=== PATIENT | male | born 1950 | race Caucasian/White ===

== ENCOUNTER → 2017-02-14 | Outpatient (CLI) | payer OTHER ==
--- NOTE | 2017-02-15 14:03 | P.ARTDOP ---
Arterial Doppler LOWER EXTREMITY ARTERIAL DOPPLER: DATE OF SERVICE: 02/14/2017 Reason for study: Leg pain more left than right. Doppler waveforms: Multiphasic bilaterally throughout. Pulse volume recording: Normal configuration. Pressure gradients: None. Ankle-brachial indices: Greater than 1 bilaterally. Toe pressures: 99 on the right, 101 on the left Impression: Normal study.
== END | disposition home or self-care (01) ==
LOC: RADUSWWP 12:17
PROVIDERS: ATTEND Family Medicine
DX: I73.9 Peripheral vascular disease, unspecified (principal)
CPT/HCPCS: 93923

== ENCOUNTER 2017-03-07 07:36 | Day surgery (SDC) | payer OTHER ==
[2017-03-07] MEDS ORDERED: LACTATED RINGERS 1,000 ML IV ONE (07:58)
[2017-03-07 08:03] VITALS: RESP 16; TEMP 96.8
[2017-03-07 08:07] LABS: Glucose,Whole Blood 86 mg/dL (75-99)
[2017-03-07] MEDS ORDERED: MIDAZOLAM 2 MG/2 ML VIAL IVP ONE (08:12)
[2017-03-07] MEDS ORDERED: LIDOCAINE 1% INJ 10MG/ML (20 ML MDV) ONE (08:40)
[2017-03-07] MEDS ORDERED: PROPOFOL 10 MG/ML 20 ML VIAL IV ONE (08:40)
[2017-03-07] MEDS ORDERED: fentaNYL (PF) 50 MCG/ML 2 ML AMP ONE (08:40)
[2017-03-07 09:10] VITALS: PULSE 62
--- NOTE | 2017-03-07 09:18 | P.PCN ---
Date of Procedure: 03/07/17 Procedure(s) Performed: Procedure: Esophagogastroduodenoscopy and biopsy. Preoperative diagnosis: Chronic reflux and dysphagia. Postoperative diagnosis: 1. Small sliding hiatal hernia with no obvious esophagitis or complicated reflux disease. 2. Mild gastritis and duodenitis. 3. Multiple biopsies obtained from the duodenum, antrum and esophagus. Preparation and sedation were provided by anesthesia. Brief clinical history: The patient is a 66-year-old male who I have evaluated in the office in regards to chronic reflux symptoms and dysphagia. This evaluation is to assess for esophagitis, complicated reflux disease or other pathology Procedure: With the patient on his left lateral decubitus position and after informed consent and adequate sedation, I passed the Olympus-GIF 160 video upper endoscope through the cricopharyngeus down the esophagus. GE junction was around 42-43 cm from the incisors and there was a very small sliding hiatal hernia. The esophagus did not show any obvious erosions or ulcers. There were no strictures or Vanegas's esophagus. The endoscope was then passed into the stomach which was insufflated with air and inspected in detail including the retroflex view in the cardia. There was mottling and erythema and few erosions in the antrum but no large ulcers or bleeding. No pyloric channel obstruction or ulcers. Duodenal bulb post bulbar area and descending duodenum showed some erythema. I obtained biopsies from the duodenum, antrum and esophagus then the endoscope was withdrawn. The patient tolerated the procedure well. Plan: The patient was reassured. Will await biopsy results and make further plans based on his course and biopsy results. I will keep you updated on his progress.
[2017-03-07 09:27] VITALS: BP 121/79
== END 2017-03-07 09:40 | disposition home or self-care (01) ==
LOC: ORWHC2ENDO 07:36
DX: K29.50 Unspecified chronic gastritis without bleeding (principal); K21.0 Gastro-esophageal reflux disease with esophagitis; K44.9 Diaphragmatic hernia without obstruction or gangrene; K29.80 Duodenitis without bleeding; I25.10 Atherosclerotic heart disease of native coronary artery without angina pectoris; I10 Essential (primary) hypertension; J44.9 Chronic obstructive pulmonary disease, unspecified; Z87.891 Personal history of nicotine dependence; G47.33 Obstructive sleep apnea (adult) (pediatric); E11.40 Type 2 diabetes mellitus with diabetic neuropathy, unspecified; Z79.84 Long term (current) use of oral hypoglycemic drugs; Z79.82 Long term (current) use of aspirin; Z79.899 Other long term (current) drug therapy
CPT/HCPCS: 88305; 88342; 43239; J2250; J2001; J3010; J2704

== ENCOUNTER → 2017-10-26 | Outpatient (CLI) | payer OTHER ==
--- NOTE | 2017-10-26 15:23 | NM ---
EXAMINATION TYPE: NM DatScan Brain SPECT DATE OF EXAM: 10/26/2017 COMPARISON: MR brain 08/11/2016 HISTORY: Tremors, G 25.0 TECHNIQUE: 10 drops of Lugol's solution was administered 1 hour prior to injection as a thyroid bloc ania agent. After the administration of 4.46 mCi I-123 Ioflupane DaTscan. Images obtained 3 hours p ost injection. SPECT images of the brain were acquired with axial and coronal reconstructions. FINDINGS: Normal striatonigral uptake is identified. There is a symmetric appearance of radiopharmaceutical upt [place]. IMPRESSION: Normal Go scan.
== END ==
LOC: RADNMMAIN 09:39
PROVIDERS: ATTEND Psychiatry & Neurology Neurology
DX: G25.0 Essential tremor (principal)
CPT/HCPCS: 78607; A9584

== ENCOUNTER → 2017-11-02 | Outpatient (CLI) | payer OTHER ==
[2017-11-02 10:06] LABS: Blood Urea Nitrogen 28 mg/dL (9-20)
--- NOTE | 2017-11-02 12:26 | MR ---
EXAMINATION TYPE: MR cspine/lspine wo con DATE OF EXAM: 11/02/2017 COMPARISON: NONE HISTORY: 67-year-old male Headaches, Neck pain, stiffness, low back pain, tremors TECHNIQUE: Multiplanar, multisequence images of the cervical followed by the lumbar spine were obtain ed without IV contrast. FINDINGS: CERVICAL SPINE: The craniocervical junction abnormality, predental space widening, or prevertebral soft tissue swelli ng. Degenerative grade 1 retrolisthesis at C4-C5 and C5-C6. The intervertebral discs are degenerated, desiccated, and narrowed especially at C4-C7 levels with di sc osteophyte complexes. Additional ligamentum flavum thickening with facet and uncovertebral joint arthropathy. Mild heterogeneity of marrow signal without suspicious bone marrow replacement. Prominent motion artifacts are present limiting assessment for cord signal abnormality. At C2-C3, mild facet arthropathy without significant canal or foraminal stenosis. At C3-C4, there is disc osteophyte complex with uncovertebral joint and facet degenerative change. Ch anges result in mild neuroforaminal stenoses with mild to moderate spinal canal stenosis. There is ab utment and slight flattening of both the dorsal and ventral cord. At C4-C5, larger disc osteophyte complex with ligamentum flavum thickening and facet/uncovertebral fox int degenerative change. Changes result in moderate spinal canal stenosis with impression onto onto b oth the dorsal and ventral cord changes result in moderate to severe left greater than right neurofor aminal stenosis. At C5-C6, similar changes are present but with mild to moderate spinal canal stenosis. Abutment and f lattening of both the dorsal and ventral cord. There is severe right and moderate left neuroforaminal stenosis. At C6-C7, disc osteophyte complex with facet and uncovertebral joint arthropathy. Changes result in m oderate to severe right and moderate left neuroforaminal stenosis. There is mild narrowing of the spi nal canal with ventral abutment of the cervical cord from disc osteophyte complex. At C7-T1, facet arthropathy without significant canal or foraminal stenosis. No prevertebral or paravertebral soft tissue abnormality seen. LUMBAR SPINE: There is chronic vertebral compression deformity of L1 vertebral body with anterior wedging. There se ems to be some chronic interbody ankylosis anteriorly at T12-L1. Accentuated kyphosis this level. Remaining vertebral body heights are maintained. Some heterogeneity of marrow signal without suspicio us bone marrow replacement. Facet arthropathy mid to lower lumbar spine with grade 1 anterolisthesis at L5-S1. Variable mild disc desiccation throughout and bulging discs. Conus medullaris is normal. At T12-L1, minimal inferior neuroforaminal narrowing on the right. No spinal canal stenosis. At L1-L2, minimal bulging disc. No canal or foraminal stenosis. At L2-L3, no spinal canal or foraminal stenosis. At L3-L4, some prominent dorsal epidural fat and ligamentum flavum thickening. Mild attenuation of th e thecal sac without significant spinal canal stenosis. No significant neuroforaminal stenosis. At L4-L5, there is mild ligamentum flavum thickening, mild facet arthropathy, and mild bulging disc. Changes result in no significant spinal canal or neuroforaminal stenosis. At L5-S1, hypertrophic facet arthropathy with grade 1 anterolisthesis and minimal bulging disc. Barnett es result in moderate right and minimal left neuroforaminal narrowing. No spinal canal stenosis. Partially visualized cyst within the right kidney. There is also aneurysm of the upper abdominal aort a at 3.4 cm. Otherwise, no prevertebral or paravertebral soft tissue abnormality seen. COMBINED IMPRESSION: CERVICAL SPINE: 1. Moderate to advanced multilevel spondylotic change especially from C4 through C7 levels with grade 1 retrolistheses at C4-C5 and C5-C6. 2. Changes result in moderate spinal canal stenosis at C4-C5 with impression on both the dorsal and v entral cord. Mild to moderate spinal canal stenoses at both C3-C4 and C5-C6, mild at C6-C7. 3. Variable neuroforaminal stenoses as outlined above, moderate to severe left greater than right at C4-C5; severe right and moderate left at C5-C6; and moderate to severe right and moderate left at C6- C7. 4. Prominent motion artifacts limit assessment for any cord signal abnormality. Clinical correlation will be needed for any myelopathic symptoms. LUMBAR SPINE: 1. Mild multilevel degenerative disc disease. Hypertrophic facet arthropathy especially at L5-S1 resu lting in a grade 1 anterolisthesis. 2. At L5-S1, this results in moderate right and minimal left neuroforaminal narrowing. No spinal ada l stenosis. 3. Chronic vertebral compression deformity of L1. No significant retropulsion into the spinal canal t abbie there is accentuated upper lumbar kyphosis as a result. 4. No canal compromise. 5. Incidental: 3.4 cm aneurysm of the upper abdominal aorta.
--- NOTE | 2017-11-02 12:37 | MR ---
EXAMINATION TYPE: MR brain wo/w con DATE OF EXAM: 11/02/2017 COMPARISON: 08/11/2016 HISTORY: 67-year-old male Headaches, Tremors, history of pituitary surgery TECHNIQUE: Multiplanar, multisequence images of the brain and brainstem were acquired before and aft er administration of 10 mL IV Gadavist. Diffusion weighted imaging is performed. FINDINGS: No evidence for acute infarction, hemorrhage, mass, mass effect, midline shift, herniation, effacemen t of basal cisterns, or extra-axial fluid collection. There is mild generalized supratentorial volume loss. No hydrocephalus. Major intracranial flow voids are intact. There is mild fusiform dilatation at the basilar artery ter mination of 4.6 mm which is unchanged. T2/FLAIR weighted sequences show a couple stable tiny bright signal foci in the subcortical regions p robably minimal burden of chronic small vessel ischemic disease. Midline structures demonstrate normal morphology. The craniocervical junction is normal. Post contrast images demonstrate no evidence of pathologic enhancement. Dural venous sinuses are pat ent. Moderate mucosal thickening within the ethmoid air cells and partial opacification of the left mastoi d air cells. Moderate mucosal thickening right maxillary sinus. Globes are intact with prior cataract surgery. IMPRESSION: 1. Similar mild atrophy. No acute intracranial abnormality seen. The couple tiny subcortical bright w magali matter foci are unchanged and likely relate to minimal burden of chronic small vessel ischemic d isease. 2. 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 In retrospect , this is stable from 08/11/2016. 3. Moderate chronic paranasal sinus disease, worsened from prior exam. 4. Persistent trapped fluid in the left mastoid air cells. Correlate for any mastoid pain to exclude mastoiditis.
== END | disposition home or self-care (01) ==
LOC: RADMRIMAIN 09:16
PROVIDERS: ATTEND Psychiatry & Neurology Neurology
DX: M51.36 Other intervertebral disc degeneration, lumbar region (principal); M43.16 Spondylolisthesis, lumbar region; M46.97 Unspecified inflammatory spondylopathy, lumbosacral region; M99.73 Connective tissue and disc stenosis of intervertebral foramina of lumbar region; M47.812 Spondylosis without myelopathy or radiculopathy, cervical region; M43.12 Spondylolisthesis, cervical region; M48.02 Spinal stenosis, cervical region; M99.71 Connective tissue and disc stenosis of intervertebral foramina of cervical region; G31.9 Degenerative disease of nervous system, unspecified; R93.0 Abnormal findings on diagnostic imaging of skull and head, not elsewhere classified; G25.0 Essential tremor
CPT/HCPCS: 82565; 84520; 70553; 72141; 72148; 36415; A9581

== ENCOUNTER → 2017-11-23 | Outpatient (CLI) | payer OTHER | END | disposition home or self-care (01) | LOC: LABWHC1 11:46 | PROVIDERS: ATTEND Nurse Practitioner Acute Care | DX: R13.10 Dysphagia, unspecified (principal) | CPT/HCPCS: 36415; 83519; 86255 ==

== ENCOUNTER 2018-02-13 08:05 | Day surgery (SDC) | payer OTHER ==
[2018-02-09 16:29] VITALS: BMI 37.5
[~2018-02-13 08:05] MED LIST: LACTATED RINGERS 1,000 ML IV SCH; LIDOCAINE 1% 20 ML VIAL (10MG/ML) FOR IV START INTRADERMA PRN; MIDAZOLAM 2 MG/2 ML VIAL IV PRN
[2018-02-13 08:54] LABS: Glucose,Whole Blood 91 mg/dL (75-99)
[2018-02-13] MEDS ORDERED: PROPOFOL 10 MG/ML 20 ML VIAL IV ONE (09:37)
[2018-02-13 10:08] VITALS: RESP 16
[2018-02-13 10:24] VITALS: BP 103/62; PULSE 77
--- NOTE | 2018-02-13 10:57 | P.PCN ---
Date of Procedure: 02/13/18 Procedure(s) Performed: Procedure: Total colonoscopy. Preoperative diagnosis: Screening for neoplasia, patient has history of polyps. Postoperative diagnosis: Sigmoid diverticulosis with no evidence of acute diverticulitis, strictures, polyps or cancer. Preparation: HalfLytely prep. Sedation: Was provided by anesthesia. Brief clinical history: The patient is a 67-year-old male who is referred for this evaluation for screening for neoplasia because of history of polyps. The patient has no abdominal complaints, bleeding or anemia. Procedure: With the patient on his left lateral decubitus position and after informed consent and adequate sedation, the perianal area was inspected and it did not show any fissures or fistulas. There were no masses felt on digital rectal examination. The Olympus CFQ 160L colonoscope was then inserted in the rectum in the usual fashion and advanced to the cecum. Unfortunately, the preparation was less than ideal, and I spent significant amount of time lavaging the bowel wall. After concluding the cleansing, I believe we had a good look all the way to the cecum. The mucosa appeared healthy. Multiple diverticular orifices were seen scattered in the sigmoid, but I saw no evidence of acute diverticulitis or strictures. No polyps or tumors were seen. I retroflexed the endoscope in the rectum before the endoscope was withdrawn. The patient tolerated the procedure well. Plan: The patient was reassured. Discussed dietary measures. He will follow up with you as planned and I recommended repeat exam in 5 years.
== END 2018-02-13 10:53 | disposition home or self-care (01) ==
LOC: ORWHC2ENDO 08:05
DX: Z12.11 Encounter for screening for malignant neoplasm of colon (principal); K57.30 Diverticulosis of large intestine without perforation or abscess without bleeding; Z86.010 Personal history of colon polyps; K21.9 Gastro-esophageal reflux disease without esophagitis; I25.10 Atherosclerotic heart disease of native coronary artery without angina pectoris; I10 Essential (primary) hypertension; E11.9 Type 2 diabetes mellitus without complications; Z79.84 Long term (current) use of oral hypoglycemic drugs; J44.9 Chronic obstructive pulmonary disease, unspecified; Z99.81 Dependence on supplemental oxygen; E78.5 Hyperlipidemia, unspecified; M19.90 Unspecified osteoarthritis, unspecified site; G47.33 Obstructive sleep apnea (adult) (pediatric); Z86.711 Personal history of pulmonary embolism; E07.9 Disorder of thyroid, unspecified; Z79.890 Hormone replacement therapy; Z79.899 Other long term (current) drug therapy
CPT/HCPCS: J2704; G0105; 45378

== ENCOUNTER 2019-01-25 19:57 | Inpatient (IN) | payer OTHER, MEDICARE ==
[2019-01-25] MEDS ORDERED: methylPREDNISolone SOD SUCCI 125 MG/2 ML VIAL IV STA (20:16)
[2019-01-25] MEDS ORDERED: SODIUM CHLORIDE 0.9% 500 ML 500 ML IV STA (20:16)
[2019-01-25] MEDS ORDERED: IPRATROPIUM-ALBUTEROL 3 ML NEB INHALATION STA (20:17)
[2019-01-25] MEDS ORDERED: ALBUTEROL NEBULIZED 2.5 MG/3 ML INHALATION STA (20:17)
[2019-01-25 20:35] LABS: Basophils % (A) 0 %; Eosinophils # (A) 0.2 k/uL (0-0.7); Eosinophils % (A) 4 %; HCT 38.7 % (39.0-53.0); HGB 12.2 gm/dL (13.0-17.5); Lymphocytes # (A) 0.6 k/uL (1.0-4.8); Lymphocytes % (A) 12 %; MCH 29.7 pg (25.0-35.0); MCHC 31.5 g/dL (31.0-37.0); MCV 94.4 fL (80.0-100.0); Mean Platelet Volume 7.6; Monocytes # (A) 0.3 k/uL (0-1.0); Monocytes % (A) 6 %; Neutrophils % (A) 75 %; Platelet Count 138 k/uL (150-450); RDW 13.4 % (11.5-15.5); WBC 5.3 k/uL (3.8-10.6)
[2019-01-25 20:45] LABS: Albumin 3.9 g/dL (3.5-5.0); Calcium 10.2 mg/dL (8.4-10.2); Total Bilirubin 1.1 mg/dL (0.2-1.3)
[2019-01-25 20:46] LABS: Magnesium 1.6 mg/dL (1.6-2.3); Potassium 5.3 mmol/L (3.5-5.1)
--- NOTE | 2019-01-25 20:49 | ED ---
General Adult HPI - General Chief complaint: Fall Stated complaint: weakness/falls Time Seen by Provider: 01/25/19 19:59 Source: patient, EMS, RN notes reviewed, old records reviewed Mode of arrival: EMS Limitations: physical limitation - History of Present Illness Initial comments: 68-year-old male presents for evaluation of generalized weakness, increased falls. Patient has history of COPD, currently on 5 L home oxygen. He's had increased generalized weakness over the past several days. Patient denies increase in cough. Denies fever or chills. Denies chest pain. Denies abdominal pain. Denies any real specific pain complaint status post fall. Just states that his legs gave out secondary to increased weakness. Denies focal numbness or weakness. Denies vision changes. Denies headache. - Related Data Home Medications Medication Instructions Recorded Confirmed Alendronate Sodium [Fosamax] 70 mg PO MO 03/03/17 01/25/19 Aspirin 325 mg PO DAILY 03/03/17 01/25/19 Atorvastatin [Lipitor] 80 mg PO 03/03/17 01/25/19 Cholecalciferol [Vitamin D3] 2,000 unit PO 03/03/17 01/25/19 Gabapentin 900 mg PO TID 03/03/17 01/25/19 Levothyroxine Sodium [Synthroid] 100 mcg PO QAM 03/03/17 01/25/19 Lisinopril-Hctz 10-12.5 mg 1 tab PO QAM 03/03/17 01/25/19 [Zestoretic 10-12.5] Loratadine 10 mg PO DAILY 03/03/17 01/25/19 Metoprolol Tartrate 25 mg PO BID 03/03/17 01/25/19 Naproxen 500 mg PO BID 03/03/17 01/25/19 Pantoprazole [Protonix] 40 mg PO 03/03/17 01/25/19 glipiZIDE [Glucotrol] 2.5 mg PO 03/03/17 01/25/19 Calcium 500mg 2,000 mg PO DAILY 01/25/19 01/25/19 Sennosides-Docusate Sodium 2 tab PO BID 01/25/19 01/25/19 [Senokot-S] Tamsulosin [Flomax] 0.4 mg PO 01/25/19 01/25/19 Allergies Allergy/AdvReac Type Severity Reaction Status Date / Time No Known Allergies Allergy Verified 01/25/19 20:45 Review of Systems ROS Statement: Those systems with pertinent positive or pertinent negative responses have been documented in the HPI. ROS Other: All systems not noted in ROS Statement are negative. Past Medical History Past Medical History: Coronary Artery Disease (CAD), COPD, Diabetes Mellitus, Eye Disorder, GERD/Reflux, Hearing Disorder / Deafness, Hyperlipidemia, Hypertension, Osteoarthritis (OA), Pulmonary Embolus (PE), Sleep Apnea/CPAP/BIPAP Additional Past Medical History / Comment(s): O2 5L. PE IN 2007. CHRONIC BACK PAIN. DIABETIC NEUROPATHY IN FEET. GLAUCOMA. TREMORS. OSTEOPOROSIS. CPAP ORDERED BUT DOESN'T USE. HX POLYPS History of Any Multi-Drug Resistant Organisms: None Reported Past Surgical History: Appendectomy, Cholecystectomy, Hernia Repair, Orthopedic Surgery Additional Past Surgical History / Comment(s): BILATERAL KNEE REPLACEMENT, PLUS RIGHT KNEE DONE AGAIN; RIGHT ROTATOR CUFF. PITUITARY TUMOR REMOVED. BILATERAL CATARACTS. SINUS. GLAUCOMA SURGERY. EYE LID SURGERY. Additional Past Anesthesia/Blood Transfusion Reaction / Comment(s): QUESTIONABLE THAT VERSED MAY OVERLY SEDATE. Past Psychological History: No Psychological Hx Reported Smoking Status: Former smoker Past Alcohol Use History: None Reported Past Drug Use History: None Reported - Past Family History Mother Family Medical History: Cancer Additional Family Medical History / Comment(s): LUNG General Exam Limitations: physical limitation General appearance: alert, in no apparent distress Head exam: Present: atraumatic, normocephalic Eye exam: Present: normal appearance, PERRL ENT exam: Present: normal exam Neck exam: Present: normal inspection. Absent: tenderness, meningismus Respiratory exam: Present: decreased breath sounds, prolonged expiratory. Absent: respiratory distress Cardiovascular Exam: Present: regular rate, normal rhythm GI/Abdominal exam: Present: soft, distended. Absent: tenderness, guarding Extremities exam: Present: normal inspection, normal capillary refill, pedal edema. Absent: calf tenderness Neurological exam: Present: alert, oriented X3, CN II-XII intact. Absent: motor sensory deficit Psychiatric exam: Present: normal affect, normal mood Skin exam: Present: warm, dry, intact. Absent: cyanosis, diaphoretic Course Vital Signs 01/25/19 01/25/19 01/25/19 19:59 20:34 20:49 Temperature 97.7 F Pulse Rate 92 86 90 Respiratory 18 18 18 Rate Blood Pressure 134/96 O2 Sat by Pulse 82 L Oximetry EKG Findings - EKG Comments: EKG Findings:: EKG: Normal sinus rhythm, ventricular rate of 89, IL interval 190, QRS duration 92, QTC 428, no ST segment elevation Medical Decision Making - Medical Decision Making 68 -year-old male presenting for evaluation of generalized weakness, multiple falls, dyspnea. Patient is home oxygen dependent, currently on 5 L. He states his been using 6 L recently. Patient's given albuterol, Atrovent, steroids and IV fluids in the emergency department. Workup reveals a CBC unremarkable, CMP does show mild hyperkalemia 5.3, otherwise unremarkable. Urinalysis is pending. Chest x-ray negative for focal pneumonia. X-ray of the pelvis is obtained given the increased family history this is negative for fracture dislocation. Patient will be admitted for further evaluation treatment. Diagnosis: COPD exacerbation with hypoxia, generalized weakness, multiple falls. - Lab Data Result diagrams: 01/25/19 20:15 01/25/19 20:15 Lab Results 01/25/19 01/25/19 01/25/19 Range/Units 20:15 20:15 20:15 WBC 5.3 (3.8-10.6) k/uL RBC 4.10 L (4.30-5.90) m/uL Hgb 12.2 L (13.0-17.5) gm/dL Hct 38.7 L (39.0-53.0) % MCV 94.4 (80.0-100.0) fL MCH 29.7 (25.0-35.0) pg MCHC 31.5 (31.0-37.0) g/dL RDW 13.4 (11.5-15.5) % Plt Count 138 L (150-450) k/uL Neutrophils % 75 % Lymphocytes % 12 % Monocytes % 6 % Eosinophils % 4 % Basophils % 0 % Neutrophils # 4.0 (1.3-7.7) k/uL Lymphocytes # 0.6 L (1.0-4.8) k/uL Monocytes # 0.3 (0-1.0) k/uL Eosinophils # 0.2 (0-0.7) k/uL Basophils # 0.0 (0-0.2) k/uL Sodium 143 (137-145) mmol/L Potassium 5.3 H (3.5-5.1) mmol/L Chloride 99 (98-107) mmol/L Carbon Dioxide 40 H (22-30) mmol/L Anion Gap 4 mmol/L BUN 35 H (9-20) mg/dL Creatinine 1.00 (0.66-1.25) mg/dL Est GFR (CKD-EPI)AfAm 88 (>60 ml/min/1.73 sqM) Est GFR (CKD-EPI)NonAf 76 (>60 ml/min/1.73 sqM) Glucose 81 (74-99) mg/dL Calcium 10.2 (8.4-10.2) mg/dL Magnesium 1.6 (1.6-2.3) mg/dL Total Bilirubin 1.1 (0.2-1.3) mg/dL AST 34 (17-59) U/L ALT 23 (21-72) U/L Alkaline Phosphatase 66 (38-126) U/L Troponin I <0.012 (0.000-0.034) ng/mL Total Protein 7.0 (6.3-8.2) g/dL Albumin 3.9 (3.5-5.0) g/dL Disposition Clinical Impression: Fall, COPD exacerbation, Generalized weakness Disposition: ADMITTED IP TO THIS HOSP Condition: Stable Is patient prescribed a controlled substance at d/c from ED?: No Referrals: [facility],Clinic [Primary Care Provider] - 1-2 days Decision to Admit Reason: Admit from EC Decision Date: 01/25/19 Decision Time: 22:35
--- NOTE | 2019-01-25 21:13 | XR ---
EXAMINATION TYPE: XR pelvis AP view DATE OF EXAM: 01/25/2019 COMPARISON: NONE HISTORY: Weakness. Fall. TECHNIQUE: 2 views FINDINGS: Pelvic ring appears intact. Sacroiliac joints appear normal. Proximal femurs and hip joints are intact. Hip joint spaces are fairly normal. IMPRESSION: Negative pelvis exam. No fracture seen.
--- NOTE | 2019-01-25 21:14 | XR ---
EXAMINATION TYPE: XR chest 2V DATE OF EXAM: 01/25/2019 COMPARISON: NONE HISTORY: Short of breath TECHNIQUE: Frontal and lateral views of the chest are obtained. FINDINGS: There is coarsening of the lung markings. Heart is enlarged. There is no gross heart failu re. There is no pleural effusion. There are chest leads. Bony thorax appears intact. IMPRESSION: Cardiomegaly. Pulmonary fibrotic changes. No gross heart failure.
[2019-01-25] MEDS ORDERED: MORPHINE SULFATE 4 MG/ML SYRINGE IVP STA (21:48)
[2019-01-25] MEDS ORDERED: MAGNESIUM SULFATE-D5W PMX 1 GM in DEXTROSE/WATER 1 100ML.BAG IVPB ONE (22:30)
[2019-01-25] MEDS ORDERED: IPRATROPIUM-ALBUTEROL 3 ML NEB INHALATION PRN (22:31)
[2019-01-25] MEDS: SODIUM CHLORIDE 0.9% 1,000 ML IV SCH (22:43)
[2019-01-25 23:05] LABS: Appearance,Urine Clear (Clear); Bilirubin,Urine Negative (Negative); Blood,Urine Small (Negative); Color,Urine Yellow; Glucose,Urine (UA) Negative (Negative); Hyaline Casts,Urine 3 /lpf (0-2); Ketones,Urine Negative (Negative); Leukocyte Esterase,Urine Negative (Negative); Mucus,Urine Rare /hpf; Nitrite,Urine Negative (Negative); PH, Urine 5.5 (5.0-8.0); Protein,Urine Trace (Negative); RBC,Urine 31 /hpf (0-5); Specific Gravity,Urine 1.027 (1.001-1.035); Urobilinogen,Urine <2.0 mg/dL (<2.0); WBC,Urine 2 /hpf (0-5)
[2019-01-26 00:29] VITALS: BMI 38.9
[2019-01-26] MEDS: methylPREDNISolone SOD SUCCI 125 MG/2 ML VIAL IV SCH ×4 (00:40→17:19)
[2019-01-26 02:57] LABS: INR 0.9 (<1.2); Partial Thromboplastin Time 25.4 sec (22.0-30.0); Prothrombin Time 10.2 sec (9.0-12.0)
[2019-01-26] MEDS: traMADol 50 MG TAB PO PRN ×2 (06:03→15:24)
[2019-01-26 07:29] LABS: Glucose,Whole Blood 182 mg/dL (75-99)
[2019-01-26] MEDS: IPRATROPIUM-ALBUTEROL 3 ML NEB INHALATION SCH ×4 (07:44→19:59)
[2019-01-26] MEDS: AZITHROMYCIN 500 MG TAB PO SCH (09:26)
[2019-01-26 11:13] LABS: Glucose,Whole Blood 252 mg/dL (75-99)
[2019-01-26] MEDS ORDERED: ALPRAZolam 0.25 MG TAB PO PRN (11:22)
[2019-01-26] MEDS ORDERED: ACETAMINOPHEN TAB 500 MG TAB PO PRN (11:22)
[2019-01-26] MEDS ORDERED: HYDROcodone/APAP 5-325MG 1 EACH TAB PO PRN (11:22)
[2019-01-26] MEDS: CALCIUM CARBONATE 500 MG CHEWABLE PO SCH (13:17)
[2019-01-26] MEDS: LISINOPRIL-HCTZ 10-12.5 MG 1 EACH TAB PO SCH (13:18)
[2019-01-26] MEDS: METOPROLOL TARTRATE 25 MG TAB PO SCH ×2 (13:30→21:32)
[2019-01-26] MEDS: SODIUM CHLORIDE 0.9% 1,000 ML IV SCH (13:30)
--- NOTE | 2019-01-26 14:33 | CT ---
EXAMINATION TYPE: CT brain wo con DATE OF EXAM: 01/26/2019 HISTORY: weakness CT DLP: 1055 mGycm. Automated Exposure Control for Dose Reduction was Utilized. TECHNIQUE: CT scan of the head is performed without contrast. COMPARISON: MR brain 11/02/2017. FINDINGS: There is no acute intracranial hemorrhage or midline shift identified. There is diffuse v entricular and sulcal prominence consistent with diffuse age-related cerebral atrophy. There is low- attenuation in the periventricular white matter consistent with chronic small vessel ischemic change. The globes are intact and the visualized sinuses are clear. The basilar terminus is again promine nt and retrospectively unchanged. IMPRESSION: No acute intracranial hemorrhage or midline shift.
[2019-01-26 16:55] LABS: Glucose,Whole Blood 181 mg/dL (75-99)
--- NOTE | 2019-01-26 17:15 | HP ---
HISTORY AND PHYSICAL DATE OF SERVICE: 01/26/2019 CHIEF COMPLAINTS: Shortness of breath as well as fall and weakness. HISTORY OF PRESENT ILLNESS: This 68-year-old gentleman with a past medical history of multiple medical problems including history of CAD, COPD, diabetes type 2, GERD, hypertension, hyperlipidemia, DJD, history of pulmonary embolus, history of sleep apnea, history of chronic back pain being followed by Dr. Otto Lopez in the [facility] in the outpatient setting, was complaining of generalized weakness. Patient had multiple falls. Patient also had shortness of breath. The patient is currently on 5 L home oxygen. The patient was hypoxic. Patient came to [facility] and was admitted for further evaluation and treatment. CT scan did not show acute abnormality. The flu test was also negative. The patient was hypoxic at 82% on room air. The patient was admitted for further evaluation and treatment. There is no history of fever, rigors, no headache, loss of consciousness or seizures, chest pain, palpitations at this time. PAST MEDICAL HISTORY: History of CAD, COPD, diabetes mellitus type 2, GERD, hard of hearing, hypertension, hyperlipidemia, history of DJD, pulmonary embolism, sleep apnea. MEDICATIONS: Prior to admission include home medications: 1. Glucotrol 2.5 mg at bedtime. 2. Flomax 0.4 q.h.s. 3. Senokot-S 2 tablets p.o. b.i.d. 4. Protonix 40 mg q.h.s. 5. Naprosyn 500 mg p.o. b.i.d. 6. Metoprolol 25 mg p.o. b.i.d. 7. Loratadine 10 mg p.o. daily. 8. Zestoretic /12.5 mg q.a.m. 9. Synthroid 100 mcg p.o. q.a.m. 10.Gabapentin 100 mg p.o. t.i.d. 11.Vitamin D3 2000 q.h.s. 12.Calcium 2000 mg p.o. daily. 13.Lipitor 80 mg q.h.s. 14.Aspirin 320 mg p.o. daily. 15.Fosamax 70 mg p.o. Monday. ALLERGIES: None. FAMILY HISTORY: History of lung cancer in the family. SOCIAL HISTORY: Previous history of smoking. No history of current smoking. No alcohol intake. REVIEW OF SYSTEMS: ENT: Diminished hearing and vision. CARDIOVASCULAR: No angina or palpitations. RESPIRATORY: As mentioned earlier. GI no nausea or vomiting. no dysuria. CENTRAL NERVOUS SYSTEM: As mentioned earlier. ALLERGY/IMMUNOLOGY: No asthma or hayfever. MUSCULOSKELETAL: As mentioned earlier. HEMATOLOGY/ONCOLOGY: No history of anemia. ENDOCRINE: Hypothyroidism. CONSTITUTIONAL: As mentioned earlier. DERMATOLOGY: Negative. RHEUMATOLOGY: Negative. PSYCHIATRY: As mentioned earlier. PHYSICAL EXAMINATION: Alert and oriented x2. Pulse 99, blood pressure 130/89, respiratory rate 21, temperature 98 degrees, pulse ox 82 percent on room air and 6 L nasal cannula. HEENT: Conjunctivae normal. Oral mucosa moist. NECK is no jugular venous distention. No carotid bruit. No lymph node enlargement. CARDIOVASCULAR: S1, S2 muffled. RESPIRATIONS: Breath sounds diminished in the bases. A few scattered rhonchi and crackles. Expiratory wheezing also present. Breathing efforts are increased. ABDOMEN: Soft, nontender. No mass palpable. LEGS: No edema. No swelling. NERVOUS SYSTEM: Higher functions as mentioned earlier. Moves all 4 limbs. No focal motor or sensory deficits. Lymphatics: No lymph nodes palpable in the neck, axillae or groin. SKIN: No ulcer, rash or bleeding. JOINTS: No active deforming arthropathy. LAB STUDIES: WBC 5.1, hemoglobin 12.2, platelets 130, sodium 143, potassium 5.3, BUN is 35. UA noted, thirty-one RBCs. ASSESSMENT: 1. Chronic obstructive pulmonary disease acute exacerbation with acute purulent tracheobronchitis. 2. Generalized asthenia weakness with multiple falls with gait dysfunction. 3. Anemia, normocytic anemia of chronic disease. 4. Mild thrombocytopenia. 5. Mild hyperkalemia. 6. Hematuria, mild. 7. History of coronary artery disease. 8. History of chronic obstructive pulmonary disease. 9. Diabetes mellitus type 2. 10.Gastroesophageal reflux disease. 11.History of hard of hearing. 12.Hypertension. 13.Hyperlipidemia. 14.History of degenerative joint disease. 15.History of pulmonary embolism. 16.History of sleep apnea. 17.History of chronic hypoxic respiratory failure on oxygen 5 L. 18.History of glaucoma. 19.History of tremors. 20.History of degenerative joint disease. 21.Remote history of nicotine dependence. 22.Morbid obesity with BMI of 38.9. RECOMMENDATIONS AND DISCUSSION: This 68-year-old gentleman who presented with multiple complex medical issues, we will monitor the patient closely. Continue the current medications. We will optimize bronchodilator treatment, IV steroids. Otherwise empiric antibiotics. I would also recommend PT/OT evaluation. Also recommend pulmonary consultation with Dr. Biju Tidwell whom the patient knows. Otherwise we will follow the patient closely. Monitor blood sugars closely. Prognosis guarded because of multiple complex medical issues. Further recommendations to follow. A copy of this dictation being forwarded to Dr. Lopez, who is the primary physician. MMODL / IJN: [id number] /
[2019-01-26] MEDS: GABAPENTIN 300 MG CAP PO SCH ×2 (17:18→21:32)
[2019-01-26] MEDS: LEVOTHYROXINE 100 MCG TAB PO SCH (17:18)
[2019-01-26] MEDS: INSULIN ASPART (NovoLOG) 100 UNIT/ML VIAL SQ SCH ×2 (17:33→21:33)
[2019-01-26 19:50] LABS: Glucose,Whole Blood 167 mg/dL (75-99)
[2019-01-26] MEDS: SYMBICORT 160-4.5 MCG INHALER INHALATION SCH (19:59)
[2019-01-26] MEDS: CHOLECALCIFEROL 1,000 UNIT TAB PO SCH (21:32)
[2019-01-26] MEDS: SENNOSIDES-DOCUSATE SODIUM 1 EACH TAB PO SCH (21:32)
[2019-01-26] MEDS: NAPROXEN 250 MG TAB PO SCH (21:32)
[2019-01-26] MEDS: PANTOPRAZOLE 40 MG TABLET PO SCH (21:33)
[2019-01-26] MEDS: HEPARIN SODIUM,PORCINE 5,000 UNIT/ML 1 ML VIAL SQ SCH (21:33)
[2019-01-26] MEDS: ATORVASTATIN 80 MG TAB PO SCH (21:33)
[2019-01-26] MEDS: TAMSULOSIN 0.4 MG CAP.ER.24H PO SCH (21:33)
[2019-01-27] MEDS: SODIUM CHLORIDE 0.9% 1,000 ML IV SCH ×2 (00:34→15:22)
[2019-01-27] MEDS: methylPREDNISolone SOD SUCCI 125 MG/2 ML VIAL IV SCH ×3 (00:34→13:01)
[2019-01-27] MEDS: LEVOTHYROXINE 100 MCG TAB PO SCH (06:34)
[2019-01-27 07:00] LABS: Glucose,Whole Blood 129 mg/dL (75-99)
[2019-01-27] MEDS: IPRATROPIUM-ALBUTEROL 3 ML NEB INHALATION SCH ×4 (07:23→19:47)
[2019-01-27] MEDS: SYMBICORT 160-4.5 MCG INHALER INHALATION SCH ×2 (07:23→19:47)
[2019-01-27] MEDS: CALCIUM CARBONATE 500 MG CHEWABLE PO SCH (07:42)
[2019-01-27 07:45] LABS: Basophils % (A) 0 %; Eosinophils % (A) 0 %; HCT 35.8 % (39.0-53.0); HGB 11.2 gm/dL (13.0-17.5); Lymphocytes # (A) 0.5 k/uL (1.0-4.8); Lymphocytes % (A) 5 %; MCHC 31.3 g/dL (31.0-37.0); MCV 95.6 fL (80.0-100.0); Mean Platelet Volume 7.5; Monocytes # (A) 0.4 k/uL (0-1.0); Monocytes % (A) 5 %; Neutrophils # (A) 8.3 k/uL (1.3-7.7); Neutrophils % (A) 89 %; Platelet Count 161 k/uL (150-450); RBC 3.74 m/uL (4.30-5.90); RDW 13.7 % (11.5-15.5); WBC 9.3 k/uL (3.8-10.6)
[2019-01-27] MEDS: ASPIRIN 325 MG TAB PO SCH (07:52)
[2019-01-27] MEDS: AZITHROMYCIN 500 MG TAB PO SCH (07:53)
[2019-01-27] MEDS: HEPARIN SODIUM,PORCINE 5,000 UNIT/ML 1 ML VIAL SQ SCH ×2 (07:53→22:03)
[2019-01-27] MEDS: GABAPENTIN 300 MG CAP PO SCH ×3 (07:53→22:00)
[2019-01-27] MEDS: LISINOPRIL-HCTZ 10-12.5 MG 1 EACH TAB PO SCH (07:54)
[2019-01-27] MEDS: SENNOSIDES-DOCUSATE SODIUM 1 EACH TAB PO SCH ×2 (07:54→21:58)
[2019-01-27] MEDS: METOPROLOL TARTRATE 25 MG TAB PO SCH ×2 (07:54→21:58)
[2019-01-27] MEDS: LORATADINE 10 MG TAB PO SCH (07:54)
[2019-01-27] MEDS: NAPROXEN 250 MG TAB PO SCH ×2 (07:59→22:02)
[2019-01-27 08:07] LABS: Albumin 3.6 g/dL (3.5-5.0); Calcium 9.4 mg/dL (8.4-10.2); Potassium 5.2 mmol/L (3.5-5.1); Total Bilirubin 0.7 mg/dL (0.2-1.3); Total Protein 6.3 g/dL (6.3-8.2)
[2019-01-27] MEDS: INSULIN ASPART (NovoLOG) 100 UNIT/ML VIAL SQ SCH ×4 (08:08→22:04)
[2019-01-27 11:21] LABS: Glucose,Whole Blood 185 mg/dL (75-99)
[2019-01-27 14:58] LABS: ABG Base Excess 11.6 mmol/L; ABG HCO3 36 mmol/L (21-25); ABG Oxygen Saturation 98.1 % (94-97); ABG PCO2 59 mmHg (35-45); ABG PO2 107 mmHg (83-108); ABG TCO2 38 mmol/L (19-24)
[2019-01-27 17:14] LABS: Glucose,Whole Blood 160 mg/dL (75-99)
[2019-01-27 20:08] LABS: Glucose,Whole Blood 276 mg/dL (75-99)
[2019-01-27] MEDS ORDERED: methylPREDNISolone SOD SUCCI 40 MG/ML 1 ML VIAL IV SCH (21:00)
--- NOTE | 2019-01-27 21:01 | PN ---
PROGRESS NOTE DATE OF SERVICE: 01/27/2019 This 68-year-old gentleman who was admitted with COPD acute exacerbation as well as generalized asthenia is being closely monitored at this time. The patient also has history of gait dysfunction also. The CT scan of the brain was done which showed no acute abnormality. No chest pain. No palpitations. No fever. EXAM: Alert and oriented x2. Pulse 95, blood pressure 130/64, respirations 16, temperature 97.4, pulse ox 93% on 6 L. HEENT: Conjunctivae normal. NECK: No jugular venous distention. CARDIOVASCULAR: S1, S2 muffled. RESPIRATORY: Breath sounds diminished in the bases. Bilateral scattered rhonchi and crackles. Expiratory wheezing also present. Abdomen is soft, obese, nontender. Legs are no edema, no swelling. CENTRAL NERVOUS SYSTEM: No focal deficits. LAB STUDIES: WBC 11.1, hemoglobin 7.3, ABGs 7.4 and pCO2 is 59, PO2 is 107. ASSESSMENT: 1. Chronic obstructive pulmonary disease acute exacerbation with acute purulent tracheobronchitis with acute hypoxic hypercarbic respiratory failure. 2. Generalized asthenia weakness with multiple falls and gait dysfunction. 3. Anemia, normocytic anemia of chronic disease. 4. Mild thrombocytopenia. 5. Hyperkalemia. 6. Hematuria, mild. 7. History of coronary artery disease. 8. History of chronic obstructive pulmonary disease. 9. Diabetes type 2. 10.History of gastroesophageal reflux disease. 11.History of hard of hearing. 12.Hypertension. 13.Hyperlipidemia. 14.History of pulmonary embolism. 15.Sleep apnea. 16.History of chronic hypoxic respiratory failure on oxygen 5 L. 17.History of glaucoma. 18.History of tremors. 19.History of degenerative joint disease. 20.Remote history of nicotine dependence. 21.Morbid obesity with BMI of 38.9. RECOMMENDATIONS AND DISCUSSION: Recommend to continue current medications, management and symptomatic treatment. Otherwise, at this time, I recommend continue with bronchodilators. Continue with IV steroids. Otherwise, continue the bronchodilators. Continue with the empiric antibiotics. Closely follow with Pulmonary. PT/OT evaluation and we will also explore the possibility of ECF rehab also. Guarded prognosis. Further recommendations to follow. See orders for details. MMODL / IJN: [id number] /
[2019-01-27] MEDS: CHOLECALCIFEROL 1,000 UNIT TAB PO SCH (21:57)
[2019-01-27] MEDS: TAMSULOSIN 0.4 MG CAP.ER.24H PO SCH (21:58)
[2019-01-27] MEDS: PANTOPRAZOLE 40 MG TABLET PO SCH (21:58)
[2019-01-27] MEDS: ATORVASTATIN 80 MG TAB PO SCH (21:59)
[2019-01-27] MEDS: traMADol 50 MG TAB PO PRN (22:03)
[2019-01-28] MEDS: methylPREDNISolone SOD SUCCI 125 MG/2 ML VIAL IV SCH ×4 (00:06→18:16)
--- NOTE | 2019-01-28 00:07 | CONS ---
CONSULTATION Yomi Mccormick is a 68-year-old male who came to the ER as he had been sleeping a lot. He also was short of breath and was having some wheezing. He has a known history of obstructive sleep apnea on BiPAP, but is unable to tolerate this. He subsequently came into the ER and was admitted for further evaluation. PAST MEDICAL HISTORY: Positive for coronary artery disease, COPD, diabetes mellitus, gastroesophageal reflux disease, obstructive sleep apnea for which he is noncompliant with his BiPAP, history of cholecystectomy, hernia repair, bilateral knee replacement, right rotator cuff surgery, history of pituitary tumor with previous surgery. FAMILY HISTORY: Positive for lung cancer in his mother. SOCIAL HISTORY: The patient is a . He does smoke cigarettes. Does not drink alcohol excessively. MEDICATIONS: Prior to admission were Glipizide, Flomax, Senokot, Protonix, Naprosyn, metoprolol, loratadine, lisinopril with hydrochlorothiazide, Synthroid, gabapentin, vitamin D3, calcium, atorvastatin, aspirin, and alendronate. PHYSICAL EXAMINATION: He was lying in bed. He had a short thick neck. His respiratory rate is 16, pulse rate of 95, temperature 97.4, blood pressure 134/65, O2 saturation on 6 L by nasal cannula is 92%. HEENT reveals pupils are equal. There is redundant tissue in the posterior pharynx. Chest reveals decreased breath sounds, prolonged expiration and expiratory wheeze. Cardiovascular system is S1, S2. Abdomen is soft. There is trace pedal edema. LABS: Reveal a white count of 9.3, hemoglobin of 11.2 with no eosinophils, ABG showed a pH of 7.4, pCO2 of 59, PO2 of 107, bicarb of 36. Sodium 142, potassium 5.3, chloride 99, bicarb 38, BUN 50, creatinine 1.16. CT scan of the brain showed no acute changes. Chest x-ray showed cardiomegaly with some coarse lung markings. IMPRESSION: At this time: 1. Acute on chronic respiratory failure. 2. Obstructive sleep apnea that is untreated. 3. Chronic obstructive pulmonary disease with exacerbation. 4. Asthma with exacerbation. 5. Obesity. 6. Diabetes mellitus. At this point in time, would keep him on supplemental oxygen, but titrate it down to keep his sat in the lower 90s as he may start to retain CO2. Would keep him on IV steroids and bronchodilators, aerosolized steroids. Keep him on GI and DVT prophylaxis. Check a CT scan of the chest. Depending on how he does, we should make further changes to his care. OTONIEL / MEENAN: [id number] /
[2019-01-28] MEDS: SODIUM CHLORIDE 0.9% 1,000 ML IV SCH ×2 (02:57→18:17)
[2019-01-28] MEDS: LEVOTHYROXINE 100 MCG TAB PO SCH (05:45)
[2019-01-28 07:05] LABS: Glucose,Whole Blood 115 mg/dL (75-99)
[2019-01-28] MEDS: INSULIN ASPART (NovoLOG) 100 UNIT/ML VIAL SQ SCH ×4 (07:21→20:51)
[2019-01-28] MEDS ORDERED: NON-FORMULARY DRUG (Alendronate Sodium [Fosamax] 70 MG) PO SCH (09:00)
[2019-01-28] MEDS: SYMBICORT 160-4.5 MCG INHALER INHALATION SCH ×2 (09:07→19:32)
[2019-01-28] MEDS: GABAPENTIN 300 MG CAP PO SCH ×3 (09:08→22:09)
[2019-01-28] MEDS: AZITHROMYCIN 500 MG TAB PO SCH (09:08)
[2019-01-28] MEDS: CALCIUM CARBONATE 500 MG CHEWABLE PO SCH (09:08)
[2019-01-28] MEDS: IPRATROPIUM-ALBUTEROL 3 ML NEB INHALATION SCH ×4 (09:08→19:33)
[2019-01-28] MEDS: NAPROXEN 250 MG TAB PO SCH ×2 (09:09→20:52)
[2019-01-28] MEDS: LISINOPRIL-HCTZ 10-12.5 MG 1 EACH TAB PO SCH (09:09)
[2019-01-28] MEDS: SENNOSIDES-DOCUSATE SODIUM 1 EACH TAB PO SCH ×2 (09:09→20:53)
[2019-01-28] MEDS: METOPROLOL TARTRATE 25 MG TAB PO SCH ×2 (09:09→20:52)
[2019-01-28] MEDS: HEPARIN SODIUM,PORCINE 5,000 UNIT/ML 1 ML VIAL SQ SCH ×2 (09:10→20:51)
[2019-01-28] MEDS: ASPIRIN 325 MG TAB PO SCH (09:10)
[2019-01-28] MEDS: LORATADINE 10 MG TAB PO SCH (09:11)
--- NOTE | 2019-01-28 09:11 | CT ---
EXAMINATION TYPE: CT chest wo con DATE OF EXAM: 01/28/2019 COMPARISON: Chest x-ray from 2 days ago HISTORY: COPD with hypoxia, Oxygen dependent, generalized CT DLP: 735 mGycm. Automated Exposure Control for Dose Reduction was Utilized. TECHNIQUE: CT scan of the thorax is performed without IV contrast. FINDINGS: LUNGS: Peripheral reticulation and fibrosis is present bilaterally and diffusely involving upper and lower lungs. There is dependent atelectasis in both lungs, left greater than right noted. No suspicio us consolidation is present. There are additional scattered areas of linear scarring and/or atelectas is bilaterally. Masses are seen. No pleural effusion or pneumothorax is noted. MEDIASTINUM: Lack of IV contrast is noted to limit evaluation for mediastinal and especially hilar ad enopathy. There are no definitive greater than 1 cm thoracic lymph nodes. Prominent but subcentimeter noncalcified lymph nodes throughout the thorax are identified. There are calcified subcarinal lymph nodes axial image 32 noted. No significant pericardial effusion. There is cardiomegaly with moderate to severe on artery calcification which is noted marked underlying coronary artery disease. Enlarged pulmonary arteries are identified, CT findings consistent with underlying pulmonary artery hypertensi on. Mild calcified plaque of aorta is present. OTHER: Cholecystectomy clips are seen. IMPRESSION: Cardiomegaly and fairly moderate chronic parenchymal changes bilaterally. No suspicious a cute pulmonary process. Underlying pulmonary artery hypertension noted.
[2019-01-28 09:23] LABS: Basophils % (A) 0 %; Eosinophils # (A) 0.1 k/uL (0-0.7); Eosinophils % (A) 1 %; HCT 38.3 % (39.0-53.0); HGB 12.2 gm/dL (13.0-17.5); Lymphocytes # (A) 0.6 k/uL (1.0-4.8); Lymphocytes % (A) 6 %; MCH 30.5 pg (25.0-35.0); MCHC 31.9 g/dL (31.0-37.0); MCV 95.7 fL (80.0-100.0); Mean Platelet Volume 7.8; Monocytes # (A) 0.4 k/uL (0-1.0); Monocytes % (A) 4 %; Neutrophils # (A) 8.3 k/uL (1.3-7.7); Neutrophils % (A) 89 %; Platelet Count 168 k/uL (150-450); RDW 13.7 % (11.5-15.5); WBC 9.3 k/uL (3.8-10.6)
[2019-01-28 09:48] LABS: Anion Gap 7 mmol/L; Blood Urea Nitrogen 55 mg/dL (9-20); Calcium 9.2 mg/dL (8.4-10.2); Carbon Dioxide 35 mmol/L (22-30); Chloride 99 mmol/L (98-107); Glucose 131 mg/dL (74-99); Potassium 4.9 mmol/L (3.5-5.1); Sodium 141 mmol/L (137-145)
[2019-01-28 10:57] LABS: Glucose,Whole Blood 195 mg/dL (75-99)
--- NOTE | 2019-01-28 16:18 | PN ---
PROGRESS NOTE DATE OF SERVICE: 01/28/2019. The patient is a 68-year-old male who is seen sitting up in a chair, is awake and alert. He is hoping to go home today. However, patient is still requiring oxygen at 3.5 L and still on IV Solu-Medrol. Patient is afebrile and hemodynamically stable. PHYSICAL EXAM: VITAL SIGNS: Temperature 97.6, heart rate is 97, respiratory rate is 20, blood pressure is 129/70, O2 sats 92% on 3.5 L O2 via nasal cannula. HEENT. Head is normocephalic, atraumatic. Neck is supple. Trachea is midline. LUNGS: With decreased breath sounds to the bases with fair air entry to the upper lobes. Heart S1, S2 are heard. Irregular not tachycardic. ABDOMEN: Soft, obese. Bowel sounds are positive. Extremities with trace edema. NEUROLOGIC: Patient is awake and alert. LABS: White count 9.3, hemoglobin is 12.2, hematocrit 38.3, with 168,000 platelets. Sodium is 141, potassium is 4.9, chloride is 99, CO2 is 35, anion gap is 7, BUN is 55, creatinine 0.98, glucose is 131, calcium is 9.2. IMAGING: Chest CT shows cardiomegaly and fairly moderate chronic parenchymal changes bilaterally. No suspicious acute pulmonary process or underlying pulmonary artery hypertension noted. IMPRESSION: 1. Acute on chronic respiratory failure. 2. Obstructive sleep apnea that is untreated. 3. Chronic obstructive pulmonary disease with acute exacerbation. 4. Asthma with acute exacerbation. 5. Pulmonary hypertension per CT. 6. Diabetes mellitus. 7. Obesity. PLAN: Continue current medications which have been reviewed. Continue IV Solu-Medrol. GI and DVT prophylaxis. Continue supplemental oxygen to maintain sats in the lower 90s to prevent retention of CO2. Continue bronchodilators and aerosol steroids. Increase activity as tolerated and we will follow patient closely with you making further changes as necessary. I performed a History & Physical Examination of the patient and discussed their management with nurse practitioner. I reviewed the nurse practitioner's note and agree with the documented findings and plan of care. MMODL / IJN: [id number] /
[2019-01-28 17:24] LABS: Glucose,Whole Blood 138 mg/dL (75-99)
--- NOTE | 2019-01-28 20:48 | PN ---
PROGRESS NOTE DATE OF SERVICE: 01/28/2019 This 68-year-old gentleman who was admitted with COPD exacerbation also had acute purulent tracheobronchitis. The patient also had acute hypoxic hypercarbic respiratory failure. Pulmonary is following the patient closely. No chest pain. No palpitations. No fever. Chest CT scan has been reviewed. EXAM: Alert and oriented x3. Pulse is 88. Blood pressure is 129/70, respiration 20, temperature 97.6, pulse ox 92% on 3.5 L. HEENT is conjunctivae normal. NECK: No jugular venous distention. CARDIOVASCULAR: S1, S2 muffled. RESPIRATORY SYSTEM: Breath sounds diminished at the bases. A few scattered rhonchi and crackles. Abdomen is soft, obese, nontender. Legs are no edema, no swelling. CENTRAL NERVOUS SYSTEM: No focal deficits. LABS: WBC 9.2, hemoglobin 12.2. Glucose 138. ASSESSMENT: 1. Chronic obstructive pulmonary disease acute exacerbation with acute purulent tracheobronchitis with acute hypoxic hypercarbic respiratory failure. 2. Generalized asthma, weakness with multiple falls and gait dysfunction. 3. Anemia, normocytic anemia of chronic disease. 4. Mild thrombocytopenia. 5. Hyperkalemia. 6. Hematuria, mild. 7. History of coronary artery disease. 8. History of chronic obstructive pulmonary disease. 9. Diabetes type 2. 10.History of gastroesophageal reflux disease. 11.History of hard of hearing. 12.Hypertension. 13.Hyperlipidemia. 14.History of pulmonary embolus. 15.History of sleep apnea. 16.History of chronic hypoxic respiratory failure on home O2 5 L. 17.History of glaucoma. 18.History of tremors. 19.History of degenerative joint disease. 20.Remote history of nicotine dependence. 21.Morbid obesity BMI of 38.9. RECOMMENDATIONS AND DISCUSSION: Continue current medications, continue bronchodilators. Continue steroids. Continue the rest of medications. Closely follow with pulmonary. Guarded prognosis. Further recommendations to follow. CT scan reviewed. Further recommendations to follow. MMODL / IJN: [id number] /
[2019-01-28] MEDS: ATORVASTATIN 80 MG TAB PO SCH (20:51)
[2019-01-28] MEDS: PANTOPRAZOLE 40 MG TABLET PO SCH (20:52)
[2019-01-28] MEDS: TAMSULOSIN 0.4 MG CAP.ER.24H PO SCH (20:53)
[2019-01-28] MEDS: CHOLECALCIFEROL 1,000 UNIT TAB PO SCH (22:09)
[2019-01-28 23:10] LABS: Glucose,Whole Blood 275 mg/dL (75-99)
[2019-01-29] MEDS: methylPREDNISolone SOD SUCCI 125 MG/2 ML VIAL IV SCH ×3 (00:19→13:48)
[2019-01-29 05:01] VITALS: RESP 16
[2019-01-29] MEDS: LEVOTHYROXINE 100 MCG TAB PO SCH (06:03)
[2019-01-29 07:14] LABS: Glucose,Whole Blood 128 mg/dL (75-99)
[2019-01-29] MEDS: IPRATROPIUM-ALBUTEROL 3 ML NEB INHALATION SCH ×3 (07:36→15:22)
[2019-01-29] MEDS: SYMBICORT 160-4.5 MCG INHALER INHALATION SCH (07:36)
[2019-01-29 09:26] LABS: Basophils % (A) 0 %; Eosinophils % (A) 1 %; HCT 35.5 % (39.0-53.0); HGB 11.5 gm/dL (13.0-17.5); Lymphocytes # (A) 0.5 k/uL (1.0-4.8); Lymphocytes % (A) 9 %; MCH 30.4 pg (25.0-35.0); MCHC 32.4 g/dL (31.0-37.0); Mean Platelet Volume 8.4; Monocytes # (A) 0.2 k/uL (0-1.0); Monocytes % (A) 4 %; Neutrophils # (A) 5.5 k/uL (1.3-7.7); Neutrophils % (A) 87 %; Platelet Count 154 k/uL (150-450); RBC 3.78 m/uL (4.30-5.90); RDW 14.1 % (11.5-15.5); WBC 6.3 k/uL (3.8-10.6)
[2019-01-29] MEDS: INSULIN ASPART (NovoLOG) 100 UNIT/ML VIAL SQ SCH ×2 (09:34→13:49)
[2019-01-29 09:49] LABS: Calcium 8.8 mg/dL (8.4-10.2); Potassium 4.3 mmol/L (3.5-5.1)
[2019-01-29] MEDS: CALCIUM CARBONATE 500 MG CHEWABLE PO SCH (09:56)
[2019-01-29] MEDS: ASPIRIN 325 MG TAB PO SCH (09:57)
[2019-01-29] MEDS: SENNOSIDES-DOCUSATE SODIUM 1 EACH TAB PO SCH (09:57)
[2019-01-29] MEDS: GABAPENTIN 300 MG CAP PO SCH (09:57)
[2019-01-29] MEDS: traMADol 50 MG TAB PO PRN (09:58)
[2019-01-29] MEDS: METOPROLOL TARTRATE 25 MG TAB PO SCH (09:58)
[2019-01-29] MEDS: LORATADINE 10 MG TAB PO SCH (09:58)
[2019-01-29] MEDS: NAPROXEN 250 MG TAB PO SCH (09:59)
[2019-01-29] MEDS: LISINOPRIL-HCTZ 10-12.5 MG 1 EACH TAB PO SCH (09:59)
[2019-01-29] MEDS: AZITHROMYCIN 500 MG TAB PO SCH (10:00)
[2019-01-29] MEDS: HEPARIN SODIUM,PORCINE 5,000 UNIT/ML 1 ML VIAL SQ SCH (10:00)
[2019-01-29 11:11] LABS: Glucose,Whole Blood 201 mg/dL (75-99)
--- NOTE | 2019-01-29 12:22 | DS ---
DISCHARGE SUMMARY DATE OF SERVICE: 01/29/2019 FINAL DIAGNOSES: 1. Chronic obstructive pulmonary disease acute exacerbation with acute tracheobronchitis with acute hypoxic hypercarbic respiratory failure. 2. Generalized asthenia weakness and multiple falls and gait dysfunction. 3. Anemia, normocytic anemia of chronic disease. 4. Mild thrombocytopenia. 5. Hyperlipidemia. 6. Hematuria, mild. 7. History of coronary artery disease. 8. History of chronic obstructive pulmonary disease. 9. Diabetes mellitus type 2. 10.History of gastroesophageal reflux disease. 11.Hard of hearing. 12.Hypertension. 13.Hyperlipidemia. 14.History of pulmonary embolism, history of sleep apnea. 15.History of chronic hypoxic respiratory failure on home O2 at 5 L. 16.History of glaucoma. 17.History of tremors. 18.History of degenerative joint disease. 19.Remote history of nicotine dependence. 20.Morbid obesity, body mass index of 38.9. DISCHARGE DISPOSITION: The patient will be discharged in stable condition with guarded prognosis. HISTORY OF PRESENT ILLNESS: This is a 68-year-old gentleman with the past medical history of multiple medical problems, being followed by Edna Hopson in the was admitted with COPD acute exacerbation as well as acute purulent tracheobronchitis. Pulmonary, Dr. Biju Tidwell saw the patient. Patient was treated with steroids, bronchodilators, antibiotics. Patient improved significantly. A chest CT did not show any other acute abnormality. On exam, vitals are stable. CARDIOVASCULAR SYSTEM: S1, S2. RESPIRATORY: A few scattered rhonchi. ABDOMEN: Soft. NERVOUS SYSTEM: No focal deficits. Patient is also requesting a new CPAP, recommended outpatient sleep study with Dr. Biju Tidwell in the outpatient setting and continue to follow up. Discharge diet is cardiac diet. FOLLOWUP: Activity limited until followup. Follow up with the [facility] in 2-3 days. Follow up with Dr. Biju Tidwell as recommended. MEDICATIONS ARE: 1. Aspirin 325 mg daily. 2. Calcium 2000 mg p.o. daily. 3. Flomax 0.4 q.h.s. 4. Fosamax 70 mg p.o. q. Monday. 5. Gabapentin 900 mg p.o. t.i.d. 6. Glucotrol 2.5 mg q.h.s. 7. Lipitor 80 mg q.h.s. 8. Loratadine 10 mg p.o. daily. 9. Metoprolol 25 mg p.o. b.i.d. 10.Naprosyn 500 mg p.o. b.i.d. 11.Protonix 40 mg q.h.s. 12.Senokot-S two tabs p.o. b.i.d. 13.Synthroid 100 mcg p.o. q.a.m. 14.Vitamin D3 two thousand q.h.s. 15.Zestoretic 10/12.5 mg p.o. q.a.m. 16.Ceftin 500 mg p.o. b.i.d. for 3 days. 17.DuoNeb q.i.d. and p.r.n. 18.Prednisone that is 40 mg daily for 3 days, 30 for 3 days, 20 for 3 days, 10 for 3 days. 19.Symbicort 160/4.5 two puffs b.i.d. 20.Zithromax 500 mg p.o. b.i.d. for 5 days. Once again, the patient will be discharged in a stable condition with guarded prognosis. MMODL / IJN: [id number] / MTDD
[2019-01-29 12:35] VITALS: BP 138/73; TEMP 97.4
[2019-01-29 15:34] VITALS: PULSE 96
--- NOTE | 2019-01-29 16:10 | PN ---
PROGRESS NOTE DATE OF SERVICE: 01/29/2019 This patient has been hemodynamically stable. He is less short of breath. He has been tolerating BiPAP. On physical examination, his vitals are stable. He is afebrile. His chest reveals decreased breath sounds with prolonged exhalation. Cardiovascular system is in S1, S2. Abdomen is soft. There is no edema. Labs and medications were reviewed. IMPRESSION AT THIS TIME: 1. Obstructive sleep apnea with obesity hypoventilation syndrome. 2. Acute on chronic respiratory failure. 3. Asthma with acute exacerbation. 4. Pulmonary hypertension. 5. Diabetes mellitus. I agree with discharge planning with a prednisone taper and close outpatient followup. He may require repeat polysomnogram. We will follow him closely in the outpatient setting. FRANSISCOL / IJN: [id number] /
== END 2019-01-29 16:00 | disposition home or self-care (01) | DRG 190 ==
LOC: EC 19:57 → 3NMEDONC 22:31 → OBSVTOIN 01-26 09:37
PROVIDERS: ADMIT Hospitalist; ATTEND Hospitalist
PROC: 5A09457 Assistance with Respiratory Ventilation, 24-96 Consecutive Hours, Continuous Positive Airway Pressure (ICD-10-PCS; principal; 2019-01-27)
DX: J44.0 Chronic obstructive pulmonary disease with (acute) lower respiratory infection (principal); J96.21 Acute and chronic respiratory failure with hypoxia; J96.22 Acute and chronic respiratory failure with hypercapnia; E66.2 Morbid (severe) obesity with alveolar hypoventilation; J45.901 Unspecified asthma with (acute) exacerbation; I27.20 Pulmonary hypertension, unspecified; D69.6 Thrombocytopenia, unspecified; E11.40 Type 2 diabetes mellitus with diabetic neuropathy, unspecified; E87.5 Hyperkalemia; D63.8 Anemia in other chronic diseases classified elsewhere; R31.9 Hematuria, unspecified; J20.9 Acute bronchitis, unspecified; J44.1 Chronic obstructive pulmonary disease with (acute) exacerbation; I25.10 Atherosclerotic heart disease of native coronary artery without angina pectoris; I10 Essential (primary) hypertension; K21.9 Gastro-esophageal reflux disease without esophagitis; E78.5 Hyperlipidemia, unspecified; M19.90 Unspecified osteoarthritis, unspecified site; M81.0 Age-related osteoporosis without current pathological fracture; G89.29 Other chronic pain; M54.9 Dorsalgia, unspecified; R29.6 Repeated falls; H40.9 Unspecified glaucoma; H91.90 Unspecified hearing loss, unspecified ear; G47.33 Obstructive sleep apnea (adult) (pediatric); R26.9 Unspecified abnormalities of gait and mobility; R25.1 Tremor, unspecified; Z68.38 Body mass index [BMI] 38.0-38.9, adult; Z99.81 Dependence on supplemental oxygen; Z79.83 Long term (current) use of bisphosphonates; Z79.82 Long term (current) use of aspirin; Z79.890 Hormone replacement therapy; Z79.84 Long term (current) use of oral hypoglycemic drugs; Z79.1 Long term (current) use of non-steroidal anti-inflammatories (NSAID); Z79.899 Other long term (current) drug therapy; Z91.19 Patient's noncompliance with other medical treatment and regimen; Z86.711 Personal history of pulmonary embolism; Z99.89 Dependence on other enabling machines and devices; Z86.010 Personal history of colon polyps; Z90.49 Acquired absence of other specified parts of digestive tract; Z96.653 Presence of artificial knee joint, bilateral; Z87.891 Personal history of nicotine dependence; Z86.39 Personal history of other endocrine, nutritional and metabolic disease; Z98.42 Cataract extraction status, left eye; Z98.41 Cataract extraction status, right eye; Z80.1 Family history of malignant neoplasm of trachea, bronchus and lung
CPT/HCPCS: 36415; 36600; 70450; 71046; 71250; 72170; 80048; 80053; 81001; 82805; 83735; 84484; 85025; 85610; 85730; 87502; 93005; 94640; 94660; 94760; 96361; 96365; 96375; 99285

== ENCOUNTER → 2019-06-27 | Outpatient (CLI) | payer OTHER ==
--- NOTE | 2019-06-27 22:32 | CONS ---
CONSULTATION DATE OF SERVICE: 06/27/2019 This patient is a 69-year-old gentleman who has [facility] obstructive sleep apnea-hypopnea syndrome. The last time I saw this gentleman was in December of 2015. He has a history of obstructive sleep apnea since November of 2015. At that time sleep study showed severe obstructive sleep apnea-hypopnea syndrome with apnea-hypopnea index 55.4 and oxygen desaturation to extremely low level of 58.4%. The patient was started on treatment with CPAP and at that time he used the equipment well, but at present, for different reasons, including discomfort with the mask, the patient can not use CPAP equipment. His sleep schedule is from 3 or 4 a.m. until 9 or 10 a.m. The patient wakes up from sleep more than 2 times with nocturia. No TV in bedroom. He usually sleeps on his side or in the chair. He is using oxygen at 3 L/minute supplement 24 hours a day, including the nighttime. During the night he snores, has episodes of stopped breathing, wakes up with a dry mouth, heartburn, restless legs, sleeptalking. In the morning he wakes up tired, falling asleep during the day, has problems with concentration, irritability, sexual dysfunction. Vilas Sleepiness Scale is significantly increased at 15. PAST MEDICAL HISTORY: 1. COPD. 2. Diabetes mellitus. 3. Hyperlipidemia. 4. Hypertension. 5. Hypothyroidism. PAST SURGICAL HISTORY: 1. Surgery on pituitary gland. 2. Cataract surgery. 3. Surgery for closed-angle glaucoma. MEDICATIONS: 1. Aspirin. 2. Hydrochlorothiazide. 3. Lisinopril. 4. Levothyroxine. 5. Loratadine. 6. Metoprolol. 7. Docusate. 8. Naproxen. 9. Gabapentin. 10.Glipizide. 11.Pantoprazole. 12.Atorvastatin. 13.Tamsulosin. 14.Albuterol. SOCIAL HISTORY: History of smoking for about 40 years up to 3 packs a day; about 120 pack/years. Alcohol consumption none at the present time. Quit smoking 8 months ago. FAMILY HISTORY: Hypertension, heart problems, hyperlipidemia, arthritis, sleep apnea, cancer, diabetes, acid reflux, thyroid problems, restless legs. PHYSICAL EXAMINATION: GENERAL: A pleasant gentleman on oxygen supplement at 3 L/minute with a walker, without distress. VITAL SIGNS: BP 87/49, HR 84, RR 20, height 5 feet 6 inches, weight 273, body mass index 44.0, temperature 97.5, oxygen saturation at room air 82%. HEENT: PERRLA, EOMI. Evaluation of oropharynx showed tongue protrudes midline. Extremely low position of soft palate. Mallampati IV. NECK: Supple. No JVD. Thyroid is not palpable. Neck measures 20-1/2 inches in circumference. LUNGS: Clear to percussion and to auscultation. Good air exchange. No wheezing or rhonchi. HEART: S1, S2 regular. No murmurs, gallops or rubs. ABDOMEN: Obese. EXTREMITIES: One plus bilateral ankle edema. CONCESSION STAND ATTENDANT: Awake, alert, and oriented X3. Cranial nerves 2 to 7 intact. There is no fasciculation or atrophy. noted. No focal deficits observed. IMPRESSION: 1. Severe obstructive sleep apnea-hypopnea syndrome. The patient's weight has significantly increased since the last study by 26 pounds. He has difficulties using his CPAP equipment at present. 2. Extremely low position of soft palate, wide neck; obstructive sleep apnea-hypopnea syndrome. 3. Obesity with body mass index of 44. 4. Chronic obstructive pulmonary disease, on 24- hour oxygen supplement. 5. Hypertension. 6. Hyperlipidemia. 7. Diabetes mellitus. 8. Hypothyroidism. 9. Status post cataract surgery. 10.Status post surgery for glaucoma. 11.Status post eyelid surgery. PLAN: 1. Repeat CPAP, if necessary BiPAP titration for reevaluation of effective positive airway pressure treatment at the present time and to find a proper mask for the patient. 2. Losing weight. 3. Sleep hygiene with regular time in bed for 7-1/2 or 8 hours. 4. Precautions related to driving. No driving if feeling any sleepiness. 5. Losing weight. Thank you very much for allowing me to participate in the management of your patient. Sincerely, Matty Freeman MD, PhD, FAASM Diplomat of [employer] [employer] [facility] [place] MMODL / MEENAN: [id number] /
== END ==
LOC: SLEEP 13:59
PROVIDERS: ATTEND Internal Medicine
DX: G47.33 Obstructive sleep apnea (adult) (pediatric) (principal); E66.9 Obesity, unspecified; J44.9 Chronic obstructive pulmonary disease, unspecified; I10 Essential (primary) hypertension; E78.5 Hyperlipidemia, unspecified; E11.9 Type 2 diabetes mellitus without complications; E03.9 Hypothyroidism, unspecified; Z98.890 Other specified postprocedural states; Z99.89 Dependence on other enabling machines and devices; Z68.41 Body mass index [BMI] 40.0-44.9, adult; Z87.891 Personal history of nicotine dependence; Z79.899 Other long term (current) drug therapy; Z79.82 Long term (current) use of aspirin; Z79.84 Long term (current) use of oral hypoglycemic drugs
CPT/HCPCS: 99211

== ENCOUNTER 2019-12-27 13:17 | Emergency (ER) | payer OTHER ==
[2019-12-27 13:23] VITALS: PULSE 65; TEMP 97.3
[2019-12-27] MEDS ORDERED: ceFAZolin 1,000 MG VIAL (IM USE) IM STA (13:36)
[2019-12-27] MEDS ORDERED: DIPH,PERTUS(ACELL)TETVAC-LF 0.5 ML VIAL IM ONE (13:39)
--- NOTE | 2019-12-27 14:59 | ED ---
Lower Extremity Injury HPI - General Chief Complaint: Extremity Injury, Lower Stated Complaint: foot injury Source: patient Mode of arrival: ambulatory Limitations: no limitations - History of Present Illness Initial Comments: 69yo male presenting today for chief complaint of left foot pain and bruising he states he was sent from x-ray due to fracture findings. Patient states 2 days ago he tripped and fell he states that he has trouble walking at times secondary to his chronic back pain. He denies any new changes of the back pain denies any leg weakness loss of bowel bladder control or urinary retention. She denies any injury to the head neck or back. Denies LOC or syncope. Patient states that he tripped bending his foot beneath him. He denies any knee or ankle pain he states he only has pain in the foot and toes. Patient states her significant bruising. Patient made an appointment with his primary care provider were used and for outpatient x-rays imaging studies revealed multiple foot fractures and he was sent to the ER for further evaluation and treatment. Patient denies a numbness tingling loss of sensation coolness or pallor of the extremity. She also may know of laceration at the base of the left small digit toe. He states this occurred on Monday as well. Denies any surrounding redness fevers or redness of the foot. Remaining review of systems negative upon arrival patient appears well and has been ambulating on the foot. - Related Data Home Medications Medication Instructions Recorded Confirmed Alendronate Sodium [Fosamax] 70 mg PO MO 03/03/17 01/25/19 Aspirin 325 mg PO DAILY 03/03/17 01/25/19 Atorvastatin [Lipitor] 80 mg PO HS 03/03/17 01/25/19 Cholecalciferol [Vitamin D3 (25 2,000 unit PO HS 03/03/17 01/25/19 Mcg = 1000 Iu)] Gabapentin 900 mg PO TID 03/03/17 01/25/19 Levothyroxine Sodium [Synthroid] 100 mcg PO QAM 03/03/17 01/25/19 Lisinopril-Hctz 10-12.5 mg 1 tab PO QAM 03/03/17 01/25/19 [Zestoretic 10-12.5] Loratadine 10 mg PO DAILY 03/03/17 01/25/19 Metoprolol Tartrate 25 mg PO BID 03/03/17 01/25/19 Naproxen 500 mg PO BID 03/03/17 01/25/19 Pantoprazole [Protonix] 40 mg PO HS 03/03/17 01/25/19 glipiZIDE [Glucotrol] 2.5 mg PO HS 03/03/17 01/25/19 Calcium 500mg 2,000 mg PO DAILY 01/25/19 01/25/19 Sennosides-Docusate Sodium 2 tab PO BID 01/25/19 01/25/19 [Senokot-S] Tamsulosin [Flomax] 0.4 mg PO HS 01/25/19 01/25/19 Previous Rx's Medication Instructions Recorded Azithromycin [Zithromax] 500 mg PO DAILY #5 tab 01/29/19 Budesonide-Formot 160-4.5 Mcg 2 puff INHALATION RT-BID #1 puff 01/29/19 [Symbicort 160-4.5 Mcg Inhaler] Cefuroxime Axetil [Ceftin] 500 mg PO BID 3 Days #6 tab 01/29/19 Ipratropium-Albuterol Nebulize 3 ml INHALATION RT-QID ampul.neb 01/29/19 [Duoneb 0.5 mg-3 mg/3 ml Soln] predniSONE 10 mg PO DIRECTED #30 tab 01/29/19 Cefadroxil [Duricef] 500 mg PO Q12HR 7 Days #14 cap 12/27/19 HYDROcodone/APAP 5-325MG [Lagrange 1 tab PO Q6HR PRN 3 Days #12 tab 12/27/19 5-325] Allergies Allergy/AdvReac Type Severity Reaction Status Date / Time No Known Allergies Allergy Verified 12/27/19 13:23 Review of Systems ROS Statement: Those systems with pertinent positive or pertinent negative responses have been documented in the HPI. ROS Other: All systems not noted in ROS Statement are negative. Past Medical History Past Medical History: Coronary Artery Disease (CAD), COPD, Diabetes Mellitus, Eye Disorder, GERD/Reflux, Hearing Disorder / Deafness, Hyperlipidemia, Hypertension, Osteoarthritis (OA), Pulmonary Embolus (PE), Sleep Apnea/CPAP/BIPAP Additional Past Medical History / Comment(s): O2 5L. PE IN 2007. CHRONIC BACK PAIN. DIABETIC NEUROPATHY IN FEET. GLAUCOMA. TREMORS. OSTEOPOROSIS. CPAP O RDERED BUT DOESN'T USE. HX POLYPS History of Any Multi-Drug Resistant Organisms: None Reported Past Surgical History: Appendectomy, Cholecystectomy, Hernia Repair, Orthopedic Surgery Additional Past Surgical History / Comment(s): BILATERAL KNEE REPLACEMENT, PLUS RIGHT KNEE DONE AGAIN; RIGHT ROTATOR CUFF. PITUITARY TUMOR REMOVED. BILATERAL CATARACTS. SINUS. GLAUCOMA SURGERY. EYE LID SURGERY. Additional Past Anesthesia/Blood Transfusion Reaction / Comment(s): QUESTIONABLE THAT VERSED MAY OVERLY SEDATE. Past Psychological History: No Psychological Hx Reported Smoking Status: Former smoker Past Alcohol Use History: None Reported Past Drug Use History: None Reported - Past Family History Mother Family Medical History: Cancer Additional Family Medical History / Comment(s): LUNG General Exam - General Exam Comments Initial Comments: General: The patient is awake and alert, in no distress, and does not appear acutely ill. Eye: +3 mm pupils are equal, round and reactive to light, extra-ocular movements are intact. No nystagmus. There is normal conjunctiva bilaterally. No signs of icterus. Cardiovascular: There is a regular rate and rhythm. No murmur, rub or gallop is appreciated. Respiratory: Lungs are clear to auscultation, respirations are non-labored, breath sounds are equal. No wheezes, stridor, rales, or rhonchi. Musculoskeletal: Upon inspection of the feet bilaterally there is significant soft tissue swelling of the left foot as well as bruising both on the dorsal and plantar aspects. Patient has pain of the foot mostly of the forefoot. Patient is no pain over the lateral or medial malleolus he is no pain to the distal tibia or fibula. Normal ROM at the ankles bilaterally Strength 5/5 of the knees and ankles b/l. Sensation intact proximal and distal to injury site. DP pulses equal bilaterally 2+. There is a 1.5 similar laceration at the base of the left small digit there is no surrounding redness there's no exposure of tendon or bone. I does appear to be healing. No active bleeding. Compartments soft and compressible. Neurological: A&O x 3. CN II-XII intact grossly, There are no obvious motor or sensory deficits. Coordination appears grossly intact. Speech is normal. Skin: Skin is warm and dry and no rashes or lesions are noted. Psychiatric: Cooperative, appropriate mood & affect, normal judgment. Limitations: no limitations Course Vital Signs 12/27/19 12/27/19 13:20 15:58 Temperature 97.3 F L 97.3 F L Pulse Rate 65 65 Respiratory 22 20 Rate Blood Pressure 151/68 132/74 O2 Sat by Pulse 92 L 92 L Oximetry Medical Decision Making - Medical Decision Making 69-year-old male presenting for left foot pain after fall. Metatarsal bases 2 through 5 have fractures concerning for Lisfranc injury. This is demonstrated on CT with concern for Lisfranc fracture. Patient was evaluated by orthopedic PA Kelly Flores in the emergency department who reviewed the CT and plain films. She recommended a medical clinic device which was given to patient a paper prescription as described by Kelly Flores she also recommended antibiotic regimen as well as Hibiclens washing for the laceration. There does not appear to open fracture or signs of secondary infection at this time. Patient is to follow-up with on Monday, return parameters and importance of using boot and walker and not wegiht bearing on the left foot was discussed with patient, patient verablized understanding and was discharged appearing well. Case discussed with Dr. Lewis who is agreeable to care plan. Disposition Clinical Impression: Multiple closed fractures of metatarsal bone of right foot, Laceration of toe, Lisfranc's sprain Disposition: HOME SELF-CARE Condition: Good Instructions (If sedation given, give patient instructions): Foot Fracture in Adults (ED) Additional Instructions: Please use medication as discussed. Please use Hibiclens as discussed with Kelly Flores, as well as follow-up on Monday with Dr. Ricketts. We recommended to use a walker for ambulation and do not weight-bear on the left foot. Please wear the medical appointment to as prescribed, only removing to cleanse foot and evaluate laceration. Please follow-up with family doctor in the next 2 days. Please return to emergency room if the symptoms increase or worsen or for any other concerns. Prescriptions: Cefadroxil [Duricef] 500 mg PO Q12HR 7 Days #14 cap HYDROcodone/APAP 5-325MG [Lagrange 5-325] 1 tab PO Q6HR PRN 3 Days #12 tab PRN Reason: Pain Is patient prescribed a controlled substance at d/c from ED?: No Referrals: [facility] [Primary Care Provider] - 1-2 days Otto Peres DO [Doctor of Osteopathic Medicine] - 1-2 days Time of Disposition: 15:37
[2019-12-27] MEDS ORDERED: HYDROcodone/APAP 7.5-325MG 1 EACH TAB PO ONE (15:16)
--- NOTE | 2019-12-27 15:36 | CT ---
EXAMINATION TYPE: CT foot LT wo con DATE OF EXAM: 12/27/2019 COMPARISON: Radiograph 12/27/2019 HISTORY: 69-year-old male LEFT FOOT SWELLING AND BRUISING AFTER INJURY. Concern for Lisfranc injury TECHNIQUE: Contiguous axial scanning of the left foot without IV contrast. Coronal and sagittal recon structions performed. CT DLP: 187.3 mGycm Automated exposure control for dose reduction was used. FINDINGS: Marked generalized soft tissue swelling throughout. A 2 mm osseous fragments in the region of the anterior tibiofibular ligament. Some spurring from the inferior aspect of the anterior colliculus of the medial malleolus. Some synovial calcifications in the posterior subtalar joint. Fractures of the second through fifth metatarsal base. There is a horizontally oriented fracture along the inferior aspect of the second metatarsal base whi ch extends into the second TMT joint. Additional horizontal component to the fracture along the inferomedial aspect of the third metatarsal extends to the margin of the third TMT joint. Fracture lines extending across the intermetatarsal joints. Variable mild comminution is present thro ughout. No midfoot malalignment seen at this time. IMPRESSION: 1. MILDLY COMMINUTED, NONDISPLACED FRACTURES ACROSS THE SECOND THROUGH FIFTH METATARSAL BASES. THERE IS EXTENSION INTO THE INTERMETATARSAL JOINTS THROUGHOUT. 2. THE SECOND AND THIRD METATARSAL FRACTURES HAVE SOME EXTENSION INTO THE INFERIOR ASPECTS OF THE TMT JOINTS AND LIKELY INVOLVE SOME OF THE INSERTION POINTS FOR THE LISFRANC LIGAMENT COMPLEX. NO MIDFOOT MALALIGNMENT. 3. MARKED GENERALIZED SOFT TISSUE SWELLING. 4. 2 MM OSSIFIC FRAGMENT IN THE REGION OF THE ANTERIOR TIBIOFIBULAR LIGAMENT AT THE ANKLE. CORRELATE FOR ANY POINT TENDERNESS HERE TO EXCLUDE TINY AVULSION FRACTURE/HIGH ANKLE SPRAIN.
--- NOTE | 2019-12-27 15:47 | P.CNOR ---
History of Present Illness - [facility] Consult date: 12/27/19 Consult reason: fracture (Left foot) History of present illness: This is a 69-year-old male with history of diabetes with peripheral neuropathy. He reportedly had a fall 2 days ago and landed with his left foot behind him. He had pain and swelling to the foot but did not come in for evaluation until today. He is found to have multiple metatarsal fractures and we're consulted for orthopedic evaluation. Past Medical History Past Medical History: Coronary Artery Disease (CAD), COPD, Diabetes Mellitus, Eye Disorder, GERD/Reflux, Hearing Disorder / Deafness, Hyperlipidemia, Hypertension, Osteoarthritis (OA), Pulmonary Embolus (PE), Sleep Apnea/CPAP/BIPAP Additional Past Medical History / Comment(s): O2 5L. PE IN 2007. CHRONIC BACK PAIN. DIABETIC NEUROPATHY IN FEET. GLAUCOMA. TREMORS. OSTEOPOROSIS. CPAP ORDERED BUT DOESN'T USE. HX POLYPS History of Any Multi-Drug Resistant Organisms: None Reported Past Surgical History: Appendectomy, Cholecystectomy, Hernia Repair, Orthopedic Surgery Additional Past Surgical History / Comment(s): BILATERAL KNEE REPLACEMENT, PLUS RIGHT KNEE DONE AGAIN; RIGHT ROTATOR CUFF. PITUITARY TUMOR REMOVED. BILATERAL CATARACTS. SINUS. GLAUCOMA SURGERY. EYE LID SURGERY. Additional Past Anesthesia/Blood Transfusion Reaction / Comm: QUESTIONABLE THAT VERSED MAY OVERLY SEDATE. Past Psychological History: No Psychological Hx Reported Smoking Status: Former smoker Past Alcohol Use History: None Reported Past Drug Use History: None Reported - Past Family History Mother Family Medical History: Cancer Additional Family Medical History / Comment(s): LUNG Medications and Allergies Home Medications Medication Instructions Recorded Confirmed Type Alendronate Sodium [Fosamax] 70 mg PO MO 03/03/17 01/25/19 History Aspirin 325 mg PO DAILY 03/03/17 01/25/19 History Atorvastatin [Lipitor] 80 mg PO HS 03/03/17 01/25/19 History Cholecalciferol [Vitamin D3 (25 2,000 unit PO HS 03/03/17 01/25/19 History Mcg = 1000 Iu)] Gabapentin 900 mg PO TID 03/03/17 01/25/19 History Levothyroxine Sodium [Synthroid] 100 mcg PO QAM 03/03/17 01/25/19 History Lisinopril-Hctz 10-12.5 mg 1 tab PO QAM 03/03/17 01/25/19 History [Zestoretic 10-12.5] Loratadine 10 mg PO DAILY 03/03/17 01/25/19 History Metoprolol Tartrate 25 mg PO BID 03/03/17 01/25/19 History Naproxen 500 mg PO BID 03/03/17 01/25/19 History Pantoprazole [Protonix] 40 mg PO HS 03/03/17 01/25/19 History glipiZIDE [Glucotrol] 2.5 mg PO HS 03/03/17 01/25/19 History Calcium 500mg 2,000 mg PO DAILY 01/25/19 01/25/19 History Sennosides-Docusate Sodium 2 tab PO BID 01/25/19 01/25/19 History [Senokot-S] Tamsulosin [Flomax] 0.4 mg PO HS 01/25/19 01/25/19 History Azithromycin [Zithromax] 500 mg PO DAILY #5 tab 01/29/19 Rx Budesonide-Formot 160-4.5 Mcg 2 puff INHALATION RT-BID #1 puff 01/29/19 Rx [Symbicort 160-4.5 Mcg Inhaler] Cefuroxime Axetil [Ceftin] 500 mg PO BID 3 Days #6 tab 01/29/19 Rx Ipratropium-Albuterol Nebulize 3 ml INHALATION RT-QID ampul.neb 01/29/19 Rx [Duoneb 0.5 mg-3 mg/3 ml Soln] predniSONE 10 mg PO DIRECTED #30 tab 01/29/19 Rx Cefadroxil [Duricef] 500 mg PO Q12HR 7 Days #14 cap 12/27/19 Rx Allergies Allergy/AdvReac Type Severity Reaction Status Date / Time No Known Allergies Allergy Verified 12/27/19 13:23 Physical Examination This is a 69-year-old male in no acute distress. He is alert and oriented at this time. His is present at bedside. Exam of his left lower extremity reveals significant swelling and ecchymosis. There is a laceration to the plant ar crease of the little toe at the MTP joint. There is no active drainage. There is no sign of infection. The laceration extends from the lateral to medial aspect of the little toe. There is tenderness with palpation to the base of the second, third, fourth and fifth metatarsals. He has fairly good toe motion without difficulty. Pedal pulse is not palpable secondary to swelling. Capillary refill is less than 3 seconds to the great toe. Results X-rays of the left foot reveal nondisplaced fractures to the base of the second, third, fourth and fifth metatarsals. No other bony abnormalities noted. Assessment and Plan (1) Diabetes mellitus Current Visit: Yes Status: Acute Code(s): E11.9 - TYPE 2 DIABETES MELLITUS WITHOUT COMPLICATIONS SNOMED Code(s): 51463006 (2) Laceration of toe Current Visit: Yes Status: Acute Code(s): S91.119A - LACERATION W/O FB OF UNSP TOE W/O DAMAGE TO NAIL, INIT SNOMED Code(s): 581614097 (3) Multiple closed fractures of metatarsal bone of right foot Current Visit: Yes Status: Acute Code(s): S92.301A - FRACTURE OF UNSP METATARSAL BONE(S), RIGHT FOOT, INIT SNOMED Code(s): 964339547 Plan: The clinical and x-ray findings are discussed the patient. Computed tomography scan was also performed which shows no evidence of any other fractures or displaced tarsometatarsal joints. The patient is to go into an equalizer boot for mobilization. He is to soak the foot with an antiseptic mixed with warm water 3 times daily for the next 3 days. He may bear weight as tolerated in the boot with a walker. I recommend Duricef 500 mg twice a day 10 days. He is to follow-up with Dr. Otto Peres on Monday. He is to call sooner or come back to the ER if any sign of infection.
[2019-12-27 15:59] VITALS: BP 132/74; RESP 20
== END 2019-12-27 16:09 | disposition home or self-care (01) ==
LOC: EC 13:17
DX: S92.515B Nondisplaced fracture of proximal phalanx of left lesser toe(s), initial encounter for open fracture (principal); G89.29 Other chronic pain; M54.9 Dorsalgia, unspecified; I25.10 Atherosclerotic heart disease of native coronary artery without angina pectoris; J44.9 Chronic obstructive pulmonary disease, unspecified; E11.42 Type 2 diabetes mellitus with diabetic polyneuropathy; K21.9 Gastro-esophageal reflux disease without esophagitis; H91.90 Unspecified hearing loss, unspecified ear; E78.5 Hyperlipidemia, unspecified; I10 Essential (primary) hypertension; M19.90 Unspecified osteoarthritis, unspecified site; Z87.891 Personal history of nicotine dependence; Z79.1 Long term (current) use of non-steroidal anti-inflammatories (NSAID); Z79.82 Long term (current) use of aspirin; Z79.84 Long term (current) use of oral hypoglycemic drugs; Z79.890 Hormone replacement therapy; Z79.899 Other long term (current) drug therapy; Z96.653 Presence of artificial knee joint, bilateral; Z99.81 Dependence on supplemental oxygen; Z23 Encounter for immunization; W01.0XXA Fall on same level from slipping, tripping and stumbling without subsequent striking against object, initial encounter
CPT/HCPCS: 73700; 90715; 99284; 96372; 90471; J0690

== ENCOUNTER → 2019-12-27 | Outpatient (CLI) | payer OTHER ==
--- NOTE | 2019-12-27 12:55 | XR ---
EXAMINATION TYPE: XR foot complete LT DATE OF EXAM: 12/27/2019 COMPARISON: NONE HISTORY: 69 year-old male left foot pain, M79.672 TECHNIQUE: 3 views FINDINGS: Nondisplaced fractures involving the second through fifth metatarsal bases with varying, no to mild c omminution but no significant displacement. Midfoot alignment appears maintained at this time. Severe dorsal soft tissue swelling along the mid foot. Small plantar calcaneal spur. Mild degenerative urbina ge first MTP joint. Bipartite os peroneum. IMPRESSION: Nondisplaced fractures involving the second through fifth metatarsal bases with varying, no to mild comminution. No midfoot malalignment. Associated marked soft tissue swelling.
== END | disposition home or self-care (01) ==
LOC: RADXRMAIN 12:27
PROVIDERS: ATTEND Nurse Practitioner Acute Care
DX: S92.325A Nondisplaced fracture of second metatarsal bone, left foot, initial encounter for closed fracture (principal); S92.335A Nondisplaced fracture of third metatarsal bone, left foot, initial encounter for closed fracture; S92.345A Nondisplaced fracture of fourth metatarsal bone, left foot, initial encounter for closed fracture; S92.355A Nondisplaced fracture of fifth metatarsal bone, left foot, initial encounter for closed fracture

== ENCOUNTER 2020-02-19 13:48 | Inpatient (IN) | payer OTHER, MEDICARE ==
--- NOTE | 2020-02-19 14:54 | ED ---
Fall HPI - General Chief Complaint: Fall Stated Complaint: fall/head injury Source: patient Mode of arrival: EMS - History of Present Illness Initial Comments: 69-year-old male DM, HTN, CAD, sleep apnea, PE presenting today for chief complaint of fall with head injury. states the patient has frequent falls especially since his left foot injury at the end of November. She states that patient likely has confusion and no tremors and thus I didn't seek evaluation by neurology with no distinct nose is at this time. She states the patient intermittently has confusion forgetting the date or just seeming out of it. She states that this is not new but has been ongoing for the past week. She denies any history of fevers patient denies any new back pain. Denies any specific weakness states that he feels weak all over. Today he felt so weak that his legs gave out and that caused him to fall forward hitting the front of his head. Denies loss of consciousness. He does not use any anticoagulation therapy. Patient states he has shortness of breath at baseline that does seem slightly increased denies any increase he denies any chest pain. Patient upon arrival is AAOx2, he did not know the date. Patient was able to identify and was answering questions appropriately. - Related Data Home Medications Medication Instructions Recorded Confirmed Alendronate Sodium [Fosamax] 70 mg PO MO 03/03/17 02/19/20 Aspirin 325 mg PO DAILY 03/03/17 02/19/20 Atorvastatin [Lipitor] 80 mg PO HS 03/03/17 02/19/20 Gabapentin 900 mg PO TID 03/03/17 02/19/20 Levothyroxine Sodium [Synthroid] 100 mcg PO DAILY 03/03/17 02/19/20 Lisinopril-Hctz 10-12.5 mg 1 tab PO DAILY 03/03/17 02/19/20 [Zestoretic 10-12.5] Loratadine 10 mg PO DAILY 03/03/17 02/19/20 Metoprolol Tartrate 25 mg PO BID 03/03/17 02/19/20 Naproxen 500 mg PO BID 03/03/17 02/19/20 Pantoprazole [Protonix] 40 mg PO HS 03/03/17 02/19/20 Sennosides-Docusate Sodium 2 tab PO BID 01/25/19 02/19/20 [Senokot-S] Tamsulosin [Flomax] 0.4 mg PO HS 01/25/19 02/19/20 Albuterol Nebulized [Ventolin 2.5 mg INHALATION RT-BID 02/19/20 02/19/20 Nebulized] Artificial Tears-Hypromellose 1 drops BOTH EYES BID 02/19/20 02/19/20 [Artificial Tear Drops] Calcium Carbonate 1,000 mg PO BID 02/19/20 02/19/20 Cholecalciferol [Vitamin D3 (25 2,000 unit PO HS 02/19/20 02/19/20 Mcg = 1000 Iu)] Furosemide [Lasix] 20 mg PO DAILY 02/19/20 02/19/20 Hydrophilic Cream [Triad Cream] 1 applic TOPICAL BID 02/19/20 02/19/20 Potassium Chloride [Klor-Con 10] 10 meq PO DAILY 02/19/20 02/19/20 Psyllium Husk (with Sugar) 15 gm PO DAILY 02/19/20 02/19/20 [Metamucil Powder] Allergies Allergy/AdvReac Type Severity Reaction Status Date / Time metoclopramide AdvReac TREMORS Verified 02/19/20 16:28 Review of Systems ROS Statement: Those systems with pertinent positive or pertinent negative responses have been documented in the HPI. ROS Other: All systems not noted in ROS Statement are negative. Past Medical History Past Medical History: Coronary Artery Disease (CAD), COPD, Diabetes Mellitus, Eye Disorder, GERD/Reflux, Hearing Disorder / Deafness, Hyperlipidemia, Hypertension, Osteoarthritis (OA), Pulmonary Embolus (PE), Sleep Apnea/CPAP/BIPAP Additional Past Medical History / Comment(s): O2 5L. PE IN 2007. CHRONIC BACK PAIN. DIABETIC NEUROPATHY IN FEET. GLAUCOMA. TREMORS. OSTEOPOROSIS. CPAP O RDERED BUT DOESN'T USE. HX POLYPS History of Any Multi-Drug Resistant Organisms: None Reported Past Surgical History: Appendectomy, Cholecystectomy, Hernia Repair, Orthopedic Surgery Additional Past Surgical History / Comment(s): BILATERAL KNEE REPLACEMENT, PLUS RIGHT KNEE DONE AGAIN; RIGHT ROTATOR CUFF. PITUITARY TUMOR REMOVED. BILATERAL CATARACTS. SINUS. GLAUCOMA SURGERY. EYE LID SURGERY. Additional Past Anesthesia/Blood Transfusion Reaction / Comment(s): QUESTIONABLE THAT VERSED MAY OVERLY SEDATE. Past Psychological History: No Psychological Hx Reported Smoking Status: Former smoker Past Alcohol Use History: None Reported Past Drug Use History: None Reported - Past Family History Mother Family Medical History: Cancer Additional Family Medical History / Comment(s): LUNG General Exam - General Exam Comments Initial Comments: General: The patient is awake and alert, in no distress Eye: +3 mm pupils are equal, round and reactive to light, extra-ocular movements are intact. No nystagmus. There is normal conjunctiva bilaterally. No signs of icterus. Ears, nose, mouth and throat: There are moist mucous membranes and no oral lesions. Neck: The neck is supple, there is no tenderness or JVD. Cardiovascular: There is a regular rate and rhythm. No murmur, rub or gallop is appreciated. Respiratory: Respirations are non-labored, breath sounds are equal. Some rhonchi noted no stridor, rales. Gastrointestinal: Soft, non-distended, non-tender abdomen without masses or organomegaly noted. There is no rebound or guarding present. = Musculoskeletal: Normal ROM, no tenderness. Strength 5/5. Sensation intact. Radial pulses equal bilaterally 2+. Neurological: A&O x 2. CN II-XII intact, There are no obvious motor or sensory deficits. Coordination appears grossly intact. Speech is normal. Skin: Skin is warm and dry and no rashes or lesions are noted. No pitting edema. Psychiatric: Cooperative, appropriate mood & affect, normal judgment. Limitations: altered mental status Course Vital Signs 02/19/20 02/19/20 02/19/20 13:55 15:28 17:00 Temperature 98.5 F 98.0 F Pulse Rate 77 88 82 Respiratory 16 16 18 Rate Blood Pressure 106/91 129/69 130/74 O2 Sat by Pulse 97 93 L 95 Oximetry 02/19/20 19:40 Temperature 98.6 F Pulse Rate 73 Respiratory 20 Rate Blood Pressure 137/88 O2 Sat by Pulse 96 Oximetry Medical Decision Making - Medical Decision Making 69-year-old male presenting today for chief complaint of generalized weakness falls frequently. Head injury. CT brain C-spine revealed no acute process. Patient not complaining of neck pain. Patient is no other localizing focalized symptoms. Patient states he slightly short of breath this is her primary embolism VQ scan obtained to the patient's kidney function. Low probability. Patient found to have a critical calcium levels, patient does take calcium daily. Patient denies taking tums or other supplements, Denies known bone disea se or parathryoid disease. Patient placed on fluids, given bolus. CO2 elevated, appears compensated patient has known chronically elevated CO2 from COPD. Patient does not appears in acute respiratory distress. CXR no acute findings. He will be admitted to the floor for hypercalcemia there is MD elongation concerning for 1st degree heart block a suspected sequel of hypercalcemia. Pt on telemetry. - Lab Data Result diagrams: 02/19/20 14:53 02/19/20 14:53 Lab Results 02/19/20 02/19/20 02/19/20 Range/Units 14:53 14:53 14:53 WBC 5.7 (3.8-10.6) k/uL RBC 3.56 L (4.30-5.90) m/uL Hgb 11.1 L (13.0-17.5) gm/dL Hct 33.7 L (39.0-53.0) % MCV 94.8 (80.0-100.0) fL MCH 31.2 (25.0-35.0) pg MCHC 32.9 (31.0-37.0) g/dL RDW 13.0 (11.5-15.5) % Plt Count 136 L (150-450) k/uL Neutrophils % 67 % Lymphocytes % 17 % Monocytes % 8 % Eosinophils % 5 % Basophils % 1 % Neutrophils # 3.8 (1.3-7.7) k/uL Lymphocytes # 1.0 (1.0-4.8) k/uL Monocytes # 0.5 (0-1.0) k/uL Eosinophils # 0.3 (0-0.7) k/uL Basophils # 0.0 (0-0.2) k/uL PT 10.1 (9.0-12.0) sec INR 1.0 (<1.2) APTT 21.7 L (22.0-30.0) sec D-Dimer 1.66 H (<0.60) mg/L FEU Sample Site ABG pH (7.35-7.45) ABG pCO2 (35-45) mmHg ABG pO2 (83-108) mmHg ABG HCO3 (21-25) mmol/L ABG Total CO2 (19-24) mmol/L ABG O2 Saturation (94-97) % ABG Base Excess mmol/L Paulino Test FiO2 % Sodium 141 (137-145) mmol/L Potassium 5.0 (3.5-5.1) mmol/L Chloride 88 L (98-107) mmol/L Carbon Dioxide 50 H* (22-30) mmol/L Anion Gap 3 mmol/L BUN 52 H (9-20) mg/dL Creatinine 2.29 H (0.66-1.25) mg/dL Est GFR (CKD-EPI)AfAm 32 (>60 ml/min/1.73 sqM) Est GFR (CKD-EPI)NonAf 28 (>60 ml/min/1.73 sqM) Glucose 117 H (74-99) mg/dL POC Glucose (mg/dL) (75-99) mg/dL POC Glu Database Security Administrator ID Calcium 15.4 H* (8.4-10.2) mg/dL Phosphorus (2.5-4.5) mg/dL Total Bilirubin 0.7 (0.2-1.3) mg/dL AST 26 (17-59) U/L ALT 16 (4-49) U/L Alkaline Phosphatase 81 (38-126) U/L Troponin I (0.000-0.034) ng/mL NT-Pro-B Natriuret Pep pg/mL Total Protein 6.8 (6.3-8.2) g/dL Albumin 4.1 (3.5-5.0) g/dL Lipase (23-300) U/L Urine Color Urine Appearance (Clear) Urine pH (5.0-8.0) Ur Specific Chavies (1.001-1.035) Urine Protein (Negative) Urine Glucose (UA) (Negative) Urine Ketones (Negative) Urine Blood (Negative) Urine Nitrite (Negative) Urine Bilirubin (Negative) Urine Urobilinogen (<2.0) mg/dL Ur Leukocyte Esterase (Negative) Urine RBC (0-5) /hpf Urine WBC (0-5) /hpf Ur Squamous Epith Cells (0-4) /hpf Hyaline Casts (0-2) /lpf Urine Mucus (None) /hpf Urine Opiates Screen (NotDetected) Ur Oxycodone Screen (NotDetected) Urine Methadone Screen (NotDetected) Ur Propoxyphene Screen (NotDetected) Ur Barbiturates Screen (NotDetected) U Tricyclic Antidepress (NotDetected) Ur Phencyclidine Scrn (NotDetected) Ur Amphetamines Screen (NotDetected) U Methamphetamines Scrn (NotDetected) U Benzodiazepines Scrn (NotDetected) Urine Cocaine Screen (NotDetected) U Marijuana (THC) Screen (NotDetected) 02/19/20 02/19/20 02/19/20 Range/Units 14:53 14:53 14:57 WBC (3.8-10.6) k/uL RBC (4.30-5.90) m/uL Hgb (13.0-17.5) gm/dL Hct (39.0-53.0) % MCV (80.0-100.0) fL MCH (25.0-35.0) pg MCHC (31.0-37.0) g/dL RDW (11.5-15.5) % Plt Count (150-450) k/uL Neutrophils % % Lymphocytes % % Monocytes % % Eosinophils % % Basophils % % Neutrophils # (1.3-7.7) k/uL Lymphocytes # (1.0-4.8) k/uL Monocytes # (0-1.0) k/uL Eosinophils # (0-0.7) k/uL Basophils # (0-0.2) k/uL PT (9.0-12.0) sec INR (<1.2) APTT (22.0-30.0) sec D-Dimer (<0.60) mg/L FEU Sample Site ABG pH (7.35-7.45) ABG pCO2 (35-45) mmHg ABG pO2 (83-108) mmHg ABG HCO3 (21-25) mmol/L ABG Total CO2 (19-24) mmol/L ABG O2 Saturation (94-97) % ABG Base Excess mmol/L Paulino Test FiO2 % Sodium (137-145) mmol/L Potassium (3.5-5.1) mmol/L Chloride (98-107) mmol/L Carbon Dioxide (22-30) mmol/L Anion Gap mmol/L BUN (9-20) mg/dL Creatinine (0.66-1.25) mg/dL Est GFR (CKD-EPI)AfAm (>60 ml/min/1.73 sqM) Est GFR (CKD-EPI)NonAf (>60 ml/min/1.73 sqM) Glucose (74-99) mg/dL POC Glucose (mg/dL) 147 H (75-99) mg/dL POC Glu Database Security Administrator ID Alley Kim Calcium (8.4-10.2) mg/dL Phosphorus (2.5-4.5) mg/dL Total Bilirubin (0.2-1.3) mg/dL AST (17-59) U/L ALT (4-49) U/L Alkaline Phosphatase (38-126) U/L Troponin I <0.012 (0.000-0.034) ng/mL NT-Pro-B Natriuret Pep 174 pg/mL Total Protein (6.3-8.2) g/dL Albumin (3.5-5.0) g/dL Lipase (23-300) U/L Urine Color Urine Appearance (Clear) Urine pH (5.0-8.0) Ur Specific Chavies (1.001-1.035) Urine Protein (Negative) Urine Glucose (UA) (Negative) Urine Ketones (Negative) Urine Blood (Negative) Urine Nitrite (Negative) Urine Bilirubin (Negative) Urine Urobilinogen (<2.0) mg/dL Ur Leukocyte Esterase (Negative) Urine RBC (0-5) /hpf Urine WBC (0-5) /hpf Ur Squamous Epith Cells (0-4) /hpf Hyaline Casts (0-2) /lpf Urine Mucus (None) /hpf Urine Opiates Screen (NotDetected) Ur Oxycodone Screen (NotDetected) Urine Methadone Screen (NotDetected) Ur Propoxyphene Screen (NotDetected) Ur Barbiturates Screen (NotDetected) U Tricyclic Antidepress (NotDetected) Ur Phencyclidine Scrn (NotDetected) Ur Amphetamines Screen (NotDetected) U Methamphetamines Scrn (NotDetected) U Benzodiazepines Scrn (NotDetected) Urine Cocaine Screen (NotDetected) U Marijuana (THC) Screen (NotDetected) 02/19/20 02/19/20 02/19/20 Range/Units 15:00 15:20 17:35 WBC (3.8-10.6) k/uL RBC (4.30-5.90) m/uL Hgb (13.0-17.5) gm/dL Hct (39.0-53.0) % MCV (80.0-100.0) fL MCH (25.0-35.0) pg MCHC (31.0-37.0) g/dL RDW (11.5-15.5) % Plt Count (150-450) k/uL Neutrophils % % Lymphocytes % % Monocytes % % Eosinophils % % Basophils % % Neutrophils # (1.3-7.7) k/uL Lymphocytes # (1.0-4.8) k/uL Monocytes # (0-1.0) k/uL Eosinophils # (0-0.7) k/uL Basophils # (0-0.2) k/uL PT (9.0-12.0) sec INR (<1.2) APTT (22.0-30.0) sec D-Dimer (<0.60) mg/L FEU Sample Site Right Radial ABG pH 7.39 (7.35-7.45) ABG pCO2 80 H* (35-45) mmHg ABG pO2 89 (83-108) mmHg ABG HCO3 48 H* (21-25) mmol/L ABG Total CO2 51 H (19-24) mmol/L ABG O2 Saturation 96.6 (94-97) % ABG Base Excess 23.5 mmol/L Paulino Test Yes FiO2 32 % Sodium (137-145) mmol/L Potassium (3.5-5.1) mmol/L Chloride (98-107) mmol/L Carbon Dioxide (22-30) mmol/L Anion Gap mmol/L BUN (9-20) mg/dL Creatinine (0.66-1.25) mg/dL Est GFR (CKD-EPI)AfAm (>60 ml/min/1.73 sqM) Est GFR (CKD-EPI)NonAf (>60 ml/min/1.73 sqM) Glucose (74-99) mg/dL POC Glucose (mg/dL) (75-99) mg/dL POC Glu Database Security Administrator ID Calcium (8.4-10.2) mg/dL Phosphorus 4.0 (2.5-4.5) mg/dL Total Bilirubin (0.2-1.3) mg/dL AST (17-59) U/L ALT (4-49) U/L Alkaline Phosphatase (38-126) U/L Troponin I (0.000-0.034) ng/mL NT-Pro-B Natriuret Pep pg/mL Total Protein (6.3-8.2) g/dL Albumin (3.5-5.0) g/dL Lipase 209 (23-300) U/L Urine Color Light Yellow Urine Appearance Cloudy (Clear) Urine pH 7.0 (5.0-8.0) Ur Specific Chavies 1.011 (1.001-1.035) Urine Protein Negative (Negative) Urine Glucose (UA) Negative (Negative) Urine Ketones Negative (Negative) Urine Blood Trace H (Negative) Urine Nitrite Negative (Negative) Urine Bilirubin Negative (Negative) Urine Urobilinogen <2.0 (<2.0) mg/dL Ur Leukocyte Esterase Small H (Negative) Urine RBC 1 (0-5) /hpf Urine WBC 5 (0-5) /hpf Ur Squamous Epith Cells <1 (0-4) /hpf Hyaline Casts 1 (0-2) /lpf Urine Mucus Rare H (None) /hpf Urine Opiates Screen Not Detected (NotDetected) Ur Oxycodone Screen Not Detected (NotDetected) Urine Methadone Screen Not Detected (NotDetected) Ur Propoxyphene Screen Not Detected (NotDetected) Ur Barbiturates Screen Not Detected (NotDetected) U Tricyclic Antidepress Not Detected (NotDetected) Ur Phencyclidine Scrn Not Detected (NotDetected) Ur Amphetamines Screen Not Detected (NotDetected) U Methamphetamines Scrn Not Detected (NotDetected) U Benzodiazepines Scrn Not Detected (NotDetected) Urine Cocaine Screen Not Detected (NotDetected) U Marijuana (THC) Screen Not Detected (NotDetected) Disposition Clinical Impression: Hypercalcemia, Generalized weakness, Fall, TORI (acute kidney injury), History of COPD, Elevated CO2 level Disposition: ADMITTED IP TO THIS HOSP Condition: Serious Is patient prescribed a controlled substance at d/c from ED?: No Referrals: [facility],Clinic [Primary Care Provider] - 1-2 days Time of Disposition: 19:55 Decision to Admit Reason: Admit from EC Decision Date: 02/19/20 Decision Time: 19:55
--- NOTE | 2020-02-19 14:55 | CT ---
EXAMINATION TYPE: CT brain wo con DATE OF EXAM: 02/19/2020 HISTORY: Fall today with mental status changes CT DLP: 1159.4 mGycm. Automated Exposure Control for Dose Reduction was Utilized. TECHNIQUE: CT scan of the head is performed without contrast. COMPARISON: CT brain January 26, 2019. FINDINGS: There is no acute intracranial hemorrhage or midline shift identified. There is diffuse v entricular and sulcal prominence consistent with diffuse age-related cerebral atrophy. There is low- attenuation in the periventricular white matter consistent with chronic small vessel ischemic change. The globes are intact and the visualized sinuses are clear. The calvarium is intact. IMPRESSION: No acute intracranial hemorrhage or midline shift. There is mild to moderate diffuse ce rebral atrophy and mild chronic small vessel ischemic change redemonstrated. No significant change fr om prior CT.
[2020-02-19 14:58] LABS: Glucose,Whole Blood 147 mg/dL (75-99)
[2020-02-19 15:03] LABS: Basophils % (A) 1 %; Eosinophils # (A) 0.3 k/uL (0-0.7); Eosinophils % (A) 5 %; HCT 33.7 % (39.0-53.0); HGB 11.1 gm/dL (13.0-17.5); Lymphocytes % (A) 17 %; MCH 31.2 pg (25.0-35.0); MCHC 32.9 g/dL (31.0-37.0); MCV 94.8 fL (80.0-100.0); Mean Platelet Volume 8.8; Monocytes # (A) 0.5 k/uL (0-1.0); Monocytes % (A) 8 %; Neutrophils # (A) 3.8 k/uL (1.3-7.7); Neutrophils % (A) 67 %; Platelet Count 136 k/uL (150-450); RBC 3.56 m/uL (4.30-5.90); WBC 5.7 k/uL (3.8-10.6)
[2020-02-19 15:14] LABS: Appearance,Urine Cloudy (Clear); Bilirubin,Urine Negative (Negative); Blood,Urine Trace (Negative); Color,Urine Light Yellow; Glucose,Urine (UA) Negative (Negative); Hyaline Casts,Urine 1 /lpf (0-2); Ketones,Urine Negative (Negative); Leukocyte Esterase,Urine Small (Negative); Mucus,Urine Rare /hpf; Nitrite,Urine Negative (Negative); Protein,Urine Negative (Negative); RBC,Urine 1 /hpf (0-5); Specific Gravity,Urine 1.011 (1.001-1.035); Squamous Epithelial Cell,Urine <1 /hpf (0-4); Urobilinogen,Urine <2.0 mg/dL (<2.0); WBC,Urine 5 /hpf (0-5)
--- NOTE | 2020-02-19 15:15 | XR ---
EXAMINATION TYPE: XR chest 2V DATE OF EXAM: 02/19/2020 COMPARISON: Chest x-ray January 25, 2019. CT January 28, 2019. HISTORY: Altered mental status and weakness. TECHNIQUE: Frontal and lateral views of the chest are obtained. FINDINGS: There is chronic parenchymal changes without suspicious focal air space opacity, pleural effusion, or pneumothorax seen. The cardiac silhouette size remains enlarged. The osseous structures are intact. IMPRESSION: Chronic changes and cardiomegaly without acute pulmonary process.
[2020-02-19 15:16] LABS: Albumin 4.1 g/dL (3.5-5.0); Total Bilirubin 0.7 mg/dL (0.2-1.3); Total Protein 6.8 g/dL (6.3-8.2)
[2020-02-19 15:16] LABS: Amphetamine Screen,Urine Not Detected (NotDetected); Barbiturate Screen,Urine Not Detected (NotDetected); Benzodiazepines Screen,Urine Not Detected (NotDetected); Cocaine Screen,Urine Not Detected (NotDetected); Methadone Screen, Urine Not Detected (NotDetected); Opiate Screen,Urine Not Detected (NotDetected); Oxycodone Screen, Urine Not Detected (NotDetected); Phencyclidine Screen,Urine Not Detected (NotDetected); Tricyclic Antidepressant,Urine Not Detected (NotDetected); Urn Cannabinoid Scrn Not Detected (NotDetected)
[2020-02-19 15:25] LABS: Calcium 15.4 mg/dL (8.4-10.2)
[2020-02-19] MEDS ORDERED: SODIUM CHLORIDE 0.9% 500 ML 500 ML IV ONE (15:27)
[2020-02-19 15:28] LABS: Prothrombin Time 10.1 sec (9.0-12.0)
[2020-02-19 15:30] LABS: D-Dimer 1.66 mg/L FEU (<0.60); Partial Thromboplastin Time 21.7 sec (22.0-30.0)
[2020-02-19] MEDS: SODIUM CHLORIDE 0.9% 1,000 ML IV SCH (16:17)
[2020-02-19 17:41] LABS: ABG Base Excess 23.5 mmol/L; ABG Oxygen Saturation 96.6 % (94-97); ABG PH 7.39 (7.35-7.45); ABG PO2 89 mmHg (83-108); ABG TCO2 51 mmol/L (19-24); Allen Test Performed? Yes
[2020-02-19 17:48] LABS: ABG HCO3 48 mmol/L (21-25); ABG PCO2 80 mmHg (35-45)
--- NOTE | 2020-02-19 19:38 | NM ---
EXAMINATION TYPE: NM pul vent and perfuse DATE OF EXAM: 02/19/2020 COMPARISON: NONE HISTORY: Shortness of breath rule out pulmonary embolism TECHNIQUE: Utilizing inhalation of 39.3 mCi Tc 99m DTPA aerosol and intravenous injection of 5.4 mCi of Tc 99m MAA, ventilation and perfusion images are acquired post injection in multiple projections. FINDINGS: There is central accumulation of radiotracer on the ventilation portion of the study compatible with COPD. There is no evidence of mismatched defects. IMPRESSION: Low probability for pulmonary embolism.
[2020-02-19] MEDS ORDERED: NALOXONE 0.4 MG/ML 1 ML VIAL IV PRN (19:44)
[2020-02-19 20:05] LABS: Albumin 3.8 g/dL (3.5-5.0); Total Bilirubin 0.8 mg/dL (0.2-1.3); Total Protein 6.3 g/dL (6.3-8.2)
[2020-02-19 20:24] LABS: Calcium 14.6 mg/dL (8.4-10.2)
[2020-02-19] MEDS: HYDROPHILIC CREAM 180 GM TUBE TOPICAL SCH (21:47)
[2020-02-19 21:53] LABS: Glucose,Whole Blood 103 mg/dL (75-99)
[2020-02-19] MEDS: ALBUTEROL NEBULIZED 2.5 MG/3 ML INHALATION SCH (21:53)
[2020-02-19] MEDS: TAMSULOSIN 0.4 MG CAP.ER.24H PO SCH (22:27)
[2020-02-19] MEDS: ATORVASTATIN 80 MG TAB PO SCH (22:27)
[2020-02-19] MEDS: METOPROLOL TARTRATE 25 MG TAB PO SCH (22:27)
[2020-02-19] MEDS: PANTOPRAZOLE 40 MG TABLET PO SCH (22:27)
[2020-02-19] MEDS: GABAPENTIN 300 MG CAP PO SCH (22:27)
[2020-02-19] MEDS: ARTIFICIAL TEARS-HYPROMELLOSE DROPS 15 ML BTL BOTH EYES SCH (22:27)
[2020-02-20] MEDS: SODIUM CHLORIDE 0.9% 1,000 ML IV SCH ×4 (03:33→17:24)
[2020-02-20] MEDS: LEVOTHYROXINE 100 MCG TAB PO SCH (06:10)
[2020-02-20 06:43] LABS: Glucose,Whole Blood 90 mg/dL (75-99)
[2020-02-20] MEDS: ALBUTEROL NEBULIZED 2.5 MG/3 ML INHALATION SCH ×2 (08:03→20:24)
[2020-02-20] MEDS: ARTIFICIAL TEARS-HYPROMELLOSE DROPS 15 ML BTL BOTH EYES SCH ×2 (08:27→20:37)
[2020-02-20] MEDS: FUROSEMIDE 20 MG TAB PO SCH (08:27)
[2020-02-20] MEDS: LORATADINE 10 MG TAB PO SCH (08:27)
[2020-02-20] MEDS: ASPIRIN 325 MG TAB PO SCH (08:27)
[2020-02-20] MEDS: METOPROLOL TARTRATE 25 MG TAB PO SCH ×2 (08:27→20:32)
[2020-02-20] MEDS: GABAPENTIN 300 MG CAP PO SCH ×2 (08:27→17:19)
[2020-02-20] MEDS: HYDROPHILIC CREAM 180 GM TUBE TOPICAL SCH ×2 (08:27→20:36)
[2020-02-20] MEDS ORDERED: LISINOPRIL-HCTZ 10-12.5 MG 1 EACH TAB PO SCH (09:00)
[2020-02-20 10:23] LABS: Magnesium 1.6 mg/dL (1.6-2.3); Potassium 5.3 mmol/L (3.5-5.1)
--- NOTE | 2020-02-20 11:07 | P.HPIM ---
History of Present Illness This is a pleasant 69 years old male with past medical history of coronary artery disease, pituitary tumor status post resection, COPD, diabetes mellitus, GERD, hearing difficulty, hypertension, hyperlipidemia, osteoarthritis, sleep apnea noncompliant on CPAP/BiPAP, pulmonary embolism back pain, diabetic neuropathy, tremor. History of foot injury on 11/2019. Patient follows in the [facility]. Presents because of recurrent falls and mild intermittent confusion. Patient has been falling for about one week, patient states that he fell about 10 times without losing consciousness, eventually he came to the hospital because could not help him anymore. Patient denies pain anywhere, no headache, no chest pain, no abdominal pain, no leg pain and no back pain. He denies weakness in his legs. No numbness, no urine or bowel incontinence. Patient states that 4 months he has 1 bowel movement every 4 days. He states he has some shortness of breath but no coughing, no chest pain no fever, no nausea vomiting. He denies smoking, alcohol or illicit drugs. Vitas looks stable. Unremarkable except for mild anemia 11.1 and mild thrombocytopenia of 136K, elevated d-dimer at 1.6. Blood gas showing normal pH is 7.3 but elevated pCO2 at 80, pO2 is 89. BMP showing elevated creatinine of 2.2, with baseline 0.9-1.1. Elevated calcium of 14.6. Liver enzymes not elevated. Sugar controlled. Potassium 5.0, sodium 143, proBNP is 174, lipase 209. UA is a suspicious of infection. Urine drug screen is negative. Current of her is not detected EKG showing sinus rhythm with first-degree F applied after with no si gnificant ST-T changes and QTC 318. VQ scan is low probability for PE. Chest x-ray showing chronic changes with acute process. CT of the brain: No acute process by Radiologist On admission patient received 500 ms of normal saline and started on 200 mL per hour Patient was on calcium gluconate, vitamin D and alendronate. Also patient was on naproxen which was held Review of Systems CONSTITUTIONAL: No fever, no malaise, no fatigue. HEENT: No recent visual problems or hearing problems. Denied any sore throat. CARDIOVASCULAR: No orthopnea, PND, no palpitations, no syncope. PULMONARY: No shortness of breath, no cough, no hemoptysis. GASTROINTESTINAL: No diarrhea, no nausea, no vomiting, no abdominal pain. Normoactive bowel sounds. NEUROLOGICAL: No headaches, no weakness, no numbness. HEMATOLOGICAL: Denies any bleeding or petechiae. GENITOURINARY: Denies any burning micturition, frequency, or urgency. MUSCULOSKELETAL/RHEUMATOLOGICAL: Denies any joint pain, swelling, or any muscle pain. ENDOCRINE: Denies any polyuria or polydipsia. Past Medical History Past Medical History: Coronary Artery Disease (CAD), COPD, Diabetes Mellitus, Eye Disorder, GERD/Reflux, Hearing Disorder / Deafness, Hyperlipidemia, Hy pertension, Osteoarthritis (OA), Pulmonary Embolus (PE), Sleep Apnea/CPAP/BIPAP Additional Past Medical History / Comment(s): O2 5L. PE IN 2007. CHRONIC BACK PAIN. DIABETIC NEUROPATHY IN FEET. GLAUCOMA. TREMORS. OSTEOPOROSIS. CPAP ORDERED BUT DOESN'T USE. HX POLYPS History of Any Multi-Drug Resistant Organisms: None Reported Past Surgical History: Appendectomy, Cholecystectomy, Hernia Repair, Orthopedic Surgery Additional Past Surgical History / Comment(s): BILATERAL KNEE REPLACEMENT, PLUS RIGHT KNEE DONE AGAIN; RIGHT ROTATOR CUFF. PITUITARY TUMOR REMOVED. BILATERAL CATARACTS. SINUS. GLAUCOMA SURGERY. EYE LID SURGERY. Additional Past Anesthesia/Blood Transfusion Reaction / Comment(s): QUESTIONABLE THAT VERSED MAY OVERLY SEDATE. Past Psychological History: No Psychological Hx Reported Smoking Status: Former smoker Past Alcohol Use History: None Reported Additional Past Alcohol Use History / Comment(s): QUIT LATE 2015, SMOKED FOR 58 YRS. Past Drug Use History: None Reported - Past Family History Mother Family Medical History: Cancer Additional Family Medical History / Comment(s): LUNG Medications and Allergies Home Medications Medication Instructions Recorded Confirmed Type Alendronate Sodium [Fosamax] 70 mg PO MO 03/03/17 02/19/20 History Aspirin 325 mg PO DAILY 03/03/17 02/19/20 History Atorvastatin [Lipitor] 80 mg PO HS 03/03/17 02/19/20 History Gabapentin 900 mg PO TID 03/03/17 02/19/20 History Levothyroxine Sodium [Synthroid] 100 mcg PO DAILY 03/03/17 02/19/20 History Lisinopril-Hctz 10-12.5 mg 1 tab PO DAILY 03/03/17 02/19/20 History [Zestoretic 10-12.5] Loratadine 10 mg PO DAILY 03/03/17 02/19/20 History Metoprolol Tartrate 25 mg PO BID 03/03/17 02/19/20 History Naproxen 500 mg PO BID 03/03/17 02/19/20 History Pantoprazole [Protonix] 40 mg PO HS 03/03/17 02/19/20 History Sennosides-Docusate Sodium 2 tab PO BID 01/25/19 02/19/20 History [Senokot-S] Tamsulosin [Flomax] 0.4 mg PO HS 01/25/19 02/19/20 History Albuterol Nebulized [Ventolin 2.5 mg INHALATION RT-BID 02/19/20 02/19/20 History Nebulized] Artificial Tears-Hypromellose 1 drops BOTH EYES BID 02/19/20 02/19/20 History [Artificial Tear Drops] Calcium Carbonate 1,000 mg PO BID 02/19/20 02/19/20 History Cholecalciferol [Vitamin D3 (25 2,000 unit PO HS 02/19/20 02/19/20 History Mcg = 1000 Iu)] Furosemide [Lasix] 20 mg PO DAILY 02/19/20 02/19/20 History Hydrophilic Cream [Triad Cream] 1 applic TOPICAL BID 02/19/20 02/19/20 History Potassium Chloride [Klor-Con 10] 10 meq PO DAILY 02/19/20 02/19/20 History Psyllium Husk (with Sugar) 15 gm PO DAILY 02/19/20 02/19/20 History [Metamucil Powder] Allergies Allergy/AdvReac Type Severity Reaction Status Date / Time metoclopramide AdvReac TREMORS Verified 02/19/20 16:28 Physical Exam Vitals: Vital Signs Temp Pulse Pulse Resp BP BP Pulse Ox 02/20/20 08:15 70 02/20/20 08:06 70 02/20/20 03:24 97.9 F 70 20 118/60 92 L 02/19/20 22:45 91 20 129/72 90 L 02/19/20 21:30 97.8 F 83 20 130/71 93 L 02/19/20 20:59 98.4 F 79 18 130/77 98 02/19/20 20:30 82 19 98 02/19/20 19:40 98.6 F 73 20 137/88 96 02/19/20 17:00 98.0 F 82 18 130/74 95 02/19/20 15:28 88 16 129/69 93 L 02/19/20 13:55 98.5 F 77 16 106/91 97 Intake and Output 02/19/20 02/20/20 02/20/20 22:59 06:59 14:59 Output Total 450 Balance -450 Output: Urine 450 Other: Voiding Method Urinal # Voids 1 Weight 120.202 kg 123.5 kg GENERAL: The patient is alert and oriented x3, not in any acute distress. Well developed, well nourished. -HEENT: Pupils are round and equally reacting to light. EOMI. No scleral icterus. No conjunctival pallor. Normocephalic, atraumatic. No pharyngeal erythema. No thyromegaly. Multiple bruises on the right forehead CARDIOVASCULAR: S1 and S2 present. No murmurs, rubs, or gallops. PULMONARY: Chest is clear to auscultation, no wheezing or crackles. ABDOMEN: Soft, nontender, nondistended, normoactive bowel sounds. No palpable organomegaly. MUSCULOSKELETAL: No joint swelling or deformity. EXTREMITIES: No cyanosis, clubbing, or pedal edema. NEUROLOGICAL: Gross neurological examination did not reveal any focal deficits. No weakness with strength 5/5 and no numbness in extremities. SKIN: No rashes. No petechiae Results CBC & Chem 7: 02/19/20 14:53 02/20/20 09:25 Labs: Abnormal Lab Results - Last 24 Hours (Table) 02/19/20 02/19/20 02/19/20 Range/Units 14:53 14:53 14:53 RBC 3.56 L (4.30-5.90) m/uL Hgb 11.1 L (13.0-17.5) gm/dL Hct 33.7 L (39.0-53.0) % Plt Count 136 L (150-450) k/uL APTT 21.7 L (22.0-30.0) sec D-Dimer 1.66 H (<0.60) mg/L FEU ABG pCO2 (35-45) mmHg ABG HCO3 (21-25) mmol/L ABG Total CO2 (19-24) mmol/L Chloride 88 L (98-107) mmol/L Carbon Dioxide 50 H* (22-30) mmol/L BUN 52 H (9-20) mg/dL Creatinine 2.29 H (0.66-1.25) mg/dL Glucose 117 H (74-99) mg/dL POC Glucose (mg/dL) (75-99) mg/dL Calcium 15.4 H* (8.4-10.2) mg/dL Urine Blood (Negative) Ur Leukocyte Esterase (Negative) Urine Mucus (None) /hpf 02/19/20 02/19/20 02/19/20 Range/Units 14:57 15:00 17:35 RBC (4.30-5.90) m/uL Hgb (13.0-17.5) gm/dL Hct (39.0-53.0) % Plt Count (150-450) k/uL APTT (22.0-30.0) sec D-Dimer (<0.60) mg/L FEU ABG pCO2 80 H* (35-45) mmHg ABG HCO3 48 H* (21-25) mmol/L ABG Total CO2 51 H (19-24) mmol/L Chloride (98-107) mmol/L Carbon Dioxide (22-30) mmol/L BUN (9-20) mg/dL Creatinine (0.66-1.25) mg/dL Glucose (74-99) mg/dL POC Glucose (mg/dL) 147 H (75-99) mg/dL Calcium (8.4-10.2) mg/dL Urine Blood Trace H (Negative) Ur Leukocyte Esterase Small H (Negative) Urine Mucus Rare H (None) /hpf 02/19/20 02/19/20 Range/Units 19:40 21:51 RBC (4.30-5.90) m/uL Hgb (13.0-17.5) gm/dL Hct (39.0-53.0) % Plt Count (150-450) k/uL APTT (22.0-30.0) sec D-Dimer (<0.60) mg/L FEU ABG pCO2 (35-45) mmHg ABG HCO3 (21-25) mmol/L ABG Total CO2 (19-24) mmol/L Chloride 92 L (98-107) mmol/L Carbon Dioxide 45 H* (22-30) mmol/L BUN 51 H (9-20) mg/dL Creatinine 2.26 H (0.66-1.25) mg/dL Glucose (74-99) mg/dL POC Glucose (mg/dL) 103 H (75-99) mg/dL Calcium 14.6 H* (8.4-10.2) mg/dL Urine Blood (Negative) Ur Leukocyte Esterase (Negative) Urine Mucus (None) /hpf Thrombosis Risk Factor Assmnt - Choose All That Apply Any of the Below Risk Factors Present?: Yes Each Factor Represents 1 point: Abnormal pulmonary function (COPD), Obesity (BMI >25) Other Risk Factors: Yes Each Risk Factor Represents 2 Points: Age 61-74 years Each Risk Factor Represents 3 Points: History of DVT/PE Thrombosis Risk Factor Assessment Total Risk Factor Score: 7 Thrombosis Risk Factor Assessment Level: High Risk Assessment and Plan Assessment: -acute kidney injury -Severe hypercalcemia with lip of 14.1 on admission -Recurrent Fall -metabolic encephalopathy secondary to above -Elevated d-dimer with low probability of PE on V/Q scan -History of left foot injury on November of this year found to have multiple metatarsal fractures , X-rays of the left foot reveal nondisplaced fractures to the base of the second, third, fourth and fifth metatarsals. -COPDwith no exacerbation -Hypothyroidism -Hyperlipidemia -Hypertension -Diabetes mellitus -Diabetic neuropathy -sleep apnea noncompliant on CPAP/BiPAP -Osteoporosis -Obesity -History of pituitary tumor status post resection -Good -History of coronary artery disease -Hearing difficulty -Osteoarthritis -Chronic back pain Plan: This is a pleasant 69 years old male who presents with hypercalcemia, Acute kidney injury with recurrent falls. Continue with IV fluids. Check parathyroid hormone and vitamin D. Continue with alendronate, hold NSAIDs, hold vitamin D and calcium Labs and medication were reviewed.. Continue same treatment. Continue with symptomatic treatment. Resume home medication. Monitor lytes and vitals. DVT and GI prophylaxis. Further recommendations of the clinical course of the patient DVT prophylaxis: Subcutaneous heparin GI Prophylaxis: Pepcid PT/OT: Pending Prognosis is guarded
[2020-02-20 11:27] LABS: Glucose,Whole Blood 86 mg/dL (75-99)
[2020-02-20] MEDS: HEPARIN SODIUM,PORCINE 5,000 UNIT/ML 1 ML VIAL SQ SCH ×2 (13:06→20:32)
--- NOTE | 2020-02-20 16:00 | CONS ---
CONSULTATION REASON FOR CONSULT: Renal failure. HISTORY OF PRESENT ILLNESS: Patient is a 69-year-old male who was admitted to the hospital with complaints of weakness. He came in secondary to a fall and he has had multiple falls recently prior to admission. Patient denies any prior history of kidney diseases or history of hypercalcemia. He was found to have a serum calcium of 14.6 and yesterday it was 15.4. Patient is currently maintained on normal saline. He states he is feeling slightly better. Patient is maintained on calcium supplements at home. He is also on hydrochlorothiazide which will potentiate the hypercalcemia as well. Serum creatinine was 2.29 on admission, it is at 2.37 currently. Previous creatinine was 1.01 on 01/29/2019. Currently patient is voiding in a urinal. His blood pressure is not low. PAST MEDICAL HISTORY: Significant for coronary artery disease, COPD, type 2 diabetes, gastroesophageal reflux disease, osteoarthritis, hypertension, history of PE, obstructive sleep apnea, deafness, obesity, chronic back pain, glaucoma, osteoporosis, neuropathy. and history of a pituitary tumor which was removed. PAST SURGICAL HISTORY: Appendectomy, cholecystectomy, hernia repair, knee arthroplasties bilaterally, right rotator cuff surgery. SOCIAL HISTORY: Patient is a former smoker. No history of drug abuse or alcohol abuse. MEDICATIONS: At home included Fosamax, Lipitor, Neurontin, Synthroid, Zestoretic, metoprolol, Naprosyn, Protonix, Senokot, Flomax, Tums, vitamin D, Lasix, potassium. ALLERGIES: Include REGLAN, which causes tremors. PHYSICAL EXAMINATION: On examination, patient is comfortable, awake. He is not in any acute distress. Blood pressure was 128/66, heart rate 63 per minute, he is afebrile. Examination of the heart S1, S2. Examination of the lungs, bilateral breath sounds are heard. Decreased breath sounds at bases. Abdomen is soft. Morbidly obese. Examination of lower extremities shows chronic skin changes. 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 LABS: Show sodium 142, potassium 5.3, chloride 94, CO2 is 44, BUN 52, creatinine 2.37, calcium was 13.0, down from 15.4 on admission. UA shows trace blood, leukocyte esterase small. ASSESSMENT: 1. Acute kidney injury associated with hypercalcemia. Renal function is about the same for the last 3 days. Previous creatinine was 1.0 on 01/29/2019. UA is quite benign appearing. I will order an ultrasound of the kidneys. However, this may not be accurate given the body habitus. 2. Metabolic alkalosis associated with diuresis. Hold off on the Lasix for now and I will add a few doses of Diamox. 3. Hypercalcemia associated with calcium supplements and potentiated with use of thiazides as well, currently improving, maintained on normal saline. 4. Obesity. 5. Rule out chronic kidney disease. Previous creatinine 1.0. UA is quite benign. PLAN: Hold diuretics. Continue to hold off on calcium supplements. I will also hold off on the thiazide diuretics in the form of lisinopril hydrochlorothiazide. Check the PTH level and check vitamin D level as well as patient was maintained on supplementation. Switch Zestoretic to lisinopril and repeat labs in a.m. Thank you for this consultation. Will continue to follow the patient with you during his hospitalization. MMROMINA / MEENAN: [id number] /
[2020-02-20 16:24] LABS: Glucose,Whole Blood 130 mg/dL (75-99)
[2020-02-20] MEDS: PANTOPRAZOLE 40 MG TABLET PO SCH (20:32)
[2020-02-20] MEDS: TAMSULOSIN 0.4 MG CAP.ER.24H PO SCH (20:32)
[2020-02-20] MEDS: ATORVASTATIN 80 MG TAB PO SCH (20:32)
[2020-02-20 21:00] LABS: Glucose,Whole Blood 132 mg/dL (75-99)
[2020-02-21] MEDS: SODIUM CHLORIDE 0.9% 1,000 ML IV SCH ×5 (00:43→23:12)
[2020-02-21] MEDS: GABAPENTIN 300 MG CAP PO SCH ×4 (00:44→23:13)
[2020-02-21] MEDS: FAMOTIDINE 20 MG/2 ML VIAL IV SCH ×2 (00:44→09:48)
[2020-02-21] MEDS: LEVOTHYROXINE 100 MCG TAB PO SCH (05:44)
[2020-02-21 06:28] LABS: Glucose,Whole Blood 104 mg/dL (75-99)
[2020-02-21] MEDS: ALBUTEROL NEBULIZED 2.5 MG/3 ML INHALATION SCH ×2 (08:09→19:26)
[2020-02-21 08:56] LABS: HGB 10.3 gm/dL (13.0-17.5); Hypochromasia Slight; MCHC 31.1 g/dL (31.0-37.0); Mean Platelet Volume 8.5; Platelet Count 114 k/uL (150-450); RBC 3.31 m/uL (4.30-5.90); WBC 5.2 k/uL (3.8-10.6)
[2020-02-21 09:04] LABS: Calcium 11.7 mg/dL (8.4-10.2); Magnesium 1.4 mg/dL (1.6-2.3); Potassium 5.1 mmol/L (3.5-5.1)
[2020-02-21 09:12] LABS: MCV 99.8 fL (80.0-100.0)
[2020-02-21 09:29] LABS: Band Neutrophils % 2 %; Basophils # (M) 0.05 k/uL (0-0.2); Eosinophils # (M) 0.42 k/uL (0-0.7); Lymphocytes # (M) 0.47 k/uL (1.0-4.8); Monocytes # (M) 0.31 k/uL (0-1.0); Myelocytes # (M) 0.05 k/uL (0); Myelocytes % 1 %; Neutrophils % (M) 73 %; Nucleated Red Blood Cells 0 /100 WBC (0-0); Total Cells Counted 100
[2020-02-21 09:30] LABS: Poikilocytosis (M) Present
[2020-02-21] MEDS: FUROSEMIDE 20 MG TAB PO SCH (09:47)
[2020-02-21] MEDS: LISINOPRIL 5 MG TAB PO SCH (09:47)
[2020-02-21] MEDS: ASPIRIN 325 MG TAB PO SCH (09:47)
[2020-02-21] MEDS: LORATADINE 10 MG TAB PO SCH (09:47)
[2020-02-21] MEDS: ARTIFICIAL TEARS-HYPROMELLOSE DROPS 15 ML BTL BOTH EYES SCH ×2 (09:48→23:12)
[2020-02-21] MEDS: METOPROLOL TARTRATE 25 MG TAB PO SCH ×2 (09:48→23:13)
[2020-02-21] MEDS: HEPARIN SODIUM,PORCINE 5,000 UNIT/ML 1 ML VIAL SQ SCH ×2 (09:48→23:12)
[2020-02-21] MEDS: HYDROPHILIC CREAM 180 GM TUBE TOPICAL SCH ×2 (10:17→23:13)
[2020-02-21] MEDS ORDERED: Magnesium Replacement Protocol 1 EACH MISC MISCELLANE PRN (11:24)
--- NOTE | 2020-02-21 11:26 | P.PN ---
Subjective This is a pleasant 69 years old male with past medical history of coronary artery disease, pituitary tumor status post resection, COPD, diabetes mellitus, GERD, hearing difficulty, hypertension, hyperlipidemia, osteoarthritis, sleep apnea noncompliant on CPAP/BiPAP, pulmonary embolism back pain, diabetic neuropathy, tremor. History of foot injury on 11/2019. Patient follows in the [facility]. Presents because of recurrent falls and mild intermittent confusion. Patient has been falling for about one week, patient states that he fell about 10 times without losing consciousness, eventually he came to the hospital because could not help him anymore. Patient denies pain anywhere, no headache, no chest pain, no abdominal pain, no leg pain and no back pain. He denies weakness in his legs. No numbness, no urine or bowel incontinence. Patient states that 4 months he has 1 bowel movement every 4 days. He states he has some shortness of breath but no coughing, no chest pain no fever, no nausea vomiting. He denies smoking, alcohol or illicit drugs. Vitas looks stable. Unremarkable except for mild anemia 11.1 and mild throm bocytopenia of 136K, elevated d-dimer at 1.6. Blood gas showing normal pH is 7.3 but elevated pCO2 at 80, pO2 is 89. BMP showing elevated creatinine of 2.2, with baseline 0.9-1.1. Elevated calcium of 14.6. Liver enzymes not elevated. Sugar controlled. Potassium 5.0, sodium 143, proBNP is 174, lipase 209. UA is a suspicious of infection. Urine drug screen is negative. Current of her is not detected EKG showing sinus rhythm with first-degree F applied after with no significant ST-T changes and QTC 318. VQ scan is low probability for PE. Chest x-ray showing chronic changes with acute process. CT of the brain: No acute process by Radiologist On admission patient received 500 ms of normal saline and started on 200 mL per hour Patient was on calcium gluconate, vitamin D and alendronate. Also patient was on naproxen which was held 02/21/2020 Patient is awake and alert, he was sitting on the chair today. His weakness is looks better today. His confusion is improving. No chest pain or dyspnea. No change in urine or bowel habits. Except that he is voiding a lot because he is on IV fluids. Hemodynamically stable., Some is trending down to 11.7, creatinine stable at 2. 1, rest of labs are unremarkable. Low magnesium was replaced. IV fluids was lower to 70 mL per hour. Physical therapy recommended subacute rehab and social worker health services been consulted Review of systems: CONSTITUTIONAL: No fever, no malaise, no fatigue. HEENT: No recent visual problems or hearing problems. Denied any sore throat. CARDIOVASCULAR: No orthopnea, PND, no palpitations, no syncope. PULMONARY: No shortness of breath, no cough, no hemoptysis. GASTROINTESTINAL: No diarrhea, no nausea, no vomiting, no abdominal pain. Normoactive bowel sounds. NEUROLOGICAL: No headaches, no weakness, no numbness. HEMATOLOGICAL: Denies any bleeding or petechiae. GENITOURINARY: Denies any burning micturition, frequency, or urgency. MUSCULOSKELETAL/RHEUMATOLOGICAL: Denies any joint pain, swelling, or any muscle pain. ENDOCRINE: Denies any polyuria or polydipsia. Active Medications Generic Name Dose Route Start Last Admin Trade Name Freq PRN Reason Stop Dose Admin Albuterol Sulfate 2.5 mg 02/19/20 20:00 02/21/20 08:09 Ventolin Nebulized INHALATION 2.5 mg RT-BID ZITA Administration Artificial Tears 1 drops 02/19/20 21:00 02/21/20 09:48 Artificial Tear Drops BOTH EYES 1 drops BID ZITA Administration Aspirin 325 mg 02/20/20 09:00 02/21/20 09:47 Aspirin PO 325 mg DAILY ZITA Administration Atorvastatin Calcium 80 mg 02/19/20 21:00 02/20/20 20:32 Lipitor PO 80 mg HS ZITA Administration Gabapentin 900 mg 02/19/20 22:00 02/21/20 09:48 Neurontin PO 900 mg TID ZITA Administration Heparin Sodium (Porcine) 5,000 unit 02/20/20 09:30 02/21/20 09:48 Heparin SQ 5,000 unit Q12HR ZITA Administration Sodium Chloride 1,000 mls @ 70 mls/hr 02/19/20 15:30 02/21/20 10:15 Saline 0.9% IV 200 mls/hr .[id number] ZITA Administration Levothyroxine Sodium 100 mcg 02/20/20 06:30 02/21/20 05:44 Synthroid PO 100 mcg DAILY@0630 ZITA Administration Lisinopril 5 mg 02/21/20 09:00 02/21/20 09:47 Zestril PO 5 mg DAILY ZITA Administration Loratadine 10 mg 02/20/20 09:00 02/21/20 09:47 Claritin PO 10 mg DAILY ZITA Administration Metoprolol Tartrate 25 mg 02/19/20 21:00 02/21/20 09:48 Lopressor PO 25 mg BID ZITA Administration Multi-Ingred Cream/Lotion/Oil/Oint 1 applic 02/19/20 21:00 02/21/20 10:17 Triad Cream TOPICAL Not Given BID ZITA Naloxone HCl 0.2 mg 02/19/20 19:44 Narcan IV Q2M PRN Opioid Reversal Tamsulosin HCl 0.4 mg 02/19/20 21:00 02/20/20 20:32 Flomax PO 0.4 mg HS ZITA Administration Objective - Vital Signs Vital signs: Vital Signs Temp 97.9 F 02/21/20 08:00 Pulse 72 02/21/20 08:20 Resp 18 02/21/20 08:00 BP 114/69 02/21/20 08:00 Pulse Ox 91 L 02/21/20 08:00 Intake & Output 02/20/20 02/21/20 02/21/20 18:59 06:59 18:59 Intake Total 480 1130 200 Output Total 150 1000 600 Balance 330 130 -400 Weight 125 kg Intake: Intake, IV Titration 650 Amount Sodium Chloride 0.9% 1, 650 000 ml @ 200 mls/hr IV . Q5H ZITA Rx#:[id number] Oral 480 480 200 Output: Urine 150 1000 600 Other: Voiding Method Urinal # Voids 1 1 # Bowel Movements 1 - Exam GENERAL: The patient is alert and oriented x3, not in any acute distress. Well developed, well nourished. -HEENT: Pupils are round and equally reacting to light. EOMI. No scleral icterus. No conjunctival pallor. Normocephalic, atraumatic. No pharyngeal erythema. No thyromegaly. Multiple bruises on the right forehead CARDIOVASCULAR: S1 and S2 present. No murmurs, rubs, or gallops. PULMONARY: Chest is clear to auscultation, no wheezing or crackles. ABDOMEN: Soft, nontender, nondistended, normoactive bowel sounds. No palpable organomegaly. MUSCULOSKELETAL: No joint swelling or deformity. EXTREMITIES: No cyanosis, clubbing, or pedal edema. NEUROLOGICAL: Gross neurological examination did not reveal any focal deficits. No weakness with strength 5/5 and no numbness in extremities. SKIN: No rashes. No petechiae - Labs CBC & Chem 7: 02/21/20 08:37 02/21/20 08:37 Labs: Abnormal Lab Results - Last 24 Hours (Table) 02/20/20 02/20/20 02/20/20 Range/Units 09:48 16:23 20:59 RBC (4.30-5.90) m/uL Hgb (13.0-17.5) gm/dL Hct (39.0-53.0) % Plt Count (150-450) k/uL Lymphocytes # (Manual) (1.0-4.8) k/uL Myelocytes # (Manual) (0) k/uL Chloride (98-107) mmol/L Carbon Dioxide (22-30) mmol/L BUN (9-20) mg/dL Creatinine (0.66-1.25) mg/dL Glucose (74-99) mg/dL POC Glucose (mg/dL) 130 H 132 H (75-99) mg/dL Calcium (8.4-10.2) mg/dL Magnesium (1.6-2.3) mg/dL PTH Intact 6.1 L (14.0-72.0) pg/mL 02/21/20 02/21/20 02/21/20 Range/Units 06:26 08:37 08:37 RBC 3.31 L (4.30-5.90) m/uL Hgb 10.3 L (13.0-17.5) gm/dL Hct 33.0 L (39.0-53.0) % Plt Count 114 L (150-450) k/uL Lymphocytes # (Manual) 0.47 L (1.0-4.8) k/uL Myelocytes # (Manual) 0.05 H (0) k/uL Chloride 95 L (98-107) mmol/L Carbon Dioxide 38 H (22-30) mmol/L BUN 58 H (9-20) mg/dL Creatinine 2.15 H (0.66-1.25) mg/dL Glucose 158 H (74-99) mg/dL POC Glucose (mg/dL) 104 H (75-99) mg/dL Calcium 11.7 H (8.4-10.2) mg/dL Magnesium 1.4 L (1.6-2.3) mg/dL PTH Intact (14.0-72.0) pg/mL Assessment and Plan Assessment: -acute kidney injury -Severe hypercalcemia with lip of 14.1 on admission -Recurrent Fall -metabolic encephalopathy secondary to above -Elevated d-dimer with low probability of PE on V/Q scan -History of left foot injury on November of this year found to have multiple metatarsal fractures , X-rays of the left foot reveal nondisplaced fractures to the base of the second, third, fourth and fifth metatarsals. -COPDwith no exacerbation -Hypothyroidism -Hyperlipidemia -Hypertension -Diabetes mellitus -Diabetic neuropathy -sleep apnea noncompliant on CPAP/BiPAP -Osteoporosis -Obesity -History of pituitary tumor status post resection -Good -History of coronary artery disease -Hearing difficulty -Osteoarthritis -Chronic back pain Plan: This is a pleasant 69 years old male who presents with hypercalcemia, Acute kidney injury with recurrent falls. Continue with IV fluids. Check parathyroid hormone and vitamin D. Continue with alendronate, hold NSAIDs, hold vitamin D and calcium Labs and medication were reviewed.. Continue same treatment. Continue with symptomatic treatment. Resume home medication. Monitor lytes and vitals. DVT and GI prophylaxis. Further recommendations of the clinical course of the patient DVT prophylaxis: Subcutaneous heparin GI Prophylaxis: Pepcid PT/OT: Pending Prognosis is guarded
[2020-02-21 12:16] LABS: Glucose,Whole Blood 104 mg/dL (75-99)
--- NOTE | 2020-02-21 12:42 | PN ---
PROGRESS NOTE Patient is seen for followup for acute kidney injury. Patient's renal function is fairly stable with creatinine staying at 2.3 to 2.1 mg/dL. Previous creatinine was 1.01 prior to admission. He was admitted to the hospital with a history of fall and patient was found to have severe hypercalcemia. His serum calcium was 15.4 on initial admission, it is now down to 11.7. Patient was on calcium supplements. His PTH is appropriately low. He currently has good urine output. He has been voiding. We do not have an ultrasound of the kidneys on this admission. Therefore, we will proceed with renal imaging. Serum creatinine has not improved significantly since admission. Patient is maintained on IV fluids as well. PHYSICAL EXAMINATION: On examination today, blood pressure 114/69, heart rate 91 per minute, he is afebrile. Examination of the heart S1, S2. Examination of the lungs, bilateral breath sounds are heard. Abdomen is soft, nontender, obese. Examination of the lower extremities chronic skin changes, edema 1+ bilaterally, mainly chronic. LABS: Show sodium 141, potassium 5.1, chloride 95, CO2 is 38, BUN 58, creatinine 2.15, calcium 11.7, magnesium 1.4. Vitamin D is pending. ASSESSMENT: 1. Acute kidney injury associated with hypercalcemia. Serum creatinine has not decreased significantly. Currently patient is maintained on IV fluids. I will proceed with renal imaging since the creatinine is staying at above 2. UA is quite benign. Patient is currently not on any nephrotoxic medications. He is maintained on low-dose MAYA inhibitors, which we can continue for now. 2. Hypercalcemia associated with use of calcium supplements prior to admission with appropriately low PTH levels, currently improving. 3. Hypertension, the thiazide diuretics are on hold. Patient remains on Zestril. If his blood pressure remains on the lower side, I will hold off on the lisinopril, particularly if renal function does not improve. I will hold off on the Lasix as well for now. PLAN: Decrease IV fluids. Check ultrasound of the kidneys. May continue with MAYA inhibitors. Repeat labs in a.m. Patient is advised to avoid any calcium supplementation. MMODL / IJN: [id number] /
--- NOTE | 2020-02-21 14:35 | US ---
EXAMINATION TYPE: US kidneys/renal and bladder DATE OF EXAM: 02/21/2020 COMPARISON: NONE CLINICAL HISTORY: RF. EXAM MEASUREMENTS: Right Kidney: 11.2 x 5.0 x 5.0 cm Left Kidney: 13.8 x 5.5 x 5.6 cm Large body habitus, technically difficult, limited exam. Right Kidney: cysts noted, largest measuring 1.9 x 2.7 x 2.1cm Left Kidney: measures large Bladder: wnl There is no evidence for hydronephrosis at this point in time. No nephrolithiasis is seen. No solid masses are identified. The urinary bladder is anechoic. Bilateral ureteral jets are seen. IMPRESSION: Renal cystic change.
[2020-02-21 16:13] LABS: Hemoglobin A1C 6.4 % (4.0-6.0)
[2020-02-21 17:06] LABS: Glucose,Whole Blood 137 mg/dL (75-99)
[2020-02-21] MEDS ORDERED: HALOPERIDOL LACTATE 5 MG/ML 1 ML VIAL IM ONE (18:43)
[2020-02-21 22:37] LABS: Glucose,Whole Blood 127 mg/dL (75-99)
[2020-02-21] MEDS: QUEtiapine 25 MG TAB PO SCH (23:11)
[2020-02-21] MEDS: ATORVASTATIN 80 MG TAB PO SCH (23:12)
[2020-02-21] MEDS: TAMSULOSIN 0.4 MG CAP.ER.24H PO SCH (23:13)
[2020-02-22] MEDS: LEVOTHYROXINE 100 MCG TAB PO SCH (06:34)
[2020-02-22] MEDS: SODIUM CHLORIDE 0.9% 1,000 ML IV SCH ×2 (06:34→09:33)
[2020-02-22 06:48] LABS: Calcium 11.1 mg/dL (8.4-10.2); Magnesium 1.5 mg/dL (1.6-2.3); Potassium 4.2 mmol/L (3.5-5.1)
[2020-02-22] MEDS: ALBUTEROL NEBULIZED 2.5 MG/3 ML INHALATION SCH ×2 (08:31→19:33)
[2020-02-22] MEDS ORDERED: FAMOTIDINE 20 MG TAB PO SCH (09:00)
[2020-02-22] MEDS: HYDROPHILIC CREAM 180 GM TUBE TOPICAL SCH ×2 (09:33→20:48)
[2020-02-22] MEDS: HEPARIN SODIUM,PORCINE 5,000 UNIT/ML 1 ML VIAL SQ SCH ×2 (09:33→20:47)
[2020-02-22] MEDS: GABAPENTIN 300 MG CAP PO SCH ×3 (09:33→20:47)
[2020-02-22] MEDS: ARTIFICIAL TEARS-HYPROMELLOSE DROPS 15 ML BTL BOTH EYES SCH ×2 (09:33→20:48)
[2020-02-22] MEDS: METOPROLOL TARTRATE 25 MG TAB PO SCH ×2 (09:34→20:47)
[2020-02-22] MEDS: LISINOPRIL 5 MG TAB PO SCH (09:34)
[2020-02-22] MEDS: ASPIRIN 325 MG TAB PO SCH (09:34)
[2020-02-22] MEDS: LORATADINE 10 MG TAB PO SCH (09:34)
[2020-02-22 11:42] LABS: Glucose,Whole Blood 142 mg/dL (75-99)
[2020-02-22] MEDS: MAGNESIUM SULFATE-D5W PMX 1 GM in DEXTROSE/WATER 1 100ML.BAG IVPB SCH ×2 (12:07→13:58)
--- NOTE | 2020-02-22 12:54 | P.PN ---
Subjective This is a pleasant 69 years old male with past medical history of coronary artery disease, pituitary tumor status post resection, COPD, diabetes mellitus, GERD, hearing difficulty, hypertension, hyperlipidemia, osteoarthritis, sleep apnea noncompliant on CPAP/BiPAP, pulmonary embolism back pain, diabetic neuropathy, tremor. History of foot injury on 11/2019. Patient follows in the [facility]. Presents because of recurrent falls and mild intermittent confusion. Patient has been falling for about one week, patient states that he fell about 10 times without losing consciousness, eventually he came to the hospital because could not help him anymore. Patient denies pain anywhere, no headache, no chest pain, no abdominal pain, no leg pain and no back pain. He denies weakness in his legs. No numbness, no urine or bowel incontinence. Patient states that 4 months he has 1 bowel movement every 4 days. He states he has some shortness of breath but no coughing, no chest pain no fever, no nausea vomiting. He denies smoking, alcohol or illicit drugs. Vitas looks stable. Unremarkable except for mild anemia 11.1 and mild throm bocytopenia of 136K, elevated d-dimer at 1.6. Blood gas showing normal pH is 7.3 but elevated pCO2 at 80, pO2 is 89. BMP showing elevated creatinine of 2.2, with baseline 0.9-1.1. Elevated calcium of 14.6. Liver enzymes not elevated. Sugar controlled. Potassium 5.0, sodium 143, proBNP is 174, lipase 209. UA is a suspicious of infection. Urine drug screen is negative. Current of her is not detected EKG showing sinus rhythm with first-degree F applied after with no significant ST-T changes and QTC 318. VQ scan is low probability for PE. Chest x-ray showing chronic changes with acute process. CT of the brain: No acute process by Radiologist On admission patient received 500 ms of normal saline and started on 200 mL per hour Patient was on calcium gluconate, vitamin D and alendronate. Also patient was on naproxen which was held 02/21/2020 Patient is awake and alert, he was sitting on the chair today. His weakness is looks better today. His confusion is improving. No chest pain or dyspnea. No change in urine or bowel habits. Except that he is voiding a lot because he is on IV fluids. Hemodynamically stable., Some is trending down to 11.7, creatinine stable at 2. 1, rest of labs are unremarkable. Low magnesium was replaced. IV fluids was lower to 70 mL per hour. Physical therapy recommended subacute rehab and transition social worker been consulted 02/22/2020 Patient is awake and alert, is oriented to time place and person and why he is in the hospital, saying that is due to. However he could not elaborate more. Last night patient got more agitated, he was trying get out of bed, Haldol was provided for him and that heparin for a couple hours then he became combative trying to the nurse so Seroquel was started for him. This morning he has a sister at bedside however he is more calm. He was complaining of from some dyspnea although no much crepitation appreciated on exam however he has been Pretty happy test. So we will check chest x-ray and CT of the brain. The patient has checked in mental status: He is on heparin subcu and aspirin. Vitals are Stable and he is saturating 94% 2 L. calcium slightly, down from 11.7 TO 11.1 Creatinine is slightly improving to 1.96, magnesium 1.5 has been replaced, Sugar controlled Renal ultrasound showing large kidney cyst with no evidence of hydronephrosis and no kidney stones. Patient remains on normal sinus with milliliters per hour with holding vitamin D, calcium and hydrochlorothiazide Review of systems: CONSTITUTIONAL: No fever, no malaise, no fatigue. HEENT: No recent visual problems or hearing problems. Denied any sore throat. CARDIOVASCULAR: No orthopnea, PND, no palpitations, no syncope. PULMONARY: No shortness of breath, no cough, no hemoptysis. GASTROINTESTINAL: No diarrhea, no nausea, no vomiting, no abdominal pain. Normoactive bowel sounds. NEUROLOGICAL: No headaches, no weakness, no numbness. HEMATOLOGICAL: Denies any bleeding or petechiae. GENITOURINARY: Denies any burning micturition, frequency, or urgency. MUSCULOSKELETAL/RHEUMATOLOGICAL: Denies any joint pain, swelling, or any muscle pain. ENDOCRINE: Denies any polyuria or polydipsia. Active Medications Generic Name Dose Route Start Last Admin Trade Name Freq PRN Reason Stop Dose Admin Albuterol Sulfate 2.5 mg 02/19/20 20:00 02/22/20 08:31 Ventolin Nebulized INHALATION 2.5 mg RT-BID ZITA Administration Artificial Tears 1 drops 02/19/20 21:00 02/22/20 09:33 Artificial Tear Drops BOTH EYES 1 drops BID ZITA Administration Aspirin 325 mg 02/20/20 09:00 02/22/20 09:34 Aspirin PO 325 mg DAILY ZITA Administration Atorvastatin Calcium 80 mg 02/19/20 21:00 02/21/20 23:12 Lipitor PO Not Given HS ZITA Gabapentin 900 mg 02/19/20 22:00 02/22/20 09:33 Neurontin PO 900 mg TID ZITA Administration Heparin Sodium (Porcine) 5,000 unit 02/20/20 09:30 02/22/20 09:33 Heparin SQ 5,000 unit Q12HR ZITA Administration Sodium Chloride 1,000 mls @ 70 mls/hr 02/19/20 15:30 02/22/20 09:33 Saline 0.9% IV 70 mls/hr .[id number] ZITA Administration Magnesium Sulfate/Dextrose 1 100 mls @ 100 mls/hr 02/22/20 11:15 02/22/20 12:07 gm/ IV Solution IVPB 02/22/20 13:14 100 mls/hr Q1H ZITA Administration Levothyroxine Sodium 100 mcg 02/20/20 06:30 02/22/20 06:34 Synthroid PO Not Given DAILY@0630 ZITA Loratadine 10 mg 02/20/20 09:00 02/22/20 09:34 Claritin PO 10 mg DAILY ZITA Administration Metoprolol Tartrate 25 mg 02/19/20 21:00 02/22/20 09:34 Lopressor PO 25 mg BID ZITA Administration Miscellaneous Information 1 each 02/21/20 11:24 Magnesium Per Protocol MISCELLANE DAILY PRN Per Protocol Protocol Multi-Ingred Cream/Lotion/Oil/Oint 1 applic 02/19/20 21:00 02/22/20 09:33 Triad Cream TOPICAL 1 applic BID ZITA Administration Naloxone HCl 0.2 mg 02/19/20 19:44 Narcan IV Q2M PRN Opioid Reversal Quetiapine Fumarate 25 mg 02/21/20 23:15 02/21/20 23:11 Seroquel PO 25 mg HS ZITA Administration Tamsulosin HCl 0.4 mg 02/19/20 21:00 02/21/20 23:13 Flomax PO Not Given HS ZITA Objective - Vital Signs Vital signs: Vital Signs Temp 97.8 F 02/22/20 11:44 Pulse 62 02/22/20 11:44 Resp 18 02/22/20 11:44 BP 118/73 02/22/20 11:44 Pulse Ox 94 L 02/22/20 11:44 Intake & Output 02/21/20 02/22/20 02/22/20 18:59 06:59 18:59 Intake Total 380 240 Output Total 1150 1375 Balance -770 -1135 Weight 123 kg Intake: Oral 380 240 Output: Urine 875 1375 Post Void Residual 275 Other: Voiding Method Urinal # Voids 1 # Bowel Movements 1 - Exam -GENERAL: The patient is alert and oriented x3, somewhat confused not in any acute distress. Well developed, well nourished. -HEENT: Pupils are round and equally reacting to light. EOMI. No scleral icterus. No conjunctival pallor. Normocephalic, atraumatic. No pharyngeal erythema. No thyromegaly. Multiple bruises on the right forehead CARDIOVASCULAR: S1 and S2 present. No murmurs, rubs, or gallops. PULMONARY: Chest is clear to auscultation, no wheezing or crackles. ABDOMEN: Soft, nontender, nondistended, normoactive bowel sounds. No palpable organomegaly. MUSCULOSKELETAL: No joint swelling or deformity. EXTREMITIES: No cyanosis, clubbing, or pedal edema. NEUROLOGICAL: Gross neurological examination did not reveal any focal deficits. No weakness with strength 5/5 and no numbness in extremities. SKIN: No rashes. No petechiae - Labs CBC & Chem 7: 02/21/20 08:37 02/22/20 05:55 Labs: Abnormal Lab Results - Last 24 Hours (Table) 02/21/20 02/21/20 02/21/20 Range/Units 08:37 08:37 16:53 Carbon Dioxide (22-30) mmol/L BUN (9-20) mg/dL Creatinine (0.66-1.25) mg/dL POC Glucose (mg/dL) 137 H (75-99) mg/dL Hemoglobin A1c 6.4 H (4.0-6.0) % Calcium (8.4-10.2) mg/dL Magnesium (1.6-2.3) mg/dL Vitamin D 25-Hydroxy 29.9 L (30.0-100.0) ng/mL 02/21/20 02/22/20 02/22/20 Range/Units 22:33 05:55 11:40 Carbon Dioxide 38 H (22-30) mmol/L BUN 51 H (9-20) mg/dL Creatinine 1.96 H (0.66-1.25) mg/dL POC Glucose (mg/dL) 127 H 142 H (75-99) mg/dL Hemoglobin A1c (4.0-6.0) % Calcium 11.1 H (8.4-10.2) mg/dL Magnesium 1.5 L (1.6-2.3) mg/dL Vitamin D 25-Hydroxy (30.0-100.0) ng/mL Assessment and Plan Assessment: -acute kidney injury -Severe hypercalcemia with lip of 14.1 on admission, improving -Recurrent Fall -metabolic encephalopathy secondary to above -Elevated d-dimer with low probability of PE on V/Q scan -History of left foot injury on November of this year found to have multiple metatarsal fractures , X-rays of the left foot reveal nondisplaced fractures to the base of the second, third, fourth and fifth metatarsals. -COPDwith no exacerbation -Hypothyroidism -Hyperlipidemia -Hypertension -Diabetes mellitus -Diabetic neuropathy -sleep apnea noncompliant on CPAP/BiPAP -Osteoporosis -Obesity -History of pituitary tumor status post resection -Good -History of coronary artery disease -Hearing difficulty -Osteoarthritis -Chronic back pain Plan: This is a pleasant 69 years old male who presents with hypercalcemia, Acute kidney injury with recurrent falls. Continue with IV fluids. Check parathyroid hormone and vitamin D. Continue with alendronate, hold NSAIDs, hold vitamin D and calcium Labs and medication were reviewed.. Continue same treatment. Continue with symptomatic treatment. Resume home medication. Monitor lytes and vitals. DVT and GI prophylaxis. Further recommendations of the clinical course of the pat ient DVT prophylaxis: Subcutaneous heparin GI Prophylaxis: Pepcid PT/OT: Pending Prognosis is guarded
--- NOTE | 2020-02-22 13:10 | PN ---
PROGRESS NOTE Patient is seen for followup for acute kidney injury associated with hypercalcemia. The patient has been maintained on IV fluids. Renal function is somewhat improved. Creatinine down to 1.9. No evidence of obstructive uropathy on the ultrasound. UA is quite benign. The patient is not on any nephrotoxic medications. PHYSICAL EXAMINATION: On examination today, blood pressure is 127/73, heart rate 70 per minute, patient is afebrile. Examination of lower extremities shows chronic skin changes. Trace edema noted. ABDOMEN: Soft. Morbidly obese. DIE CAST ENGINEER exam shows patient is moving all 4 extremities. LAB: Show sodium 143, potassium 4.2, chloride 98, CO2 is 38, BUN 51, serum creatinine 1.93, calcium is 11.1, magnesium 1.5. ASSESSMENT: 1. Acute kidney injury secondary to hypercalcemia. Serum creatinine slightly lower today however not significantly improved since admission. UA is quite benign. There is no evidence of obstruction and patient is not on any nephrotoxic medications. He is maintained on 5 mg of lisinopril daily and since blood pressure remains low, I will hold off on the MAYA inhibitors. 2. Hypercalcemia, most likely associated with use of calcium supplements. The patient is also maintained on thiazide diuretics, which are now discontinued. The PTH is appropriately low. 3. Hypomagnesemia, status post replacement. PLAN: Continue IV fluids. KYA lisinopril. Repeat labs in a.m. MMVICKEYL / MEENAN: [id number] /
--- NOTE | 2020-02-22 13:47 | XR ---
EXAMINATION TYPE: XR chest 1V DATE OF EXAM: 02/22/2020 HISTORY: Possible Dyspnea while on IV fluids. REFERENCE: Previous study dated 02/19/2020. FINDINGS: The heart is enlarged. There are patchy infiltrates present bilaterally. These appear to wo rsened slightly. No definite pleural fluid is seen. IMPRESSION: 1. CARDIOMEGALY. 2. PATCHY, BILATERAL INFILTRATES.
--- NOTE | 2020-02-22 14:06 | CT ---
EXAMINATION TYPE: CT brain wo con DATE OF EXAM: 02/22/2020 COMPARISON: 02/19/2020 HISTORY: 69-year-old male Severe hypercalcemia, generalized weakness, fall TECHNIQUE: Examination was done in axial plane without intravenous contrast. Coronal and sagittal r econstructions performed. CT DLP: 1190.4 mGycm Automated exposure control for dose reduction was used. FINDINGS: There is no evidence of acute intracranial hemorrhage, acute ischemic changes, mass, mass-effect, or extra-axial fluid collection. There is no effacement of cerebral sulci or basal subarachnoid cister ns. There is no hydrocephalus. There is no midline shift. Fernandez-white matter distinction is preserv ed. Mild age-related supratentorial volume loss. Partially empty sella noted. Some developmental variatio n with intracranial fat in the region of the cavernous sinuses. Scattered mild mucosal thickening within the paranasal sinuses. Mastoid air cells well pneumatized. O rbits and globes appear intact. No calvarial fracture. IMPRESSION: Mild generalized atrophy. No acute intracranial abnormality seen.
[2020-02-22] MEDS: FUROSEMIDE 10 MG/ML 4 ML VIAL IV SCH ×2 (15:04→23:10)
[2020-02-22 16:40] LABS: Glucose,Whole Blood 134 mg/dL (75-99)
[2020-02-22] MEDS: TAMSULOSIN 0.4 MG CAP.ER.24H PO SCH (20:46)
[2020-02-22] MEDS: QUEtiapine 25 MG TAB PO SCH (20:46)
[2020-02-22] MEDS: ATORVASTATIN 80 MG TAB PO SCH (20:47)
[2020-02-22 21:12] LABS: Glucose,Whole Blood 183 mg/dL (75-99)
[2020-02-23] MEDS: LEVOTHYROXINE 100 MCG TAB PO SCH (06:32)
[2020-02-23 06:45] LABS: Glucose,Whole Blood 102 mg/dL (75-99)
--- NOTE | 2020-02-23 07:11 | XR ---
EXAMINATION TYPE: XR chest 1V DATE OF EXAM: 02/23/2020 HISTORY: f/u. REFERENCE: Previous study dated 02/22/2020. FINDINGS: The heart remains enlarged. There continue to be peripheral infiltrates bilaterally. There is blunting of the left CP angle and I could not exclude a small left effusion. IMPRESSION: NO SIGNIFICANT INTERVAL CHANGE IN THE APPEARANCE OF THE CHEST.
[2020-02-23 07:23] LABS: Calcium 10.3 mg/dL (8.4-10.2); Magnesium 2.1 mg/dL (1.6-2.3); Potassium 4.5 mmol/L (3.5-5.1)
[2020-02-23] MEDS: ALBUTEROL NEBULIZED 2.5 MG/3 ML INHALATION SCH ×2 (08:16→20:38)
[2020-02-23] MEDS: HEPARIN SODIUM,PORCINE 5,000 UNIT/ML 1 ML VIAL SQ SCH ×2 (09:20→20:23)
[2020-02-23] MEDS: FUROSEMIDE 10 MG/ML 4 ML VIAL IV SCH (09:20)
[2020-02-23] MEDS: ASPIRIN 325 MG TAB PO SCH (09:21)
[2020-02-23] MEDS: HYDROPHILIC CREAM 180 GM TUBE TOPICAL SCH ×2 (09:21→20:24)
[2020-02-23] MEDS: METOPROLOL TARTRATE 25 MG TAB PO SCH ×2 (09:21→20:23)
[2020-02-23] MEDS: ARTIFICIAL TEARS-HYPROMELLOSE DROPS 15 ML BTL BOTH EYES SCH ×2 (09:21→20:23)
[2020-02-23] MEDS: GABAPENTIN 300 MG CAP PO SCH ×3 (09:21→20:23)
[2020-02-23] MEDS: LORATADINE 10 MG TAB PO SCH (09:22)
[2020-02-23 11:44] LABS: Glucose,Whole Blood 135 mg/dL (75-99)
--- NOTE | 2020-02-23 12:10 | PN ---
PROGRESS NOTE Patient is seen for followup for acute kidney injury associated with hypercalcemia. The patient was maintained on IV fluids. However, he developed significant shortness of breath yesterday and was given a dose of IV Lasix. Fluids are now turned down. The patient's calcium has been improving. It is down to 10.3 today. Serum creatinine has stayed at about 2 mg/dL. Previous creatinine was 1.01 on 01/29/2019. There is no underlying obstructive uropathy noted on the ultrasound. The patient has had postvoid scans which at one time showed about 300 mL, but then after that patient has been diuresing well with the Lasix. PHYSICAL EXAMINATION: Today he is sitting up in bed. He is comfortable, not in any acute distress. This morning blood pressure was 135/65, heart rate 85 per minute, he is afebrile. Examination shows good air entry bilaterally. Examination of lower extremities shows no significant edema. Abdomen is obese. POLYMER SPECIALIST exam grossly intact. LAB: Show sodium 143, potassium 4.5, BUN 46, serum creatinine 2.87, calcium down to 10.3. ASSESSMENT: 1. Acute kidney injury associated with hypercalcemia on admission. However, serum creatinine has not improved further since admission. The patient was maintained on IV fluids which are now discontinued secondary to hypervolemia and congestive heart failure. There is no evidence of obstruction noted on the ultrasound and patient has not had significant urine retention as well. His UA has been quite benign with no evidence of proteinuria and there was trace blood noted. No nephrotoxic agents on board currently and blood pressure has not been low. The patient was on MAYA inhibitor which I discontinued yesterday. 2. Hypercalcemia with appropriately low PTH. Etiology is calcium supplements, which are now discontinued. 3. Morbid obesity. 4. Hypomagnesemia, status post replacement. 5. Hypervolemia, currently IV fluids are discontinued. The patient received low dose of IV Lasix yesterday. I will decrease the Lasix to once a day from q.12 hours. PLAN: Discontinue IV fluids. Decrease Lasix to 40 mg once a day. Repeat labs in a.m. The patient will need followup as outpatient. He could be discharged tomorrow if the renal function is not further worsened. He should remain off MAYA inhibitors for now. The patient is also advised to avoid use of calcium supplements, post discharge. MMODL / IJN: [id number] /
--- NOTE | 2020-02-23 12:11 | P.PN ---
Subjective This is a pleasant 69 years old male with past medical history of coronary artery disease, pituitary tumor status post resection, COPD, diabetes mellitus, GERD, hearing difficulty, hypertension, hyperlipidemia, osteoarthritis, sleep apnea noncompliant on CPAP/BiPAP, pulmonary embolism back pain, diabetic neuropathy, tremor. History of foot injury on 11/2019. Patient follows in the [facility]. Presents because of recurrent falls and mild intermittent confusion. Patient has been falling for about one week, patient states that he fell about 10 times without losing consciousness, eventually he came to the hospital because could not help him anymore. Patient denies pain anywhere, no headache, no chest pain, no abdominal pain, no leg pain and no back pain. He denies weakness in his legs. No numbness, no urine or bowel incontinence. Patient states that 4 months he has 1 bowel movement every 4 days. He states he has some shortness of breath but no coughing, no chest pain no fever, no nausea vomiting. He denies smoking, alcohol or illicit drugs. Vitas looks stable. Unremarkable except for mild anemia 11.1 and mild throm bocytopenia of 136K, elevated d-dimer at 1.6. Blood gas showing normal pH is 7.3 but elevated pCO2 at 80, pO2 is 89. BMP showing elevated creatinine of 2.2, with baseline 0.9-1.1. Elevated calcium of 14.6. Liver enzymes not elevated. Sugar controlled. Potassium 5.0, sodium 143, proBNP is 174, lipase 209. UA is a suspicious of infection. Urine drug screen is negative. Current of her is not detected EKG showing sinus rhythm with first-degree F applied after with no significant ST-T changes and QTC 318. VQ scan is low probability for PE. Chest x-ray showing chronic changes with acute process. CT of the brain: No acute process by Radiologist On admission patient received 500 ms of normal saline and started on 200 mL per hour Patient was on calcium gluconate, vitamin D and alendronate. Also patient was on naproxen which was held 02/21/2020 Patient is awake and alert, he was sitting on the chair today. His weakness is looks better today. His confusion is improving. No chest pain or dyspnea. No change in urine or bowel habits. Except that he is voiding a lot because he is on IV fluids. Hemodynamically stable., Some is trending down to 11.7, creatinine stable at 2. 1, rest of labs are unremarkable. Low magnesium was replaced. IV fluids was lower to 70 mL per hour. Physical therapy recommended subacute rehab and social media assistant been consulted 02/22/2020 Patient is awake and alert, is oriented to time place and person and why he is in the hospital, saying that is due to. However he could not elaborate more. Last night patient got more agitated, he was trying get out of bed, Haldol was provided for him and that heparin for a couple hours then he became combative trying to the nurse so Seroquel was started for him. This morning he has a sister at bedside however he is more calm. He was complaining of from some dyspnea although no much crepitation appreciated on exam however he has been Pretty happy test. So we will check chest x-ray and CT of the brain. The patient has checked in mental status: He is on heparin subcu and aspirin. Vitals are Stable and he is saturating 94% 2 L. calcium slightly, down from 11.7 TO 11.1 Creatinine is slightly improving to 1.96, magnesium 1.5 has been replaced, Sugar controlled Renal ultrasound showing large kidney cyst with no evidence of hydronephrosis and no kidney stones. Patient remains on normal sinus with milliliters per hour with holding vitamin D, calcium and hydrochlorothiazide 02/23/2020 Patient is more awake and comfortable today, he stopped into family through the phone. He denies specific complaint, he says that his generalized weakness is improving, his alert awake and oriented to time place and person as he knows in [facility] which is January 2020 and the name of the president. And he knows why the hospital. He is in no respiratory distress, and he saturating 96% on 3 L. 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 Calcium improvement to 10.3 today Patient will need repeat chest x-ray tomorrow Review of systems: CONSTITUTIONAL: No fever, no malaise, no fatigue. HEENT: No recent visual problems or hearing problems. Denied any sore throat. CARDIOVASCULAR: No orthopnea, PND, no palpitations, no syncope. PULMONARY: No shortness of breath, no cough, no hemoptysis. GASTROINTESTINAL: No diarrhea, no nausea, no vomiting, no abdominal pain. Normoactive bowel sounds. NEUROLOGICAL: No headaches, no weakness, no numbness. HEMATOLOGICAL: Denies any bleeding or petechiae. GENITOURINARY: Denies any burning micturition, frequency, or urgency. MUSCULOSKELETAL/RHEUMATOLOGICAL: Denies any joint pain, swelling, or any muscle pain. ENDOCRINE: Denies any polyuria or polydipsia. Objective - Vital Signs Vital signs: Vital Signs Temp 97.5 F L 02/23/20 11:11 Pulse 84 02/23/20 11:11 Resp 18 02/23/20 11:11 BP 138/65 02/23/20 11:11 Pulse Ox 96 02/23/20 11:11 Intake & Output 02/22/20 02/23/20 02/23/20 18:59 06:59 18:59 Intake Total 360 240 190 Output Total 1800 1800 400 Balance -1790 -0 -210 Weight 122 kg Intake: Intake, IV Titration 70 Amount Sodium Chloride 0.9% 1, 70 000 ml @ 70 mls/hr IV . [id number] [facility] Rx#:[id number] Oral 360 240 120 Output: Urine 1800 1800 400 Other: Voiding Method Urinal # Voids 2 # Bowel Movements 1 - Exam -GENERAL: The patient is alert and oriented x3, somewhat confused not in any acute distress. Well developed, well nourished. -HEENT: Pupils are round and equally reacting to light. EOMI. No scleral icterus. No conjunctival pallor. Normocephalic, atraumatic. No pharyngeal erythema. No thyromegaly. Multiple bruises on the right forehead CARDIOVASCULAR: S1 and S2 present. No murmurs, rubs, or gallops. PULMONARY: Chest is clear to auscultation, no wheezing or crackles. ABDOMEN: Soft, nontender, nondistended, normoactive bowel sounds. No palpable organomegaly. MUSCULOSKELETAL: No joint swelling or deformity. EXTREMITIES: No cyanosis, clubbing, or pedal edema. NEUROLOGICAL: Gross neurological examination did not reveal any focal deficits. No weakness with strength 5/5 and no numbness in extremities. SKIN: No rashes. No petechiae - Labs CBC & Chem 7: 02/21/20 08:37 02/23/20 06:20 Labs: Abnormal Lab Results - Last 24 Hours (Table) 02/22/20 02/22/20 02/23/20 Range/Units 16:39 21:08 06:20 Carbon Dioxide 40 H (22-30) mmol/L BUN 46 H (9-20) mg/dL Creatinine 2.87 H (0.66-1.25) mg/dL Glucose 100 H (74-99) mg/dL POC Glucose (mg/dL) 134 H 183 H (75-99) mg/dL Calcium 10.3 H (8.4-10.2) mg/dL 02/23/20 02/23/20 Range/Units 06:42 11:42 Carbon Dioxide (22-30) mmol/L BUN (9-20) mg/dL Creatinine (0.66-1.25) mg/dL Glucose (74-99) mg/dL POC Glucose (mg/dL) 102 H 135 H (75-99) mg/dL Calcium (8.4-10.2) mg/dL Assessment and Plan Assessment: -acute kidney injury -Severe hypercalcemia with lip of 14.1 on admission, improving -Recurrent Fall -metabolic encephalopathy secondary to above -Elevated d-dimer with low probability of PE on V/Q scan -History of left foot injury on November of this year found to have multiple metatarsal fractures , X-rays of the left foot reveal nondisplaced fractures to the base of the second, third, fourth and fifth metatarsals. -COPDwith no exacerbation -Hypothyroidism -Hyperlipidemia -Hypertension -Diabetes mellitus -Diabetic neuropathy -sleep apnea noncompliant on CPAP/BiPAP -Osteoporosis -Obesity -History of pituitary tumor status post resection -Good -History of coronary artery disease -Hearing difficulty -Osteoarthritis -Chronic back pain Plan: This is a pleasant 69 years old male who presents with hypercalcemia, Acute kidney injury with recurrent falls. Continue with IV fluids. Check parathyroid hormone and vitamin D. Continue with alendronate, hold NSAIDs, hold vitamin D and calcium Labs and medication were reviewed.. Continue same treatment. Continue with symptomatic treatment. Resume home medication. Monitor lytes and vitals. DVT and GI prophylaxis. Further recommendations of the clinical course of the patient DVT prophylaxis: Subcutaneous heparin GI Prophylaxis: Pepcid PT/OT: Pending Prognosis is guarded
[2020-02-23 16:55] LABS: Glucose,Whole Blood 107 mg/dL (75-99)
[2020-02-23] MEDS: QUEtiapine 25 MG TAB PO SCH (20:23)
[2020-02-23] MEDS: ATORVASTATIN 80 MG TAB PO SCH (20:23)
[2020-02-23] MEDS: TAMSULOSIN 0.4 MG CAP.ER.24H PO SCH (20:23)
[2020-02-23 20:36] LABS: Glucose,Whole Blood 123 mg/dL (75-99)
[2020-02-24] MEDS: LEVOTHYROXINE 100 MCG TAB PO SCH (05:52)
[2020-02-24 06:16] LABS: Glucose,Whole Blood 113 mg/dL (75-99)
[2020-02-24 06:42] LABS: Calcium 9.4 mg/dL (8.4-10.2); Potassium 4.3 mmol/L (3.5-5.1)
[2020-02-24] MEDS: ALBUTEROL NEBULIZED 2.5 MG/3 ML INHALATION SCH ×2 (06:57→19:43)
[2020-02-24] MEDS ORDERED: FUROSEMIDE 10 MG/ML 4 ML VIAL IV SCH (09:00)
[2020-02-24] MEDS: GABAPENTIN 300 MG CAP PO SCH ×3 (10:24→20:20)
[2020-02-24] MEDS: METOPROLOL TARTRATE 25 MG TAB PO SCH ×2 (10:24→20:19)
[2020-02-24] MEDS: HYDROPHILIC CREAM 180 GM TUBE TOPICAL SCH ×2 (10:25→20:20)
[2020-02-24] MEDS: HEPARIN SODIUM,PORCINE 5,000 UNIT/ML 1 ML VIAL SQ SCH ×2 (10:25→20:20)
[2020-02-24] MEDS: LORATADINE 10 MG TAB PO SCH (10:25)
[2020-02-24] MEDS: ASPIRIN 325 MG TAB PO SCH (10:25)
[2020-02-24] MEDS: ARTIFICIAL TEARS-HYPROMELLOSE DROPS 15 ML BTL BOTH EYES SCH ×2 (10:26→20:20)
--- NOTE | 2020-02-24 11:09 | P.PN ---
Subjective Patient is seen in follow-up for acute kidney injury. Renal function is improving. Calcium level is also normal. Currently sleeping. Nonoliguric. No vomiting or diarrhea. Vital signs are stable. General: The patient appeared well nourished and normally developed. HEENT: Head exam is unremarkable. Neck is without jugular venous distension. LUNGS: Lungs are clear to auscultation and percussion. Breath sounds decreased. HEART: Rate and Rhythm are regular. ABDOMEN: Nontender, nondistended. EXTREMITITES: Trace edema. Objective - Vital Signs Vital signs: Vital Signs Temp 98.0 F 02/24/20 04:00 Pulse 68 02/24/20 07:08 Resp 16 02/24/20 04:00 BP 101/55 02/24/20 04:00 Pulse Ox 95 02/24/20 06:57 Intake & Output 02/23/20 02/24/20 02/24/20 18:59 06:59 18:59 Intake Total 1030 100 Output Total 400 1070 Balance 630 -970 Weight 122 kg Intake: Intake, IV Titration 70 Amount Sodium Chloride 0.9% 1, 70 000 ml @ 70 mls/hr IV . [id number] [facility] Rx#:[id number] Oral 960 100 Output: Urine 400 1070 Other: Voiding Method Urinal # Voids 1 1 - Labs CBC & Chem 7: 02/21/20 08:37 02/24/20 05:49 Labs: Abnormal Lab Results - Last 24 Hours (Table) 02/23/20 02/23/20 02/23/20 Range/Units 11:42 16:53 20:35 Chloride (98-107) mmol/L Carbon Dioxide (22-30) mmol/L BUN (9-20) mg/dL Creatinine (0.66-1.25) mg/dL POC Glucose (mg/dL) 135 H 107 H 123 H (75-99) mg/dL 02/24/20 02/24/20 Range/Units 05:49 06:15 Chloride 95 L (98-107) mmol/L Carbon Dioxide 37 H (22-30) mmol/L BUN 56 H (9-20) mg/dL Creatinine 2.35 H (0.66-1.25) mg/dL POC Glucose (mg/dL) 113 H (75-99) mg/dL Assessment and Plan Plan: Assessment: 1. Acute kidney injury secondary to hypercalcemia-induced ATN. Renal function is better today. No proteinuria on UA. 2. Hypercalcemia with appropriately suppressed PTH. Etiologies calcium supplementation. Now normal. 3. Volume overload. 4. Hypomagnesemia status post replacement. Improved. Plan: I will change Lasix to 40 mg orally once daily. Avoid nephrotoxins. Repeat electrolytes in the morning.
[2020-02-24 11:51] LABS: Glucose,Whole Blood 195 mg/dL (75-99)
--- NOTE | 2020-02-24 12:18 | P.PN ---
Subjective 1-year-old male was admitted secondary to acute renal failure from hypercalcemia in hypercalcemia secondary to calcium supplementation. Patient's baseline creatinine is around the 1. Present creatinine is 2.35 which is mild improvement from 2.87. His calcium normalized and patient was switched to oral Lasix. Patient is not receiving any IV fluids at this time Constitutional: Denied any fatigue denied any fever. Cardio vascular: denied any chest pain, palpitations Gastrointestinal denied any nausea vomiting Pulmonary: Denied any shortness of breath cough Neurologic denied any new focal deficits All inpatient medications were reviewed and appropriate changes in these medications as dictated in the interval history and assessment and plan. Objective - Vital Signs Vital signs: Vital Signs Temp 98.3 F 02/24/20 08:00 Pulse 70 02/24/20 08:00 Resp 16 02/24/20 04:00 BP 109/51 02/24/20 08:00 Pulse Ox 95 02/24/20 08:00 Intake & Output 02/23/20 02/24/20 02/24/20 18:59 06:59 18:59 Intake Total 1030 100 120 Output Total 400 1070 500 Balance 630 -970 -380 Weight 122 kg Intake: Intake, IV Titration 70 Amount Sodium Chloride 0.9% 1, 70 000 ml @ 70 mls/hr IV . [id number] [facility] Rx#:[id number] Oral 960 100 120 Output: Urine 400 1070 500 Other: Voiding Method Urinal # Voids 1 1 0 - Exam PHYSICAL EXAMINATION: GENERAL: The patient is alert and oriented x3, not in any acute distress. Well developed, well nourished. HEENT: Pupils are round and equally reacting to light. EOMI. No scleral icterus. No conjunctival pallor. Normocephalic, atraumatic. No pharyngeal erythema. No thyromegaly. CARDIOVASCULAR: S1 and S2 present. No murmurs, rubs, or gallops. PULMONARY: Chest is clear to auscultation, no wheezing or crackles. ABDOMEN: Soft, nontender, nondistended, normoactive bowel sounds. No palpable organomegaly. MUSCULOSKELETAL: No joint swelling or deformity. EXTREMITIES: No cyanosis, clubbing, or pedal edema. NEUROLOGICAL: Gross neurological examination did not reveal any focal deficits. SKIN: No rashes. - Labs CBC & Chem 7: 02/21/20 08:37 02/24/20 05:49 Labs: Abnormal Lab Results - Last 24 Hours (Table) 02/23/20 02/23/20 02/24/20 Range/Units 16:53 20:35 05:49 Chloride 95 L (98-107) mmol/L Carbon Dioxide 37 H (22-30) mmol/L BUN 56 H (9-20) mg/dL Creatinine 2.35 H (0.66-1.25) mg/dL POC Glucose (mg/dL) 107 H 123 H (75-99) mg/dL 02/24/20 02/24/20 Range/Units 06:15 11:49 Chloride (98-107) mmol/L Carbon Dioxide (22-30) mmol/L BUN (9-20) mg/dL Creatinine (0.66-1.25) mg/dL POC Glucose (mg/dL) 113 H 195 H (75-99) mg/dL Assessment and Plan Plan: 1 acute kidney injury: Secondary to hypercalcemia naproxen these were discontinued. -Hypercalcemia secondary to calcium supplementation. 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 -Sleep apnea uses CPAP machine at home -Obesity -History of pituitary tumor status post resection -Coronary artery disease -Chronic low back pain plan is to continue with present medication monitor ki dney function possibly of discharge to subacute rehabilitation tomorrow if this can be function remains stable and gets better
[2020-02-24 16:49] LABS: Glucose,Whole Blood 117 mg/dL (75-99)
[2020-02-24] MEDS: ATORVASTATIN 80 MG TAB PO SCH (20:19)
[2020-02-24] MEDS: TAMSULOSIN 0.4 MG CAP.ER.24H PO SCH (20:19)
[2020-02-24] MEDS: QUEtiapine 25 MG TAB PO SCH (20:20)
[2020-02-24 20:33] LABS: Glucose,Whole Blood 155 mg/dL (75-99)
[2020-02-25] MEDS: LEVOTHYROXINE 100 MCG TAB PO SCH (06:04)
[2020-02-25 06:09] LABS: Calcium 9.7 mg/dL (8.4-10.2); Potassium 4.1 mmol/L (3.5-5.1)
[2020-02-25 06:24] LABS: Glucose,Whole Blood 136 mg/dL (75-99)
[2020-02-25] MEDS: ALBUTEROL NEBULIZED 2.5 MG/3 ML INHALATION SCH (07:06)
[2020-02-25] MEDS: METOPROLOL TARTRATE 25 MG TAB PO SCH (08:47)
[2020-02-25] MEDS: HEPARIN SODIUM,PORCINE 5,000 UNIT/ML 1 ML VIAL SQ SCH (08:47)
[2020-02-25] MEDS: ASPIRIN 325 MG TAB PO SCH (08:47)
[2020-02-25] MEDS: LORATADINE 10 MG TAB PO SCH (08:47)
[2020-02-25] MEDS: GABAPENTIN 300 MG CAP PO SCH ×2 (08:47→16:08)
[2020-02-25] MEDS: ARTIFICIAL TEARS-HYPROMELLOSE DROPS 15 ML BTL BOTH EYES SCH (08:48)
[2020-02-25] MEDS: HYDROPHILIC CREAM 180 GM TUBE TOPICAL SCH (08:48)
[2020-02-25 08:57] VITALS: RESP 18
[2020-02-25] MEDS ORDERED: FUROSEMIDE 40 MG TAB PO SCH (09:00)
--- NOTE | 2020-02-25 09:04 | P.PN ---
Subjective Patient is seen in follow-up for acute kidney injury. Renal function is improving. Calcium level is also normal. Hemodynamically stable. No chest pain or shortness of breath. Vital signs are stable. General: The patient appeared well nourished and normally developed. HEENT: Head exam is unremarkable. Neck is without jugular venous distension. LUNGS: Lungs are clear to auscultation and percussion. Breath sounds decreased. HEART: Rate and Rhythm are regular. ABDOMEN: Nontender, nondistended. EXTREMITITES: Trace edema. Objective - Vital Signs Vital signs: Vital Signs Temp 97.8 F 02/25/20 08:00 Pulse 95 02/25/20 08:00 Resp 18 02/25/20 08:00 BP 125/73 02/25/20 08:00 Pulse Ox 91 L 02/25/20 08:00 Intake & Output 02/24/20 02/25/20 02/25/20 18:59 06:59 18:59 Intake Total 300 160 120 Output Total 500 550 400 Balance -200 -390 -280 Weight 119 kg Intake: IV 10 Invasive Line 6 10 Oral 300 150 120 Output: Urine 500 550 400 Other: Voiding Method Urinal # Voids 1 1 - Labs CBC & Chem 7: 02/21/20 08:37 02/25/20 05:36 Labs: Abnormal Lab Results - Last 24 Hours (Table) 02/24/20 02/24/20 02/24/20 Range/Units 11:49 16:47 20:32 Chloride (98-107) mmol/L Carbon Dioxide (22-30) mmol/L BUN (9-20) mg/dL Creatinine (0.66-1.25) mg/dL Glucose (74-99) mg/dL POC Glucose (mg/dL) 195 H 117 H 155 H (75-99) mg/dL 02/25/20 02/25/20 Range/Units 05:36 06:22 Chloride 93 L (98-107) mmol/L Carbon Dioxide 41 H* (22-30) mmol/L BUN 56 H (9-20) mg/dL Creatinine 1.82 H (0.66-1.25) mg/dL Glucose 107 H (74-99) mg/dL POC Glucose (mg/dL) 136 H (75-99) mg/dL Assessment and Plan Plan: Assessment: 1. Acute kidney injury secondary to hypercalcemia-induced ATN. Renal function is better today. No proteinuria on UA. 2. Hypercalcemia with appropriately suppressed PTH. Etiology is calcium sup plementation. Now normal. 3. Volume overload. Better. 4. Hypomagnesemia status post replacement. Improved. 5. History of COPD. Plan: Maintain Lasix 40 mg orally once daily. Avoid nephrotoxins. Repeat electrolytes in the morning. Monitor bicarb. If rises further, I will check an ABG.
[2020-02-25 11:34] LABS: Glucose,Whole Blood 129 mg/dL (75-99)
[2020-02-25 12:06] VITALS: BP 118/78; PULSE 79; TEMP 98.6
--- NOTE | 2020-02-25 12:57 | P.DS ---
Providers Date of admission: 02/19/20 19:48 Expected date of discharge: 02/25/20 Attending physician: Maliha Waldrop Consults: 02/20/20 08:23 Consult Physician Urgent Consulting Provider: Desi Gerber Consult Reason/Comments: jose m, hypercalcemia Do you want consulting provider notified?: Yes Primary care physician: [facility] Course: Final diagnosis -acute kidney injury: Secondary to hypercalcemia -Hypercalcemia secondary to calcium supplementation. 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 -Sleep apnea uses CPAP machine at home -Obesity -History of pituitary tumor status post resection -Coronary artery disease -Chronic low back pain Discharge disposition Patient is being discharged in a stable condition with guarded prognosis to [facility]. Patient will need outpatient follow-up with nephrology. Total time taken is 35 minutes. History of present illness This is a 69-year-old male who was recently admitted with acute renal failure secondary to hypercalcemia which is most likely due to calcium supplementation and was being closely monitored. Calcium supplementation has been discontinued. Patient was evaluated by nephrology and will follow-up with them in the outpatient setting. Patient to continue with Lasix 40 mg every other day with a repeat basic metabolic panel on Monday. Currently no reports of chest pain, worsening shortness of breath, or palpitations. Patient is afebrile. No reports of nausea or vomiting and patient is tolerating diet. Currently patient's condition is stable and is able to transfer to [facility]. On exam vital signs are stable. Temp is 98.6 F, pulse is 79, respirations are 18, blood pressure is 118/78, oxygen saturation is 93 % on 2 L via nasal cannula. Cardio S1, S2 are present. Respiratory system shows diminished breath sounds at the bases with some scattered rhonchi noted. Abdomen is soft, obese, and nontender. Nervous system shows mild diffuse weakness. Please refer to medication reconciliation sheet for a list of medications. Patient Condition at Discharge: Stable Plan - Discharge Summary New Discharge Prescriptions: New Furosemide [Lasix] 40 mg PO DAILY tab QUEtiapine [SEROquel] 25 mg PO HS tab Continue Pantoprazole [Protonix] 40 mg PO HS Metoprolol Tartrate 25 mg PO BID Loratadine 10 mg PO DAILY Levothyroxine Sodium [Synthroid] 100 mcg PO DAILY Atorvastatin [Lipitor] 80 mg PO HS Aspirin 325 mg PO DAILY Alendronate Sodium [Fosamax] 70 mg PO MO Tamsulosin [Flomax] 0.4 mg PO HS Sennosides-Docusate Sodium [Senokot-S] 2 tab PO BID Psyllium Husk (with Sugar) [Metamucil Powder] 15 gm PO DAILY Hydrophilic Cream [Triad Cream] 1 applic TOPICAL BID Artificial Tears-Hypromellose [Artificial Tear Drops] 1 drops BOTH EYES BID Albuterol Nebulized [Ventolin Nebulized] 2.5 mg INHALATION RT-BID Cholecalciferol [Vitamin D3 (25 Mcg = 1000 Iu)] 2,000 unit PO HS Gabapentin 900 mg PO TID #12 tab Discontinued Naproxen 500 mg PO BID Lisinopril-Hctz 10-12.5 mg [Zestoretic 10-12.5] 1 tab PO DAILY Furosemide [Lasix] 20 mg PO DAILY Calcium Carbonate 1,000 mg PO BID Potassium Chloride [Klor-Con 10] 10 meq PO DAILY Discharge Medication List Alendronate Sodium [Fosamax] 70 mg PO MO 03/03/17 [History] Aspirin 325 mg PO DAILY 03/03/17 [History] Atorvastatin [Lipitor] 80 mg PO HS 03/03/17 [History] Levothyroxine Sodium [Synthroid] 100 mcg PO DAILY 03/03/17 [History] Loratadine 10 mg PO DAILY 03/03/17 [History] Metoprolol Tartrate 25 mg PO BID 03/03/17 [History] Pantoprazole [Protonix] 40 mg PO HS 03/03/17 [History] Sennosides-Docusate Sodium [Senokot-S] 2 tab PO BID 01/25/19 [History] Tamsulosin [Flomax] 0.4 mg PO HS 01/25/19 [History] Albuterol Nebulized [Ventolin Nebulized] 2.5 mg INHALATION RT-BID 02/19/20 [History] Artificial Tears-Hypromellose [Artificial Tear Drops] 1 drops BOTH EYES BID 02/19/20 [History] Cholecalciferol [Vitamin D3 (25 Mcg = 1000 Iu)] 2,000 unit PO HS 02/19/20 [History] Hydrophilic Cream [Triad Cream] 1 applic TOPICAL BID 02/19/20 [History] Psyllium Husk (with Sugar) [Metamucil Powder] 15 gm PO DAILY 02/19/20 [History] Furosemide [Lasix] 40 mg PO DAILY tab 02/25/20 [Rx] Gabapentin 900 mg PO TID #12 tab 02/25/20 [Rx] QUEtiapine [SEROquel] 25 mg PO HS tab 02/25/20 [Rx] Follow up Appointment(s)/Referral(s): Desi Gerber MD [STAFF PHYSICIAN] - 10 Days [facility],Clinic [Primary Care Provider] - 1-2 days Ambulatory/Diagnostic Orders: Basic Metabolic Panel [LAB.AMB] Time Frame: 3 Days, Location: None Selected Activity/Diet/Wound Care/Special Instructions: PH Medi Activity as tolerated Continue current diet Follow-up with nephrology in the outpatient setting Follow-up with primary care provider upon discharge Continue taking Lasix 40 mg every other day with repeat labs in 3 days to monitor creatinine Discharge Disposition: TRANSFER TO SNF/ECF
[2020-02-25 13:14] VITALS: BMI 42.3
[2020-02-25 16:43] LABS: Glucose,Whole Blood 130 mg/dL (75-99)
== END 2020-02-25 17:01 | DRG 682 ==
LOC: EC 13:48 → 3SCARD 19:48
PROVIDERS: ADMIT Hospitalist; ATTEND Hospitalist
DX: N17.0 Acute kidney failure with tubular necrosis (principal); G93.41 Metabolic encephalopathy; Z68.41 Body mass index [BMI] 40.0-44.9, adult; E87.3 Alkalosis; J96.12 Chronic respiratory failure with hypercapnia; N18.2 Chronic kidney disease, stage 2 (mild); M81.0 Age-related osteoporosis without current pathological fracture; J44.9 Chronic obstructive pulmonary disease, unspecified; D64.9 Anemia, unspecified; D69.6 Thrombocytopenia, unspecified; E03.9 Hypothyroidism, unspecified; E11.22 Type 2 diabetes mellitus with diabetic chronic kidney disease; E11.40 Type 2 diabetes mellitus with diabetic neuropathy, unspecified; E66.01 Morbid (severe) obesity due to excess calories; E78.5 Hyperlipidemia, unspecified; I12.9 Hypertensive chronic kidney disease with stage 1 through stage 4 chronic kidney disease, or unspecified chronic kidney disease; E83.42 Hypomagnesemia; E83.52 Hypercalcemia; G47.33 Obstructive sleep apnea (adult) (pediatric); Z99.89 Dependence on other enabling machines and devices; Z20.828 Contact with and (suspected) exposure to other viral communicable diseases; G89.29 Other chronic pain; M54.5 Low back pain; H91.90 Unspecified hearing loss, unspecified ear; I25.10 Atherosclerotic heart disease of native coronary artery without angina pectoris; M19.90 Unspecified osteoarthritis, unspecified site; N28.1 Cyst of kidney, acquired; R29.6 Repeated falls; S09.90XA Unspecified injury of head, initial encounter; W19.XXXA Unspecified fall, initial encounter; Z90.49 Acquired absence of other specified parts of digestive tract; K21.9 Gastro-esophageal reflux disease without esophagitis; Z87.891 Personal history of nicotine dependence; Z99.81 Dependence on supplemental oxygen; H40.9 Unspecified glaucoma; Z91.19 Patient's noncompliance with other medical treatment and regimen; Z79.82 Long term (current) use of aspirin; Z79.83 Long term (current) use of bisphosphonates; Z79.890 Hormone replacement therapy; Z79.899 Other long term (current) drug therapy; Z86.711 Personal history of pulmonary embolism; Z96.653 Presence of artificial knee joint, bilateral; Z98.42 Cataract extraction status, left eye; Z98.41 Cataract extraction status, right eye; Z88.8 Allergy status to other drugs, medicaments and biological substances
CPT/HCPCS: 36415; 36600; 70450; 71045; 71046; 76770; 78582; 80048; 80053; 80306; 81001; 82306; 82652; 82805; 83036; 83690; 83735; 83880; 83970; 84100; 84484; 85025; 85379; 85610; 85730; 87635; 93005; 94640; 94760; 96360; 99285

== ENCOUNTER 2020-04-16 16:38 | Inpatient (IN) | payer OTHER, MEDICARE ==
--- NOTE | 2020-04-16 17:19 | ED ---
Fall HPI - General Source: patient, EMS Mode of arrival: EMS <Boaz Todd - Last Filed: 04/16/20 21:39> <Barb Sheppard - Last Filed: 04/20/20 01:20> - General Chief Complaint: Fall Stated Complaint: Fall Time Seen by Provider: 04/16/20 16:41 - History of Present Illness Initial Comments: Patient is 69-year-old male with history of falls and essential tremors presenting to emergency Department with a chief complaint of fall. Patient states she fell multiple times today. States he uses a wheelchair to ambulate throughout the house, however his "body just gives out" whenever he attempted to ambulate out of the wheelchair. Patient states today a similar thing occurred when he fell and hit the frontal aspect of his head. Patient reports an abrasion on the head. He reports increased weakness during the last week. His states that she is unable to pick him up whenever he falls on the floor. They live alone in an apartment. Denies loss of consciousness. States he is not on blood thinners. Patient denies pain anywhere else. (Boaz Todd) - Related Data Home Medications Medication Instructions Recorded Confirmed Alendronate Sodium [Fosamax] 70 mg PO MO 03/03/17 04/16/20 Aspirin 325 mg PO DAILY 03/03/17 04/16/20 Atorvastatin [Lipitor] 80 mg PO HS 03/03/17 04/16/20 Levothyroxine Sodium [Synthroid] 100 mcg PO DAILY 03/03/17 04/16/20 Loratadine 10 mg PO DAILY 03/03/17 04/16/20 Metoprolol Tartrate 25 mg PO BID 03/03/17 04/16/20 Pantoprazole [Protonix] 40 mg PO HS 03/03/17 04/16/20 Sennosides-Docusate Sodium 2 tab PO BID 01/25/19 04/16/20 [Senokot-S] Tamsulosin [Flomax] 0.4 mg PO HS 01/25/19 04/16/20 Albuterol Nebulized [Ventolin 2.5 mg INHALATION RT-BID 02/19/20 04/16/20 Nebulized] Artificial Tears-Hypromellose 1 drops BOTH EYES BID 04/22/20 06/18/20 [Artificial Tear Drops] Cholecalciferol [Vitamin D3 (25 2,000 unit PO HS 02/19/20 04/16/20 Mcg = 1000 Iu)] Hydrophilic Cream [Triad Cream] 1 applic TOPICAL BID 02/19/20 04/16/20 Psyllium Husk (with Sugar) 15 gm PO DAILY 02/19/20 04/16/20 [Metamucil Powder] Furosemide [Lasix] 40 mg PO Q48H 04/16/20 04/16/20 Lisinopril-Hctz 10-12.5 mg 1 tab PO DAILY 04/17/20 04/17/20 [Zestoretic 10-12.5] Potassium Chloride 10 meq PO DAILY 04/17/20 04/17/20 Primidone [Mysoline] 50 mg PO BID 04/17/20 04/17/20 Previous Rx's Medication Instructions Recorded Gabapentin 900 mg PO TID #12 tab 02/25/20 QUEtiapine [SEROquel] 25 mg PO HS tab 02/25/20 Allergies Allergy/AdvReac Type Severity Reaction Status Date / Time metoclopramide AdvReac TREMORS Verified 04/16/20 22:36 Review of Systems ROS Other: All systems not noted in ROS Statement are negative. <Boaz Todd - Last Filed: 04/16/20 21:39> ROS Other: All systems not noted in ROS Statement are negative. <Barb Sheppard - Last Filed: 04/20/20 01:20> ROS Statement: Those systems with pertinent positive or pertinent negative responses have been documented in the HPI. Past Medical History Past Medical History: Coronary Artery Disease (CAD), COPD, Diabetes Mellitus, Eye Disorder, GERD/Reflux, Hearing Disorder / Deafness, Hyperlipidemia, Hypertension, Osteoarthritis (OA), Pulmonary Embolus (PE), Sleep Apnea/CPAP/BIPAP Additional Past Medical History / Comment(s): O2 5L. PE IN 2007. CHRONIC BACK PAIN. DIABETIC NEUROPATHY IN FEET. GLAUCOMA. TREMORS. OSTEOPOROSIS. CPAP ORDERED BUT DOESN'T USE. HX POLYPS History of Any Multi-Drug Resistant Organisms: None Reported Past Surgical History: Appendectomy, Cholecystectomy, Hernia Repair, Orthopedic Surgery Additional Past Surgical History / Comment(s): BILATERAL KNEE REPLACEMENT, PLUS RIGHT KNEE DONE AGAIN; RIGHT ROTATOR CUFF. PITUITARY TUMOR REMOVED. BILATERAL CATARACTS. SINUS. GLAUCOMA SURGERY. EYE LID SURGERY. Additional Past Anesthesia/Blood Transfusion Reaction / Comment(s): QUESTIONABLE THAT VERSED MAY OVERLY SEDATE. Past Psychological History: No Psychological Hx Reported Smoking Status: Former smoker Past Alcohol Use History: None Reported Past Drug Use History: None Reported - Past Family History Mother Family Medical History: Cancer Additional Family Medical History / Comment(s): LUNG <Boaz Todd - Last Filed: 04/16/20 21:39> General Exam Limitations: no limitations <Boaz Todd - Last Filed: 04/16/20 21:39> Course Vital Signs 04/16/20 04/16/20 16:41 22:28 Temperature 97.3 F L Pulse Rate 82 110 H Respiratory 18 18 Rate Blood Pressure 133/71 115/80 O2 Sat by Pulse 96 99 Oximetry Medical Decision Making - Lab Data Result diagrams: 04/16/20 19:20 04/16/20 19:20 <Boaz Todd - Last Filed: 04/16/20 21:39> - Lab Data Result diagrams: 04/19/20 07:23 04/19/20 07:23 <Barb Sheppard - Last Filed: 04/20/20 01:20> - Medical Decision Making Patient is 69-year-old male with history of essential tremor presenting to the emergency department with a chief complaint of a fall. On physical examination patient appears to have an abrasion in the right frontal region. CT of head and neck is unremarkable. Patient did complain of increased weakness over the past week. He is concerned because the cannot take patient came up off the floor when he falls. He is reporting that his body keeps giving out on him when he attempts yearly. CBC reveals mild anemia. CMP initially showed hype rkalemia which was hemolyzed. Repeat potassium level of 5.5. Patient started on calcium gluconate and Kayexalate. Patient was hard to obtain IV access and laboratory work which lead to delayed admission times. I spoke with ANALI Dsouza who will admit the patient for further medical management. Case discussed with Dr. Sheppard Admitting physician Dr Waldrop (Boaz Todd) I was available for consultation in the emergency department. The history and physical exam were done by the midlevel provider. I was consulted for this patients care. I reviewed the case with the midlevel provider and based on their presentation of the patient, I agree with the assessment, medical decision making and plan of care as documented. Chart was dictated using [employer] dictation software. Attempts were made to correct any dictation errors however some typographical errors may persist. Patient was seen during a national state of emergency due to the Covid-19 pandemic. (Barb Sheppard) - Lab Data Lab Results 04/16/20 04/16/20 04/16/20 Range/Units 18:20 19:20 19:20 WBC 3.3 L (3.8-10.6) k/uL RBC 3.55 L (4.30-5.90) m/uL Hgb 11.0 L (13.0-17.5) gm/dL Hct 34.5 L (39.0-53.0) % MCV 97.2 (80.0-100.0) fL MCH 30.9 (25.0-35.0) pg MCHC 31.8 (31.0-37.0) g/dL RDW 13.9 (11.5-15.5) % Plt Count 145 L (150-450) k/uL Neutrophils % 62 % Lymphocytes % 19 % Monocytes % 6 % Eosinophils % 9 % Basophils % 1 % Neutrophils # 2.0 (1.3-7.7) k/uL Lymphocytes # 0.6 L (1.0-4.8) k/uL Monocytes # 0.2 (0-1.0) k/uL Eosinophils # 0.3 (0-0.7) k/uL Basophils # 0.0 (0-0.2) k/uL Hypochromasia Moderate PT 9.4 (9.0-12.0) sec INR 0.9 (<1.2) APTT 24.9 (22.0-30.0) sec Sample Site ABG pH (7.35-7.45) ABG pCO2 (35-45) mmHg ABG pO2 (83-108) mmHg ABG HCO3 (21-25) mmol/L ABG Total CO2 (19-24) mmol/L ABG O2 Saturation (94-97) % ABG Base Excess mmol/L Paulino Test FiO2 % Sodium 140 (137-145) mmol/L Potassium 5.9 H (3.5-5.1) mmol/L Chloride 96 L (98-107) mmol/L Carbon Dioxide 40 H (22-30) mmol/L Anion Gap 4 mmol/L BUN 25 H (9-20) mg/dL Creatinine 1.08 (0.66-1.25) mg/dL Est GFR (CKD-EPI)AfAm 79 (>60 ml/min/1.73 sqM) Est GFR (CKD-EPI)NonAf 69 (>60 ml/min/1.73 sqM) Glucose 104 H (74-99) mg/dL POC Glucose (mg/dL) (75-99) mg/dL POC Glu Marine Resource Economist ID Estimated Ave Glu mg/dL Hemoglobin A1c (4.0-6.0) % Calcium 8.7 (8.4-10.2) mg/dL Total Bilirubin 0.7 (0.2-1.3) mg/dL AST 28 (17-59) U/L ALT 16 (4-49) U/L Alkaline Phosphatase 109 (38-126) U/L Ammonia (<30) umol/L Total Protein 6.9 (6.3-8.2) g/dL Albumin 3.8 (3.5-5.0) g/dL Vitamin B12 (200.0-944.0) pg/mL TSH (0.465-4.680) mIU/L Urine Color Urine Appearance (Clear) Urine pH (5.0-8.0) Ur Specific [place] (1.001-1.035) Urine Protein (Negative) Urine Glucose (UA) (Negative) Urine Ketones (Negative) Urine Blood (Negative) Urine Nitrite (Negative) Urine Bilirubin (Negative) Urine Urobilinogen (<2.0) mg/dL Ur Leukocyte Esterase (Negative) Urine RBC (0-5) /hpf Urine WBC (0-5) /hpf Ur Squamous Epith Cells (0-4) /hpf Salicylates mg/dL Urine Opiates Screen (NotDetected) Ur Oxycodone Screen (NotDetected) Urine Methadone Screen (NotDetected) Ur Propoxyphene Screen (NotDetected) Acetaminophen ug/mL Ur Barbiturates Screen (NotDetected) U Tricyclic Antidepress (NotDetected) Ur Phencyclidine Scrn (NotDetected) Ur Amphetamines Screen (NotDetected) U Methamphetamines Scrn (NotDetected) U Benzodiazepines Scrn (NotDetected) Urine Cocaine Screen (NotDetected) U Marijuana (THC) Screen (NotDetected) Coronavirus (PCR) (Not Detected) 04/16/20 04/16/20 04/17/20 Range/Units 19:20 22:25 01:51 WBC (3.8-10.6) k/uL RBC (4.30-5.90) m/uL Hgb (13.0-17.5) gm/dL Hct (39.0-53.0) % MCV (80.0-100.0) fL MCH (25.0-35.0) pg MCHC (31.0-37.0) g/dL RDW (11.5-15.5) % Plt Count (150-450) k/uL Neutrophils % % Lymphocytes % % Monocytes % % Eosinophils % % Basophils % % Neutrophils # (1.3-7.7) k/uL Lymphocytes # (1.0-4.8) k/uL Monocytes # (0-1.0) k/uL Eosinophils # (0-0.7) k/uL Basophils # (0-0.2) k/uL Hypochromasia PT (9.0-12.0) sec INR (<1.2) APTT (22.0-30.0) sec Sample Site ABG pH (7.35-7.45) ABG pCO2 (35-45) mmHg ABG pO2 (83-108) mmHg ABG HCO3 (21-25) mmol/L ABG Total CO2 (19-24) mmol/L ABG O2 Saturation (94-97) % ABG Base Excess mmol/L Paulino Test FiO2 % Sodium (137-145) mmol/L Potassium 5.5 H (3.5-5.1) mmol/L Chloride (98-107) mmol/L Carbon Dioxide (22-30) mmol/L Anion Gap mmol/L BUN (9-20) mg/dL Creatinine (0.66-1.25) mg/dL Est GFR (CKD-EPI)AfAm (>60 ml/min/1.73 sqM) Est GFR (CKD-EPI)NonAf (>60 ml/min/1.73 sqM) Glucose (74-99) mg/dL POC Glucose (mg/dL) 151 H (75-99) mg/dL POC Glu [employer] Resource Economist ID Jennifer Jasmine [address] Glu mg/dL Hemoglobin A1c (4.0-6.0) % Calcium (8.4-10.2) mg/dL Total Bilirubin (0.2-1.3) mg/dL AST (17-59) U/L ALT (4-49) U/L Alkaline Phosphatase (38-126) U/L Ammonia (<30) umol/L Total Protein (6.3-8.2) g/dL Albumin (3.5-5.0) g/dL Vitamin B12 (200.0-944.0) pg/mL TSH (0.465-4.680) mIU/L Urine Color Urine Appearance (Clear) Urine pH (5.0-8.0) Ur Specific [place] (1.001-1.035) Urine Protein (Negative) Urine Glucose (UA) (Negative) Urine Ketones (Negative) Urine Blood (Negative) Urine Nitrite (Negative) Urine Bilirubin (Negative) Urine Urobilinogen (<2.0) mg/dL Ur Leukocyte Esterase (Negative) Urine RBC (0-5) /hpf Urine WBC (0-5) /hpf Ur Squamous Epith Cells (0-4) /hpf Salicylates mg/dL Urine Opiates Screen (NotDetected) Ur Oxycodone Screen (NotDetected) Urine Methadone Screen (NotDetected) Ur Propoxyphene Screen (NotDetected) Acetaminophen ug/mL Ur Barbiturates Screen (NotDetected) U Tricyclic Antidepress (NotDetected) Ur Phencyclidine Scrn (NotDetected) Ur Amphetamines Screen (NotDetected) U Methamphetamines Scrn (NotDetected) U Benzodiazepines Scrn (NotDetected) Urine Cocaine Screen (NotDetected) U Marijuana (THC) Screen (NotDetected) Coronavirus (PCR) Not Detected (Not Detected) 04/17/20 04/17/20 04/17/20 Range/Units 07:00 09:01 09:01 WBC 3.1 L (3.8-10.6) k/uL RBC 3.09 L (4.30-5.90) m/uL Hgb 9.7 L (13.0-17.5) gm/dL Hct 30.0 L (39.0-53.0) % MCV 97.3 (80.0-100.0) fL MCH 31.4 (25.0-35.0) pg MCHC 32.3 (31.0-37.0) g/dL RDW 13.9 (11.5-15.5) % Plt Count 138 L (150-450) k/uL Neutrophils % 58 % Lymphocytes % 23 % Monocytes % 9 % Eosinophils % 8 % Basophils % 1 % Neutrophils # 1.8 (1.3-7.7) k/uL Lymphocytes # 0.7 L (1.0-4.8) k/uL Monocytes # 0.3 (0-1.0) k/uL Eosinophils # 0.2 (0-0.7) k/uL Basophils # 0.0 (0-0.2) k/uL Hypochromasia Moderate PT (9.0-12.0) sec INR (<1.2) APTT (22.0-30.0) sec Sample Site ABG pH (7.35-7.45) ABG pCO2 (35-45) mmHg ABG pO2 (83-108) mmHg ABG HCO3 (21-25) mmol/L ABG Total CO2 (19-24) mmol/L ABG O2 Saturation (94-97) % ABG Base Excess mmol/L Paulino Test FiO2 % Sodium 141 (137-145) mmol/L Potassium 5.0 (3.5-5.1) mmol/L Chloride 97 L (98-107) mmol/L Carbon Dioxide 41 H* (22-30) mmol/L Anion Gap 3 mmol/L BUN 25 H (9-20) mg/dL Creatinine 1.18 (0.66-1.25) mg/dL Est GFR (CKD-EPI)AfAm 71 (>60 ml/min/1.73 sqM) Est GFR (CKD-EPI)NonAf 62 (>60 ml/min/1.73 sqM) Glucose 112 H (74-99) mg/dL POC Glucose (mg/dL) 129 H (75-99) mg/dL POC Glu [employer] Economist ID Kaye Phoenix [address] Glu mg/dL Hemoglobin A1c (4.0-6.0) % Calcium 8.0 L (8.4-10.2) mg/dL Total Bilirubin (0.2-1.3) mg/dL AST (17-59) U/L ALT (4-49) U/L Alkaline Phosphatase (38-126) U/L Ammonia (<30) umol/L Total Protein (6.3-8.2) g/dL Albumin (3.5-5.0) g/dL Vitamin B12 308.0 (200.0-944.0) pg/mL TSH 1.120 (0.465-4.680) mIU/L Urine Color Urine Appearance (Clear) Urine pH (5.0-8.0) Ur Specific [place] (1.001-1.035) Urine Protein (Negative) Urine Glucose (UA) (Negative) Urine Ketones (Negative) Urine Blood (Negative) Urine Nitrite (Negative) Urine Bilirubin (Negative) Urine Urobilinogen (<2.0) mg/dL Ur Leukocyte Esterase (Negative) Urine RBC (0-5) /hpf Urine WBC (0-5) /hpf Ur Squamous Epith Cells (0-4) /hpf Salicylates <1.0 mg/dL Urine Opiates Screen (NotDetected) Ur Oxycodone Screen (NotDetected) Urine Methadone Screen (NotDetected) Ur Propoxyphene Screen (NotDetected) Acetaminophen <10.0 ug/mL Ur Barbiturates Screen (NotDetected) U Tricyclic Antidepress (NotDetected) Ur Phencyclidine Scrn (NotDetected) Ur Amphetamines Screen (NotDetected) U Methamphetamines Scrn (NotDetected) U Benzodiazepines Scrn (NotDetected) Urine Cocaine Screen (NotDetected) U Marijuana (THC) Screen (NotDetected) Coronavirus (PCR) (Not Detected) 04/17/20 04/17/20 04/17/20 Range/Units 09:01 09:56 09:56 WBC (3.8-10.6) k/uL RBC (4.30-5.90) m/uL Hgb (13.0-17.5) gm/dL Hct (39.0-53.0) % MCV (80.0-100.0) fL MCH (25.0-35.0) pg MCHC (31.0-37.0) g/dL RDW (11.5-15.5) % Plt Count (150-450) k/uL Neutrophils % % Lymphocytes % % Monocytes % % Eosinophils % % Basophils % % Neutrophils # (1.3-7.7) k/uL Lymphocytes # (1.0-4.8) k/uL Monocytes # (0-1.0) k/uL Eosinophils # (0-0.7) k/uL Basophils # (0-0.2) k/uL Hypochromasia PT (9.0-12.0) sec INR (<1.2) APTT (22.0-30.0) sec Sample Site ABG pH (7.35-7.45) ABG pCO2 (35-45) mmHg ABG pO2 (83-108) mmHg ABG HCO3 (21-25) mmol/L ABG Total CO2 (19-24) mmol/L ABG O2 Saturation (94-97) % ABG Base Excess mmol/L Paulino Test FiO2 % Sodium (137-145) mmol/L Potassium (3.5-5.1) mmol/L Chloride (98-107) mmol/L Carbon Dioxide (22-30) mmol/L Anion Gap mmol/L BUN (9-20) mg/dL Creatinine (0.66-1.25) mg/dL Est GFR (CKD-EPI)AfAm (>60 ml/min/1.73 sqM) Est GFR (CKD-EPI)NonAf (>60 ml/min/1.73 sqM) Glucose (74-99) mg/dL POC Glucose (mg/dL) 115 H 115 H (75-99) mg/dL POC Glu [employer] Economist Elle Nagel, Elle [address]imated [address] Glu mg/dL Hemoglobin A1c (4.0-6.0) % Calcium (8.4-10.2) mg/dL Total Bilirubin (0.2-1.3) mg/dL AST (17-59) U/L ALT (4-49) U/L Alkaline Phosphatase (38-126) U/L Ammonia 19 (<30) umol/L Total Protein (6.3-8.2) g/dL Albumin (3.5-5.0) g/dL Vitamin B12 (200.0-944.0) pg/mL TSH (0.465-4.680) mIU/L Urine Color Urine Appearance (Clear) Urine pH (5.0-8.0) Ur Specific [place] (1.001-1.035) Urine Protein (Negative) Urine Glucose (UA) (Negative) Urine Ketones (Negative) Urine Blood (Negative) Urine Nitrite (Negative) Urine Bilirubin (Negative) Urine Urobilinogen (<2.0) mg/dL Ur Leukocyte Esterase (Negative) Urine RBC (0-5) /hpf Urine WBC (0-5) /hpf Ur Squamous Epith Cells (0-4) /hpf Salicylates mg/dL Urine Opiates Screen (NotDetected) Ur Oxycodone Screen (NotDetected) Urine Methadone Screen (NotDetected) Ur Propoxyphene Screen (NotDetected) Acetaminophen ug/mL Ur Barbiturates Screen (NotDetected) U Tricyclic Antidepress (NotDetected) Ur Phencyclidine Scrn (NotDetected) Ur Amphetamines Screen (NotDetected) U Methamphetamines Scrn (NotDetected) U Benzodiazepines Scrn (NotDetected) Urine Cocaine Screen (NotDetected) U Marijuana (THC) Screen (NotDetected) Coronavirus (PCR) (Not Detected) 04/17/20 04/17/20 04/17/20 Range/Units 10:51 11:23 12:50 WBC (3.8-10.6) k/uL RBC (4.30-5.90) m/uL Hgb (13.0-17.5) gm/dL Hct (39.0-53.0) % MCV (80.0-100.0) fL MCH (25.0-35.0) pg MCHC (31.0-37.0) g/dL RDW (11.5-15.5) % Plt Count (150-450) k/uL Neutrophils % % Lymphocytes % % Monocytes % % Eosinophils % % Basophils % % Neutrophils # (1.3-7.7) k/uL Lymphocytes # (1.0-4.8) k/uL Monocytes # (0-1.0) k/uL Eosinophils # (0-0.7) k/uL Basophils # (0-0.2) k/uL Hypochromasia PT (9.0-12.0) sec INR (<1.2) APTT (22.0-30.0) sec Sample Site R rad ABG pH 7.35 (7.35-7.45) ABG pCO2 79 H* (35-45) mmHg ABG pO2 62 L (83-108) mmHg ABG HCO3 43 H* (21-25) mmol/L ABG Total CO2 46 H (19-24) mmol/L ABG O2 Saturation 91.0 L (94-97) % ABG Base Excess 17.7 mmol/L Paulino Test Yes FiO2 32 % Sodium (137-145) mmol/L Potassium (3.5-5.1) mmol/L Chloride (98-107) mmol/L Carbon Dioxide (22-30) mmol/L Anion Gap mmol/L BUN (9-20) mg/dL Creatinine (0.66-1.25) mg/dL Est GFR (CKD-EPI)AfAm (>60 ml/min/1.73 sqM) Est GFR (CKD-EPI)NonAf (>60 ml/min/1.73 sqM) Glucose (74-99) mg/dL POC Glucose (mg/dL) 154 H (75-99) mg/dL POC Glu [employer] Resource Economist ID Kaye Phoenix [address] Glu mg/dL Hemoglobin A1c (4.0-6.0) % Calcium (8.4-10.2) mg/dL Total Bilirubin (0.2-1.3) mg/dL AST (17-59) U/L ALT (4-49) U/L Alkaline Phosphatase (38-126) U/L Ammonia (<30) umol/L Total Protein (6.3-8.2) g/dL Albumin (3.5-5.0) g/dL Vitamin B12 (200.0-944.0) pg/mL TSH (0.465-4.680) mIU/L Urine Color Yellow Urine Appearance Turbid (Clear) Urine pH 7.5 (5.0-8.0) Ur Specific [place] 1.017 (1.001-1.035) Urine Protein 1+ H (Negative) Urine Glucose (UA) Negative (Negative) Urine Ketones Negative (Negative) Urine Blood Small H (Negative) Urine Nitrite Negative (Negative) Urine Bilirubin Negative (Negative) Urine Urobilinogen 2.0 (<2.0) mg/dL Ur Leukocyte Esterase Large H (Negative) Urine RBC 27 H (0-5) /hpf Urine WBC >182 H (0-5) /hpf Ur Squamous Epith Cells 2 (0-4) /hpf Salicylates mg/dL Urine Opiates Screen Detected H (NotDetected) Ur Oxycodone Screen Not Detected (NotDetected) Urine Methadone Screen Not Detected (NotDetected) Ur Propoxyphene Screen Not Detected (NotDetected) Acetaminophen ug/mL Ur Barbiturates Screen Detected H (NotDetected) U Tricyclic Antidepress Not Detected (NotDetected) Ur Phencyclidine Scrn Not Detected (NotDetected) Ur Amphetamines Screen Not Detected (NotDetected) U Methamphetamines Scrn Not Detected (NotDetected) U Benzodiazepines Scrn Not Detected (NotDetected) Urine Cocaine Screen Not Detected (NotDetected) U Marijuana (THC) Screen Not Detected (NotDetected) Coronavirus (PCR) (Not Detected) 04/17/20 04/17/20 04/17/20 Range/Units 17:17 20:04 21:37 WBC (3.8-10.6) k/uL RBC (4.30-5.90) m/uL Hgb (13.0-17.5) gm/dL Hct (39.0-53.0) % MCV (80.0-100.0) fL MCH (25.0-35.0) pg MCHC (31.0-37.0) g/dL RDW (11.5-15.5) % Plt Count (150-450) k/uL Neutrophils % % Lymphocytes % % Monocytes % % Eosinophils % % Basophils % % Neutrophils # (1.3-7.7) k/uL Lymphocytes # (1.0-4.8) k/uL Monocytes # (0-1.0) k/uL Eosinophils # (0-0.7) k/uL Basophils # (0-0.2) k/uL Hypochromasia PT (9.0-12.0) sec INR (<1.2) APTT (22.0-30.0) sec Sample Site ABG pH (7.35-7.45) ABG pCO2 (35-45) mmHg ABG pO2 (83-108) mmHg ABG HCO3 (21-25) mmol/L ABG Total CO2 (19-24) mmol/L ABG O2 Saturation (94-97) % ABG Base Excess mmol/L Paulino Test FiO2 % Sodium (137-145) mmol/L Potassium (3.5-5.1) mmol/L Chloride (98-107) mmol/L Carbon Dioxide (22-30) mmol/L Anion Gap mmol/L BUN (9-20) mg/dL Creatinine (0.66-1.25) mg/dL Est GFR (CKD-EPI)AfAm (>60 ml/min/1.73 sqM) Est GFR (CKD-EPI)NonAf (>60 ml/min/1.73 sqM) Glucose (74-99) mg/dL POC Glucose (mg/dL) 162 H 216 H 250 H (75-99) mg/dL POC Glu [employer] Economist ID Kaye Phoenix Brenda Babcock, Brenda [address]imated [address] Glu mg/dL Hemoglobin A1c (4.0-6.0) % Calcium (8.4-10.2) mg/dL Total Bilirubin (0.2-1.3) mg/dL AST (17-59) U/L ALT (4-49) U/L Alkaline Phosphatase (38-126) U/L Ammonia (<30) umol/L Total Protein (6.3-8.2) g/dL Albumin (3.5-5.0) g/dL Vitamin B12 (200.0-944.0) pg/mL TSH (0.465-4.680) mIU/L Urine Color Urine Appearance (Clear) Urine pH (5.0-8.0) Ur Specific [place] (1.001-1.035) Urine Protein (Negative) Urine Glucose (UA) (Negative) Urine Ketones (Negative) Urine Blood (Negative) Urine Nitrite (Negative) Urine Bilirubin (Negative) Urine Urobilinogen (<2.0) mg/dL Ur Leukocyte Esterase (Negative) Urine RBC (0-5) /hpf Urine WBC (0-5) /hpf Ur Squamous Epith Cells (0-4) /hpf Salicylates mg/dL Urine Opiates Screen (NotDetected) Ur Oxycodone Screen (NotDetected) Urine Methadone Screen (NotDetected) Ur Propoxyphene Screen (NotDetected) Acetaminophen ug/mL Ur Barbiturates Screen (NotDetected) U Tricyclic Antidepress (NotDetected) Ur Phencyclidine Scrn (NotDetected) Ur Amphetamines Screen (NotDetected) U Methamphetamines Scrn (NotDetected) U Benzodiazepines Scrn (NotDetected) Urine Cocaine Screen (NotDetected) U Marijuana (THC) Screen (NotDetected) Coronavirus (PCR) (Not Detected) 04/18/20 04/18/20 04/18/20 Range/Units 03:28 06:58 07:17 WBC (3.8-10.6) k/uL RBC (4.30-5.90) m/uL Hgb (13.0-17.5) gm/dL Hct (39.0-53.0) % MCV (80.0-100.0) fL MCH (25.0-35.0) pg MCHC (31.0-37.0) g/dL RDW (11.5-15.5) % Plt Count (150-450) k/uL Neutrophils % % Lymphocytes % % Monocytes % % Eosinophils % % Basophils % % Neutrophils # (1.3-7.7) k/uL Lymphocytes # (1.0-4.8) k/uL Monocytes # (0-1.0) k/uL Eosinophils # (0-0.7) k/uL Basophils # (0-0.2) k/uL Hypochromasia PT (9.0-12.0) sec INR (<1.2) APTT (22.0-30.0) sec Sample Site ABG pH (7.35-7.45) ABG pCO2 (35-45) mmHg ABG pO2 (83-108) mmHg ABG HCO3 (21-25) mmol/L ABG Total CO2 (19-24) mmol/L ABG O2 Saturation (94-97) % ABG Base Excess mmol/L Paulino Test FiO2 % Sodium (137-145) mmol/L Potassium (3.5-5.1) mmol/L Chloride (98-107) mmol/L Carbon Dioxide (22-30) mmol/L Anion Gap mmol/L BUN (9-20) mg/dL Creatinine (0.66-1.25) mg/dL Est GFR (CKD-EPI)AfAm (>60 ml/min/1.73 sqM) Est GFR (CKD-EPI)NonAf (>60 ml/min/1.73 sqM) Glucose (74-99) mg/dL POC Glucose (mg/dL) 209 H 231 H (75-99) mg/dL POC Glu [employer] Jennifer Neal [address] Glu mg/dL 166 Hemoglobin A1c 7.4 H (4.0-6.0) % Calcium (8.4-10.2) mg/dL Total Bilirubin (0.2-1.3) mg/dL AST (17-59) U/L ALT (4-49) U/L Alkaline Phosphatase (38-126) U/L Ammonia (<30) umol/L Total Protein (6.3-8.2) g/dL Albumin (3.5-5.0) g/dL Vitamin B12 (200.0-944.0) pg/mL TSH (0.465-4.680) mIU/L Urine Color Urine Appearance (Clear) Urine pH (5.0-8.0) Ur Specific [place] (1.001-1.035) Urine Protein (Negative) Urine Glucose (UA) (Negative) Urine Ketones (Negative) Urine Blood (Negative) Urine Nitrite (Negative) Urine Bilirubin (Negative) Urine Urobilinogen (<2.0) mg/dL Ur Leukocyte Esterase (Negative) Urine RBC (0-5) /hpf Urine WBC (0-5) /hpf Ur Squamous Epith Cells (0-4) /hpf Salicylates mg/dL Urine Opiates Screen (NotDetected) Ur Oxycodone Screen (NotDetected) Urine Methadone Screen (NotDetected) Ur Propoxyphene Screen (NotDetected) Acetaminophen ug/mL Ur Barbiturates Screen (NotDetected) U Tricyclic Antidepress (NotDetected) Ur Phencyclidine Scrn (NotDetected) Ur Amphetamines Screen (NotDetected) U Methamphetamines Scrn (NotDetected) U Benzodiazepines Scrn (NotDetected) Urine Cocaine Screen (NotDetected) U Marijuana (THC) Screen (NotDetected) Coronavirus (PCR) (Not Detected) 04/18/20 04/18/20 04/18/20 Range/Units 07:17 07:17 11:21 WBC 2.7 L (3.8-10.6) k/uL RBC 3.35 L (4.30-5.90) m/uL Hgb 10.4 L (13.0-17.5) gm/dL Hct 32.3 L (39.0-53.0) % MCV 96.5 (80.0-100.0) fL MCH 31.1 (25.0-35.0) pg MCHC 32.2 (31.0-37.0) g/dL RDW 13.5 (11.5-15.5) % Plt Count 149 L (150-450) k/uL Neutrophils % 85 % Lymphocytes % 11 % Monocytes % 3 % Eosinophils % 1 % Basophils % 0 % Neutrophils # 2.3 (1.3-7.7) k/uL Lymphocytes # 0.3 L (1.0-4.8) k/uL Monocytes # 0.1 (0-1.0) k/uL Eosinophils # 0.0 (0-0.7) k/uL Basophils # 0.0 (0-0.2) k/uL Hypochromasia Slight PT (9.0-12.0) sec INR (<1.2) APTT (22.0-30.0) sec Sample Site ABG pH (7.35-7.45) ABG pCO2 (35-45) mmHg ABG pO2 (83-108) mmHg ABG HCO3 (21-25) mmol/L ABG Total CO2 (19-24) mmol/L ABG O2 Saturation (94-97) % ABG Base Excess mmol/L Paulino Test FiO2 % Sodium 138 (137-145) mmol/L Potassium 5.6 H (3.5-5.1) mmol/L Chloride 98 (98-107) mmol/L Carbon Dioxide 36 H (22-30) mmol/L Anion Gap 4 mmol/L BUN 24 H (9-20) mg/dL Creatinine 0.95 (0.66-1.25) mg/dL Est GFR (CKD-EPI)AfAm >90 (>60 ml/min/1.73 sqM) Est GFR (CKD-EPI)NonAf 81 (>60 ml/min/1.73 sqM) Glucose 218 H (74-99) mg/dL POC Glucose (mg/dL) 323 H (75-99) mg/dL POC Glu [employer] ID [address] Glu mg/dL Hemoglobin A1c (4.0-6.0) % Calcium 8.7 (8.4-10.2) mg/dL Total Bilirubin (0.2-1.3) mg/dL AST (17-59) U/L ALT (4-49) U/L Alkaline Phosphatase (38-126) U/L Ammonia (<30) umol/L Total Protein (6.3-8.2) g/dL Albumin (3.5-5.0) g/dL Vitamin B12 (200.0-944.0) pg/mL TSH (0.465-4.680) mIU/L Urine Color Urine Appearance (Clear) Urine pH (5.0-8.0) Ur Specific [place] (1.001-1.035) Urine Protein (Negative) Urine Glucose (UA) (Negative) Urine Ketones (Negative) Urine Blood (Negative) Urine Nitrite (Negative) Urine Bilirubin (Negative) Urine Urobilinogen (<2.0) mg/dL Ur Leukocyte Esterase (Negative) Urine RBC (0-5) /hpf Urine WBC (0-5) /hpf Ur Squamous Epith Cells (0-4) /hpf Salicylates mg/dL Urine Opiates Screen (NotDetected) Ur Oxycodone Screen (NotDetected) Urine Methadone Screen (NotDetected) Ur Propoxyphene Screen (NotDetected) Acetaminophen ug/mL Ur Barbiturates Screen (NotDetected) U Tricyclic Antidepress (NotDetected) Ur Phencyclidine Scrn (NotDetected) Ur Amphetamines Screen (NotDetected) U Methamphetamines Scrn (NotDetected) U Benzodiazepines Scrn (NotDetected) Urine Cocaine Screen (NotDetected) U Marijuana (THC) Screen (NotDetected) Coronavirus (PCR) (Not Detected) - EKG Data EKG Comments: Sinus rhythm Q-wave and inverted T-wave in lead 3. Ventricular rate 74, LA 188, QRS 94, QTC 419. (Boaz Todd) Disposition Is patient prescribed a controlled substance at d/c from ED?: No Time of Disposition: 21:41 <Boaz Todd - Last Filed: 04/16/20 21:39> <Barb Sheppard - Last Filed: 04/20/20 01:20> Clinical Impression: Fall, Weakness Disposition: ADMITTED IP TO THIS HOSP Condition: Stable
--- NOTE | 2020-04-16 18:04 | CT ---
EXAMINATION TYPE: CT brain cspine wo con DATE OF EXAM: 04/16/2020 COMPARISON: CT brain 02/22/2020 HISTORY: Frequent falls. Headache. Neck pain CT DLP: 1485.2 mGycm Automated exposure control for dose reduction was used. There is some cerebral cortical atrophy. There is no mass effect nor midline shift. There is no sign of intracranial hemorrhage. The calvarium is intact. Skull base is intact. The temporal bones appear intact. Cervical vertebra show some straightening. There is moderate disc space narrowing from C4 to see C7 w ith spurring of the endplates. The posterior elements are intact. Facet joints are intact. There is n o evidence of a fracture. IMPRESSION: Cerebral atrophy. No acute intracranial abnormality. No change compared to old exam. Spondylotic changes in the lower cervical spine. No fracture.
[2020-04-16 18:51] LABS: Albumin 3.8 g/dL (3.5-5.0); Calcium 8.7 mg/dL (8.4-10.2); Potassium 5.9 mmol/L (3.5-5.1); Total Bilirubin 0.7 mg/dL (0.2-1.3); Total Protein 6.9 g/dL (6.3-8.2)
[2020-04-16 19:46] LABS: Basophils % (A) 1 %; Eosinophils # (A) 0.3 k/uL (0-0.7); Eosinophils % (A) 9 %; HCT 34.5 % (39.0-53.0); Hypochromasia Moderate; Lymphocytes # (A) 0.6 k/uL (1.0-4.8); Lymphocytes % (A) 19 %; MCH 30.9 pg (25.0-35.0); MCHC 31.8 g/dL (31.0-37.0); MCV 97.2 fL (80.0-100.0); Mean Platelet Volume 7.7; Monocytes # (A) 0.2 k/uL (0-1.0); Monocytes % (A) 6 %; Neutrophils % (A) 62 %; Platelet Count 145 k/uL (150-450); RBC 3.55 m/uL (4.30-5.90); RDW 13.9 % (11.5-15.5); WBC 3.3 k/uL (3.8-10.6)
[2020-04-16 19:54] LABS: INR 0.9 (<1.2); Partial Thromboplastin Time 24.9 sec (22.0-30.0); Prothrombin Time 9.4 sec (9.0-12.0)
[2020-04-16] MEDS ORDERED: SODIUM POLYSTYRENE SULFONATE 15 GM/60 ML BOTTLE PO STA (21:14)
[2020-04-16] MEDS ORDERED: CALCIUM GLUCONATE 1 GM in SODIUM CHLORIDE 0.9% 100 ML IVPB ONE (21:30)
[2020-04-16] MEDS ORDERED: ACETAMINOPHEN TAB 325 MG TAB PO PRN (21:42)
[2020-04-16] MEDS ORDERED: NALOXONE 0.4 MG/ML 1 ML VIAL IV PRN (21:42)
[2020-04-16] MEDS ORDERED: LORazepam 2 MG/ML INJ IV PRN (21:42)
[2020-04-16] MEDS ORDERED: oxyCODONE-APAP 5-325MG 1 EACH TAB PO PRN (21:42)
[2020-04-16] MEDS: SODIUM CHLORIDE 0.9% 1,000 ML IV SCH (22:18)
[2020-04-17 01:52] LABS: Glucose,Whole Blood 151 mg/dL (75-99)
[2020-04-17] MEDS: QUEtiapine 25 MG TAB PO SCH ×2 (01:56→20:46)
[2020-04-17] MEDS: GABAPENTIN 300 MG CAP PO SCH ×3 (01:57→17:50)
[2020-04-17] MEDS: ATORVASTATIN 80 MG TAB PO SCH ×2 (01:57→20:46)
[2020-04-17] MEDS: TAMSULOSIN 0.4 MG CAP.ER.24H PO SCH ×2 (01:57→20:46)
[2020-04-17] MEDS: HYDROcodone/APAP 5-325MG 1 EACH TAB PO PRN (01:58)
[2020-04-17] MEDS: CHOLECALCIFEROL 1,000 UNIT TAB PO SCH ×2 (02:01→20:46)
[2020-04-17] MEDS: PANTOPRAZOLE 40 MG TABLET PO SCH ×2 (02:02→20:46)
[2020-04-17] MEDS: LEVOTHYROXINE 100 MCG TAB PO SCH (05:47)
[2020-04-17 07:04] LABS: Glucose,Whole Blood 129 mg/dL (75-99)
[2020-04-17] MEDS: ALBUTEROL NEBULIZED 2.5 MG/3 ML INHALATION SCH ×2 (08:10→08:11)
--- NOTE | 2020-04-17 09:00 | P.HPIM ---
History of Present Illness This is a pleasant 69 years old male with past medical history of coronary artery disease, COPD, hypertension, hyperlipidemia, diabetes mellitus, osteoarthritis, sleep apnea on CPAP/BiPAP, COPD, GERD, hearing difficulty and deafness, pulmonary embolism not on anticoagulation, hypothyroidism, chronic back pain, diabetic neuropathy, tremor, osteoporosis. Patient could not provide information I came this morning to see the patient was lying in bed, looks open-ended, does not respond to verbal or tactile stimuli's. Response to pain with opening eyes for a few seconds. Patient was causing no limb with adrenaline. Does not fol low commands he was breathing quietly. No asymmetry is noted in his body and no tenderness on palpation. As per emergency room physician notes, patient presents in because of tremor and multiple falls. At baseline he uses a wheelchair to ambulate. He reported falling on his frontal aspect of his head, he stated that "his body just gives". There is abrasion on the forehead. There was report of increased weakness over the last week. As per emergency room note patient denies loss of consciousness and he was not on blood thinner and he denied chest pain As per staff he was been started recently on primidone for his tremor Hemoglobin 11.0. Platelets 145. Vitas looks stable and patient is afebrile. Labs reviewed showing WBC is low at 3.3K, INR 0.9. Elevated potassium 5.5 creatinine normal at 1.0, liver enzymes and bilirubin not elevated, sugar control 104-151 CT of the head: No acute process, CT of the cervical spine showed spondylitic changes with no fracture, EKG showing normal sinus rhythm at [address]-T changes except for mild T-wave inversion in lead III, QTC is 419 In the emergency room her symptoms calcium gluconate, and Kayexalate 30 g, started on normal saline at 75 mL/h Review of Systems Patient could not provide information Past Medical History Past Medical History: Coronary Artery Disease (CAD), COPD, Diabetes Mellitus, Eye Disorder, GERD/Reflux, Hearing Disorder / Deafness, Hyperlipidemia, Hypertension, Osteoarthritis (OA), Pulmonary Embolus (PE), Sleep Apnea/CPAP/BIPAP, Thyroid Disorder Additional Past Medical History / Comment(s): O2 5L. PE IN 2007. CHRONIC BACK PAIN. DIABETIC NEUROPATHY IN FEET. GLAUCOMA. TREMORS. OSTEOPOROSIS. CPAP ORD ERED BUT DOESN'T USE. HX POLYPS History of Any Multi-Drug Resistant Organisms: None Reported Past Surgical History: Appendectomy, Cholecystectomy, Hernia Repair, Orthopedic Surgery Additional Past Surgical History / Comment(s): BILATERAL KNEE REPLACEMENT, PLUS RIGHT KNEE DONE AGAIN; RIGHT ROTATOR CUFF. PITUITARY TUMOR REMOVED. BILATERAL CATARACTS. SINUS. GLAUCOMA SURGERY. EYE LID SURGERY. Additional Past Anesthesia/Blood Transfusion Reaction / Comment(s): QUESTIONABLE THAT VERSED MAY OVERLY SEDATE. Past Psychological History: No Psychological Hx Reported Smoking Status: Former smoker Past Alcohol Use History: None Reported Additional Past Alcohol Use History / Comment(s): QUIT LATE 2015, SMOKED FOR 58 YRS. Past Drug Use History: None Reported - Past Family History Mother Family Medical History: Cancer Additional Family Medical History / Comment(s): LUNG Medications and Allergies Home Medications Medication Instructions Recorded Confirmed Type Alendronate Sodium [Fosamax] 70 mg PO MO 03/03/17 04/16/20 History Aspirin 325 mg PO DAILY 03/03/17 04/16/20 History Atorvastatin [Lipitor] 80 mg PO HS 03/03/17 04/16/20 History Levothyroxine Sodium [Synthroid] 100 mcg PO DAILY 03/03/17 04/16/20 History Loratadine 10 mg PO DAILY 03/03/17 04/16/20 History Metoprolol Tartrate 25 mg PO BID 03/03/17 04/16/20 History Pantoprazole [Protonix] 40 mg PO HS 03/03/17 04/16/20 History Sennosides-Docusate Sodium 2 tab PO BID 01/25/19 04/16/20 History [Senokot-S] Tamsulosin [Flomax] 0.4 mg PO HS 01/25/19 04/16/20 History Albuterol Nebulized [Ventolin 2.5 mg INHALATION RT-BID 02/19/20 04/16/20 History Nebulized] Artificial Tears-Hypromellose 1 drops BOTH EYES BID 02/19/20 04/16/20 History [Artificial Tear Drops] Cholecalciferol [Vitamin D3 (25 2,000 unit PO HS 02/19/20 04/16/20 History Mcg = 1000 Iu)] Hydrophilic Cream [Triad Cream] 1 applic TOPICAL BID 02/19/20 04/16/20 History Psyllium Husk (with Sugar) 15 gm PO DAILY 02/19/20 04/16/20 History [Metamucil Powder] Gabapentin 900 mg PO TID #12 tab 02/25/20 04/16/20 Rx QUEtiapine [SEROquel] 25 mg PO HS tab 02/25/20 04/16/20 Rx Furosemide [Lasix] 40 mg PO Q48H 04/16/20 04/16/20 History Primidone [Mysoline] 50 mg PO BID 04/17/20 04/17/20 History Allergies Allergy/AdvReac Type Severity Reaction Status Date / Time metoclopramide AdvReac TREMORS Verified 04/16/20 22:36 Physical Exam Vitals: Vital Signs Temp Pulse Pulse Resp BP BP Pulse Ox 04/17/20 05:00 99.3 F 88 16 97/61 96 04/17/20 00:10 105 H 18 97 04/16/20 23:14 98.3 F 121 H 24 142/87 97 04/16/20 23:10 18 04/16/20 22:28 110 H 18 115/80 99 04/16/20 16:41 97.3 F L 82 18 133/71 96 Intake and Output 04/16/20 04/17/20 04/17/20 22:59 06:59 14:59 Intake Total 600 Balance 600 Intake: Intake, IV Titration 600 Amount Sodium Chloride 0.9% 1, 600 000 ml @ 75 mls/hr IV . [id number] [facility] Rx#:[id number] Other: Voiding Method Bedside Commode Urinal # Bowel Movements 1 Weight 122.47 kg 122.47 kg -GENERAL: The patient is obtunded and does not follow cannot. Obese HEENT: Pupils are round and equally reacting to light. EOMI. No scleral icterus. No conjunctival pallor. Normocephalic, atraumatic. No pharyngeal erythema. No thyromegaly. CARDIOVASCULAR: S1 and S2 present. No murmurs, rubs, or gallops. PULMONARY: Chest is clear to auscultation, no wheezing or crackles. ABDOMEN: Soft, nontender, nondistended, normoactive bowel sounds. No palpable organomegaly. MUSCULOSKELETAL: No joint swelling or deformity. EXTREMITIES: No cyanosis, clubbing, or pedal edema. -NEUROLOGICAL: Patient is obtunded. and hence Neurologic exam is limited. Pupils are equal and reactive to light. No asymmetry. Meningeal signs are ab sent with no neck stiffness SKIN: No rashes. No petechiae Results CBC & Chem 7: 04/16/20 19:20 04/16/20 19:20 Labs: Abnormal Lab Results - Last 24 Hours (Table) 04/16/20 04/16/20 04/16/20 Range/Units 18:20 19:20 19:20 WBC 3.3 L (3.8-10.6) k/uL RBC 3.55 L (4.30-5.90) m/uL Hgb 11.0 L (13.0-17.5) gm/dL Hct 34.5 L (39.0-53.0) % Plt Count 145 L (150-450) k/uL Lymphocytes # 0.6 L (1.0-4.8) k/uL Potassium 5.9 H 5.5 H (3.5-5.1) mmol/L Chloride 96 L (98-107) mmol/L Carbon Dioxide 40 H (22-30) mmol/L BUN 25 H (9-20) mg/dL Glucose 104 H (74-99) mg/dL POC Glucose (mg/dL) (75-99) mg/dL 04/17/20 04/17/20 Range/Units 01:51 07:00 WBC (3.8-10.6) k/uL RBC (4.30-5.90) m/uL Hgb (13.0-17.5) gm/dL Hct (39.0-53.0) % Plt Count (150-450) k/uL Lymphocytes # (1.0-4.8) k/uL Potassium (3.5-5.1) mmol/L Chloride (98-107) mmol/L Carbon Dioxide (22-30) mmol/L BUN (9-20) mg/dL Glucose (74-99) mg/dL POC Glucose (mg/dL) 151 H 129 H (75-99) mg/dL Thrombosis Risk Factor Assmnt - Choose All That Apply Any of the Below Risk Factors Present?: Yes Each Factor Represents 1 point: Abnormal pulmonary function (COPD), Obesity (BMI >25) Other Risk Factors: Yes Each Risk Factor Represents 2 Points: Age 61-74 years Other congenital or acquired thrombophilia - If yes, enter type in comment: No Thrombosis Risk Factor Assessment Total Risk Factor Score: 4 Thrombosis Risk Factor Assessment Level: Moderate Risk Assessment and Plan Assessment: Altered mental status Multiple falls included on the forehead Diabetes mellitus Hypertension, currently her blood pressure on the low side and Hyperlipidemia Tremor COPD, on chronic home oxygen for chronic respiratory failure History of coronary artery disease Primary osteoarthritis Sleep apnea supposed to be on CPAP/BiPAP COPD, not in acute exacerbation GERD Hearing difficulty and deafness Pulmonary embolism not on anticoagulation Hypothyroidism Chronic back pain The peptic neuropathy Tremor Osteoporosis Plan: This is a pleasant 69 years old male who presents because of fall and hyperkalemia. Also patient with AMS. We'll call neurology consult. We'll repeat CT of the head. Continue with the neuro check Order a urinalysis and urine drug screen. Also will check ammonia, TSH and B12 and ABG. Also will check salicylates and acetaminophen level. Monitor potassium level and give more therapy as needed. Check urinalysis. Check orthostatic vitals and continue with gentle hydration Labs and medication were reviewed.. Continue same treatment. Continue with symptomatic treatment. Resume home medication. Monitor lytes and vitals. DVT and GI prophylaxis. Further recommendations of the clinical course of the patient DVT prophylaxis: Subcutaneous heparin GI Prophylaxis: Pepcid PT/OT: Pending Prognosis is guarded
[2020-04-17] MEDS: INSULIN ASPART (NovoLOG) 100 UNIT/ML VIAL SQ SCH ×4 (09:10→20:45)
[2020-04-17 09:45] LABS: Acetaminophen <10.0 ug/mL; African American GFR (CKD) 71 (>60 ml/min/1.73 sqM); Blood Urea Nitrogen 25 mg/dL (9-20); Chloride 97 mmol/L (98-107); Glucose 112 mg/dL (74-99); Non-African American GFR(CKD) 62 (>60 ml/min/1.73 sqM); Salicylate <1.0 mg/dL; Sodium 141 mmol/L (137-145)
[2020-04-17 09:51] LABS: Anion Gap 3 mmol/L
[2020-04-17 09:53] LABS: Basophils % (A) 1 %; Eosinophils # (A) 0.2 k/uL (0-0.7); Eosinophils % (A) 8 %; HGB 9.7 gm/dL (13.0-17.5); Hypochromasia Moderate; Lymphocytes # (A) 0.7 k/uL (1.0-4.8); Lymphocytes % (A) 23 %; MCH 31.4 pg (25.0-35.0); MCHC 32.3 g/dL (31.0-37.0); MCV 97.3 fL (80.0-100.0); Mean Platelet Volume 8.9; Monocytes # (A) 0.3 k/uL (0-1.0); Monocytes % (A) 9 %; Neutrophils # (A) 1.8 k/uL (1.3-7.7); Neutrophils % (A) 58 %; Platelet Count 138 k/uL (150-450); RBC 3.09 m/uL (4.30-5.90); RDW 13.9 % (11.5-15.5); WBC 3.1 k/uL (3.8-10.6)
--- NOTE | 2020-04-17 09:53 | CT ---
EXAMINATION TYPE: CT brain wo con DATE OF EXAM: 04/17/2020 COMPARISON: 04/16/2020 HISTORY: Patient poor historian. CT DLP: [address] of the brain was performed. The ventricles, basal cisterns and sulci overlying the cerebral convexities demonstrate mild enlargem ent. There is no evidence for intracranial hemorrhage or sulcal effacement. There is decreased attenuation about the periventricular white matter and deep white matter of both c erebral hemispheres, compatible with chronic small vessel ischemia. Differential diagnosis does inclu de demyelination. No mass effects are seen.No midline shift. Osseous calvarium is intact. If symptoms persist consider MRI. IMPRESSION: 1. Age related atrophic and chronic small vessel ischemic change without acute intracranial process s een at this time.
[2020-04-17 10:07] LABS: Glucose,Whole Blood 115 mg/dL (75-99)
[2020-04-17 10:13] LABS: Glucose,Whole Blood 115 mg/dL (75-99)
[2020-04-17 10:14] LABS: Carbon Dioxide 41 mmol/L (22-30)
[2020-04-17 10:56] LABS: ABG Base Excess 17.7 mmol/L; ABG PH 7.35 (7.35-7.45); ABG PO2 62 mmHg (83-108); ABG TCO2 46 mmol/L (19-24); Allen Test Performed? Yes
[2020-04-17 11:07] LABS: ABG HCO3 43 mmol/L (21-25); ABG PCO2 79 mmHg (35-45)
[2020-04-17 11:29] LABS: Glucose,Whole Blood 154 mg/dL (75-99)
[2020-04-17] MEDS: ASPIRIN 325 MG TAB PO SCH (12:24)
[2020-04-17] MEDS: LORATADINE 10 MG TAB PO SCH (12:24)
[2020-04-17] MEDS: FAMOTIDINE 20 MG/2 ML VIAL IV SCH ×2 (12:24→20:46)
[2020-04-17] MEDS: METOPROLOL TARTRATE 25 MG TAB PO SCH ×2 (12:24→20:46)
[2020-04-17] MEDS: HEPARIN SODIUM,PORCINE 5,000 UNIT/ML 1 ML VIAL SQ SCH ×2 (12:25→20:46)
[2020-04-17] MEDS: SENNOSIDES-DOCUSATE SODIUM 1 EACH TAB PO SCH ×2 (12:25→20:46)
[2020-04-17] MEDS ORDERED: IPRATROPIUM-ALBUTEROL 3 ML NEB INHALATION PRN (12:47)
--- NOTE | 2020-04-17 12:58 | P.CNPUL ---
History of Present Illness Consult date: 04/17/20 Requesting physician: Maliha Waldrop Reason for consult: dyspnea Chief complaint: Weakness and falls History of present illness: This is a very pleasant 69-year-old gentleman who follows with Edna Hopson at the [facility] for her his primary care needs. He has a history of hypertension, hyperlipidemia, diabetes mellitus, osteoarthritis, coronary artery disease, GERD, hearing disorder, pulmonary embolism, hypothyroidism, diabetic neuropathy. He also has a history of obesity, obstructive sleep apnea intolerant to CPAP, chronic obstructive pulmonary disease maintained on Ventolin, 60 years of greater than 1 pack per day up to 4 packs per day smoking history, quit 2 years ago. He has been having frequent falls and previous left foot fracture. He does have tremors. He presented to the emergency room yesterday again with following multiple times throughout the day. States his body just gives out. He was attempting to ambulating out of the wheelchair when he had fallen and the frontal aspect of his head. There is an abrasion on the head. Computed tomography scan of the brain revealed age-related atrophic and chronic small vessel changes without acute intracranial process. This morning's labs revealed a CO2 of 41. He was drowsy and difficult to arouse this morning. Arterial blood gases were ordered and his PaO2 was 62, pCO2 79 and a pH of 7.35 and 32% FiO2. The patient has been noncompliant with CPAP at home because he states he cannot tolerate the mask. His AHI is 55 with oxygen saturation desaturations to 58% during the sleep study. His settings are 15-18 cm of water with 3 L of oxygen titrated in. He is seen today in consultation on the regular medical floor. He is currently awake alert oriented 3. No worsening shortness of breath, cough or congestion. No fever, chills or night sweats. White count 3.1. Hemoglobin 9.7. Sodium 141. Potassium 5.0. Creatinine 1.18. Review of Systems REVIEW OF SYSTEMS: CONSTITUTIONAL: Generalized weakness and falls Denies any recent significant weight loss or weight gain. EYES: Denies change in vision. EARS, NOSE, MOUTH, THROAT: Denies headaches, denies sore throat. CARDIOVASCULAR: Denies chest pain, palpitations or syncopal episodes. RESPIRATORY: Denies shortness of breath, cough, congestion or hemoptysis. GASTROINTESTINAL: Denies change in appetite, denies abdominal pain GENITOURINARY: Denies hematuria, denies infections. MUSKULOSKELETAL: Lower extremity weakness with falls Denies pain, denies swelling. INTEGUMENTARY: Denies rash, denies eczema. NEUROLOGICAL: Denies recent memory loss, no recent seizure activity. PSYCHIATRIC: Denies anxiety, denies depression. HEMATOLOGIC/LYMPHATIC: Denies anemia, denies enlarged lymph nodes. Past Medical History Past Medical History: Coronary Artery Disease (CAD), COPD, Diabetes Mellitus, Eye Disorder, GERD/Reflux, Hearing Disorder / Deafness, Hyperlipidemia, Hypertension, Osteoarthritis (OA), Pulmonary Embolus (PE), Sleep Apnea/CPAP/BIPAP, Thyroid Disorder Additional Past Medical History / Comment(s): O2 5L. PE IN 2007. CHRONIC BACK PAIN. DIABETIC NEUROPATHY IN FEET. GLAUCOMA. TREMORS. OSTEOPOROSIS. CPAP ORDERED BUT DOESN'T USE. HX POLYPS History of Any Multi-Drug Resistant Organisms: None Reported Past Surgical History: Appendectomy, Cholecystectomy, Hernia Repair, Orthopedic Surgery Additional Past Surgical History / Comment(s): BILATERAL KNEE REPLACEMENT, PLUS RIGHT KNEE DONE AGAIN; RIGHT ROTATOR CUFF. PITUITARY TUMOR REMOVED. BILATERAL CATARACTS. SINUS. GLAUCOMA SURGERY. EYE LID SURGERY. Additional Past Anesthesia/Blood Transfusion Reaction / Comment(s): QUESTIONABLE THAT VERSED MAY OVERLY SEDATE. Past Psychological History: No Psychological Hx Reported Smoking Status: Former smoker Past Alcohol Use History: None Reported Additional Past Alcohol Use History / Comment(s): QUIT LATE 2015, SMOKED FOR 58 YRS. Past Drug Use History: None Reported - Past Family History Mother Family Medical History: Cancer Additional Family Medical History / Comment(s): LUNG Medications and Allergies Home Medications Medication Instructions Recorded Confirmed Type Alendronate Sodium [Fosamax] 70 mg PO MO 03/03/17 04/16/20 History Aspirin 325 mg PO DAILY 03/03/17 04/16/20 History Atorvastatin [Lipitor] 80 mg PO HS 03/03/17 04/16/20 History Levothyroxine Sodium [Synthroid] 100 mcg PO DAILY 03/03/17 04/16/20 History Loratadine 10 mg PO DAILY 03/03/17 04/16/20 History Metoprolol Tartrate 25 mg PO BID 03/03/17 04/16/20 History Pantoprazole [Protonix] 40 mg PO HS 03/03/17 04/16/20 History Sennosides-Docusate Sodium 2 tab PO BID 01/25/19 04/16/20 History [Senokot-S] Tamsulosin [Flomax] 0.4 mg PO HS 01/25/19 04/16/20 History Albuterol Nebulized [Ventolin 2.5 mg INHALATION RT-BID 02/19/20 04/16/20 History Nebulized] Artificial Tears-Hypromellose 1 drops BOTH EYES BID 02/19/20 04/16/20 History [Artificial Tear Drops] Cholecalciferol [Vitamin D3 (25 2,000 unit PO HS 02/19/20 04/16/20 History Mcg = 1000 Iu)] Hydrophilic Cream [Triad Cream] 1 applic TOPICAL BID 02/19/20 04/16/20 History Psyllium Husk (with Sugar) 15 gm PO DAILY 02/19/20 04/16/20 History [Metamucil Powder] Gabapentin 900 mg PO TID #12 tab 02/25/20 04/16/20 Rx QUEtiapine [SEROquel] 25 mg PO HS tab 02/25/20 04/16/20 Rx Furosemide [Lasix] 40 mg PO Q48H 04/16/20 04/16/20 History Primidone [Mysoline] 50 mg PO BID 04/17/20 04/17/20 History Allergies Allergy/AdvReac Type Severity Reaction Status Date / Time metoclopramide AdvReac TREMORS Verified 04/16/20 22:36 Physical Exam Vitals: Vital Signs Temp Pulse Pulse Resp BP BP Pulse Ox 04/17/20 11:19 98.1 F 90 16 114/70 93 L 04/17/20 09:59 82 113/72 97 04/17/20 05:00 99.3 F 88 16 97/61 96 04/17/20 00:10 105 H 18 97 04/16/20 23:14 98.3 F 121 H 24 142/87 97 04/16/20 23:10 18 04/16/20 22:28 110 H 18 115/80 99 04/16/20 16:41 97.3 F L 82 18 133/71 96 Intake and Output 04/16/20 04/17/20 04/17/20 22:59 06:59 14:59 Intake Total 600 Output Total 360 Balance 600 -360 Intake: Intake, IV Titration 600 Amount Sodium Chloride 0.9% 1, 600 000 ml @ 75 mls/hr IV . [id number] [facility] Rx#:[id number] Output: Urine 300 Post Void Residual 60 Other: Voiding Method Bedside Commode Urinal # Voids 1 # Bowel Movements 1 Weight 122.47 kg 122.47 kg GENERAL EXAM: Alert, active, pleasant 69-year-old gentleman, on 2 L nasal cannula, comfortable in no apparent distress. HEAD: Abrasion over the right forehead. Normocephalic. EYES: Normal reaction of pupils, equal size. NOSE: Clear with pink turbinates. THROAT: Crowding the posterior pharynx. No erythema or exudates. NECK: Short. No masses, no JVD. CHEST: No chest wall deformity. LUNGS: Equal air entry with few scattered rhonchi. Diminished. CVS: S1 and S2 normal with no audible murmur, regular rhythm. ABDOMEN: No hepatosplenomegaly, normal bowel sounds, no guarding or rigidity. SPINE: No scoliosis or deformity SKIN: No rashes CENTRAL NERVOUS SYSTEM: No focal deficits, tone is normal in all 4 extremities. EXTREMITIES: There is 1+ peripheral edema. No clubbing, no cyanosis. Peripheral pulses are intact. Results - Laboratory Findings CBC and BMP: 04/17/20 09:01 04/17/20 09:01 ABG ABG pH 7.35 (7.35-7.45) 04/17/20 10:51 ABG pCO2 79 mmHg (35-45) H* 04/17/20 10:51 ABG pO2 62 mmHg (83-108) L 04/17/20 10:51 ABG O2 Saturation 91.0 % (94-97) L 04/17/20 10:51 PT/INR, D-dimer PT 9.4 sec (9.0-12.0) 04/16/20 19:20 INR 0.9 (<1.2) 04/16/20 19:20 Abnormal lab findings: Abnormal Labs 04/16/20 04/16/20 04/16/20 18:20 19:20 19:20 WBC 3.3 L RBC 3.55 L Hgb 11.0 L Hct 34.5 L Plt Count 145 L Lymphocytes # 0.6 L ABG pCO2 ABG pO2 ABG HCO3 ABG Total CO2 ABG O2 Saturation Potassium 5.9 H 5.5 H Chloride 96 L Carbon Dioxide 40 H BUN 25 H Glucose 104 H POC Glucose (mg/dL) Calcium 04/17/20 04/17/20 04/17/20 01:51 07:00 09:01 WBC 3.1 L RBC 3.09 L Hgb 9.7 L Hct 30.0 L Plt Count 138 L Lymphocytes # 0.7 L ABG pCO2 ABG pO2 ABG HCO3 ABG Total CO2 ABG O2 Saturation Potassium Chloride Carbon Dioxide BUN Glucose POC Glucose (mg/dL) 151 H 129 H Calcium 04/17/20 04/17/20 04/17/20 09:01 09:56 09:56 WBC RBC Hgb Hct Plt Count Lymphocytes # ABG pCO2 ABG pO2 ABG HCO3 ABG Total CO2 ABG O2 Saturation Potassium Chloride 97 L Carbon Dioxide 41 H* BUN 25 H Glucose 112 H POC Glucose (mg/dL) 115 H 115 H Calcium 8.0 L 04/17/20 04/17/20 10:51 11:23 WBC RBC Hgb Hct Plt Count Lymphocytes # ABG pCO2 79 H* ABG pO2 62 L ABG HCO3 43 H* ABG Total CO2 46 H ABG O2 Saturation 91.0 L Potassium Chloride Carbon Dioxide BUN Glucose POC Glucose (mg/dL) 154 H Calcium Assessment and Plan Assessment: 1 Acute on chronic hypoxic/hypercapnic respiratory failure secondary to chronic obstructive pulmonary disease, obesity/hypoventilation syndrome, obstructive sleep apnea intolerant to CPAP, chronic tobacco dependence of 60 years 2 Chronic obstructive pulmonary disease 3 Chronic hypoxemic respiratory failure secondary to above 4 Chronic hypercapnic respiratory failure 5 Obstructive sleep apnea with an AHI of 55, has CPAP at home with settings of 15-18 cm of water with oxygen hypertension, noncompliant 6 Altered mental status secondary to hypercapnia 7 Frequent falls with recent left foot fracture 8 Diabetes mellitus 9 Diabetic neuropathy 10 Essential tremors 11 Hypertension 12 Hyperlipidemia 13 GERD 14 Osteoarthritis Plan: The patient was seen and evaluated by Dr. Alamo Hypercapnic respiratory failure Utilize BiPAP at night if needed 12/ with 40% FiO2 Avoid narcotics, anti-anxiolytics Titrate down the FiO2 as tolerated Abdomen inhalations, Symbicort, steroids Follow-up in our office for further evaluation regarding suspected COPD and hypercapnic respiratory failure We'll continue to follow I, the cosigning physician, performed a history & physical examination of the patient. Lungs sounds with few scattered rhonchi. Maintaining good O2 saturations in the 90s on 3L min per nsal canula. I discussed the assessment and plan of care with my nurse practitioner, Marycruz Mccormick. I attest to the above consultation as dictated by her.
[2020-04-17 13:25] LABS: Appearance,Urine Turbid (Clear); Bilirubin,Urine Negative (Negative); Blood,Urine Small (Negative); Color,Urine Yellow; Glucose,Urine (UA) Negative (Negative); Ketones,Urine Negative (Negative); Leukocyte Esterase,Urine Large (Negative); Nitrite,Urine Negative (Negative); PH, Urine 7.5 (5.0-8.0); Protein,Urine 1+ (Negative); RBC,Urine 27 /hpf (0-5); Specific Gravity,Urine 1.017 (1.001-1.035); Squamous Epithelial Cell,Urine 2 /hpf (0-4); WBC,Urine >182 /hpf (0-5)
[2020-04-17 13:50] LABS: Amphetamine Screen,Urine Not Detected (NotDetected); Barbiturate Screen,Urine Detected (NotDetected); Benzodiazepines Screen,Urine Not Detected (NotDetected); Cocaine Screen,Urine Not Detected (NotDetected); Methadone Screen, Urine Not Detected (NotDetected); Opiate Screen,Urine Detected (NotDetected); Oxycodone Screen, Urine Not Detected (NotDetected); Phencyclidine Screen,Urine Not Detected (NotDetected); Tricyclic Antidepressant,Urine Not Detected (NotDetected); Urn Cannabinoid Scrn Not Detected (NotDetected)
[2020-04-17] MEDS: PRIMIDONE 50 MG TAB PO SCH ×2 (14:10→20:46)
[2020-04-17] MEDS: SODIUM CHLORIDE 0.9% 1,000 ML IV SCH ×2 (14:56→23:22)
[2020-04-17] MEDS: IPRATROPIUM-ALBUTEROL 3 ML NEB INHALATION SCH ×2 (15:47→20:16)
--- NOTE | 2020-04-17 16:31 | P.CNNES ---
History of Present Illness Consult date: 04/17/20 Requesting physician: Jamal E Donn Reason for Consult: Altered mental status History of Present Illness: Patient is a 69-year-old male, who arrived to the ER yesterday at 4:38 PM for evaluation of fall. Patient states he had fell multiple times on the day of admission. Patient's was also present, who also mentions that patient has been falling frequently for the past 1 year. His legs and whole body gives out and he falls. It has happened numerous times in the last year. Denies any numbness or tingling of the arms or legs. Patient does have a cane and a walker, but for the last 3-4 months he has been using wheelchair, since he broke his head of metatarsal bones on the left. Patient uses a wheelchair to ambulate throughout the house however his body just gives out whenever he attempts to ambulate out of the wheelchair. Complains of increased weakness during the last week. Patient's had mentioned that she is unable to pick him up whenever he falls on the floor. They live by themselves in the apartment. No report of loss of consciousness. Patient's vital signs on arrival was blood pressure 133/71, pulse rate 82 and depression and 7.3. Patient denies any focal symptoms. Computed tomography scan of head showed cerebral atrophy. No acute intracranial abnormality. CT of the cervical spine showed Spondylotic changes in the lower cervical spine. No evidence of fracture. Moderate disc space narrowing from C4 to C7 with sparing of the endplates. Posterior elements are intact. EKG shows normal sinus rhythm. Blood test shows decreased ABC 3.3 hemoglobin 11.0, platelets 145. PT/PTT normal. Sodium 140, potassium 5.9, BUN 25, creatinine 1.08. Liver panel normal. On review of records, patient had an MRI of lumbar spine on 11/02/2017, which revealed mild multilevel degenerative disc disease. Hypertrophic facet arthropathy, especially at L5-S1 resulting in a grade 1 anterolisthesis. No spinal stenosis. Chronic vertebral compression deformity of L1. No significant retropulsion into the spinal canal, though there is accentuated upper lumbar kyphosis as a result. Incidental 3.4 cm aneurysm of the upper abdominal aorta. MRI of the cervical spine from 11/02/2017 showed moderate to advanced multilevel spondylotic changes especially from C4 through C7 levels with grade 1 retrolisthesis at C4 5 and C5 6. Changes resulting in moderate spinal canal stenosis at C4 5 with impression on both the dorsal and ventral cord. [id number] spinal canal stenosis at both C3 4 and C5 6, mild at C6 7. Prominent motion artifact limit assessment for any cord signal abnormality. Clinical correlation will be needed for any myelopathic symptoms. Patient had a normal EDDY Scan on 10/26/2017. Patient follows up with Dr. Tapia, and is being considered for placement of spinal cord simulator, for his chronic neck and back pain. Patient denies any numbness or tingling of the extremities or any focal weakness. Patient has history of diabetes since 1999. Denies any alcohol use. He started smoking at age 9-10. His 20s he went up to 1 pack per day. Gradually build up to 3 packs per day when he quit 2 years ago. Obtained outside MRI of the brain with and without contrast on 12/27/2019, which revealed mild to moderate generalized cerebral atrophy with minimal chronic small vessel ischemic change. MRI of lumbar spine without contrast on 12/27/2019 showed it was compression type fracture L1 level with stable alignment. No significant spinal canal stenosis. MRI of cervical spine without contrast on 12/27/2019 showed multilevel degenerative changes with a C3 4 through C6 7 levels. No significant change or progression when compared to MRI from 11/02/2017. MRA of carotids with and without contrast on 01/08/2020 showed no significant stenosis in the common or ICA. Vertebral arteries are patent. Review of Systems Please refer to HPI. All other review of systems unremarkable. Patient does have some shortness of breath, cough. He has COPD. Denies abdominal pain nausea vomiting diarrhea. Past Medical History Past Medical History: Coronary Artery Disease (CAD), COPD, Diabetes Mellitus, Eye Disorder, GERD/Reflux, Hearing Disorder / Deafness, Hyperlipidemia, Hypertension, Osteoarthritis (OA), Pulmonary Embolus (PE), Sleep Apnea/CPAP/BIPAP, Thyroid Disorder Additional Past Medical History / Comment(s): O2 5L. PE IN 2007. CHRONIC BACK PAIN. DIABETIC NEUROPATHY IN FEET. GLAUCOMA. TREMORS. OSTEOPOROSIS. CPAP ORDERED BUT DOESN'T USE. HX POLYPS History of Any Multi-Drug Resistant Organisms: None Reported Past Surgical History: Appendectomy, Cholecystectomy, Hernia Repair, Orthopedic Surgery Additional Past Surgical History / Comment(s): BILATERAL KNEE REPLACEMENT, PLUS RIGHT KNEE DONE AGAIN; RIGHT ROTATOR CUFF. PITUITARY TUMOR REMOVED. BILATERAL CATARACTS. SINUS. GLAUCOMA SURGERY. EYE LID SURGERY. Additional Past Anesthesia/Blood Transfusion Reaction / Comment(s): QUESTIONABLE THAT VERSED MAY OVERLY SEDATE. Past Psychological History: No Psychological Hx Reported Smoking Status: Former smoker Past Alcohol Use History: None Reported Additional Past Alcohol Use History / Comment(s): QUIT LATE 2015, SMOKED FOR 58 YRS. Past Drug Use History: None Reported - Past Family History Mother Family Medical History: Cancer Additional Family Medical History / Comment(s): LUNG Medications and Allergies Home Medications Medication Instructions Recorded Confirmed Type Alendronate Sodium [Fosamax] 70 mg PO MO 03/03/17 04/16/20 History Aspirin 325 mg PO DAILY 03/03/17 04/16/20 History Atorvastatin [Lipitor] 80 mg PO HS 03/03/17 04/16/20 History Levothyroxine Sodium [Synthroid] 100 mcg PO DAILY 03/03/17 04/16/20 History Loratadine 10 mg PO DAILY 03/03/17 04/16/20 History Metoprolol Tartrate 25 mg PO BID 03/03/17 04/16/20 History Pantoprazole [Protonix] 40 mg PO HS 03/03/17 04/16/20 History Sennosides-Docusate Sodium 2 tab PO BID 01/25/19 04/16/20 History [Senokot-S] Tamsulosin [Flomax] 0.4 mg PO HS 01/25/19 04/16/20 History Albuterol Nebulized [Ventolin 2.5 mg INHALATION RT-BID 02/19/20 04/16/20 History Nebulized] Artificial Tears-Hypromellose 1 drops BOTH EYES BID 02/19/20 04/16/20 History [Artificial Tear Drops] Cholecalciferol [Vitamin D3 (25 2,000 unit PO HS 02/19/20 04/16/20 History Mcg = 1000 Iu)] Hydrophilic Cream [Triad Cream] 1 applic TOPICAL BID 02/19/20 04/16/20 History Psyllium Husk (with Sugar) 15 gm PO DAILY 02/19/20 04/16/20 History [Metamucil Powder] Gabapentin 900 mg PO TID #12 tab 02/25/20 04/16/20 Rx QUEtiapine [SEROquel] 25 mg PO HS tab 02/25/20 04/16/20 Rx Furosemide [Lasix] 40 mg PO Q48H 04/16/20 04/16/20 History Lisinopril-Hctz 10-12.5 mg 1 tab PO DAILY 04/17/20 04/17/20 History [Zestoretic 10-12.5] Potassium Chloride 10 meq PO DAILY 04/17/20 04/17/20 History Primidone [Mysoline] 50 mg PO BID 04/17/20 04/17/20 History Allergies Allergy/AdvReac Type Severity Reaction Status Date / Time metoclopramide AdvReac TREMORS Verified 04/16/20 22:36 Physical Examination - Vital Signs Vital Signs: Vital Signs Temp Pulse Pulse Resp BP BP Pulse Ox 04/17/20 05:00 99.3 F 88 16 97/61 96 04/17/20 00:10 105 H 18 97 04/16/20 23:14 98.3 F 121 H 24 142/87 97 04/16/20 23:10 18 04/16/20 22:28 110 H 18 115/80 99 04/16/20 16:41 97.3 F L 82 18 133/71 96 Intake and Output 04/16/20 04/17/20 04/17/20 22:59 06:59 14:59 Intake Total 600 Balance 600 Intake: Intake, IV Titration 600 Amount Sodium Chloride 0.9% 1, 600 000 ml @ 75 mls/hr IV . [id number] [facility] Rx#:[id number] Other: Voiding Method Bedside Commode Urinal # Bowel Movements 1 Weight 122.47 kg 122.47 kg On examination patient is an elderly male, moderately obese, in no obvious distress, although does appears mildly short of breath. He is using oxygen. Patient's speech and language functions are normal. Attention and concentration fund of knowledge is adequate. On cranial nerve examination pupils are round and reacting to light, visual fisher are full on confrontation. Extraocular muscles are intact with no nystagmus. Face is symmetric, tongue protrudes the midline. Palatal elevation sensation normal. Hearing and shoulder shrug normal. On muscle strength testing the strength appears normal in the arms and legs distally and proximally except right deltoid which is weak about 4+ probably related to arthritis. Reflexes are 1+ at the biceps, 0 at brachioradialis. Absent at bilateral knees and ankles and plantars are downgo ing bilaterally. Sensory touch is equal. No ataxia for [id number] testing. Patient has prominent myoclonic jerks of outstretched hands as well as of his legs. Tone and bulk of muscles normal. No obvious bruit, S1 and S2 audible. Abdomen soft nontender. Chest is clear. Results - Laboratory Findings CBC and BMP: 04/17/20 09:01 04/17/20 09:01 Abnormal Lab Findings: Abnormal Labs 04/16/20 04/16/20 04/16/20 18:20 19:20 19:20 WBC 3.3 L RBC 3.55 L Hgb 11.0 L Hct 34.5 L Plt Count 145 L Lymphocytes # 0.6 L Potassium 5.9 H 5.5 H Chloride 96 L Carbon Dioxide 40 H BUN 25 H Glucose 104 H POC Glucose (mg/dL) 04/17/20 04/17/20 01:51 07:00 WBC RBC Hgb Hct Plt Count Lymphocytes # Potassium Chloride Carbon Dioxide BUN Glucose POC Glucose (mg/dL) 151 H 129 H Assessment and Plan Assessment: * 69-year-old male admitted for frequent falls. Patient states that while walking or standing, patient's leg suddenly gives out and he falls. At present patient has very prominent myoclonic jerks of his upper and lower extremities, which is probably the cause of his frequent falls. Patient's muscle strength is completely normal in the arms and legs. Patient probably gets myoclonic jerk and he falls. * Myoclonic jerks, likely related to worsening COPD, hypoxemia, hypercapnia, anemia. Gabapentin may be aggravating the symptoms. * Chronic neck and back pain. Patient does have some degree of spinal stenosis of the cervical spine noted with previous MRI of the cervical spine from 2018, however there is no clinical evidence of myelopathy. * Diabetes * COPD with acute on chronic hypoxic/hypercapnic respiratory failure * Obesity Plan: * Patient has been seen by lace winder, as his ABG showed significant hyp ercapnia and hypoxemia. Optimal treatment of his pulmonary condition/anemia will help with myoclonic jerks. * Reduce gabapentin from 900 mg 3 times a day to 400 mg 3 times a day. * Avoid opiates, which can make myoclonic jerks worse also. * Agree with checking B12, A1c and TSH. Results are pending. * Please call Dr. Haynes over the weekend if you have any other neurological concerns.
[2020-04-17 17:18] LABS: Glucose,Whole Blood 162 mg/dL (75-99)
[2020-04-17] MEDS: methylPREDNISolone SOD SUCCI 40 MG/ML 1 ML VIAL IV SCH ×2 (17:45→23:21)
[2020-04-17 20:06] LABS: Glucose,Whole Blood 216 mg/dL (75-99)
[2020-04-17] MEDS: SYMBICORT 160-4.5 MCG INHALER INHALATION SCH (20:16)
[2020-04-17 21:39] LABS: Glucose,Whole Blood 250 mg/dL (75-99)
[2020-04-18 03:29] LABS: Glucose,Whole Blood 209 mg/dL (75-99)
[2020-04-18] MEDS: LEVOTHYROXINE 100 MCG TAB PO SCH (05:11)
[2020-04-18 06:59] LABS: Glucose,Whole Blood 231 mg/dL (75-99)
[2020-04-18 07:44] LABS: Basophils % (A) 0 %; Eosinophils % (A) 1 %; HCT 32.3 % (39.0-53.0); HGB 10.4 gm/dL (13.0-17.5); Hypochromasia Slight; Lymphocytes # (A) 0.3 k/uL (1.0-4.8); Lymphocytes % (A) 11 %; MCH 31.1 pg (25.0-35.0); MCHC 32.2 g/dL (31.0-37.0); MCV 96.5 fL (80.0-100.0); Mean Platelet Volume 8.4; Monocytes # (A) 0.1 k/uL (0-1.0); Monocytes % (A) 3 %; Neutrophils # (A) 2.3 k/uL (1.3-7.7); Neutrophils % (A) 85 %; Platelet Count 149 k/uL (150-450); RBC 3.35 m/uL (4.30-5.90); RDW 13.5 % (11.5-15.5); WBC 2.7 k/uL (3.8-10.6)
[2020-04-18 08:01] LABS: African American GFR (CKD) >90 (>60 ml/min/1.73 sqM); Anion Gap 4 mmol/L; Blood Urea Nitrogen 24 mg/dL (9-20); Calcium 8.7 mg/dL (8.4-10.2); Carbon Dioxide 36 mmol/L (22-30); Chloride 98 mmol/L (98-107); Glucose 218 mg/dL (74-99); Non-African American GFR(CKD) 81 (>60 ml/min/1.73 sqM); Potassium 5.6 mmol/L (3.5-5.1); Sodium 138 mmol/L (137-145)
[2020-04-18] MEDS: IPRATROPIUM-ALBUTEROL 3 ML NEB INHALATION SCH ×4 (08:18→19:48)
[2020-04-18] MEDS: SYMBICORT 160-4.5 MCG INHALER INHALATION SCH ×2 (08:18→19:49)
[2020-04-18] MEDS: METOPROLOL TARTRATE 25 MG TAB PO SCH ×2 (08:38→21:23)
[2020-04-18] MEDS: LORATADINE 10 MG TAB PO SCH (08:38)
[2020-04-18] MEDS: GABAPENTIN 400 MG CAP PO SCH ×3 (08:38→21:24)
[2020-04-18] MEDS: ASPIRIN 325 MG TAB PO SCH (08:38)
[2020-04-18] MEDS: PRIMIDONE 50 MG TAB PO SCH ×2 (08:38→21:23)
[2020-04-18] MEDS: INSULIN ASPART (NovoLOG) 100 UNIT/ML VIAL SQ SCH ×4 (08:38→21:24)
[2020-04-18] MEDS: methylPREDNISolone SOD SUCCI 40 MG/ML 1 ML VIAL IV SCH ×2 (08:39→21:24)
[2020-04-18] MEDS: SENNOSIDES-DOCUSATE SODIUM 1 EACH TAB PO SCH ×2 (08:39→21:24)
[2020-04-18] MEDS: FAMOTIDINE 20 MG/2 ML VIAL IV SCH ×2 (08:39→21:24)
[2020-04-18] MEDS: HEPARIN SODIUM,PORCINE 5,000 UNIT/ML 1 ML VIAL SQ SCH ×2 (08:39→21:24)
[2020-04-18] MEDS: HYDROcodone/APAP 5-325MG 1 EACH TAB PO PRN (09:58)
[2020-04-18 11:22] LABS: Glucose,Whole Blood 323 mg/dL (75-99)
[2020-04-18 11:39] LABS: Hemoglobin A1C 7.4 % (4.0-6.0)
--- NOTE | 2020-04-18 12:58 | PN ---
PROGRESS NOTE PULMONARY/CRITICAL CARE PROGRESS NOTE: DATE OF SERVICE: 04/18/2020 Very pleasant 69-year-old gentleman that we saw yesterday in consultation. He had acute on chronic hypoxemic and hypercapnic respiratory failure, which was multifactorial, in part related to underlying chronic obstructive pulmonary disease exacerbation, obesity/hypoventilation syndrome or Pickwickian syndrome, as well as obstructive sleep apnea syndrome. The patient's COPD is secondary to chronic tobacco dependence for more than 60 years and at some point throughout the years up to 4 packs a day. The patient also has a history of frequent falls with left foot fracture, diabetes, diabetic neuropathy, essential tremors, hypertension, hyperlipidemia, GERD, and osteoarthritis. Currently doing much better. Feeling much better. He was placed on appropriate medications. We also said that he could utilize BiPAP at 12 and 5 and 40%. He states his breathing is much improved. We added short and long-acting bronchodilators as well as inhaled corticosteroids and short-acting muscarinic antagonist. PHYSICAL EXAMINATION: VITAL SIGNS: Current vital signs are stable and include temperature 98, heart rate 74, respiratory rate 20, blood pressure 152/71, mean 98, 3L saturation 95%. Appears in no acute distress. HEENT: Examination is grossly unremarkable. Nasal O2 noted. NECK: Supple. Full range of motion. No adenopathy. Neck veins are flat. CARDIOVASCULAR: Examination reveals regular rhythm and rate. LUNGS: Reveal some mild expiratory rhonchi. No wheezes. Slight prolongation on forced maneuver. Breath sounds are improved. They are equal bilaterally but diminished throughout. ABDOMEN: Obese. Bowel sounds are heard. EXTREMITIES are intact. Minimal edema. SKIN: Without rash. There is no cyanosis or clubbing. NEUROLOGIC: Examination is nonfocal. LABS: Reviewed. White count 2.7, hemoglobin 10.4, hematocrit 32.3, platelet count 149,000. Sodium 138, potassium 5.6, chloride 98, CO2 36, anion gap is 4. BUN and creatinine were 24 and 0.95. Microbiology is pending or negative. No recent x-rays to report. A brain CT was done. It showed age-related atrophic and chronic small-vessel ischemia without an acute intracranial process. Medications were adjusted yesterday. ASSESSMENT: 1. Acute on chronic hypoxemic and hypercapnic respiratory failure secondary to chronic obstructive pulmonary disease, obesity/hypoventilation syndrome (Pickwickian syndrome), obstructive sleep apnea, intolerant of CPAP. 2. Chronic obstructive pulmonary disease secondary to chronic tobacco dependence. 3. Chronic hypoxemic respiratory failure. 4. Chronic hypercapnic respiratory failure. 5. Sleep apnea with an apnea-hypopnea index of 55. 6. Mental status changes secondary to hypercapnic respiratory failure. 7. Frequent falls with recent left foot fracture. 8. Diabetes mellitus with diabetic neuropathy. 9. Essential tremors. 10.Benign essential hypertension. 11.Hyperlipidemia. 12.Gastroesophageal reflux disease. 13.Osteoarthritis. PLAN: Overall, the patient seems to be doing well. He seems better. His blood sugars have gone high on the Solu-Medrol. We dropped the dose down. He is utilizing BiPAP at nighttime at 12/5 and 40%. We mentioned to avoid narcotics and anxiolytics or any sedative. Additional recommendations and suggestions are forthcoming. The patient will follow up in the office post discharge. MMVICKEYL / SANDRA: [id number] /
[2020-04-18] MEDS ORDERED: SODIUM POLYSTYRENE SULFONATE 15 GM/60 ML BOTTLE PO STA (13:35)
[2020-04-18] MEDS: SODIUM CHLORIDE 0.9% 1,000 ML IV SCH (14:03)
[2020-04-18] MEDS: FUROSEMIDE 40 MG TAB PO SCH (14:08)
[2020-04-18 17:15] LABS: Glucose,Whole Blood 295 mg/dL (75-99)
[2020-04-18 20:03] LABS: Glucose,Whole Blood 284 mg/dL (75-99)
[2020-04-18] MEDS: PANTOPRAZOLE 40 MG TABLET PO SCH (21:23)
[2020-04-18] MEDS: CHOLECALCIFEROL 1,000 UNIT TAB PO SCH (21:23)
[2020-04-18] MEDS: ATORVASTATIN 80 MG TAB PO SCH (21:23)
[2020-04-18] MEDS: QUEtiapine 25 MG TAB PO SCH (21:24)
[2020-04-18] MEDS: TAMSULOSIN 0.4 MG CAP.ER.24H PO SCH (21:31)
--- NOTE | 2020-04-18 22:22 | PN ---
PROGRESS NOTE DATE OF SERVICE: 04/18/2020 HISTORY OF PRESENT ILLNESS: This 69-year-old gentleman with a past history of multiple complex medical problems, admitted with change in mental status and multiple falls. The patient hit the forehead this time with significant injury. A CT scan of the brain was done yesterday which showed age-related change and chronic small ischemic changes. The patient is also seen by pulmonology and recommended to continue the current medication for COPD. Patient also has significant obesity. The patient had diffuse tremors and previously was tentatively diagnosed to be Parkinson's. Patient also had a jerking movements, which is upsetting his balance. The patient had a remote history of significant alcohol abuse as well. PAST MEDICAL HISTORY: Reviewed. REVIEW OF SYSTEMS: Cardiovascular: No angina. Respirations as mentioned earlier. GI: As mentioned earlier. : No dysuria. NERVOUS SYSTEM: As mentioned earlier. Musculoskeletal: As mentioned earlier. CURRENT MEDICATIONS: Reviewed and include: 1. Tylenol p.r.n. 2. [place] 5 mg q.4 p.r.n. 3. DuoNeb q.i.d. and p.r.n. 4. Aspirin 320 mg. 5. Lipitor 80 mg. 6. Symbicort 160/4.5 two puffs b.i.d. 7. Rocephin 1 g. 8. Pepcid. 9. Lasix. 10.Neurontin. 11.NovoLog. 12.Synthroid. 13.Claritin. 14.Ativan. 15.Solu-Medrol 40 IV b.i.d. 16.Narcan. 17.Percocet. 18.Protonix. 19.Mysoline. 20.Seroquel. 21.Senokot-S. 22.Flomax. 23.Doses and route reviewed. PHYSICAL EXAM: Patient is alert oriented x3. Pulse is 123, irregular. Blood pressure 124/69, respiration 20, temperature 98.2, pulse ox 94% on 3 L. HEENT: Conjunctivae normal. Oral mucosa moist. NECK: Obese. CARDIOVASCULAR system: S1, S2 muffled. No S3, no S4. RESPIRATORY: Breath sounds diminished in the bases. A few scattered rhonchi and crackles. ABDOMEN: Soft, obese, nontender. LEGS: No edema. No swelling. NERVOUS SYSTEM: Diffusely weak and diffuse tremors also present. No tone increases noted. LABS: WBC 2.2, hemoglobin 10.4, platelets 149. Sodium 130, potassium 5.6 and glucose elevated. ASSESSMENT: 1. Change in mental status, multifactorial, acute metabolic encephalopathy. 2. Falls because of diffuse tremors and myoclonic jerks. Rule out seizure disorder. 3. Rule out Parkinson's. 4. Diabetes mellitus type 2. 5. Multiple falls. 6. Hypertension. 7. Hyperlipidemia. 8. Chronic obstructive pulmonary disease, acute on chronic exacerbation. 9. Chronic hypoxic respiratory failure on home O2. 10.History of coronary artery disease. 11.History of degenerative joint disease. 12.History of sleep apnea. 13.Gastroesophageal reflux disease. 14.Hearing difficulties. 15.History of pulmonary embolism, not on anticoagulation. 16.History of hypothyroidism. 17.Chronic back pain, degenerative joint disease. 18.History of peripheral neuropathy. 19.History of osteoporosis. 20.Obesity with body mass index of 43.6. 21.Hyperkalemia, mild. 22.Diabetes mellitus type 2, uncontrolled with hyperglycemia. 23.Mild pancytopenia with neutropenia, leukopenia, thrombocytopenia, undetermined etiology. 24.History of significant EtOH. 25.FULL CODE. RECOMMENDATIONS AND DISCUSSION: This 69-year-old gentleman who presented with multiple complex medical issues, we will monitor the patient closely, continue the current medications, management and symptomatic treatment. Otherwise Neurontin levels has been reduced by Neurology. We will check the Neurontin levels. Continue the steroids. We will continue to monitor. Neurology evaluation. PT/OT evaluation. Recommend possible ECF rehab and discussed with the family. The home medications are adjusted. We will hold the potassium and lisinopril at this time. We will initiate the Lasix. Guarded prognosis because of the multiple complex medical issues. Further recommendations to follow. Will check a CBC and BMP also. MMODL / IJN: [id number] / MTDElsa
[2020-04-19] MEDS: LEVOTHYROXINE 100 MCG TAB PO SCH (05:41)
[2020-04-19 07:08] LABS: Glucose,Whole Blood 222 mg/dL (75-99)
[2020-04-19] MEDS: IPRATROPIUM-ALBUTEROL 3 ML NEB INHALATION SCH ×4 (07:40→20:27)
[2020-04-19] MEDS: SYMBICORT 160-4.5 MCG INHALER INHALATION SCH ×2 (07:41→20:27)
[2020-04-19 07:52] LABS: Basophils % (A) 0 %; Eosinophils % (A) 0 %; HCT 31.3 % (39.0-53.0); HGB 9.8 gm/dL (13.0-17.5); Hypochromasia Slight; Lymphocytes # (A) 0.4 k/uL (1.0-4.8); Lymphocytes % (A) 6 %; MCH 30.1 pg (25.0-35.0); MCHC 31.3 g/dL (31.0-37.0); MCV 96.1 fL (80.0-100.0); Mean Platelet Volume 8.2; Monocytes # (A) 0.3 k/uL (0-1.0); Monocytes % (A) 5 %; Neutrophils # (A) 5.5 k/uL (1.3-7.7); Neutrophils % (A) 88 %; Platelet Count 180 k/uL (150-450); RBC 3.26 m/uL (4.30-5.90); WBC 6.3 k/uL (3.8-10.6)
[2020-04-19 08:11] LABS: Calcium 8.6 mg/dL (8.4-10.2); Potassium 5.9 mmol/L (3.5-5.1)
[2020-04-19] MEDS: methylPREDNISolone SOD SUCCI 40 MG/ML 1 ML VIAL IV SCH ×2 (08:29→20:56)
[2020-04-19] MEDS: GABAPENTIN 400 MG CAP PO SCH ×3 (08:29→21:00)
[2020-04-19] MEDS: METOPROLOL TARTRATE 25 MG TAB PO SCH ×2 (08:29→20:56)
[2020-04-19] MEDS: SENNOSIDES-DOCUSATE SODIUM 1 EACH TAB PO SCH ×2 (08:29→20:57)
[2020-04-19] MEDS: HEPARIN SODIUM,PORCINE 5,000 UNIT/ML 1 ML VIAL SQ SCH ×2 (08:30→20:56)
[2020-04-19] MEDS: FAMOTIDINE 20 MG/2 ML VIAL IV SCH ×2 (08:30→20:56)
[2020-04-19] MEDS: LORATADINE 10 MG TAB PO SCH (08:30)
[2020-04-19] MEDS: ASPIRIN 325 MG TAB PO SCH (08:30)
[2020-04-19] MEDS: INSULIN ASPART (NovoLOG) 100 UNIT/ML VIAL SQ SCH ×4 (08:30→20:56)
[2020-04-19] MEDS: PSYLLIUM HUSK 100% 6 GM PACKET PO SCH (08:31)
[2020-04-19] MEDS: HYDROPHILIC CREAM 180 GM TUBE TOPICAL SCH ×2 (08:38→20:59)
[2020-04-19] MEDS: PRIMIDONE 50 MG TAB PO SCH ×2 (08:38→21:09)
[2020-04-19] MEDS: HYDROcodone/APAP 5-325MG 1 EACH TAB PO PRN ×3 (08:38→21:50)
[2020-04-19 11:54] LABS: Glucose,Whole Blood 277 mg/dL (75-99)
[2020-04-19] MEDS: ARTIFICIAL TEARS-HYPROMELLOSE DROPS 15 ML BTL BOTH EYES SCH ×2 (13:46→21:00)
--- NOTE | 2020-04-19 14:56 | P.PN ---
Subjective Progress Note Date: 04/19/20 Principal diagnosis: Weakness and falls This is a very pleasant 69-year-old gentleman who follows with Edna Hopson at the [facility] for her his primary care needs. He has a history of hypertension, hyperlipidemia, diabetes mellitus, osteoarthritis, coronary artery disease, GERD, hearing disorder, pulmonary embolism, hypothyroidism, diabetic neuropathy. He also has a history of obesity, obstructive sleep apnea intolerant to CPAP, chronic obstructive pulmonary disease maintained on Ventolin, 60 years of greater than 1 pack per day up to 4 packs per day smoking history, quit 2 years ago. He has been having frequent falls and previous left foot fracture. He does have tremors. He presented to the emergency room yesterday again with following multiple times throughout the day. States his body just gives out. He was attempting to ambulating out of the wheelchair when he had fallen and the frontal aspect of his head. There is an abrasion on the head. Computed tomography scan of the brain revealed age-related atrophic and chronic small vessel changes without acute intracranial process. This morning's labs revealed a CO2 of 41. He was drowsy and difficult to arouse this morning. Arterial blood gases were ordered and his PaO2 was 62, pCO2 79 and a pH of 7.35 and 32% FiO2. The patient has been noncompliant with CPAP at home because he states he cannot tolerate the mask. His AHI is 55 with oxygen saturation desaturations to 58% during the sleep study. His settings are 15-18 cm of water with 3 L of oxygen titrated in. He is seen today in consultation on the regular medical floor. He is currently awake alert oriented 3. No worsening shortness of breath, cough or congestion. No fever, chills or night sweats. White count 3.1. Hemoglobin 9.7. Sodium 141. Potassium 5.0. Creatinine 1.18. Patient seen today 04/19/2020 in follow-up on the regular medical floor. He is currently resting in bed. Awake and alert in no acute distress. He did have some episodes of tremors and shaking earlier this morning. Neurology was seeing the patient via virtual visit. Presently he is not having any tremor activity. He is maintaining O2 saturations in the mid 90s on 3 L. He's been afebrile. Urine culture positive for gram-negative bacilli. White count 6.3. Hemoglobin 9.8. Sodium 140. Potassium 5.9. Bicarb 40. Creatinine 1.18. He remains on Symbicort, DuoNeb's, IV Solu-Medrol. Antibiotics in the form of ceftriaxone. Objective - Vital Signs Vital signs: Vital Signs Temp 97.9 F 04/19/20 11:53 Pulse 105 H 04/19/20 11:53 Resp 21 04/19/20 11:53 BP 135/73 04/19/20 11:53 Pulse Ox 95 04/19/20 11:53 Intake & Output 04/18/20 04/19/20 04/19/20 18:59 06:59 18:59 Intake Total 600 Output Total 500 Balance 600 -500 Intake: Intake, IV Titration 600 Amount Sodium Chloride 0.9% 1, 600 000 ml @ 75 mls/hr IV . [id number] [facility] Rx#:[id number] Output: Urine 500 Other: Voiding Method Urinal Urinal Urinal # Voids 1 - Exam GENERAL EXAM: Alert, active, pleasant 69-year-old gentleman, on 2 L nasal cannula, comfortable in no apparent distress. HEAD: Abrasion over the right forehead. Normocephalic. EYES: Normal reaction of pupils, equal size. NOSE: Clear with pink turbinates. THROAT: Crowding the posterior pharynx. No erythema or exudates. NECK: Short. No masses, no JVD. CHEST: No chest wall deformity. LUNGS: Equal air entry with few scattered rhonchi. Diminished. CVS: S1 and S2 normal with no audible murmur, regular rhythm. ABDOMEN: No hepatosplenomegaly, normal bowel sounds, no guarding or rigidity. SPINE: No scoliosis or deformity SKIN: No rashes CENTRAL NERVOUS SYSTEM: No focal deficits, tone is normal in all 4 extremities. EXTREMITIES: There is 1+ peripheral edema. No clubbing, no cyanosis. Peripheral pulses are intact. - Labs CBC & Chem 7: 04/19/20 07:23 04/19/20 07:23 Labs: Abnormal Lab Results - Last 24 Hours (Table) 04/18/20 04/18/20 04/19/20 Range/Units 17:14 20:01 07:06 RBC (4.30-5.90) m/uL Hgb (13.0-17.5) gm/dL Hct (39.0-53.0) % Lymphocytes # (1.0-4.8) k/uL Potassium (3.5-5.1) mmol/L Chloride (98-107) mmol/L Carbon Dioxide (22-30) mmol/L BUN (9-20) mg/dL Glucose (74-99) mg/dL POC Glucose (mg/dL) 295 H 284 H 222 H (75-99) mg/dL 04/19/20 04/19/20 04/19/20 Range/Units 07:23 07:23 11:52 RBC 3.26 L (4.30-5.90) m/uL Hgb 9.8 L (13.0-17.5) gm/dL Hct 31.3 L (39.0-53.0) % Lymphocytes # 0.4 L (1.0-4.8) k/uL Potassium 5.9 H (3.5-5.1) mmol/L Chloride 96 L (98-107) mmol/L Carbon Dioxide 40 H (22-30) mmol/L BUN 35 H (9-20) mg/dL Glucose 194 H (74-99) mg/dL POC Glucose (mg/dL) 277 H (75-99) mg/dL Microbiology - Last 24 Hours (Table) 04/17/20 12:50 Urine Culture - Preliminary Urine,Voided Gram Neg Bacilli Assessment and Plan Assessment: 1 Acute on chronic hypoxic/hypercapnic respiratory failure secondary to chronic obstructive pulmonary disease, obesity/hypoventilation syndrome, obstructive sleep apnea intolerant to CPAP, chronic tobacco dependence of 60 years 2 Chronic obstructive pulmonary disease 3 Chronic hypoxemic respiratory failure secondary to above 4 Chronic hypercapnic respiratory failure 5 Obstructive sleep apnea with an AHI of 55, has CPAP at home with settings of 15-18 cm of water with oxygen hypertension, noncompliant 6 Altered mental status secondary to hypercapnia 7 Frequent falls with recent left foot fracture 8 Diabetes mellitus 9 Diabetic neuropathy 10 Essential tremors 11 Hypertension 12 Hyperlipidemia 13 GERD 14 Osteoarthritis 15 G negative bacilli urinary tract infection Plan: The patient was seen and evaluated by Dr. Alamo Improved from the pulmonary standpoint Abnormal tremors being evaluated by neurology Continue current treatment plan We'll continue to follow I, the cosigning physician, performed a history & physical examination of the patient. Lungs sounds with few scattered rhonchi. Maintaining good O2 saturations in the 90s on 3L min per nsal canula. I discussed the assessment and plan of care with my nurse practitioner, Marycruz Mccormick. I attest to the above consultation as dictated by her.
--- NOTE | 2020-04-19 15:26 | P.PN ---
Subjective Progress Note Date: 04/19/20 I was asked by the nurse to see the patient today because of an episode of generalized myoclonus. The patient reports shaking movements of both of his arms and legs. Apparently this shaking lasted for about 5 minutes. He was reportedly awake and able to respond to questions during this episode. The patient says that he has been having daily episodes of myoclonus, for the past 2 years. He initially was diagnosed with Parkinson's disease and was started on the medication. This was not beneficial. He was subsequently diagnosed with essential tremor and was started on primidone. He does follow [facility] a neurologist as an outpatient. The patient was seen in neurologic consultation by Dr. Lo, on Friday, April 17, 2020, for frequent falls. The patient reports that when he is walking he suddenly loses all strength in his legs, they give out and he falls to the ground. Objective - Vital Signs Vital signs: Vital Signs Temp 97.9 F 04/19/20 11:53 Pulse 105 H 04/19/20 11:53 Resp 21 04/19/20 11:53 BP 135/73 04/19/20 11:53 Pulse Ox 95 04/19/20 11:53 Intake & Output 04/18/20 04/19/20 04/19/20 18:59 06:59 18:59 Intake Total 600 50 Output Total 500 Balance 600 -500 50 Intake: Intake, IV Titration 600 50 Amount Sodium Chloride 0.9% 1, 600 000 ml @ 75 mls/hr IV . [id number] [facility] Rx#:[id number] cefTRIAXone 1 gm In 50 Sodium Chloride 0.9% 50 ml @ 100 mls/hr IVPB Q24HR [facility] Rx#:[id number] Output: Urine 500 Other: Voiding Method Urinal Urinal Urinal # Voids 1 3 - Exam Gen.: The patient is seated in the bed. He is in no acute distress. He is obese. HEENT: The patient has a laceration on his right forehead. Head is normocephalic. Fundus not visualized. There is no scleral icterus. Mucous membranes are moist. Extremities: There is bilateral 1+ pitting edema of the lower extremities. Neurological examination Mental status: The patient is awake, alert and oriented 3. His speech is clear. Cranial nerves: Pupils are equal, round and reactive to light. Visual fisher are full to confrontation. Extraocular movements are intact. There is no nystagmus. Facial sensation is intact. There is no facial asymmetry. Hearing is grossly intact. Uvula and palate are midline. Shoulder shrug is symmetric. Tongue protrudes midline. There is no tremor of the tongue Coordination: There is a tremor of the bilateral upper extremities noted with arms extended. The tremor remains when the patient is performing finger to nose testing. There is no dysmetria. There is no tremor of the lower extremities when they're raised off the bed on outstretched. The patient is able to accurately perform right sided heel to bang testing. He has mild difficulty performing left-sided [id number]-[id number] testing because of pain and previous injury to the left leg. There is no asterixis. - Labs CBC & Chem 7: 04/19/20 07:23 04/19/20 07:23 Labs: Abnormal Lab Results - Last 24 Hours (Table) 04/18/20 04/18/20 04/19/20 Range/Units 17:14 20:01 07:06 RBC (4.30-5.90) m/uL Hgb (13.0-17.5) gm/dL Hct (39.0-53.0) % Lymphocytes # (1.0-4.8) k/uL Potassium (3.5-5.1) mmol/L Chloride (98-107) mmol/L Carbon Dioxide (22-30) mmol/L BUN (9-20) mg/dL Glucose (74-99) mg/dL POC Glucose (mg/dL) 295 H 284 H 222 H (75-99) mg/dL 04/19/20 04/19/20 04/19/20 Range/Units 07:23 07:23 11:52 RBC 3.26 L (4.30-5.90) m/uL Hgb 9.8 L (13.0-17.5) gm/dL Hct 31.3 L (39.0-53.0) % Lymphocytes # 0.4 L (1.0-4.8) k/uL Potassium 5.9 H (3.5-5.1) mmol/L Chloride 96 L (98-107) mmol/L Carbon Dioxide 40 H (22-30) mmol/L BUN 35 H (9-20) mg/dL Glucose 194 H (74-99) mg/dL POC Glucose (mg/dL) 277 H (75-99) mg/dL Microbiology - Last 24 Hours (Table) 04/17/20 12:50 Urine Culture - Preliminary Urine,Voided Gram Neg Bacilli Assessment and Plan Assessment: 1. Myoclonus-likely multifactorial including: Hypercapnia, hypoxia and diabetes mellitus 2. Essential tremor Plan: 1. Myoclonus is most effectively treated when the underlying condition is treated 2. Klonopin or levetiracetam may be beneficial in treating myoclonus Time with Patient: Less than 30 (spent 25 minutes with patient via teleneurology)
[2020-04-19] MEDS ORDERED: SODIUM POLYSTYRENE SULFONATE 15 GM/60 ML BOTTLE PO STA (15:47)
[2020-04-19 16:58] LABS: Glucose,Whole Blood 407 mg/dL (75-99)
[2020-04-19 17:46] LABS: Glucose,Whole Blood 384 mg/dL (75-99)
[2020-04-19 19:12] LABS: Glucose,Whole Blood 378 mg/dL (75-99)
[2020-04-19 20:05] LABS: Glucose,Whole Blood 357 mg/dL (75-99)
[2020-04-19] MEDS: ATORVASTATIN 80 MG TAB PO SCH (20:56)
[2020-04-19] MEDS: TAMSULOSIN 0.4 MG CAP.ER.24H PO SCH (20:56)
[2020-04-19] MEDS: PANTOPRAZOLE 40 MG TABLET PO SCH (20:57)
[2020-04-19] MEDS: QUEtiapine 25 MG TAB PO SCH (20:57)
[2020-04-19] MEDS: CHOLECALCIFEROL 1,000 UNIT TAB PO SCH (20:57)
--- NOTE | 2020-04-20 02:03 | PN ---
PROGRESS NOTE DATE OF SERVICE: 04/19/2020 This 69-year-old gentleman admitted with multiple medical problems had significant tremors and as well as gait dysfunction. Patient also had some COPD exacerbation with IV steroids. Blood sugar is elevated and has been more than 400. No chest pain. No palpitations. No fever. Potassium is also elevated. PAST MEDICAL HISTORY: Reviewed. REVIEW OF SYSTEMS: CARDIOVASCULAR SYSTEM: No angina or palpitations. RESPIRATORY SYSTEM: As mentioned earlier. GI: No nausea, vomiting. : No dysuria. NERVOUS SYSTEM: As mentioned earlier. CURRENT MEDICATIONS: Current medications are reviewed and include: 1. Tylenol p.r.n. 2. [place] 5 mg q.4 p.r.n. 3. DuoNeb q.i.d. and p.r.n. 4. Artificial tears. 5. Aspirin. 6. Lipitor. 7. Symbicort. 8. Rocephin 1 gram daily. 9. Pepcid. 10.Lasix. 11.Neurontin 400 mg p.o. t.i.d. 12.Glucotrol. 13.Heparin. 14.Synthroid. 15.Claritin. 16.Ativan. 17.Solu-Medrol 40 IV b.i.d. 18.Narcan. 19.Percocet. 20.Protonix. 21.Mysoline. 22.Metamucil. 23.Seroquel. 24.Senokot. 25.Flomax. PHYSICAL EXAMINATION: Patient is alert and oriented x3. Pulse is 105, blood pressure 135/73, respiration 21, temperature 97.9, pulse ox 95% on 3 L. HEENT: Conjunctivae normal. NECK: No jugular venous distention. CARDIOVASCULAR: S1, S2 muffled. RESPIRATORY: Breath sounds diminished at the bases. A few scattered rhonchi and crackles. ABDOMEN: Soft. LEGS: No edema. NERVOUS SYSTEM: Diffusely weak and tremors and coarse tremors present. Myoclonic jerks also present. LABS: WBC 6.3, hemoglobin 9.8, sodium 140, potassium 5.9. ASSESSMENT: 1. Change in mental status, multifactorial, acute metabolic encephalopathy. 2. Falls because of diffuse tremors, possibly myoclonic jerks, rule out seizure disorder. 3. Rule out Parkinson's. 4. Diabetes mellitus type 2 uncontrolled with hyperglycemia. 5. Hyperkalemia. 6. Multiple falls. 7. Hypertension. 8. Hyperlipidemia. 9. Chronic obstructive pulmonary disease acute exacerbation. 10.Chronic hypoxic respiratory failure on home O2. 11.History of coronary artery disease. 12.History of degenerative joint disease. 13.History of sleep apnea. 14.History of gastroesophageal reflux disease. 15.Hearing difficulty. 16.History of pulmonary embolism, not on anticoagulation. 17.History of hypothyroidism. 18.History of chronic low back pain and degenerative joint disease. 19.History of peripheral neuropathy. 20.History of osteoporosis. 21.Obesity with body mass index of 43.6. 22.Diabetes mellitus type 2, uncontrolled with hyperglycemia. 23.Mild pancytopenia with neutropenia, leukopenia, thrombocytopenia, undetermined etiology. 24.History of significant EtOH. 25.FULL CODE. RECOMMENDATIONS AND DISCUSSION: Continue current medications, continue with monitoring and symptomatic treatment. Otherwise at this time Kayexalate, repeat potassium. Otherwise, monitor blood sugars closely. Increase dose of insulin 20 units for the high dose and I would also recommend to reduce the dose of Solu-Medrol. Closely follow with Pulmonary. Resume the rest of the medications. Neurology consultation. Guarded prognosis because of multiple complex medical issues. Further recommendations to follow. MMODL / IJN: [id number] /
[2020-04-20 04:59] LABS: Glucose,Whole Blood 215 mg/dL (75-99)
[2020-04-20] MEDS: LEVOTHYROXINE 100 MCG TAB PO SCH (05:43)
[2020-04-20 06:12] LABS: Basophils % (A) 0 %; Eosinophils % (A) 0 %; HCT 31.8 % (39.0-53.0); HGB 10.2 gm/dL (13.0-17.5); Hypochromasia Slight; Lymphocytes # (A) 0.5 k/uL (1.0-4.8); Lymphocytes % (A) 7 %; MCV 96.8 fL (80.0-100.0); Mean Platelet Volume 8.1; Monocytes # (A) 0.3 k/uL (0-1.0); Monocytes % (A) 5 %; Neutrophils # (A) 5.6 k/uL (1.3-7.7); Neutrophils % (A) 87 %; Platelet Count 201 k/uL (150-450); RBC 3.29 m/uL (4.30-5.90); RDW 13.9 % (11.5-15.5); WBC 6.4 k/uL (3.8-10.6)
[2020-04-20 06:27] LABS: Calcium 8.3 mg/dL (8.4-10.2); Potassium 5.2 mmol/L (3.5-5.1)
[2020-04-20 07:03] LABS: Glucose,Whole Blood 228 mg/dL (75-99)
[2020-04-20] MEDS: SYMBICORT 160-4.5 MCG INHALER INHALATION SCH ×2 (07:34→20:23)
[2020-04-20] MEDS: IPRATROPIUM-ALBUTEROL 3 ML NEB INHALATION SCH ×4 (07:34→20:23)
[2020-04-20] MEDS: INSULIN ASPART (NovoLOG) 100 UNIT/ML VIAL SQ SCH ×4 (07:45→23:09)
[2020-04-20] MEDS: ARTIFICIAL TEARS-HYPROMELLOSE DROPS 15 ML BTL BOTH EYES SCH ×2 (07:47→23:09)
[2020-04-20] MEDS: ASPIRIN 325 MG TAB PO SCH (07:48)
[2020-04-20] MEDS: SENNOSIDES-DOCUSATE SODIUM 1 EACH TAB PO SCH ×2 (07:49→23:05)
[2020-04-20] MEDS: FAMOTIDINE 20 MG/2 ML VIAL IV SCH ×2 (07:50→23:08)
[2020-04-20] MEDS: HEPARIN SODIUM,PORCINE 5,000 UNIT/ML 1 ML VIAL SQ SCH ×2 (07:50→23:08)
[2020-04-20] MEDS: GABAPENTIN 400 MG CAP PO SCH ×3 (07:50→23:05)
[2020-04-20] MEDS: LORATADINE 10 MG TAB PO SCH (07:51)
[2020-04-20] MEDS: methylPREDNISolone SOD SUCCI 40 MG/ML 1 ML VIAL IV SCH (07:51)
[2020-04-20] MEDS: HYDROPHILIC CREAM 180 GM TUBE TOPICAL SCH ×2 (07:51→23:09)
[2020-04-20] MEDS: PSYLLIUM HUSK 100% 6 GM PACKET PO SCH (08:11)
[2020-04-20] MEDS: PRIMIDONE 50 MG TAB PO SCH ×2 (08:12→23:12)
[2020-04-20] MEDS: METOPROLOL TARTRATE 25 MG TAB PO SCH ×2 (08:15→23:06)
[2020-04-20 11:29] LABS: Glucose,Whole Blood 248 mg/dL (75-99)
[2020-04-20] MEDS: FUROSEMIDE 40 MG TAB PO SCH (13:08)
--- NOTE | 2020-04-20 13:45 | P.PN ---
Subjective Progress Note Date: 04/20/20 Principal diagnosis: Weakness of falls This is a very pleasant 69-year-old gentleman who follows with Edna Hopson at the [facility] for her his primary care needs. He has a history of hypertension, hyperlipidemia, diabetes mellitus, osteoarthritis, coronary artery disease, GERD, hearing disorder, pulmonary embolism, hypothyroidism, diabetic neuropathy. He also has a history of obesity, obstructive sleep apnea intolerant to CPAP, chronic obstructive pulmonary disease maintained on Ventolin, 60 years of greater than 1 pack per day up to 4 packs per day smoking history, quit 2 years ago. He has been having frequent falls and previous left foot fracture. He does have tremors. He presented to the emergency room yesterday again with following multiple times throughout the day. States his body just gives out. He was attempting to ambulating out of the wheelchair when he had fallen and the frontal aspect of his head. There is an abrasion on the head. Computed tomography scan of the brain revealed age-related atrophic and chronic small vessel changes without acute intracranial process. This morning's labs revealed a CO2 of 41. He was drowsy and difficult to arouse this morning. Arterial blood gases were ordered and his PaO2 was 62, pCO2 79 and a pH of 7.35 and 32% FiO2. The patient has been noncompliant with CPAP at home because he states he cannot tolerate the mask. His AHI is 55 with oxygen saturation desaturations to 58% during the sleep study. His settings are 15-18 cm of water with 3 L of oxygen titrated in. He is seen today in consultation on the regular medical floor. He is currently awake alert oriented 3. No worsening shortness of breath, cough or congestion. No fever, chills or night sweats. White count 3.1. Hemoglobin 9.7. Sodium 141. Potassium 5.0. Creatinine 1.18. Patient seen today 04/19/2020 in follow-up on the regular medical floor. He is currently resting in bed. Awake and alert in no acute distress. He did have some episodes of tremors and shaking earlier this morning. Neurology was seeing the patient via virtual visit. Presently he is not having any tremor activity. He is maintaining O2 saturations in the mid 90s on 3 L. He's been afebrile. Urine culture positive for gram-negative bacilli. White count 6.3. Hemoglobin 9.8. Sodium 140. Potassium 5.9. Bicarb 40. Creatinine 1.18. He remains on Symbicort, DuoNeb's, IV Solu-Medrol. Antibiotics in the form of ceftriaxone. On 04/20/2020 patient seen in follow-up on the general medical floor. he is awake and alert, in no acute distress, he is currently on 3 L of oxygen with a pulse ox of 99%, afebrile, hemodynamically patient is stable, breathing seems comfortable, no specific complaints, no fever or chills. He is working with physical therapy. Patient remains on breathing treatments, Symbicort, every other day dose of oral Lasix, Rocephin for Proteus mirabilis urinary tract infection, and IV steroids. No acute issues overnight. Today's labs have been reviewed, showing normal white count at 6.4, hemoglobin of 10.4. Sodium is 139, potassium is 5.2, chloride is 94, CO2 is 41, B1 is 39 creatinine is 1.18. Objective - Vital Signs Vital signs: Vital Signs Temp 98.3 F 04/20/20 05:00 Pulse 72 04/20/20 11:23 Resp 18 04/20/20 05:00 BP 147/72 04/20/20 05:00 Pulse Ox 99 04/20/20 05:00 Intake & Output 04/19/20 04/20/20 04/20/20 18:59 06:59 18:59 Intake Total 50 725 Balance 50 725 Intake: Intake, IV Titration 50 Amount cefTRIAXone 1 gm In 50 Sodium Chloride 0.9% 50 ml @ 100 mls/hr IVPB Q24HR [facility] Rx#:[id number] Oral 725 Other: Voiding Method Urinal # Voids 3 2 - Exam GENERAL EXAM: Alert, very pleasant, 69-year-old white male, currently on 3 L of oxygen with a pulse ox of 99% comfortable in no apparent distress. HEAD: Normocephalic/atraumatic. EYES: Normal reaction of pupils, equal size. Conjunctiva pink, sclera white. NOSE: Clear with pink turbinates. THROAT: No erythema or exudates. NECK: No masses, no JVD, no thyroid enlargement, no adenopathy. CHEST: No chest wall deformity. Symmetrical expansion. LUNGS: Equal air entry with no crackles, wheeze, rhonchi or dullness. CVS: Regular rate and rhythm, normal S1 and S2, no gallops, no murmurs, no rubs ABDOMEN: Soft, nontender. No hepatosplenomegaly, normal bowel sounds, no guarding or rigidity. EXTREMITIES: No clubbing, 1+ lower extremity edema, no cyanosis, 2+ pulses and upper and lower extremities. MUSCULOSKELETAL: Muscle strength and tone normal. SPINE: No scoliosis or deformity SKIN: No rashes CENTRAL NERVOUS SYSTEM: Alert and oriented -3. No focal deficits, tone is normal in all 4 extremities. PSYCHIATRIC: Alert and oriented -3. Appropriate affect. Intact judgment and insight. - Labs CBC & Chem 7: 04/20/20 05:31 04/20/20 05:31 Labs: Abnormal Lab Results - Last 24 Hours (Table) 04/19/20 04/19/20 04/19/20 Range/Units 16:57 17:43 19:09 RBC (4.30-5.90) m/uL Hgb (13.0-17.5) gm/dL Hct (39.0-53.0) % Lymphocytes # (1.0-4.8) k/uL Potassium (3.5-5.1) mmol/L Chloride (98-107) mmol/L Carbon Dioxide (22-30) mmol/L BUN (9-20) mg/dL Glucose (74-99) mg/dL POC Glucose (mg/dL) 407 H 384 H 378 H (75-99) mg/dL Calcium (8.4-10.2) mg/dL 04/19/20 04/20/20 04/20/20 Range/Units 19:59 04:57 05:31 RBC 3.29 L (4.30-5.90) m/uL Hgb 10.2 L (13.0-17.5) gm/dL Hct 31.8 L (39.0-53.0) % Lymphocytes # 0.5 L (1.0-4.8) k/uL Potassium (3.5-5.1) mmol/L Chloride (98-107) mmol/L Carbon Dioxide (22-30) mmol/L BUN (9-20) mg/dL Glucose (74-99) mg/dL POC Glucose (mg/dL) 357 H 215 H (75-99) mg/dL Calcium (8.4-10.2) mg/dL 04/20/20 04/20/20 04/20/20 Range/Units 05:31 07:01 11:28 RBC (4.30-5.90) m/uL Hgb (13.0-17.5) gm/dL Hct (39.0-53.0) % Lymphocytes # (1.0-4.8) k/uL Potassium 5.2 H (3.5-5.1) mmol/L Chloride 94 L (98-107) mmol/L Carbon Dioxide 41 H* (22-30) mmol/L BUN 39 H (9-20) mg/dL Glucose 200 H (74-99) mg/dL POC Glucose (mg/dL) 228 H 248 H (75-99) mg/dL Calcium 8.3 L (8.4-10.2) mg/dL Microbiology - Last 24 Hours (Table) 04/17/20 12:50 Urine Culture - Final Urine,Voided Proteus mirabilis Assessment and Plan Plan: Assessment: 1 Acute on chronic hypoxic/hypercapnic respiratory failure secondary to chronic obstructive pulmonary disease, obesity/hypoventilation syndrome, obstructive sleep apnea intolerant to CPAP, chronic tobacco dependence of 60 years, improved 2 Chronic obstructive pulmonary disease 3 Chronic hypoxemic respiratory failure secondary to above 4 Chronic hypercapnic respiratory failure 5 Obstructive sleep apnea with an AHI of 55, has CPAP at home with settings of 15-18 cm of water with oxygen hypertension, noncompliant 6 Altered mental status secondary to hypercapnia 7 Frequent falls with recent left foot fracture 8 Diabetes mellitus 9 Diabetic neuropathy 10 Essential tremors 11 Hypertension 12 Hyperlipidemia 13 GERD 14 Osteoarthritis 15 G negative bacilli urinary tract infection, final culture revealed Proteus mirabilis Plan: Pt to improve from pulmonary perspective, awake and alert, no altered mentation, wean FiO2, increase activity as tolerated, continue current dose of IV steroids, breathing treatments, and current antibiotics for acute urinary tract infection related to Proteus mirabilis. No acute events overnight, no fever or chills, anticipate probable discharge home tomorrow. Will need outpatient follow-up with Dr. Alamo in the office in one to 2 weeks. I performed a history & physical examination of the patient and discussed their management with my nurse practitioner, Kimi Morgan. I reviewed the nurse practitioner's note and agree with the documented findings and plan of care. Lung sounds are positive for a few scattered rhonchi. The findings and the impression was discussed with the patient. I attest to the documentation by the nurse practitioner. Time with Patient: Less than 30
[2020-04-20 17:14] LABS: Glucose,Whole Blood 325 mg/dL (75-99)
[2020-04-20] MEDS: predniSONE 20 MG TAB PO SCH (18:19)
[2020-04-20] MEDS: levETIRAcetam 500 MG TAB PO SCH (18:19)
--- NOTE | 2020-04-20 19:43 | PN ---
PROGRESS NOTE DATE OF SERVICE: 04/20/2020 This 69-year-old gentleman who was admitted with abnormal movements as well as weakness is being closely monitored. The patient has possible myoclonic tremors and Klonopin or Keppra has been recommended by Neurology as beneficial in treating myoclonus. The patient is being closely monitored. PHYSICAL EXAMINATION: Patient is alert and oriented x3. Pulse 79, blood pressure 135/69, respiration 18, temperature 98.3, pulse ox 94% on 3 L. HEENT: Conjunctivae normal. NECK: No jugular venous distention. CARDIOVASCULAR SYSTEM: S1, S2 muffled. RESPIRATORY SYSTEM: Breath sounds diminished at the bases. A few scattered rhonchi. No crackles. ABDOMEN: Soft, obese, non-tender. LEGS: No edema. No swelling. NERVOUS SYSTEM: Diffusely weak. Tremors. LABS: Hemoglobin 10.2. Sodium 139, potassium 5.2. CO2 is 41. ASSESSMENT: 1. Change in mental status, multifactorial, acute metabolic encephalopathy. 2. Falls because of diffuse tremors, possibly myoclonic jerks. Rule out seizure disorder. 3. Rule out Parkinson's. 4. Diabetes mellitus, type 2, uncontrolled with hyperglycemia. 5. Hyperkalemia. 6. Multiple falls. 7. Hypertension. 8. Hyperlipidemia. 9. Chronic obstructive pulmonary disease, acute exacerbation. 10.Chronic hypoxic respiratory failure, on home oxygen. 11.History of coronary artery disease. 12.History of degenerative joint disease. 13.History of sleep apnea, CPAP. 14.History of gastroesophageal reflux disease. 15.Hearing difficulties. 16.History of pulmonary embolism, not on anticoagulation. 17.History of hypothyroidism. 18.Chronic low back pain and degenerative joint disease. 19.History of peripheral neuropathy. 20.History of osteoporosis. 21.Obesity with body mass index of 43.6. 22.Mild pancytopenia with neutropenia, leukopenia, thrombocytopenia; undetermined etiology. 23.History of significant ETOH. 24.FULL CODE. RECOMMENDATIONS AND DISCUSSION: I recommend to continue current medications, continue with the monitoring, symptomatic treatment. Otherwise at this time I would monitor the blood sugars closely. Tonia per Neurology. Continue the tapering dose of steroids. We will continue to monitor. Guarded prognosis. Further recommendations to follow. Will initiate prednisone today. MMODL / IJN: [id number] /
[2020-04-20 20:43] LABS: Glucose,Whole Blood 280 mg/dL (75-99)
[2020-04-20 21:24] VITALS: RESP 20
[2020-04-20] MEDS: CHOLECALCIFEROL 1,000 UNIT TAB PO SCH (23:06)
[2020-04-20] MEDS: TAMSULOSIN 0.4 MG CAP.ER.24H PO SCH (23:06)
[2020-04-20] MEDS: PANTOPRAZOLE 40 MG TABLET PO SCH (23:06)
[2020-04-20] MEDS: QUEtiapine 25 MG TAB PO SCH (23:06)
[2020-04-20] MEDS: HYDROcodone/APAP 5-325MG 1 EACH TAB PO PRN (23:07)
[2020-04-20] MEDS: ATORVASTATIN 80 MG TAB PO SCH (23:08)
[2020-04-21 06:09] VITALS: BP 118/64; TEMP 98
[2020-04-21] MEDS: LEVOTHYROXINE 100 MCG TAB PO SCH (06:28)
[2020-04-21 07:17] LABS: Glucose,Whole Blood 235 mg/dL (75-99)
[2020-04-21] MEDS: SYMBICORT 160-4.5 MCG INHALER INHALATION SCH (07:39)
[2020-04-21] MEDS: IPRATROPIUM-ALBUTEROL 3 ML NEB INHALATION SCH ×2 (07:39→11:23)
[2020-04-21 08:45] LABS: Calcium 8.2 mg/dL (8.4-10.2); Potassium 4.6 mmol/L (3.5-5.1)
[2020-04-21 08:52] LABS: Basophils % (A) 0 %; Eosinophils % (A) 1 %; HGB 10.2 gm/dL (13.0-17.5); Lymphocytes # (A) 0.5 k/uL (1.0-4.8); Lymphocytes % (A) 10 %; MCH 31.2 pg (25.0-35.0); MCV 94.4 fL (80.0-100.0); Mean Platelet Volume 8.7; Monocytes # (A) 0.4 k/uL (0-1.0); Monocytes % (A) 7 %; Neutrophils # (A) 4.2 k/uL (1.3-7.7); Neutrophils % (A) 81 %; Platelet Count 191 k/uL (150-450); RBC 3.29 m/uL (4.30-5.90); RDW 13.9 % (11.5-15.5); WBC 5.2 k/uL (3.8-10.6)
[2020-04-21] MEDS: INSULIN ASPART (NovoLOG) 100 UNIT/ML VIAL SQ SCH ×2 (08:54→13:03)
[2020-04-21] MEDS: PRIMIDONE 50 MG TAB PO SCH (08:55)
[2020-04-21] MEDS: levETIRAcetam 500 MG TAB PO SCH (08:55)
[2020-04-21] MEDS: GABAPENTIN 400 MG CAP PO SCH (08:55)
[2020-04-21] MEDS: PSYLLIUM HUSK 100% 6 GM PACKET PO SCH (08:56)
[2020-04-21] MEDS: METOPROLOL TARTRATE 25 MG TAB PO SCH (08:57)
[2020-04-21] MEDS: LORATADINE 10 MG TAB PO SCH (08:57)
[2020-04-21] MEDS: ASPIRIN 325 MG TAB PO SCH (08:57)
[2020-04-21] MEDS: predniSONE 20 MG TAB PO SCH (08:57)
[2020-04-21] MEDS: SENNOSIDES-DOCUSATE SODIUM 1 EACH TAB PO SCH (08:57)
[2020-04-21] MEDS: HEPARIN SODIUM,PORCINE 5,000 UNIT/ML 1 ML VIAL SQ SCH (08:59)
[2020-04-21] MEDS: HYDROPHILIC CREAM 180 GM TUBE TOPICAL SCH (08:59)
[2020-04-21] MEDS: ARTIFICIAL TEARS-HYPROMELLOSE DROPS 15 ML BTL BOTH EYES SCH (09:00)
[2020-04-21] MEDS: FAMOTIDINE 20 MG/2 ML VIAL IV SCH (10:48)
--- NOTE | 2020-04-21 11:16 | P.PN ---
Subjective Progress Note Date: 04/21/20 Principal diagnosis: Weakness of falls This is a very pleasant 69-year-old gentleman who follows with Edna Hopson at the [facility] for her his primary care needs. He has a history of hypertension, hyperlipidemia, diabetes mellitus, osteoarthritis, coronary artery disease, GERD, hearing disorder, pulmonary embolism, hypothyroidism, diabetic neuropathy. He also has a history of obesity, obstructive sleep apnea intolerant to CPAP, chronic obstructive pulmonary disease maintained on Ventolin, 60 years of greater than 1 pack per day up to 4 packs per day smoking history, quit 2 years ago. He has been having frequent falls and previous left foot fracture. He does have tremors. He presented to the emergency room yesterday again with following multiple times throughout the day. States his body just gives out. He was attempting to ambulating out of the wheelchair when he had fallen and the frontal aspect of his head. There is an abrasion on the head. Computed tomography scan of the brain revealed age-related atrophic and chronic small vessel changes without acute intracranial process. This morning's labs revealed a CO2 of 41. He was drowsy and difficult to arouse this morning. Arterial blood gases were ordered and his PaO2 was 62, pCO2 79 and a pH of 7.35 and 32% FiO2. The patient has been noncompliant with CPAP at home because he states he cannot tolerate the mask. His AHI is 55 with oxygen saturation desaturations to 58% during the sleep study. His settings are 15-18 cm of water with 3 L of oxygen titrated in. He is seen today in consultation on the regular medical floor. He is currently awake alert oriented 3. No worsening shortness of breath, cough or congestion. No fever, chills or night sweats. White count 3.1. Hemoglobin 9.7. Sodium 141. Potassium 5.0. Creatinine 1.18. Patient seen today 04/19/2020 in follow-up on the regular medical floor. He is currently resting in bed. Awake and alert in no acute distress. He did have some episodes of tremors and shaking earlier this morning. Neurology was seeing the patient via virtual visit. Presently he is not having any tremor activity. He is maintaining O2 saturations in the mid 90s on 3 L. He's been afebrile. Urine culture positive for gram-negative bacilli. White count 6.3. Hemoglobin 9.8. Sodium 140. Potassium 5.9. Bicarb 40. Creatinine 1.18. He remains on Symbicort, DuoNeb's, IV Solu-Medrol. Antibiotics in the form of ceftriaxone. On 04/20/2020 patient seen in follow-up on the general medical floor. he is awake and alert, in no acute distress, he is currently on 3 L of oxygen with a pulse ox of 99%, afebrile, hemodynamically patient is stable, breathing seems comfortable, no specific complaints, no fever or chills. He is working with physical therapy. Patient remains on breathing treatments, Symbicort, every other day dose of oral Lasix, Rocephin for Proteus mirabilis urinary tract infection, and IV steroids. No acute issues overnight. Today's labs have been reviewed, showing normal white count at 6.4, hemoglobin of 10.4. Sodium is 139, potassium is 5.2, chloride is 94, CO2 is 41, B1 is 39 creatinine is 1.18. On 04/21/2020 patient seen in follow-up on general medical floor, he is calm and comfortable, he is on 3 L of oxygen, and he regularly wears 2 L of oxygen at home [id number]. Lung sounds are clear, no rhonchi no wheezes, breathing is improving, he remains on antibiotics for urinary tract infection, with urine cultures positive for Proteus mirabilis. His had no fever or chills, he has had no acute complaints, has his CPAP home from unit, he has been complaining that he has not been able to wear it because he starts having chest discomfort and she takes the mask off. Upon checking his machine it is an older CPAP unit, with the high-pressure system and the pressure of 18 cm of water, patient has a significant leak most of the time and he has not been able to wear it very much. Looks like last time he had a sleep study was in [address] Michelle, and patient will need repeat sleep study and possibly a new CPAP unit. The was no acute events overnight and patient may likely be considered for discharge home today. Objective - Vital Signs Vital signs: Vital Signs Temp 98.0 F 04/21/20 05:00 Pulse 64 04/21/20 07:51 Resp 20 04/21/20 05:00 BP 118/64 04/21/20 05:00 Pulse Ox 90 L 04/21/20 05:00 Intake & Output 04/20/20 04/21/20 04/21/20 18:59 06:59 18:59 Intake Total 650 Balance 650 Intake: Oral 650 Other: Voiding Method Bedside Commode Urinal Urinal # Voids 5 1 # Bowel Movements 2 - Exam GENERAL EXAM: Alert, very pleasant, 69-year-old white male, currently on 3 L of oxygen with a pulse ox of 95% comfortable in no apparent distress. HEAD: Normocephalic/atraumatic. EYES: Normal reaction of pupils, equal size. Conjunctiva pink, sclera white. NOSE: Clear with pink turbinates. THROAT: No erythema or exudates. NECK: No masses, no JVD, no thyroid enlargement, no adenopathy. CHEST: No chest wall deformity. Symmetrical expansion. LUNGS: Equal air entry with no crackles, wheeze, rhonchi or dullness. CVS: Regular rate and rhythm, normal S1 and S2, no gallops, no murmurs, no rubs ABDOMEN: Soft, nontender. No hepatosplenomegaly, normal bowel sounds, no guarding or rigidity. EXTREMITIES: No clubbing, 1+ lower extremity edema, no cyanosis, 2+ pulses and upper and lower extremities. MUSCULOSKELETAL: Muscle strength and tone normal. SPINE: No scoliosis or deformity SKIN: No rashes CENTRAL NERVOUS SYSTEM: Alert and oriented -3. No focal deficits, tone is normal in all 4 extremities. PSYCHIATRIC: Alert and oriented -3. Appropriate affect. Intact judgment and insight. - Labs CBC & Chem 7: 04/21/20 07:47 04/21/20 07:47 Labs: Abnormal Lab Results - Last 24 Hours (Table) 04/20/20 04/20/20 04/20/20 Range/Units 11:28 17:12 20:37 RBC (4.30-5.90) m/uL Hgb (13.0-17.5) gm/dL Hct (39.0-53.0) % Lymphocytes # (1.0-4.8) k/uL Sodium (137-145) mmol/L Chloride (98-107) mmol/L Carbon Dioxide (22-30) mmol/L BUN (9-20) mg/dL Glucose (74-99) mg/dL POC Glucose (mg/dL) 248 H 325 H 280 H (75-99) mg/dL Calcium (8.4-10.2) mg/dL 04/21/20 04/21/20 04/21/20 Range/Units 07:14 07:47 07:47 RBC 3.29 L (4.30-5.90) m/uL Hgb 10.2 L (13.0-17.5) gm/dL Hct 31.0 L (39.0-53.0) % Lymphocytes # 0.5 L (1.0-4.8) k/uL Sodium 136 L (137-145) mmol/L Chloride 94 L (98-107) mmol/L Carbon Dioxide 37 H (22-30) mmol/L BUN 40 H (9-20) mg/dL Glucose 217 H (74-99) mg/dL POC Glucose (mg/dL) 235 H (75-99) mg/dL Calcium 8.2 L (8.4-10.2) mg/dL Assessment and Plan Plan: Assessment: 1 Acute on chronic hypoxic/hypercapnic respiratory failure secondary to chronic obstructive pulmonary disease, obesity/hypoventilation syndrome, obstructive sleep apnea intolerant to CPAP, chronic tobacco dependence of 60 years, improved 2 Chronic obstructive pulmonary disease 3 Chronic hypoxemic respiratory failure secondary to above 4 Chronic hypercapnic respiratory failure 5 Obstructive sleep apnea with an AHI of 55, has CPAP at home with settings of 15-18 cm of water with oxygen hypertension, noncompliant 6 Altered mental status secondary to hypercapnia 7 Frequent falls with recent left foot fracture 8 Diabetes mellitus 9 Diabetic neuropathy 10 Essential tremors 11 Hypertension 12 Hyperlipidemia 13 GERD 14 Osteoarthritis 15 G negative bacilli urinary tract infection, final culture revealed Proteus mirabilis Plan: Patient has remained stable from pulmonary perspective, no worsening dyspnea, he is on his home O2 at 3 L and actually he normally wears, we checked his CPAP machine, etc. older unit with high pressure setting of 18 cm of water, with a significant leak. Patient has not been able to wear it, he will need outpatient sleep study and may need a new unit. Follow-up with Dr. Baca in the office. I performed a history & physical examination of the patient and discussed their management with my nurse practitioner, Kimi Morgan. I reviewed the nurse practitioner's note and agree with the documented findings and plan of care. Lung sounds are positive for a few scattered rhonchi. The findings and the impression was discussed with the patient. I attest to the documentation by the nurse practitioner. Time with Patient: Less than 30
[2020-04-21 11:28] VITALS: PULSE 60
[2020-04-21 11:44] LABS: Glucose,Whole Blood 264 mg/dL (75-99)
--- NOTE | 2020-04-22 09:47 | P.DS ---
Providers Date of admission: 04/18/20 15:30 Expected date of discharge: 04/21/20 Attending physician: Maliha Waldrop Consults: 04/17/20 08:57 Consult Physician Urgent Consulting Provider: Mckenzie Lo Consult Reason/Comments: Altered mental status Do you want consulting provider notified?: Yes 04/17/20 11:11 Consult Physician Routine Consulting Provider: Ramon Alamo Consult Reason/Comments: COPD Do you want consulting provider notified?: Yes Primary care physician: [facility] Hospital Course: Final diagnosis Change in mental status, multifactorial, acute metabolic encephalopathy Falls because of diffuse tremors, possibly myoclonic jerks. Rule out seizure disorder Rule out Parkinson's Diabetes mellitus type 2, uncontrolled hyperglycemia hyperkalemia Multiple falls hypertension Hyperlipidemia Chronic obstructive pulmonary disease, acute exacerbation Chronic hypoxic respiratory failure, on home oxygen History of coronary artery disease History of DJD History of sleep apnea, CPAP Hearing difficulties History of pulmonary embolism, not currently on any anticoagulation History of hypothyroidism chronic low back pain History of peripheral neuropathy History of osteoporosis Obesity with a body mass index of 43.6 Mild pancytopenia with neutropenia, leukopenia, thrombocytopenia, undetermined etiology History of significant EtOH Full code Discharge disposition Patient is being discharged in a stable condition with guarded prognosis to home. Patient will follow-up with [facility] in the outpatient setting on discharge. Patient also instructed to follow-up with Dr. Baca in the outpatient setting for continued studies. Patient will continue on a short course of oral antibiotics in the form of Ceftin 500 mg twice daily for the next 5 days and then may discontinue. Total time taken is greater than 35 minutes. History of present illness This is a 69-year-old male who was recently admitted with abnormal movements as well as weakness and was being closely monitored. Patient appeared to be having possible myoclonic tremors and was evaluated by neurology recommending Tonia along with Sarah. Patient was provided prescriptions for this and will follow-up with neurology in the outpatient setting once discussing with primary care provider. Patient was seen and evaluated by physical therapy due to gait dysfunction and fatigue although does not want to go to an [facility] for rehab at this time. Family is also refusing and would like him to come home upon discharge. Patient will continue short course of oral antibiotics in the form of Ceftin 100 mg twice daily for the next 5 days his urine cultures finalized showing Proteus mirabilis. Case management and social work following for discharge planning needs. Currently no reports of chest pain, worsening shortness of breath, or palpitations. Patient is afebrile. No reports of nausea or vomiting and patient is tolerating diet. Patient will be discharged to home today. On exam vital signs are stable. Temp is 98.0F, pulse is 58, respirations are 20, blood pressure is 118/64, oxygen saturation is 95% on 3 L via nasal cannula. Cardio S1, S2 are muffled. Respiratory system shows diminished breath sounds at the bases with some scattered rhonchi noted. Abdomen is soft and nontender. Nervous system shows no focal deficits. Please refer to medication reconciliation sheet for a list of medications. Patient Condition at Discharge: Stable Plan - Discharge Summary Discharge Rx Participant: No New Discharge Prescriptions: New Cefuroxime Axetil [Ceftin] 500 mg PO BID 5 Days #10 tab Ipratropium-Albuterol Nebulize [Duoneb 0.5 mg-3 mg/3 ml Soln] 3 ml INHALATION RT-QID 30 Days #120 ml Ipratropium-Albuterol Nebulize [Duoneb 0.5 mg-3 mg/3 ml Soln] 3 ml INHALATION RT-QID PRN ml PRN Reason: Shortness Of Breath Or Wheezing glipiZIDE [Glucotrol] 2.5 mg PO AC-SUPPER 30 Days #30 tab levETIRAcetam [Keppra] 500 mg PO Q12H 30 Days #60 tab Gabapentin [Neurontin] 400 mg PO TID #12 cap predniSONE 10 mg PO DIRECTED #30 tab Budesonide-Formot 160-4.5 Mcg [Symbicort 160-4.5 Mcg Inhaler] 2 puff INHALATION RT-BID 30 Days #1 puff Acetaminophen Tab [Tylenol] 650 mg PO Q6HR PRN tab PRN Reason: Mild Pain Or Fever > 100.5 Folic Acid 1 mg PO DAILY #30 tablet clonazePAM [KlonoPIN] 0.5 mg PO BID PRN #10 tab PRN Reason: Anxiety Multivitamins, Thera [Multivitamin] 1 tab PO DAILY #30 tablet Thiamine [Vitamin B-1] 100 mg PO DAILY #30 tablet Continue Pantoprazole [Protonix] 40 mg PO HS Metoprolol Tartrate 25 mg PO BID Loratadine 10 mg PO DAILY Levothyroxine Sodium [Synthroid] 100 mcg PO DAILY Atorvastatin [Lipitor] 80 mg PO HS Aspirin 325 mg PO DAILY Alendronate Sodium [Fosamax] 70 mg PO MO Tamsulosin [Flomax] 0.4 mg PO HS Sennosides-Docusate Sodium [Senokot-S] 2 tab PO BID Psyllium Husk (with Sugar) [Metamucil Powder] 15 gm PO DAILY Hydrophilic Cream [Triad Cream] 1 applic TOPICAL BID Artificial Tears-Hypromellose [Artificial Tear Drops] 1 drops BOTH EYES BID Albuterol Nebulized [Ventolin Nebulized] 2.5 mg INHALATION RT-BID Cholecalciferol [Vitamin D3 (25 Mcg = 1000 Iu)] 2,000 unit PO HS QUEtiapine [SEROquel] 25 mg PO HS tab Furosemide [Lasix] 40 mg PO Q48H Primidone [Mysoline] 50 mg PO BID Potassium Chloride 10 meq PO DAILY Discontinued Gabapentin 900 mg PO TID #12 tab Lisinopril-Hctz 10-12.5 mg [Zestoretic 10-12.5] 1 tab PO DAILY Discharge Medication List Alendronate Sodium [Fosamax] 70 mg PO MO 03/03/17 [History] Aspirin 325 mg PO DAILY 03/03/17 [History] Atorvastatin [Lipitor] 80 mg PO HS 03/03/17 [History] Levothyroxine Sodium [Synthroid] 100 mcg PO DAILY 03/03/17 [History] Loratadine 10 mg PO DAILY 03/03/17 [History] Metoprolol Tartrate 25 mg PO BID 03/03/17 [History] Pantoprazole [Protonix] 40 mg PO HS 03/03/17 [History] Sennosides-Docusate Sodium [Senokot-S] 2 tab PO BID 01/25/19 [History] Tamsulosin [Flomax] 0.4 mg PO HS 01/25/19 [History] Albuterol Nebulized [Ventolin Nebulized] 2.5 mg INHALATION RT-BID 02/19/20 [History] Artificial Tears-Hypromellose [Artificial Tear Drops] 1 drops BOTH EYES BID 02/19/20 [History] Cholecalciferol [Vitamin D3 (25 Mcg = 1000 Iu)] 2,000 unit PO HS 02/19/20 [History] Hydrophilic Cream [Triad Cream] 1 applic TOPICAL BID 02/19/20 [History] Psyllium Husk (with Sugar) [Metamucil Powder] 15 gm PO DAILY 02/19/20 [History] QUEtiapine [SEROquel] 25 mg PO HS tab 02/25/20 [Rx] Furosemide [Lasix] 40 mg PO Q48H 04/16/20 [History] Potassium Chloride 10 meq PO DAILY 04/17/20 [History] Primidone [Mysoline] 50 mg PO BID 04/17/20 [History] Acetaminophen Tab [Tylenol] 650 mg PO Q6HR PRN tab 04/21/20 [Rx] Budesonide-Formot 160-4.5 Mcg [Symbicort 160-4.5 Mcg Inhaler] 2 puff INHALATION RT-BID 30 Days #1 puff 04/21/20 [Rx] Cefuroxime Axetil [Ceftin] 500 mg PO BID 5 Days #10 tab 04/21/20 [Rx] Folic Acid 1 mg PO DAILY #30 tablet 04/21/20 [Rx] Gabapentin [Neurontin] 400 mg PO TID #12 cap 04/21/20 [Rx] Ipratropium-Albuterol Nebulize [Duoneb 0.5 mg-3 mg/3 ml Soln] 3 ml INHALATION RT-QID 30 Days #120 ml 04/21/20 [Rx] Ipratropium-Albuterol Nebulize [Duoneb 0.5 mg-3 mg/3 ml Soln] 3 ml INHALATION RT-QID PRN ml 04/21/20 [Rx] Multivitamins, Thera [Multivitamin] 1 tab PO DAILY #30 tablet 04/21/20 [Rx] Thiamine [Vitamin B-1] 100 mg PO DAILY #30 tablet 04/21/20 [Rx] clonazePAM [KlonoPIN] 0.5 mg PO BID PRN #10 tab 04/21/20 [Rx] glipiZIDE [Glucotrol] 2.5 mg PO AC-SUPPER 30 Days #30 tab 04/21/20 [Rx] levETIRAcetam [Keppra] 500 mg PO Q12H 30 Days #60 tab 04/21/20 [Rx] predniSONE 10 mg PO DIRECTED #30 tab 04/21/20 [Rx] Follow up Appointment(s)/Referral(s): Hillary Baca MD [STAFF PHYSICIAN] - 05/06/20 3:45 pm () [facility],Clinic [Primary Care Provider] - 04/23/20 3:00 pm (please call office to set up virtual appt.) Patient Instructions/Handouts: Cefuroxime (By mouth), Clonazepam (By mouth), Glipizide (By mouth), Prednisone (By mouth), Thiamine (By mouth), Folic Acid (By mouth), Multivitamins, Adult Formula (By mouth), Gabapentin (By mouth), Ipratropium/Albuterol (By breathing), Levetiracetam (By mouth), Budesonide/Formoterol (By breathing), Fall Prevention (ED), Tremors (DC), Type 2 Diabetes Management for Adults (DC) Activity/Diet/Wound Care/Special Instructions: Prescriptions were called in to the [address] [place] [address] home care -[phone] Activity Limited until follow-up Continue current heart healthy diabetic diet Continue monitoring blood sugars before meals at bedtime and keep a diary for primary care follow-up Follow-up with primary care provider upon discharge Continue with antibiotics until finished Continue with home care Discharge Disposition: HOME WITH HOME HEALTH SERVICES
== END 2020-04-21 14:30 | disposition home health service (06) | DRG 190 ==
LOC: EC 16:38 → 5NMEDONC 21:42 → OBSVTOIN 04-18 15:30
PROVIDERS: ADMIT Hospitalist; ATTEND Hospitalist
DX: J44.1 Chronic obstructive pulmonary disease with (acute) exacerbation (principal); J96.21 Acute and chronic respiratory failure with hypoxia; J96.22 Acute and chronic respiratory failure with hypercapnia; G93.41 Metabolic encephalopathy; E66.2 Morbid (severe) obesity with alveolar hypoventilation; Z68.41 Body mass index [BMI] 40.0-44.9, adult; D61.818 Other pancytopenia; N39.0 Urinary tract infection, site not specified; Z11.59 Encounter for screening for other viral diseases; G25.3 Myoclonus; Z99.81 Dependence on supplemental oxygen; G20 Parkinson's disease; E11.42 Type 2 diabetes mellitus with diabetic polyneuropathy; G31.9 Degenerative disease of nervous system, unspecified; E11.65 Type 2 diabetes mellitus with hyperglycemia; G40.909 Epilepsy, unspecified, not intractable, without status epilepticus; K21.9 Gastro-esophageal reflux disease without esophagitis; I25.10 Atherosclerotic heart disease of native coronary artery without angina pectoris; I10 Essential (primary) hypertension; H91.90 Unspecified hearing loss, unspecified ear; E78.5 Hyperlipidemia, unspecified; G89.29 Other chronic pain; H40.9 Unspecified glaucoma; M81.0 Age-related osteoporosis without current pathological fracture; E87.5 Hyperkalemia; E03.9 Hypothyroidism, unspecified; S00.81XA Abrasion of other part of head, initial encounter; M19.91 Primary osteoarthritis, unspecified site; R29.6 Repeated falls; G25.0 Essential tremor; M51.36 Other intervertebral disc degeneration, lumbar region; M40.205 Unspecified kyphosis, thoracolumbar region; M43.16 Spondylolisthesis, lumbar region; M48.02 Spinal stenosis, cervical region; S92.902D Unspecified fracture of left foot, subsequent encounter for fracture with routine healing; F10.11 Alcohol abuse, in remission; B96.4 Proteus (mirabilis) (morganii) as the cause of diseases classified elsewhere; W05.0XXA Fall from non-moving wheelchair, initial encounter; Z79.83 Long term (current) use of bisphosphonates; Z79.82 Long term (current) use of aspirin; Z79.899 Other long term (current) drug therapy; Z79.890 Hormone replacement therapy; Z86.711 Personal history of pulmonary embolism; Z90.49 Acquired absence of other specified parts of digestive tract; Z96.653 Presence of artificial knee joint, bilateral; Z98.890 Other specified postprocedural states; Z98.42 Cataract extraction status, left eye; Z98.41 Cataract extraction status, right eye; Z87.891 Personal history of nicotine dependence; Z91.19 Patient's noncompliance with other medical treatment and regimen; Z87.311 Personal history of (healed) other pathological fracture; Z91.81 History of falling; Z88.8 Allergy status to other drugs, medicaments and biological substances; Z80.1 Family history of malignant neoplasm of trachea, bronchus and lung
CPT/HCPCS: 36415; 36600; 70450; 72125; 80048; 80053; 80171; 80306; 80329; 81001; 82140; 82607; 82805; 83036; 83520; 84132; 84443; 85025; 85610; 85730; 87077; 87086; 87186; 93005; 94640; 96365; 99285

== ENCOUNTER 2020-05-04 13:59 | Emergency (ER) | payer OTHER, MEDICARE ==
[2020-05-04 14:06] VITALS: BP 132/92
--- NOTE | 2020-05-04 15:03 | ED ---
General Adult HPI - General Chief complaint: Shortness of Breath Stated complaint: Fast Heart Beat Time Seen by Provider: 05/04/20 14:22 Source: patient Mode of arrival: ambulatory Limitations: no limitations - History of Present Illness Initial comments: 69-year-old male with a past medical history CAD, COPD on home oxygen 2 L, diabetes mellitus presents to the emergency room for a chief complaint of hot and cold flashes. Patient states he has had hot and cold flashes for the past 2 nights. [facility] that [facility]. Patient went to urgent care today and the physician there was concerned that his heart rate was high. Nursing notes that the patient is short of breath however patient is adamantly denying this stating he always wears oxygen at home given and this stage COPD.He denies any increased shortness of breath. Denies any chest pain. Does admit to some epigastric discomfort last night that resolved. He has not noticed any fevers or chills. Patient states he feels well and is not sure why he is here but that the urgent care doctor wanted him to come. Patient has no other complaints at this time including shortness of breath, chest pain, vomiting, headache, or visual changes. - Related Data Home Medications Medication Instructions Recorded Confirmed Alendronate Sodium [Fosamax] 70 mg PO MO 03/03/17 04/16/20 Aspirin 325 mg PO DAILY 03/03/17 04/16/20 Atorvastatin [Lipitor] 80 mg PO HS 03/03/17 04/16/20 Levothyroxine Sodium [Synthroid] 100 mcg PO DAILY 03/03/17 04/16/20 Loratadine 10 mg PO DAILY 03/03/17 04/16/20 Metoprolol Tartrate 25 mg PO BID 03/03/17 04/16/20 Pantoprazole [Protonix] 40 mg PO HS 03/03/17 04/16/20 Sennosides-Docusate Sodium 2 tab PO BID 01/25/19 04/16/20 [Senokot-S] Tamsulosin [Flomax] 0.4 mg PO HS 01/25/19 04/16/20 Albuterol Nebulized [Ventolin 2.5 mg INHALATION RT-BID 02/19/20 04/16/20 Nebulized] Artificial Tears-Hypromellose 1 drops BOTH EYES BID 02/19/20 04/16/20 [Artificial Tear Drops] Cholecalciferol [Vitamin D3 (25 2,000 unit PO HS 02/19/20 04/16/20 Mcg = 1000 Iu)] Hydrophilic Cream [Triad Cream] 1 applic TOPICAL BID 02/19/20 04/16/20 Psyllium Husk (with Sugar) 15 gm PO DAILY 02/19/20 04/16/20 [Metamucil Powder] Furosemide [Lasix] 40 mg PO Q48H 04/16/20 04/16/20 Potassium Chloride 10 meq PO DAILY 04/17/20 04/17/20 Primidone [Mysoline] 50 mg PO BID 04/17/20 04/17/20 Previous Rx's Medication Instructions Recorded QUEtiapine [SEROquel] 25 mg PO HS tab 02/25/20 Acetaminophen Tab [Tylenol] 650 mg PO Q6HR PRN tab 04/21/20 Budesonide-Formot 160-4.5 Mcg 2 puff INHALATION RT-BID 30 Days 04/21/20 [Symbicort 160-4.5 Mcg Inhaler] #1 puff Cefuroxime Axetil [Ceftin] 500 mg PO BID 5 Days #10 tab 04/21/20 Folic Acid 1 mg PO DAILY #30 tablet 04/21/20 Gabapentin [Neurontin] 400 mg PO TID #12 cap 04/21/20 Ipratropium-Albuterol Nebulize 3 ml INHALATION RT-QID 30 Days 04/21/20 [Duoneb 0.5 mg-3 mg/3 ml Soln] #120 ml Ipratropium-Albuterol Nebulize 3 ml INHALATION RT-QID PRN ml 04/21/20 [Duoneb 0.5 mg-3 mg/3 ml Soln] Multivitamins, Thera [Multivitamin] 1 tab PO DAILY #30 tablet 04/21/20 Thiamine [Vitamin B-1] 100 mg PO DAILY #30 tablet 04/21/20 clonazePAM [KlonoPIN] 0.5 mg PO BID PRN #10 tab 04/21/20 glipiZIDE [Glucotrol] 2.5 mg PO AC-SUPPER 30 Days #30 tab 04/21/20 levETIRAcetam [Keppra] 500 mg PO Q12H 30 Days #60 tab 04/21/20 predniSONE 10 mg PO DIRECTED #30 tab 04/21/20 Allergies Allergy/AdvReac Type Severity Reaction Status Date / Time metoclopramide AdvReac TREMORS Verified 05/04/20 14:02 Review of Systems ROS Statement: Those systems with pertinent positive or pertinent negative responses have been documented in the HPI. ROS Other: All systems not noted in ROS Statement are negative. Past Medical History Past Medical History: Coronary Artery Disease (CAD), COPD, Diabetes Mellitus, Eye Disorder, GERD/Reflux, Hearing Disorder / Deafness, Hyperlipidemia, Hypertension, Osteoarthritis (OA), Pulmonary Embolus (PE), Sleep Apnea/ CPAP/BIPAP, Thyroid Disorder Additional Past Medical History / Comment(s): O2 5L. PE IN 2007. CHRONIC BACK PAIN. DIABETIC NEUROPATHY IN FEET. GLAUCOMA. TREMORS. OSTEOPOROSIS. CPAP ORDERED BUT DOESN'T USE. HX POLYPS History of Any Multi-Drug Resistant Organisms: None Reported Past Surgical History: Appendectomy, Cholecystectomy, Hernia Repair, Orthopedic Surgery Additional Past Surgical History / Comment(s): BILATERAL KNEE REPLACEMENT, PLUS RIGHT KNEE DONE AGAIN; RIGHT ROTATOR CUFF. PITUITARY TUMOR REMOVED. BILATERAL CATARACTS. SINUS. GLAUCOMA SURGERY. EYE LID SURGERY. Additional Past Anesthesia/Blood Transfusion Reaction / Comment(s): QUESTIONABLE THAT VERSED MAY OVERLY SEDATE. Past Psychological History: No Psychological Hx Reported Smoking Status: Former smoker Past Alcohol Use History: None Reported Past Drug Use History: None Reported - Past Family History Mother Family Medical History: Cancer Additional Family Medical History / Comment(s): LUNG General Exam Limitations: no limitations General appearance: alert, in no apparent distress Head exam: Present: atraumatic, normocephalic, normal inspection Eye exam: Present: normal appearance, PERRL, EOMI. Absent: scleral icterus, conjunctival injection, periorbital swelling ENT exam: Present: normal exam, mucous membranes moist Neck exam: Present: normal inspection, full ROM. Absent: tenderness, meningismus, lymphadenopathy Respiratory exam: Present: normal lung sounds bilaterally. Absent: respiratory distress, wheezes, rales, rhonchi, stridor Cardiovascular Exam: Present: regular rate, normal rhythm, normal heart sounds. Absent: systolic murmur, diastolic murmur, rubs, gallop, clicks GI/Abdominal exam: Present: soft, normal bowel sounds. Absent: distended, tenderness (No tenderness of the abdomen), guarding, rebound, rigid Neurological exam: Present: alert Course Vital Signs 05/04/20 05/04/20 05/04/20 14:02 14:24 14:25 Temperature 98.0 F Pulse Rate 117 H Pulse Rate [ 107 H Virology Teacher ] Respiratory 16 16 Rate Blood Pressure 132/92 O2 Sat by Pulse 92 L Oximetry 05/04/20 15:29 Temperature Pulse Rate 103 H Pulse Rate [ Virology Teacher ] Respiratory Rate Blood Pressure O2 Sat by Pulse 96 Oximetry EKG Findings - EKG Comments: EKG Findings:: Sinus tachycardia, ventricular rate 103, MD interval 190, QTc 448 Medical Decision Making - Medical Decision Making Patient initially tachycardic however this did improve throughout his stay down to 90. Patient is 96-97% on 3 L which he wears at home for COPD. Physical exam is unremarkable. Minimal epigastric tenderness. CBC unremarkable. CMP unremarkable. Chest x-ray showed a cardiomegaly with chronic interstitial lung disease. X-ray KUB showed possible free air and radiology recommended CT. CT abdomen and pelvis showed diverticular changes and prostate calcification. No acute changes. Patient reevaluated and requesting discharge. He is well- appearing. I did discuss that if he develops any shortness of breath or chest pain to return to the emergency room. Otherwise he will follow-up with primary care. He does report that he was having some nausea and a few days ago had an episode of diarrhea, may have had a GI illness that he is recovering from. However he reports he is drinking plenty of water per day and will continue to do so. - Lab Data Result diagrams: 05/04/20 15:28 05/04/20 15:28 Lab Results 05/04/20 05/04/20 05/04/20 Range/Units 15:28 15:28 15:28 WBC 6.0 (3.8-10.6) k/uL RBC 3.97 L (4.30-5.90) m/uL Hgb 12.5 L (13.0-17.5) gm/dL Hct 37.6 L (39.0-53.0) % MCV 94.8 (80.0-100.0) fL MCH 31.5 (25.0-35.0) pg MCHC 33.2 (31.0-37.0) g/dL RDW 14.7 (11.5-15.5) % Plt Count 149 L (150-450) k/uL Neutrophils % 79 % Lymphocytes % 9 % Monocytes % 8 % Eosinophils % 2 % Basophils % 1 % Neutrophils # 4.8 (1.3-7.7) k/uL Lymphocytes # 0.5 L (1.0-4.8) k/uL Monocytes # 0.5 (0-1.0) k/uL Eosinophils # 0.1 (0-0.7) k/uL Basophils # 0.0 (0-0.2) k/uL PT (9.0-12.0) sec INR (<1.2) APTT (22.0-30.0) sec Sodium 138 (137-145) mmol/L Potassium 4.3 (3.5-5.1) mmol/L Chloride 100 (98-107) mmol/L Carbon Dioxide 30 (22-30) mmol/L Anion Gap 8 mmol/L BUN 18 (9-20) mg/dL Creatinine 1.06 (0.66-1.25) mg/dL Est GFR (CKD-EPI)AfAm 82 (>60 ml/min/1.73 sqM) Est GFR (CKD-EPI)NonAf 71 (>60 ml/min/1.73 sqM) Glucose 127 H (74-99) mg/dL Calcium 9.7 (8.4-10.2) mg/dL Total Bilirubin 0.9 (0.2-1.3) mg/dL AST 36 (17-59) U/L ALT 25 (4-49) U/L Alkaline Phosphatase 76 (38-126) U/L Troponin I <0.012 (0.000-0.034) ng/mL NT-Pro-B Natriuret Pep pg/mL Total Protein 6.6 (6.3-8.2) g/dL Albumin 4.2 (3.5-5.0) g/dL Amylase 95 (30-110) U/L Lipase 211 (23-300) U/L 05/04/20 05/04/20 Range/Units 15:28 15:28 WBC (3.8-10.6) k/uL RBC (4.30-5.90) m/uL Hgb (13.0-17.5) gm/dL Hct (39.0-53.0) % MCV (80.0-100.0) fL MCH (25.0-35.0) pg MCHC (31.0-37.0) g/dL RDW (11.5-15.5) % Plt Count (150-450) k/uL Neutrophils % % Lymphocytes % % Monocytes % % Eosinophils % % Basophils % % Neutrophils # (1.3-7.7) k/uL Lymphocytes # (1.0-4.8) k/uL Monocytes # (0-1.0) k/uL Eosinophils # (0-0.7) k/uL Basophils # (0-0.2) k/uL PT 10.1 (9.0-12.0) sec INR 1.0 (<1.2) APTT 22.9 (22.0-30.0) sec Sodium (137-145) mmol/L Potassium (3.5-5.1) mmol/L Chloride (98-107) mmol/L Carbon Dioxide (22-30) mmol/L Anion Gap mmol/L BUN (9-20) mg/dL Creatinine (0.66-1.25) mg/dL Est GFR (CKD-EPI)AfAm (>60 ml/min/1.73 sqM) Est GFR (CKD-EPI)NonAf (>60 ml/min/1.73 sqM) Glucose (74-99) mg/dL Calcium (8.4-10.2) mg/dL Total Bilirubin (0.2-1.3) mg/dL AST (17-59) U/L ALT (4-49) U/L Alkaline Phosphatase (38-126) U/L Troponin I (0.000-0.034) ng/mL NT-Pro-B Natriuret Pep 133 pg/mL Total Protein (6.3-8.2) g/dL Albumin (3.5-5.0) g/dL Amylase (30-110) U/L Lipase (23-300) U/L Disposition Clinical Impression: Nausea, Abdominal pain Disposition: HOME SELF-CARE Condition: Good Instructions (If sedation given, give patient instructions): Abdominal Pain (ED) Additional Instructions: Please follow up with primary care in 1-2 days. Return to the emergency room for any worsening symptoms. Is patient prescribed a controlled substance at d/c from ED?: No Referrals: [facility],Clinic [Primary Care Provider] - 1-2 days
--- NOTE | 2020-05-04 15:42 | XR ---
EXAMINATION TYPE: XR chest 2V DATE OF EXAM: 05/04/2020 COMPARISON: 02/23/2020 TECHNIQUE: PA and lateral views submitted. HISTORY: Pain FINDINGS: Heart is enlarged. Coarsened interstitium with no pleural effusion or pneumothorax. Biapical pleural thickening. Arthropathy of the shoulders. Degenerative change of the spine. Suggestion of compression deformity with previous vertebroplasty thoracolumbar junction. IMPRESSION: 1. Cardiomegaly correlate for chronic interstitial lung disease or interstitial pneumonitis.
--- NOTE | 2020-05-04 15:45 | XR ---
EXAMINATION TYPE: XR KUB DATE OF EXAM: 05/04/2020 COMPARISON: NONE HISTORY: Pain TECHNIQUE: One view abdominal series FINDINGS: The osseous structures are intact. The bowel gas pattern is nonspecific. Lung bases are clear. Surg ical clips in the gallbladder fossa. Bowel gas pattern nonspecific. Arthropathy of the shoulders. Com pression deformity with previous vertebroplasty. There is deformity of the left side lower rib cage c ompatible with remote trauma. Lucency along the right hemidiaphragm noted. IMPRESSION: 1. Nonspecific abdomen. Lucency along the right hemidiaphragm may be related to the lung. Recommend CT of the abdomen to exclude a small amount of free air. Report called to ER clinician.
[2020-05-04 15:46] LABS: Partial Thromboplastin Time 22.9 sec (22.0-30.0); Prothrombin Time 10.1 sec (9.0-12.0)
[2020-05-04 15:47] LABS: Albumin 4.2 g/dL (3.5-5.0); Calcium 9.7 mg/dL (8.4-10.2); Potassium 4.3 mmol/L (3.5-5.1); Total Bilirubin 0.9 mg/dL (0.2-1.3); Total Protein 6.6 g/dL (6.3-8.2)
[2020-05-04 15:57] LABS: Basophils % (A) 1 %; Eosinophils # (A) 0.1 k/uL (0-0.7); Eosinophils % (A) 2 %; HCT 37.6 % (39.0-53.0); HGB 12.5 gm/dL (13.0-17.5); Lymphocytes # (A) 0.5 k/uL (1.0-4.8); Lymphocytes % (A) 9 %; MCH 31.5 pg (25.0-35.0); MCHC 33.2 g/dL (31.0-37.0); MCV 94.8 fL (80.0-100.0); Mean Platelet Volume 8.3; Monocytes # (A) 0.5 k/uL (0-1.0); Monocytes % (A) 8 %; Neutrophils # (A) 4.8 k/uL (1.3-7.7); Neutrophils % (A) 79 %; Platelet Count 149 k/uL (150-450); RBC 3.97 m/uL (4.30-5.90); RDW 14.7 % (11.5-15.5)
--- NOTE | 2020-05-04 16:23 | CT ---
EXAMINATION TYPE: CT abdomen pelvis w con DATE OF EXAM: 05/04/2020 COMPARISON: None HISTORY: upper abdominal pain and nausea CT DLP: 2170 mGycm Automated exposure control for dose reduction was used. TECHNIQUE: Helical acquisition of images from the lung bases through the pelvis have been completed. CONTRAST: Performed without Oral Contrast and with IV Contrast, patient injected with 100 mL of Isovue 300. FINDINGS: Coronary calcifications are present. LUNG BASES: There are interstitial changes present at the lung bases, no pleural or pericardial effus ion. AORTA: Atheromatous changes are appreciated. LIVER/GB: Patient is post cholecystectomy. No evident liver mass. PANCREAS: No significant abnormality is seen. SPLEEN: Splenule is present towards the splenic hilum. ADRENALS: No significant abnormality is seen. KIDNEYS: Cortical cyst is associated with the posterior margin of the right kidney at the midpole lauren suring approximately 3.2 cm, there is no nephrolithiasis or hydronephrosis bilaterally. REPRODUCTIVE ORGANS: There are prostate calcifications present. BOWEL: Duodenal diverticulum at the head of the pancreas level is noted. Diverticular changes associ ated with the sigmoid colon. Colonic wall thickening at this level may be due to muscular hypertrophy , lack of distention. Difficult to exclude a mucosal lesion. No evident appendicitis. FREE AIR: No Free Air visible. ASCITES: None visible. PELVIC ADENOPATHY: None visualized. RETROPERITONEAL ADENOPATHY: No Retroperitoneal Adenopathy visible. URINARY BLADDER: No significant abnormality is seen. OSSEOUS STRUCTURES: There are facet arthropathy changes, degenerative disc changes visualized lumbar spine. At L1 there is vertebroplasty change, compression fracture is present with loss of height. IMPRESSION: INTERSTITIAL LUNG DISEASE. POSTOP CHANGES. DIVERTICULOSIS AND FINDINGS IN THE COLON DESCRIBED. PRO STATE CALCIFICATION. POSTPROCEDURAL CHANGES FOR L1 COMPRESSION FRACTURE. SMALL DUODENAL DIVERTICULUM. CORONARY ARTERY DISEASE.
[2020-05-04 16:53] VITALS: PULSE 93; RESP 18; TEMP 98.1
== END 2020-05-04 17:00 | disposition home or self-care (01) ==
LOC: EC 13:59
DX: R10.13 Epigastric pain (principal); R11.0 Nausea; I25.10 Atherosclerotic heart disease of native coronary artery without angina pectoris; J44.9 Chronic obstructive pulmonary disease, unspecified; K21.9 Gastro-esophageal reflux disease without esophagitis; I11.9 Hypertensive heart disease without heart failure; E78.5 Hyperlipidemia, unspecified; M19.90 Unspecified osteoarthritis, unspecified site; E07.9 Disorder of thyroid, unspecified; G47.30 Sleep apnea, unspecified; E11.42 Type 2 diabetes mellitus with diabetic polyneuropathy; Z79.82 Long term (current) use of aspirin; Z79.51 Long term (current) use of inhaled steroids; Z79.890 Hormone replacement therapy; Z79.899 Other long term (current) drug therapy; Z99.89 Dependence on other enabling machines and devices; Z86.711 Personal history of pulmonary embolism; Z96.653 Presence of artificial knee joint, bilateral; Z88.8 Allergy status to other drugs, medicaments and biological substances; Z87.891 Personal history of nicotine dependence
CPT/HCPCS: 99285; 36415; 93005; 83880; 80053; 82150; 83690; 84484; 85025; 85610; 85730; 71046; 74018; 74177; Q9967

== ENCOUNTER 2020-05-06 10:17 | Emergency (ER) | payer OTHER, MEDICARE ==
[2020-05-06 14:39] LABS: Albumin 4.4 g/dL (3.5-5.0); Calcium 9.5 mg/dL (8.4-10.2); Magnesium 1.8 mg/dL (1.6-2.3); Total Bilirubin 1.2 mg/dL (0.2-1.3)
[2020-05-06 14:40] LABS: Appearance,Urine Cloudy (Clear); Bacteria,Urine Rare /hpf; Bilirubin,Urine Negative (Negative); Blood,Urine Negative (Negative); Color,Urine Yellow; Glucose,Urine (UA) Negative (Negative); Hyaline Casts,Urine 4 /lpf (0-2); Ketones,Urine 1+ (Negative); Leukocyte Esterase,Urine Large (Negative); Mucus,Urine Many /hpf; Nitrite,Urine Negative (Negative); PH, Urine 5.5 (5.0-8.0); Potassium 4.6 mmol/L (3.5-5.1); Protein,Urine 1+ (Negative); RBC,Urine 7 /hpf (0-5); Specific Gravity,Urine 1.025 (1.001-1.035); Squamous Epithelial Cell,Urine 1 /hpf (0-4); WBC,Urine 108 /hpf (0-5)
[2020-05-06 14:44] LABS: Basophils # (A) 0.1 k/uL (0-0.2); Basophils % (A) 1 %; Eosinophils # (A) 0.2 k/uL (0-0.7); Eosinophils % (A) 3 %; HCT 38.4 % (39.0-53.0); HGB 12.4 gm/dL (13.0-17.5); Lymphocytes # (A) 0.8 k/uL (1.0-4.8); Lymphocytes % (A) 13 %; MCH 30.8 pg (25.0-35.0); MCHC 32.4 g/dL (31.0-37.0); Mean Platelet Volume 8.8; Monocytes # (A) 0.5 k/uL (0-1.0); Monocytes % (A) 8 %; Neutrophils # (A) 4.1 k/uL (1.3-7.7); Neutrophils % (A) 72 %; Platelet Count 149 k/uL (150-450); RBC 4.05 m/uL (4.30-5.90); RDW 14.5 % (11.5-15.5); WBC 5.8 k/uL (3.8-10.6)
== END 2020-05-06 14:30 ==
LOC: EC 10:17
DX: N39.0 Urinary tract infection, site not specified (principal); R11.0 Nausea; R68.83 Chills (without fever); Z90.49 Acquired absence of other specified parts of digestive tract; Z96.653 Presence of artificial knee joint, bilateral
CPT/HCPCS: 36415; 80053; 81001; 83690; 83735; 85025; 87086; 96374; 99284

== ENCOUNTER → 2021-02-19 | Outpatient (CLI) | payer OTHER ==
--- NOTE | 2021-02-19 21:14 | MR ---
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 FINDINGS: There is motion on the exam. Diffusion weighted images demonstrate no evidence of a recent infarct or other diffusion abnormality. There is no extra-axial fluid collection or significant inte rval change in white matter signal abnormality. The ventricular system and cisternal spaces are norm al in size and appearance. The brain volume is age appropriate. Midline structures demonstrate normal morphology, stable appearance of the pituitary, there is a part ially empty sella. The craniocervical junction appears within normal limits. Post contrast images d emonstrate no abnormal enhancement. The dural venous sinuses appear patent. The visualized sinuses ar e showing mucoperiosteal thickening in the ethmoid air cells and maxillary sinuses, and the globes ar e intact. Some inflammatory change present in the mastoid air cells on the left as on prior IMPRESSION: Stable exam. Partially empty sella. No evident pituitary mass. There is age-related atrop hy.
== END | disposition home or self-care (01) ==
LOC: RADMRIMAIN 18:23
PROVIDERS: ATTEND Physician Assistant Medical
DX: D35.2 Benign neoplasm of pituitary gland (principal)
CPT/HCPCS: 70553; A9585

== ENCOUNTER 2021-08-30 10:14 | Emergency (ER) | payer MEDICARE, OTHER ==
--- NOTE | 2021-08-30 12:14 | XR ---
EXAMINATION TYPE: XR knee 4V RT DATE OF EXAM: 08/30/2021 COMPARISON: NONE HISTORY: Pain TECHNIQUE: Four views are submitted. FINDINGS: Surgical changes are seen involving the knee. There is soft tissue metallic density likely related to surgery and chronic foreign body. Remote fracture of the proximal tibia with callus formation. Diffu se osteopenia. No definite acute fracture. Vascular calcifications are noted. IMPRESSION: 1. Postoperative remote traumatic changes with no definite acute fracture. Suspect chronic foreign crystal dy within the anterior subcutaneous tissues.
--- NOTE | 2021-08-30 12:15 | XR ---
EXAMINATION TYPE: XR shoulder complete LT DATE OF EXAM: 08/30/2021 COMPARISON: NONE HISTORY: Pain TECHNIQUE: Three views are submitted. FINDINGS: The osseous structures are intact. There is no acute fracture or dislocation. Arthropathy of the AC joint. Diffuse osteopenia. IMPRESSION: 1. AC joint arthropathy
--- NOTE | 2021-08-30 12:27 | ED ---
Fall HPI - General Chief Complaint: Fall Stated Complaint: fall, groin & shoulder pain Time Seen by Provider: 08/30/21 10:55 Source: patient, RN notes reviewed Mode of arrival: wheelchair Limitations: no limitations - History of Present Illness Initial Comments: Patient is a 71-year-old male presenting to emergency Department with complaints of right knee and left shoulder pain after he fell about one week ago. Patient states he was getting out of his vehicle, went to step up on a small hill and tripped and fell forward. He states he landed mostly on his knees as well as his left shoulder. He states over the past week she continued to have some pain of his right knee and his left shoulder wanted to be evaluated. He is also complaining of some left groin discomfort. He does admit to bilateral knee replacements, no surgery on the hips. Denies hitting his head, no loss of consciousness. Denies any chest pain or shortness of breath, no abdominal pain or nausea or vomiting. He has no further complaints at this time. - Related Data Home Medications Medication Instructions Recorded Confirmed Alendronate Sodium [Fosamax] 70 mg PO MO 03/03/17 04/16/20 Aspirin 325 mg PO DAILY 03/03/17 04/16/20 Atorvastatin [Lipitor] 80 mg PO HS 03/03/17 04/16/20 Levothyroxine Sodium [Synthroid] 100 mcg PO DAILY 03/03/17 04/16/20 Loratadine 10 mg PO DAILY 03/03/17 04/16/20 Metoprolol Tartrate 25 mg PO BID 03/03/17 04/16/20 Pantoprazole [Protonix] 40 mg PO HS 03/03/17 04/16/20 Sennosides-Docusate Sodium 2 tab PO BID 01/25/19 04/16/20 [Senokot-S] Tamsulosin [Flomax] 0.4 mg PO HS 01/25/19 04/16/20 Albuterol Nebulized [Ventolin 2.5 mg INHALATION RT-BID 02/19/20 04/16/20 Nebulized] Artificial Tears-Hypromellose 1 drops BOTH EYES BID 02/19/20 04/16/20 [Artificial Tear Drops] Cholecalciferol [Vitamin D3 (25 2,000 unit PO HS 02/19/20 04/16/20 Mcg = 1000 Iu)] Hydrophilic Cream [Triad Cream] 1 applic TOPICAL BID 02/19/20 04/16/20 Psyllium Husk (with Sugar) 15 gm PO DAILY 02/19/20 04/16/20 [Metamucil Powder] Furosemide [Lasix] 40 mg PO Q48H 04/16/20 04/16/20 Potassium Chloride [Potassium 10 meq PO DAILY 04/17/20 04/17/20 Chloride ER] Primidone [Mysoline] 50 mg PO BID 04/17/20 04/17/20 Previous Rx's Medication Instructions Recorded QUEtiapine [SEROquel] 25 mg PO HS tab 02/25/20 Acetaminophen Tab [Tylenol] 650 mg PO Q6HR PRN tab 04/21/20 Budesonide-Formot 160-4.5 Mcg 2 puff INHALATION RT-BID 30 Days 04/21/20 [Symbicort 160-4.5 Mcg Inhaler] #1 puff Cefuroxime Axetil [Ceftin] 500 mg PO BID 5 Days #10 tab 04/21/20 Folic Acid 1 mg PO DAILY #30 tablet 04/21/20 Gabapentin [Neurontin] 400 mg PO TID #12 cap 04/21/20 Ipratropium-Albuterol Nebulize 3 ml INHALATION RT-QID 30 Days 04/21/20 [Duoneb 0.5 mg-3 mg/3 ml Soln] #120 ml Ipratropium-Albuterol Nebulize 3 ml INHALATION RT-QID PRN ml 04/21/20 [Duoneb 0.5 mg-3 mg/3 ml Soln] Multivitamins, Thera [Multivitamin] 1 tab PO DAILY #30 tablet 04/21/20 Thiamine [Vitamin B-1] 100 mg PO DAILY #30 tablet 04/21/20 clonazePAM [KlonoPIN] 0.5 mg PO BID PRN #10 tab 04/21/20 glipiZIDE [Glucotrol] 2.5 mg PO AC-SUPPER 30 Days #30 tab 04/21/20 levETIRAcetam [Keppra] 500 mg PO Q12H 30 Days #60 tab 04/21/20 predniSONE 10 mg PO DIRECTED #30 tab 04/21/20 Allergies Allergy/AdvReac Type Severity Reaction Status Date / Time metoclopramide AdvReac TREMORS Verified 08/30/21 10:50 Review of Systems ROS Statement: Those systems with pertinent positive or pertinent negative responses have been documented in the HPI. ROS Other: All systems not noted in ROS Statement are negative. Past Medical History Past Medical History: Coronary Artery Disease (CAD), COPD, Diabetes Mellitus, Eye Disorder, GERD/Reflux, Hearing Disorder / Deafness, Hyperlipidemia, Hypertension, Osteoarthritis (OA), Pulmonary Embolus (PE), Sleep Apnea/CPAP/BIPAP, Thyroid Disorder Additional Past Medical History / Comment(s): O2 3L. PE IN 2007. CHRONIC BACK PAIN. DIABETIC NEUROPATHY IN FEET. GLAUCOMA. TREMORS. OSTEOPOROSIS. CPAP ORDERED BUT DOESN'T USE. HX POLYPS History of Any Multi-Drug Resistant Organisms: None Reported Past Surgical History: Appendectomy, Cholecystectomy, Hernia Repair, Orthopedic Surgery Additional Past Surgical History / Comment(s): BILATERAL KNEE REPLACEMENT, PLUS RIGHT KNEE DONE AGAIN; RIGHT ROTATOR CUFF. PITUITARY TUMOR REMOVED. BILATERAL CATARACTS. SINUS. GLAUCOMA SURGERY. EYE LID SURGERY. Additional Past Anesthesia/Blood Transfusion Reaction / Comment(s): QUESTIONABLE THAT VERSED MAY OVERLY SEDATE. Past Psychological History: No Psychological Hx Reported Smoking Status: Former smoker Past Alcohol Use History: None Reported Past Drug Use History: None Reported - Past Family History Mother Family Medical History: Cancer Additional Family Medical History / Comment(s): LUNG General Exam - General Exam Comments Initial Comments: GENERAL: Patient is well-developed and well-nourished. Patient is nontoxic and in no acute distress. HEAD: Atraumatic, normocephalic. EYES: Pupils equal round and reactive to light, extraocular movements intact, sclera anicteric, conjunctiva are normal. Eyelids were unremarkable. ENT: Moist mucous membranes. NECK: Normal range of motion, supple without lymphadenopathy or JVD. LUNGS: Unlabored respirations. Breath sounds clear to auscultation bilaterally and equal. No wheezes rales or rhonchi. HEART: Regular rate and rhythm without murmurs, rubs or gallops. ABDOMEN: Soft, nontender, normoactive bowel sounds. No guarding, no rebound. No masses appreciated. MUSCULOSKELETAL: Patient has some mild pain to palpation of the anterior right knee, he does have a small amount of effusion present, he has decreased range of motion of the left shoulder secondary to anterior pain. He is neurovascular intact to all 4 extremities. No clubbing or cyanosis. NEUROLOGICAL: Patient is alert and oriented x 3. Normal speech, normal gait. PSYCH: Normal mood, normal affect. SKIN: Warm, Dry, normal turgor, no rashes or lesions noted. Limitations: physical limitation Course Vital Signs 08/30/21 10:48 Temperature 98.2 F Pulse Rate 78 Respiratory 20 Rate Blood Pressure 110/73 O2 Sat by Pulse 93 L Oximetry Medical Decision Making - Medical Decision Making Patient is a 71-year-old male here after he fell about one week ago, he is complaining of right knee and left shoulder pain. Did not hit his head. Mild effusion present on the right knee. X-rays reveal postoperative changes without definite acute fracture. There is a fracture of the proximal fibula with callus formation. X-rays of the left shoulder reveal no acute fracture dislocation. Discussed these findings with the patient. He most likely has a left groin strain. We discussed treatment of that. He is stable for discharge and in agreement this plan of care. He can follow-up with his primary care as needed. Disposition Clinical Impression: Strain of left groin, Fall, Contusion of right knee, Left shoulder pain Disposition: HOME SELF-CARE Condition: Stable Instructions (If sedation given, give patient instructions): Groin Strain (ED) Additional Instructions: Please return to the Emergency Department if symptoms worsen or any other concerns. Recommend Tylenol or ibuprofen for any discomfort, heat to the area. Avoid lifting heavy objects or loss of steroids. Follow-up with your primary care if symptoms persist. Is patient prescribed a controlled substance at d/c from ED?: No Referrals: [facility],Clinic [Primary Care Provider] - 1-2 days Time of Disposition: 12:27
[2021-08-30 12:41] VITALS: BP 109/72; PULSE 79; RESP 18; TEMP 97.7
== END 2021-08-30 12:40 | disposition home or self-care (01) ==
LOC: EC 10:14
DX: S76.811A Strain of other specified muscles, fascia and tendons at thigh level, right thigh, initial encounter (principal); S80.01XA Contusion of right knee, initial encounter; E07.9 Disorder of thyroid, unspecified; M25.512 Pain in left shoulder; M19.90 Unspecified osteoarthritis, unspecified site; J44.9 Chronic obstructive pulmonary disease, unspecified; E11.9 Type 2 diabetes mellitus without complications; I10 Essential (primary) hypertension; H91.90 Unspecified hearing loss, unspecified ear; Z87.891 Personal history of nicotine dependence; Z88.8 Allergy status to other drugs, medicaments and biological substances; Z79.82 Long term (current) use of aspirin; Z79.890 Hormone replacement therapy; Z86.711 Personal history of pulmonary embolism; W01.0XXA Fall on same level from slipping, tripping and stumbling without subsequent striking against object, initial encounter; Y92.828 Other wilderness area as the place of occurrence of the external cause; Z79.899 Other long term (current) drug therapy
CPT/HCPCS: 99283

== ENCOUNTER → 2021-09-01 | Outpatient (CLI) | payer OTHER ==
--- NOTE | 2021-09-01 14:02 | US ---
EXAMINATION TYPE: US carotid duplex BILAT DATE OF EXAM: 09/01/2021 COMPARISON: NONE CLINICAL HISTORY: 71-year-old male R42 Dizziness. HTN, DM TECHNIQUE: Carotid duplex ultrasound examination. Indirect Doppler criteria was utilized. FINDINGS: EXAM MEASUREMENTS: RIGHT: Peak Systolic Velocity (PSV) cm/sec ----- Right CCA: 51.2 ----- Right ICA: 64.8 ----- Right ECA: 59.7 ICA/CCA ratio: 1.27 RIGHT: End Diastole cm/sec ----- Right CCA: 12.2 ----- Right ICA: 21.6 ----- Right ECA: 8.93 LEFT: Peak Systolic Velocity (PSV) cm/sec ----- Left CCA: 61.1 ----- Left ICA: 83.1 ----- Left ECA: 109 ICA/CCA ratio: 1.36 LEFT: End Diastole cm/sec ----- Left CCA: 15.0 ----- Left ICA: 17.2 ----- Left ECA: 18.4 VERTEBRALS (direction of flow): Right Vertebral: Antegrade Left Vertebral: Antegrade Rhythm: Normal Account Adjuster notes: Limited exam due to patient body habitus. IMPRESSION: Technically difficult exam due to patient body habitus. No hemodynamically significant internal carot id artery stenosis on either side. Criteria for Assigning % of Stenosis / Diameter reduction (Estimation based on the indirect measurements of the internal carotid artery velocities (ICA PSV). 1. Normal (no stenosis)=ICA PSV < 125 cm/s: ratio < 2.0: ICA EDV<40 cm/s. 2. Less than 50% stenosis=ICA PSV < 125 cm/s: ratio < 2.0: ICA EDV<40 cm/s. 3. 50 to 69% stenosis=ICA PSV of 125 to 230 cm/s: ration 2.0 ? 4.0: ICA EDV 40-100 cm/s. 4. Greater than 70% stenosis to near occlusion= ICA PSV > 230 cm/s: ratio > 4.0: ICA EDV > 100 cm/s. 5. Near occlusion= ICA PSV velocities may be low or undetectable: variable ratio and ICA EDV. 6. Total occlusion=unable to detect flow.
== END | disposition home or self-care (01) ==
LOC: RADUSWWP 10:45
DX: R42 Dizziness and giddiness (principal)
CPT/HCPCS: 93880

== ENCOUNTER 2021-09-12 08:19 | Inpatient (IN) | payer OTHER, MEDICARE ==
[2021-09-12] MEDS ORDERED: IPRATROPIUM-ALBUTEROL 3 ML NEB INHALATION STA (08:31)
--- NOTE | 2021-09-12 08:36 | ED ---
Altered Mental Status HPI - General Chief Complaint: Altered Mental Status Stated Complaint: Weakness Time Seen by Provider: 09/12/21 08:20 Source: patient, family, EMS, RN notes reviewed, old records reviewed Mode of arrival: EMS Limitations: altered mental status - History of Present Illness Initial Comments: This is a 71-year-old male with a history of COPD diabetes heart disease with early short of breath over last 2-3 days has had increasing episodes of shortness of breath with episodes of confusion. No reports of fevers chills sweats he has had a cough no phlegm production unknown if he's had COVID-19. No chest pain reported limited information from medics. Modifying factors at this time MD Complaint: altered mental status, decreased responsiveness, other - Related Data Home Medications Medication Instructions Recorded Confirmed Alendronate Sodium [Fosamax] 70 mg PO MO 03/03/17 09/12/21 Aspirin 325 mg PO DAILY 03/03/17 09/12/21 Atorvastatin [Lipitor] 80 mg PO HS 03/03/17 09/12/21 Levothyroxine Sodium [Synthroid] 100 mcg PO DAILY 03/03/17 09/12/21 Loratadine 10 mg PO DAILY 03/03/17 09/12/21 Metoprolol Tartrate 25 mg PO BID 03/03/17 09/12/21 Pantoprazole [Protonix] 40 mg PO HS 03/03/17 09/12/21 Tamsulosin [Flomax] 0.4 mg PO HS 01/25/19 09/12/21 Artificial Tears-Hypromellose 1 drops BOTH EYES BID 02/19/20 09/12/21 [Artificial Tear Drops] Cholecalciferol [Vitamin D3 (25 50 mcg PO HS 02/19/20 09/12/21 Mcg = 1000 Iu)] Furosemide [Lasix] 20 mg PO DAILY 04/16/20 09/12/21 Potassium Chloride [Potassium 10 meq PO Q48H 04/17/20 09/12/21 Chloride ER] Primidone [Mysoline] 50 mg PO BID 04/17/20 09/12/21 Diclofenac Sodium Gel [Voltaren 1 applic TOPICAL DAILY PRN 09/12/21 09/12/21 Gel] Nitroglycerin Sl Tabs [Nitrostat] 0.4 mg SUBLINGUAL Q5M PRN 09/12/21 09/12/21 glipiZIDE [Glucotrol] 2.5 mg PO AC-SUPPER 09/12/21 09/12/21 levETIRAcetam [Keppra] 500 mg PO BID 09/12/21 09/12/21 Previous Rx's Medication Instructions Recorded Folic Acid 1 mg PO DAILY #30 tablet 04/21/20 Gabapentin [Neurontin] 400 mg PO TID #12 cap 04/21/20 Ipratropium-Albuterol Nebulize 3 ml INHALATION RT-QID PRN ml 04/21/20 [Duoneb 0.5 mg-3 mg/3 ml Soln] Multivitamins, Thera [Multivitamin] 1 tab PO DAILY #30 tablet 04/21/20 Thiamine [Vitamin B-1] 100 mg PO DAILY #30 tablet 04/21/20 Allergies Allergy/AdvReac Type Severity Reaction Status Date / Time metoclopramide AdvReac TREMORS Verified 09/12/21 08:31 Review of Systems ROS Statement: Those systems with pertinent positive or pertinent negative responses have been documented in the HPI. ROS Other: All systems not noted in ROS Statement are negative. Past Medical History Past Medical History: Coronary Artery Disease (CAD), COPD, Diabetes Mellitus, Eye Disorder, GERD/Reflux, Hearing Disorder / Deafness, Hyperlipidemia, Hypertension, Osteoarthritis (OA), Pulmonary Embolus (PE), Sleep Apnea/CPAP/BIPAP, Thyroid Disorder Additional Past Medical History / Comment(s): O2 3L. PE IN 2007. CHRONIC BACK PAIN. DIABETIC NEUROPATHY IN FEET. GLAUCOMA. TREMORS. OSTEOPOROSIS. CPAP OR DERED BUT DOESN'T USE. HX POLYPS History of Any Multi-Drug Resistant Organisms: None Reported Past Surgical History: Appendectomy, Cholecystectomy, Hernia Repair, Orthopedic Surgery Additional Past Surgical History / Comment(s): BILATERAL KNEE REPLACEMENT, PLUS RIGHT KNEE DONE AGAIN; RIGHT ROTATOR CUFF. PITUITARY TUMOR REMOVED. BILATERAL CATARACTS. SINUS. GLAUCOMA SURGERY. EYE LID SURGERY. Additional Past Anesthesia/Blood Transfusion Reaction / Comment(s): QUESTIONABLE THAT VERSED MAY OVERLY SEDATE. Past Psychological History: No Psychological Hx Reported Smoking Status: Former smoker Past Alcohol Use History: None Reported Past Drug Use History: None Reported - Past Family History Mother Family Medical History: Cancer Additional Family Medical History / Comment(s): LUNG General Exam - General Exam Comments Initial Comments: This is a well-developed well-nourished awake alert oriented times female Limitations: physical limitation General appearance: alert, lethargic ENT exam: Present: mucous membranes dry Respiratory exam: Present: decreased breath sounds Cardiovascular Exam: Present: normal rhythm, tachycardia Course Vital Signs 09/12/21 09/12/21 09/12/21 08:25 08:30 09:59 Temperature 100.2 F H Pulse Rate 116 H 116 H Respiratory 20 19 Rate Blood Pressure 132/78 O2 Sat by Pulse 92 L Oximetry 09/12/21 09/12/21 10:10 11:06 Temperature Pulse Rate 120 H 113 H Respiratory 19 Rate Blood Pressure 106/76 O2 Sat by Pulse 92 L Oximetry - Reevaluation(s) Reevaluation #1: 09/12/21 12:19 Patient appears be unchanged no new complaints at this time Medical Decision Making - Medical Decision Making Reevaluation patient finds he is awake and alert family members presently did have a long discussion regarding the findings patient will be admitted for inpatient evaluation treatment of pneumonia COPD exacerbation he does have evidence of dehydration lactic acid likely secondary of this. Hypomagnesemia. The case is discussed with Dr. Jovel. - Lab Data Result diagrams: 09/12/21 08:41 09/12/21 08:41 Lab Results 09/12/21 09/12/21 09/12/21 Range/Units 08:41 08:41 08:41 WBC 11.6 H (3.8-10.6) k/uL RBC 4.22 L (4.30-5.90) m/uL Hgb 12.9 L (13.0-17.5) gm/dL Hct 39.4 (39.0-53.0) % MCV 93.5 (80.0-100.0) fL MCH 30.6 (25.0-35.0) pg MCHC 32.7 (31.0-37.0) g/dL RDW 14.1 (11.5-15.5) % Plt Count 150 (150-450) k/uL MPV 7.9 Neutrophils % 86 % Lymphocytes % 6 % Monocytes % 6 % Eosinophils % 1 % Basophils % 0 % Neutrophils # 10.0 H (1.3-7.7) k/uL Lymphocytes # 0.7 L (1.0-4.8) k/uL Monocytes # 0.7 (0-1.0) k/uL Eosinophils # 0.1 (0-0.7) k/uL Basophils # 0.0 (0-0.2) k/uL PT 10.9 (9.0-12.0) sec INR 1.0 (<1.2) APTT 25.2 (22.0-30.0) sec D-Dimer 1.32 H (<0.60) mg/L FEU Sodium 141 (137-145) mmol/L Potassium 4.1 (3.5-5.1) mmol/L Chloride 97 L (98-107) mmol/L Carbon Dioxide 35 H (22-30) mmol/L Anion Gap 9 mmol/L BUN 18 (9-20) mg/dL Creatinine 1.01 (0.66-1.25) mg/dL Est GFR (CKD-EPI)AfAm 85 (>60 ml/min/1.73 sqM) Est GFR (CKD-EPI)NonAf 74 (>60 ml/min/1.73 sqM) Glucose 184 H (74-99) mg/dL Lactic Ac Sepsis Rflx Plasma Lactic Acid Ronn (0.7-2.0) mmol/L Calcium 9.2 (8.4-10.2) mg/dL Magnesium 1.4 L (1.6-2.3) mg/dL Total Bilirubin 1.5 H (0.2-1.3) mg/dL AST 27 (17-59) U/L ALT 18 (4-49) U/L Alkaline Phosphatase 106 (38-126) U/L Troponin I (0.000-0.034) ng/mL NT-Pro-B Natriuret Pep pg/mL Total Protein 6.7 (6.3-8.2) g/dL Albumin 3.8 (3.5-5.0) g/dL Coronavirus (PCR) (Not Detectd) 09/12/21 09/12/21 09/12/21 Range/Units 08:41 08:41 08:41 WBC (3.8-10.6) k/uL RBC (4.30-5.90) m/uL Hgb (13.0-17.5) gm/dL Hct (39.0-53.0) % MCV (80.0-100.0) fL MCH (25.0-35.0) pg MCHC (31.0-37.0) g/dL RDW (11.5-15.5) % Plt Count (150-450) k/uL MPV Neutrophils % % Lymphocytes % % Monocytes % % Eosinophils % % Basophils % % Neutrophils # (1.3-7.7) k/uL Lymphocytes # (1.0-4.8) k/uL Monocytes # (0-1.0) k/uL Eosinophils # (0-0.7) k/uL Basophils # (0-0.2) k/uL PT (9.0-12.0) sec INR (<1.2) APTT (22.0-30.0) sec D-Dimer (<0.60) mg/L FEU Sodium (137-145) mmol/L Potassium (3.5-5.1) mmol/L Chloride (98-107) mmol/L Carbon Dioxide (22-30) mmol/L Anion Gap mmol/L BUN (9-20) mg/dL Creatinine (0.66-1.25) mg/dL Est GFR (CKD-EPI)AfAm (>60 ml/min/1.73 sqM) Est GFR (CKD-EPI)NonAf (>60 ml/min/1.73 sqM) Glucose (74-99) mg/dL Lactic Ac Sepsis Rflx Plasma Lactic Acid Ronn 2.7 H* (0.7-2.0) mmol/L Calcium (8.4-10.2) mg/dL Magnesium (1.6-2.3) mg/dL Total Bilirubin (0.2-1.3) mg/dL AST (17-59) U/L ALT (4-49) U/L Alkaline Phosphatase (38-126) U/L Troponin I 0.018 (0.000-0.034) ng/mL NT-Pro-B Natriuret Pep 673 pg/mL Total Protein (6.3-8.2) g/dL Albumin (3.5-5.0) g/dL Coronavirus (PCR) (Not Detectd) 09/12/21 09/12/21 Range/Units 08:41 09:10 WBC (3.8-10.6) k/uL RBC (4.30-5.90) m/uL Hgb (13.0-17.5) gm/dL Hct (39.0-53.0) % MCV (80.0-100.0) fL MCH (25.0-35.0) pg MCHC (31.0-37.0) g/dL RDW (11.5-15.5) % Plt Count (150-450) k/uL MPV Neutrophils % % Lymphocytes % % Monocytes % % Eosinophils % % Basophils % % Neutrophils # (1.3-7.7) k/uL Lymphocytes # (1.0-4.8) k/uL Monocytes # (0-1.0) k/uL Eosinophils # (0-0.7) k/uL Basophils # (0-0.2) k/uL PT (9.0-12.0) sec INR (<1.2) APTT (22.0-30.0) sec D-Dimer (<0.60) mg/L FEU Sodium (137-145) mmol/L Potassium (3.5-5.1) mmol/L Chloride (98-107) mmol/L Carbon Dioxide (22-30) mmol/L Anion Gap mmol/L BUN (9-20) mg/dL Creatinine (0.66-1.25) mg/dL Est GFR (CKD-EPI)AfAm (>60 ml/min/1.73 sqM) Est GFR (CKD-EPI)NonAf (>60 ml/min/1.73 sqM) Glucose (74-99) mg/dL Lactic Ac Sepsis Rflx Y Plasma Lactic Acid Ronn (0.7-2.0) mmol/L Calcium (8.4-10.2) mg/dL Magnesium (1.6-2.3) mg/dL Total Bilirubin (0.2-1.3) mg/dL AST (17-59) U/L ALT (4-49) U/L Alkaline Phosphatase (38-126) U/L Troponin I (0.000-0.034) ng/mL NT-Pro-B Natriuret Pep pg/mL Total Protein (6.3-8.2) g/dL Albumin (3.5-5.0) g/dL Coronavirus (PCR) Not Detected (Not Detectd) - EKG Data -: EKG Interpreted by Ks EKG shows normal: sinus rhythm EKG Comments: Sinus tachycardia with PACs rate 120 KS interval 186 QRS 96 QT since QTC 320/452 - Radiology Data Radiology results: report reviewed (Imaging reviewed evidence of left lower lobe infiltrate. ET no PE), image reviewed Critical Care Time Critical Care Time: Yes Total Critical Care Time: 39 Critical Care Time: Critical care time included initial presentation with history physical labs x- rays discussed with paramedics upon arrival multiple reevaluation patient responsive therapy review of old charting available discussed with the family regarding findings discussed with the admitting physician admission orders and documentation of the above. Disposition Clinical Impression: COPD with exacerbation, Pneumonia, Febrile illness, acute, Dehydration, Hypomagnesemia syndrome, Lactic acidosis Disposition: ADMITTED IP TO THIS HOSP Condition: Fair Referrals: [facility],Clinic [Primary Care Provider] - 1-2 days
[2021-09-12 08:56] LABS: Basophils % (A) 0 %; Eosinophils # (A) 0.1 k/uL (0-0.7); Eosinophils % (A) 1 %; HCT 39.4 % (39.0-53.0); HGB 12.9 gm/dL (13.0-17.5); Lymphocytes # (A) 0.7 k/uL (1.0-4.8); Lymphocytes % (A) 6 %; MCH 30.6 pg (25.0-35.0); MCHC 32.7 g/dL (31.0-37.0); MCV 93.5 fL (80.0-100.0); Mean Platelet Volume 7.9; Monocytes # (A) 0.7 k/uL (0-1.0); Monocytes % (A) 6 %; Neutrophils % (A) 86 %; Platelet Count 150 k/uL (150-450); RBC 4.22 m/uL (4.30-5.90); RDW 14.1 % (11.5-15.5); WBC 11.6 k/uL (3.8-10.6)
[2021-09-12 09:03] LABS: Albumin 3.8 g/dL (3.5-5.0); Calcium 9.2 mg/dL (8.4-10.2); Magnesium 1.4 mg/dL (1.6-2.3); Potassium 4.1 mmol/L (3.5-5.1); Total Bilirubin 1.5 mg/dL (0.2-1.3); Total Protein 6.7 g/dL (6.3-8.2)
[2021-09-12 09:13] LABS: Partial Thromboplastin Time 25.2 sec (22.0-30.0); Prothrombin Time 10.9 sec (9.0-12.0)
--- NOTE | 2021-09-12 09:27 | XR ---
EXAMINATION TYPE: XR chest 2V DATE OF EXAM: 09/12/2021 COMPARISON: 05/04/2020 INDICATION: Occulting breathing TECHNIQUE: Frontal and lateral views of the chest are obtained. FINDINGS: The heart size is enlarged. The pulmonary vasculature is normal. Left lower lobe infiltrate is present. Some mild increased lung markings are at the right lung base. Findings are nonspecific. Correlate for pneumonia and atypical pneumonia. Pulmonary edema is consider ed less likely but within the differential. IMPRESSION: 1. Left lower lobe infiltrate with mild scattered infiltrate in the right lung. Correlate for pneumon ia and atypical pneumonia. Follow-up is recommended.
[2021-09-12] MEDS ORDERED: SODIUM CHLORIDE 0.9% 1,000 ML IV STA ×3 (09:48→12:27)
--- NOTE | 2021-09-12 10:29 | CT ---
CT CHEST FOR PULMONARY EMBOLISM. EXAMINATION TYPE: CT angio chest DATE OF EXAM: 09/12/2021 INDICATION: Elevated d-dimer, PE suspected CT DLP: 734.7 mGycm, Automated exposure control for dose reduction was used. CONTRAST: Patient injected with 100 mL of Isovue 370. COMPARISON: 01/28/2019 TECHNIQUE: CT of the chest is performed on a spiral scan at 2 mm thick sections. Study is performed with intravenous contrast timed for evaluation for pulmonary embolism. This will limit additional po rtions of the evaluation. 3-D MIP images reconstructed by the technologist are reviewed on the compu ter in the coronal and sagittal planes. FINDINGS: No persistent filling defects are evident to suggest an acute pulmonary embolism. No mediastinal or hilar adenopathy enlarged by CT criteria is evident. The ascending aorta diameter at the level of the main pulmonary artery is 3.7 cm. The main pulmonary artery diameter at the bifur cation is 4.2 cm. Correlate for pulmonary hypertension. There is a consolidation within the posterior left lung base. Mild diffuse increased lung markings ar e present which are nonspecific. Pulmonary edema could be considered. This is less typical for atypic al pneumonia. Clinical consideration recommended. Limited CT section through the upper abdomen are unremarkable. IMPRESSIONS: 1. No acute pulmonary embolism. 2. Clinical consideration for pulmonary hypertension is recommended. 3. Mild pulmonary edema may be present. Atypical pneumonia is considered less likely but is within th e differential. 4. Focal posterior left lung peripheral consolidation, correlate for pneumonia. Follow-up to clearing is recommended.
[2021-09-12] MEDS ORDERED: PNEUMONIA PROTOCOL UTILIZED 1 EACH MISC PO PRN (12:27)
[2021-09-12] MEDS ORDERED: AZITHROMYCIN 500 MG in SODIUM CHLORIDE 0.9% 250 ML IVPB STA (12:27)
[2021-09-12] MEDS ORDERED: IPRATROPIUM-ALBUTEROL 3 ML NEB INHALATION PRN (12:27)
[2021-09-12] MEDS ORDERED: NITROGLYCERIN SL TABS 0.4 MG TAB SUBLINGUAL PRN (12:29)
[2021-09-12] MEDS: MAGNESIUM SULFATE-D5W PMX 1 GM in DEXTROSE/WATER 1 100ML.BAG IVPB SCH ×2 (13:15→14:20)
[2021-09-12] MEDS ORDERED: ACETAMINOPHEN TAB 325 MG TAB PO PRN (15:54)
[2021-09-12] MEDS: GABAPENTIN 400 MG CAP PO SCH ×2 (16:11→21:49)
[2021-09-12 17:23] LABS: Glucose,Whole Blood 166 mg/dL (75-99)
[2021-09-12 20:39] LABS: Glucose,Whole Blood 133 mg/dL (75-99)
[2021-09-12] MEDS: CHOLECALCIFEROL 25 MCG (1000 IU) TABLET PO SCH (21:49)
[2021-09-12] MEDS: INSULIN ASPART (NovoLOG) 100 UNIT/ML VIAL SQ SCH (21:49)
[2021-09-12] MEDS: TAMSULOSIN 0.4 MG CAP.ER.24H PO SCH (21:49)
[2021-09-12] MEDS: PANTOPRAZOLE 40 MG TABLET PO SCH (21:49)
[2021-09-12] MEDS: METOPROLOL TARTRATE 25 MG TAB PO SCH (21:49)
[2021-09-12] MEDS: ATORVASTATIN 80 MG TAB PO SCH (21:49)
[2021-09-12] MEDS: levETIRAcetam 500 MG TAB PO SCH (21:49)
[2021-09-12] MEDS: PRIMIDONE 50 MG TAB PO SCH (21:50)
[2021-09-12] MEDS: ARTIFICIAL TEARS-HYPROMELLOSE DROPS 15 ML BTL BOTH EYES SCH (21:50)
--- NOTE | 2021-09-12 23:40 | P.HPIM ---
History of Present Illness H&P Date: 09/12/21 Chief Complaint: Shortness of breath Patient is a 71-year-old male with a known history of COPD on oxygen at 3 L via nasal cannula. Hearing disorder/deafness, coronary artery disease, hypertension, hyperlipidemia, diabetes type 2, history of PE, obstructive sleep apnea, hypothyroidism and obesity and previous history of smoking was brought to the hospital due to complaints of shortness of breath worsening for the past 2 to 3 days. Patient is also having episodes of confusion. Does not have any cough or sputum production. No complaints of chest pain. Patient was brought to the hospital by his who was able to provide history. Patient is taking care of by his at home. He has been lethargic last few days. On admission patient was febrile and tachycardic and pulse ox 92% on 5 L oxygen via nasal cannula. Blood pressure is 132/78 Laboratory showed WBC 11.6 hemoglobin 12.9 and platelets 150 lymphocytes 0.32 Sodium 141 potassium 4.1 chloride 97 bicarb is 35 BUN 18 and creatinine 1.01 and blood sugar at 184 lactic acid 2.7 magnesium 1.4 bilirubin level is 1.5 liver enzymes are not elevated. Troponin 0 0.018 and proBNP 673. COVID-19 PCR not detected. Chest x-ray showed left lower lobe infiltrate with mild scattered infiltrate in the right lung. Correlate for pneumonia and atypical pneumonia. CT angiography chest showed no acute PE. Clinical consideration for pulmonary hypertension is recommended. Mild pulmonary edema may be present. Atypical pneumonia is considered less likely but is within the differential. Focal posterior left lung peripheral consolidation correlate for pneumonia. Follow-up to clearing is recommended. Review of Systems Complete review of systems could not be obtained from the patient. Past Medical History Past Medical History: Coronary Artery Disease (CAD), COPD, Diabetes Mellitus, Eye Disorder, GERD/Reflux, Hearing Disorder / Deafness, Hyperlipidemia, Hypertension, Osteoarthritis (OA), Pulmonary Embolus (PE), Sleep Apnea/CPAP/BIPAP, Thyroid Disorder Additional Past Medical History / Comment(s): O2 3L. PE IN 2007. CHRONIC BACK PAIN. DIABETIC NEUROPATHY IN FEET. GLAUCOMA. TREMORS. OSTEOPOROSIS. bipap ORDERED BUT DOESN'T USE. HX POLYPS History of Any Multi-Drug Resistant Organisms: None Reported Past Surgical History: Appendectomy, Cholecystectomy, Hernia Repair, Orthopedic Surgery Additional Past Surgical History / Comment(s): BILATERAL KNEE REPLACEMENT, PLUS RIGHT KNEE DONE AGAIN; RIGHT ROTATOR CUFF. PITUITARY TUMOR REMOVED. BILATERAL CATARACTS. SINUS surgery. GLAUCOMA SURGERY. EYE LID SURGERY. Additional Past Anesthesia/Blood Transfusion Reaction / Comment(s): QUESTIONABLE THAT VERSED MAY OVERLY SEDATE. Past Psychological History: No Psychological Hx Reported Smoking Status: Former smoker Past Alcohol Use History: None Reported Additional Past Alcohol Use History / Comment(s): QUIT LATE 2015, SMOKED FOR 58 YRS. Past Drug Use History: None Reported - Past Family History Mother Family Medical History: Cancer Additional Family Medical History / Comment(s): LUNG Medications and Allergies Home Medications Medication Instructions Recorded Confirmed Type Alendronate Sodium [Fosamax] 70 mg PO MO 03/03/17 09/12/21 History Aspirin 325 mg PO DAILY 03/03/17 09/12/21 History Atorvastatin [Lipitor] 80 mg PO HS 03/03/17 09/12/21 History Levothyroxine Sodium [Synthroid] 100 mcg PO DAILY 03/03/17 09/12/21 History Loratadine 10 mg PO DAILY 03/03/17 09/12/21 History Metoprolol Tartrate 25 mg PO BID 03/03/17 09/12/21 History Pantoprazole [Protonix] 40 mg PO HS 03/03/17 09/12/21 History Tamsulosin [Flomax] 0.4 mg PO HS 01/25/19 09/12/21 History Artificial Tears-Hypromellose 1 drops BOTH EYES BID 02/19/20 09/12/21 History [Artificial Tear Drops] Cholecalciferol [Vitamin D3 (25 50 mcg PO HS 02/19/20 09/12/21 History Mcg = 1000 Iu)] Furosemide [Lasix] 20 mg PO DAILY 04/16/20 09/12/21 History Potassium Chloride [Potassium 10 meq PO Q48H 04/17/20 09/12/21 History Chloride ER] Primidone [Mysoline] 50 mg PO BID 04/17/20 09/12/21 History Folic Acid 1 mg PO DAILY #30 tablet 04/21/20 09/12/21 Rx Gabapentin [Neurontin] 400 mg PO TID #12 cap 04/21/20 09/12/21 Rx Ipratropium-Albuterol Nebulize 3 ml INHALATION RT-QID PRN ml 04/21/20 09/12/21 Rx [Duoneb 0.5 mg-3 mg/3 ml Soln] Multivitamins, Thera [Multivitamin] 1 tab PO DAILY #30 tablet 04/21/20 09/12/21 Rx Thiamine [Vitamin B-1] 100 mg PO DAILY #30 tablet 04/21/20 09/12/21 Rx Diclofenac Sodium Gel [Voltaren 1 applic TOPICAL DAILY PRN 09/12/21 09/12/21 History Gel] Nitroglycerin Sl Tabs [Nitrostat] 0.4 mg SUBLINGUAL Q5M PRN 09/12/21 09/12/21 History glipiZIDE [Glucotrol] 2.5 mg PO AC-SUPPER 09/12/21 09/12/21 History levETIRAcetam [Keppra] 500 mg PO BID 09/12/21 09/12/21 History Allergies Allergy/AdvReac Type Severity Reaction Status Date / Time metoclopramide AdvReac TREMORS Verified 09/12/21 08:31 Physical Exam Vitals: Vital Signs Temp Pulse Pulse Resp BP BP Pulse Ox 09/12/21 19:08 97.8 F 90 14 132/62 94 L 09/12/21 16:10 91 L 09/12/21 16:09 102.7 F H 114 H 24 143/73 87 L 09/12/21 14:45 98.3 F 103 H 22 144/89 93 L 09/12/21 11:06 113 H 19 106/76 92 L 09/12/21 10:10 120 H 09/12/21 09:59 116 H 09/12/21 08:30 19 09/12/21 08:25 100.2 F H 116 H 20 132/78 92 L Intake and Output 09/12/21 09/12/21 09/12/21 06:59 14:59 22:59 Other: Weight 122.47 kg 122.47 kg PHYSICAL EXAMINATION: Patient is lying in the bed . Awake and alert but lethargic and less responsive... HEENT: Normocephalic. Neck is supple. Pupils reactive. Nostrils clear. Oral cavity is moist. Neck reveals no JVD, carotid bruits, or thyromegaly. CHEST EXAMINATION: Trachea is central. Symmetrical expansion. Bilateral diffuse rhonchi and wheezing. Nonlabored breathing... CARDIAC: Normal S1, S2 with no gallops. No murmurs ABDOMEN: Soft. Bowel sounds normal. No organomegaly. No abdominal bruits. Extremities: reveal no edema. No clubbing or cyanosis Neurologically patient is lethargic and less responsive. No gross focal neurologic deficit. Skin: No rash or skin lesions. Psychiatric: Cooperative. Could not be assessed completely Musculoskeletal: No joint swelling or deformity. Normal range of motion. Results CBC & Chem 7: 09/12/21 08:41 09/12/21 08:41 Labs: Abnormal Lab Results - Last 24 Hours (Table) 09/12/21 09/12/21 09/12/21 Range/Units 08:41 08:41 08:41 WBC 11.6 H (3.8-10.6) k/uL RBC 4.22 L (4.30-5.90) m/uL Hgb 12.9 L (13.0-17.5) gm/dL Neutrophils # 10.0 H (1.3-7.7) k/uL Lymphocytes # 0.7 L (1.0-4.8) k/uL D-Dimer 1.32 H (<0.60) mg/L FEU Chloride 97 L (98-107) mmol/L Carbon Dioxide 35 H (22-30) mmol/L Glucose 184 H (74-99) mg/dL POC Glucose (mg/dL) (75-99) mg/dL Plasma Lactic Acid Ronn (0.7-2.0) mmol/L Magnesium 1.4 L (1.6-2.3) mg/dL Total Bilirubin 1.5 H (0.2-1.3) mg/dL 09/12/21 09/12/21 09/12/21 Range/Units 08:41 17:21 20:37 WBC (3.8-10.6) k/uL RBC (4.30-5.90) m/uL Hgb (13.0-17.5) gm/dL Neutrophils # (1.3-7.7) k/uL Lymphocytes # (1.0-4.8) k/uL D-Dimer (<0.60) mg/L FEU Chloride (98-107) mmol/L Carbon Dioxide (22-30) mmol/L Glucose (74-99) mg/dL POC Glucose (mg/dL) 166 H 133 H (75-99) mg/dL Plasma Lactic Acid Ronn 2.7 H* (0.7-2.0) mmol/L Magnesium (1.6-2.3) mg/dL Total Bilirubin (0.2-1.3) mg/dL Thrombosis Risk Factor Assmnt - DVT/VTE Prophylaxis DVT/VTE Prophylaxis: Pharmacologic Prophylaxis ordered - Choose All That Apply Any of the Below Risk Factors Present?: Yes Each Factor Represents 1 point: Abnormal pulmonary function (COPD), Obesity (BMI >25), Serious lung disease incl. pneumonia (< 1month) Other Risk Factors: Yes Each Risk Factor Represents 2 Points: Age 61-74 years Other congenital or acquired thrombophilia - If yes, enter type in comment: No Thrombosis Risk Factor Assessment Total Risk Factor Score: 5 Thrombosis Risk Factor Assessment Level: High Risk Assessment and Plan Assessment: Left lower lobe pneumonia Sepsis secondary to above. Fever leukocytosis tachycardia and lactic acidosis on admission.. Possible metabolic encephalopathy secondary infection COPD on home oxygen at 3 L via nasal cannula Acute COPD exacerbation Acute on chronic hypoxic respiratory failure. Obesity with BMI 39.9 Diabetes type 2 [id number] Hearing disorder/deafness Hypertension Osteoarthritis History of PE Obstructive sleep apnea not on severe at home currently Diabetic peripheral neuropathy Chronic back pain Previous history of smoking Hypothyroidism DVT prophylaxis Heparin subcu Patient will be current on IV hydration with normal saline and continue with antibiotics in the form of ceftriaxone azithromycin. Continue with duo nebs ,, added Solumedrol. and follow-up culture reports. Continue with home medications. Follow-up CBC and BMP, TSH tomorrow. Prognosis guarded at this time. Time with Patient: Greater than 30
[2021-09-13] MEDS ORDERED: methylPREDNISolone SOD SUCCI 40 MG/ML 1 ML VIAL ONE
[2021-09-13] MEDS ORDERED: HEPARIN SODIUM,PORCINE/PF 5,000 UNIT/0.5 ML SYRINGE SQ ONE
[2021-09-13] MEDS: MAGNESIUM SULFATE-D5W PMX 1 GM in DEXTROSE/WATER 1 100ML.BAG IVPB SCH ×2 (00:01→01:18)
[2021-09-13 02:12] LABS: Glucose,Whole Blood 139 mg/dL (75-99)
[2021-09-13] MEDS: HEPARIN SODIUM,PORCINE/PF 5,000 UNIT/0.5 ML SYRINGE SQ SCH ×5 (05:52→16:57)
[2021-09-13] MEDS: LEVOTHYROXINE 100 MCG TAB PO SCH (06:15)
[2021-09-13] MEDS: methylPREDNISolone SOD SUCCI 40 MG/ML 1 ML VIAL IV SCH ×3 (06:53→16:56)
[2021-09-13 07:13] LABS: African American GFR (CKD) >90 (>60 ml/min/1.73 sqM); Anion Gap 5 mmol/L; Blood Urea Nitrogen 20 mg/dL (9-20); Calcium 8.5 mg/dL (8.4-10.2); Carbon Dioxide 33 mmol/L (22-30); Chloride 102 mmol/L (98-107); Glucose 182 mg/dL (74-99); Non-African American GFR(CKD) 87 (>60 ml/min/1.73 sqM); Potassium 4.5 mmol/L (3.5-5.1); Sodium 140 mmol/L (137-145)
[2021-09-13 07:25] LABS: Glucose,Whole Blood 177 mg/dL (75-99)
[2021-09-13] MEDS: FOLIC ACID 1 MG TAB PO SCH (07:47)
[2021-09-13] MEDS: PRIMIDONE 50 MG TAB PO SCH ×2 (07:47→21:14)
[2021-09-13] MEDS: POTASSIUM CHLORIDE ER 10 MEQ TAB.ER.PRT PO SCH (07:47)
[2021-09-13] MEDS: THIAMINE 100 MG TAB PO SCH (07:47)
[2021-09-13] MEDS: GABAPENTIN 400 MG CAP PO SCH ×3 (07:47→21:12)
[2021-09-13] MEDS: METOPROLOL TARTRATE 25 MG TAB PO SCH ×2 (07:47→21:13)
[2021-09-13] MEDS: INSULIN ASPART (NovoLOG) 100 UNIT/ML VIAL SQ SCH ×5 (07:47→21:12)
[2021-09-13] MEDS: ASPIRIN 325 MG TAB PO SCH (07:47)
[2021-09-13] MEDS: FUROSEMIDE 20 MG TAB PO SCH (07:47)
[2021-09-13] MEDS: LORATADINE 10 MG TAB PO SCH (07:47)
[2021-09-13] MEDS: levETIRAcetam 500 MG TAB PO SCH ×2 (08:48→21:12)
[2021-09-13] MEDS: ARTIFICIAL TEARS-HYPROMELLOSE DROPS 15 ML BTL BOTH EYES SCH ×2 (08:48→21:13)
[2021-09-13] MEDS: MULTIVITAMINS, THERA 1 EACH TAB PO SCH (08:49)
--- NOTE | 2021-09-13 09:06 | XR ---
EXAMINATION TYPE: XR chest 1V DATE OF EXAM: 09/13/2021 COMPARISON: 09/12/2021 HISTORY: Cough TECHNIQUE: Single frontal view of the chest is obtained. FINDINGS: Coarsened interstitium with bibasilar infiltrate. Heart is enlarged. Underlying COPD noted . No pneumothorax. Tiny bilateral pleural effusion. IMPRESSION: 1. Cardiomegaly correlate for chronic interstitial lung disease. Interstitial pneumonitis or venous c ongestion in the differential diagnosis.
[2021-09-13] MEDS: AZITHROMYCIN 500 MG TAB PO SCH (09:18)
[2021-09-13 11:37] LABS: Glucose,Whole Blood 323 mg/dL (75-99)
--- NOTE | 2021-09-13 15:16 | P.PN ---
Subjective Progress Note Date: 09/13/21 Patient is a 71-year-old male with a known history of COPD on oxygen at 3 L via nasal cannula. Hearing disorder/deafness, coronary artery disease, hypertension, hyperlipidemia, diabetes type 2, history of PE, obstructive sleep apnea, hypothyroidism and obesity and previous history of smoking was brought to the hospital due to complaints of shortness of breath worsening for the past 2 to 3 days. Patient is also having episodes of confusion. Does not have any cough or sputum production. No complaints of chest pain. Patient was brought to the hospital by his who was able to provide history. Patient is taking care of by his at home. He has been lethargic last few days. On admission patient was febrile and tachycardic and pulse ox 92% on 5 L oxygen via nasal cannula. Blood pressure is 132/78 Laboratory showed WBC 11.6 hemoglobin 12.9 and platelets 150 lymphocytes 0.32 Sodium 141 potassium 4.1 chloride 97 bicarb is 35 BUN 18 and creatinine 1.01 and blood sugar at 184 lactic acid 2.7 magnesium 1.4 bilirubin level is 1.5 liver enzymes are not elevated. Troponin 0 0.018 and proBNP 673. COVID-19 PCR not detected. Chest x-ray showed left lower lobe infiltrate with mild scattered infiltrate in the right lung. Correlate for pneumonia and atypical pneumonia. CT angiography chest showed no acute PE. Clinical consideration for pulmonary hypertension is recommended. Mild pulmonary edema may be present. Atypical pneumonia is considered less likely but is within the differential. Focal posterior left lung peripheral consolidation correlate for pneumonia. Follow-up to clearing is recommended. 09/13/2021 Patient is evaluated today sitting up in the chair. He is wearing oxygen at 5 L nasal cannula, currently 97%. He does wear 3 L oxygen at home. Patient is a history of obstructive sleep apnea he currently does not wear a CPAP at home as his unit was recalled, he does get apneic with a pulse ox down in the 80s per nurse. He is afebrile, 72 sinus rhythm, blood pressure 130/67. Labs today show a CO2 of 33, glucose is elevated in the 300s. Mag is 2.5 after transfusion. His BNP today is 1170. TSH is low at 0.158, we are pending a T4. Chest x-ray today showed cardiomegaly correlate for chronic interstitial lung disease, interstitial pneumonitis or venous congestion is the differential. Echocardiogram is pending. Pending pulmonary consultation. Review of system Constitutional: Denied any fatigue denied any fever. Cardio vascular: denied any chest pain, palpitations Gastrointestinal denied any nausea vomiting Pulmonary: Denied any shortness of breath cough Neurologic denied any new focal deficits All inpatient medications were reviewed and appropriate changes in these medications as dictated in the interval history and assessment and plan. PHYSICAL EXAMINATION: GENERAL: The patient is alert and oriented x3, not in any acute distress. Well developed, well nourished. HEENT: Pupils are round and equally reacting to light. EOMI. No scleral icterus. No conjunctival pallor. Normocephalic, atraumatic. No pharyngeal erythema. No thyromegaly. CARDIOVASCULAR: S1 and S2 present. No murmurs, rubs, or gallops. PULMONARY: Chest is clear to auscultation, no wheezing or crackles. Diminished aeration. ABDOMEN: Soft, nontender, nondistended, normoactive bowel sounds. No palpable organomegaly. MUSCULOSKELETAL: No joint swelling or deformity. EXTREMITIES: No cyanosis, clubbing, nonpitting peripheral edema. NEUROLOGICAL: Gross neurological examination did not reveal any focal deficits. SKIN: No rashes. Assessment and plan Assessment Left lower lobe pneumonia, Covid PCR negative Sepsis secondary to above. Fever leukocytosis tachycardia and lactic acidosis on admission. Possible metabolic encephalopathy secondary to infection Acute on chronic hypoxic respiratory failure secondary to COPD exacerbation on 5L NC this admission COPD on home oxygen at 3 L via nasal cannula Obesity with BMI 39.9 Diabetes type 2 [id number] with hyperglycemia Hearing disorder/deafness Hypertension Osteoarthritis History of PE Obstructive sleep apnea not on CPAP at home due to recall Diabetic peripheral neuropathy Chronic back pain Previous history of smoking Hypothyroidism DVT prophylaxis Heparin subcu Plan Continue on IV and PO antibiotics Rehab labs tomorrow Pending T4 Pending Echo Add novolog scheduled, levemir, glipizide O/H Objective - Vital Signs Vital signs: Vital Signs Temp 98.2 F 09/13/21 14:00 Pulse 72 09/13/21 14:00 Resp 18 09/13/21 14:00 BP 130/67 09/13/21 14:00 Pulse Ox 97 09/13/21 14:00 Intake & Output 09/12/21 09/13/21 09/13/21 18:59 06:59 18:59 Intake Total 1200 Output Total 300 Balance 900 Weight 122.47 kg Intake: Intake, IV Titration 1200 Amount Magnesium Sulfate-D5w Pmx 200 1 gm In Dextrose/Water 1 100ml.bag @ 100 mls/hr IVPB Q1H [facility] Rx#: [id number] Sodium Chloride 0.9% 1, 1000 000 ml @ 100 mls/hr IV . Q10H STA Rx#:[id number] Output: Urine 300 Other: Voiding Method Bedside Commode # Bowel Movements 1 - Labs CBC & Chem 7: 09/12/21 08:41 09/13/21 06:09 Labs: Abnormal Lab Results - Last 24 Hours (Table) 09/12/21 09/12/21 09/13/21 Range/Units 17:21 20:37 02:11 Carbon Dioxide (22-30) mmol/L Glucose (74-99) mg/dL POC Glucose (mg/dL) 166 H 133 H 139 H (75-99) mg/dL Magnesium (1.6-2.3) mg/dL TSH (0.465-4.680) mIU/L 09/13/21 09/13/21 09/13/21 Range/Units 06:09 06:09 07:18 Carbon Dioxide 33 H (22-30) mmol/L Glucose 182 H (74-99) mg/dL POC Glucose (mg/dL) 177 H (75-99) mg/dL Magnesium 2.5 H (1.6-2.3) mg/dL TSH 0.158 L (0.465-4.680) mIU/L 09/13/21 Range/Units 11:32 Carbon Dioxide (22-30) mmol/L Glucose (74-99) mg/dL POC Glucose (mg/dL) 323 H (75-99) mg/dL Magnesium (1.6-2.3) mg/dL TSH (0.465-4.680) mIU/L Microbiology - Last 24 Hours (Table) 09/12/21 09:44 Blood Culture - Preliminary Blood No Growth after 24 hours 09/12/21 09:44 Blood Culture - Preliminary Blood No Growth after 24 hours Assessment and Plan Time with Patient: Greater than 30
[2021-09-13 15:47] LABS: Basophils # (A) 0.03 X 10*3/uL (0.00-0.10); Basophils % (A) 0.3 %; Eosinophils # (A) 0 X 10*3/uL (0.04-0.35); Eosinophils % (A) 0 %; HCT 39.1 % (39.6-50.0); HGB 11.9 g/dL (13.0-17.0); Lymphocytes # (A) 0.58 X 10*3/uL (0.90-5.00); Lymphocytes % (A) 5.3 %; MCH 29.6 pg (27.0-32.0); MCHC 30.4 g/dL (32.0-37.0); MCV 97.3 fL (80.0-97.0); Monocytes # (A) 0.35 X 10*3/uL (0.20-1.00); Monocytes % (A) 3.2 %; Neutrophils # (A) 9.86 X 10*3/uL (1.80-7.70); Neutrophils % (A) 90.4 %; Platelet Count 130 X 10*3/uL (140-440); RBC 4.02 X 10*6/uL (4.40-5.60); RDW 14.3 % (11.5-14.5); WBC 10.91 X 10*3/uL (4.50-10.00)
[2021-09-13 16:32] LABS: Glucose,Whole Blood 349 mg/dL (75-99)
--- NOTE | 2021-09-13 19:20 | P.CNPUL ---
History of Present Illness Consult date: 09/13/21 Requesting physician: Bruce Fierro Reason for consult: dyspnea Chief complaint: Dyspnea, altered mental status, weakness History of present illness: This is a 71-year-old white male patient with past medical history of COPD, obstructive sleep apnea, coronary artery disease, diabetes mellitus type 2, hypertension, hyperlipidemia, osteoarthritis, previous history of pulmonary embolism, hypothyroidism, BPH, came into the emergency department on 09/12/2021 with increased shortness of breath, episodes of confusion. Patient denied any fever chills, patient reports a cough but no phlegm production. No complaints of chest pain, no hemoptysis. His chest x-ray in emergency department revealed a left lower lobe infiltrative with mild scattered infiltrate in the right lung. COVID-19 PCR was negative. White blood cell count was 11.6, hemoglobin is 12.9, d-dimer was 1.32, INR was 1.0, sodium was 141, potassium is 4.1, chloride is 97, CO2 35, BUN is 18 creatinine is 1.01, lactic acid is 2.7, magnesium is 1.4, LFTs were within normal limits, proBNP was 673, troponin was 0.018. CT jesus ogram of the chest showed no acute pulmonary embolism, consolidation within the posterior left lung base, and mild diffuse increased lung markings. Patient was placed on a combination of antibiotics including azithromycin and Rocephin, he continues on his maintenance dose of home Lasix 20 mg daily, he is on IV steroids with Solu-Medrol 40 mg every 8 hours and nebulized bronchodilators. Did have fever on admission with a temp of 102.7F, he is afebrile today. Today's labs have been reviewed showing relatively stable with a total, 10.9, hemoglobin is 11.9, electrolytes and renal profile are unremarkable, ProBNP level today is 1170. Review of Systems All systems: negative Constitutional: Denies chills, Denies fever Eyes: denies blurred vision, denies pain Ears, nose, mouth and throat: Denies headache, Denies sore throat Cardiovascular: Denies chest pain, Denies shortness of breath Respiratory: Reports dyspnea, Denies cough Gastrointestinal: Denies abdominal pain, Denies diarrhea, Denies nausea, Denies vomiting Musculoskeletal: Denies myalgias Integumentary: Denies pruritus, Denies rash Neurological: Reports change in mentation, Denies numbness, Denies weakness Psychiatric: Denies anxiety, Denies depression Endocrine: Denies fatigue, Denies weight change Past Medical History Past Medical History: Coronary Artery Disease (CAD), COPD, Diabetes Mellitus, Eye Disorder, GERD/Reflux, Hearing Disorder / Deafness, Hyperlipidemia, Hypertension, Osteoarthritis (OA), Pulmonary Embolus (PE), Sleep Apnea/CPAP/BIPAP, Thyroid Disorder Additional Past Medical History / Comment(s): O2 3L. PE IN 2007. CHRONIC BACK PAIN. DIABETIC NEUROPATHY IN FEET. GLAUCOMA. TREMORS. OSTEOPOROSIS. bipap ORDERED BUT DOESN'T USE. HX POLYPS History of Any Multi-Drug Resistant Organisms: None Reported Past Surgical History: Appendectomy, Cholecystectomy, Hernia Repair, Orthopedic Surgery Additional Past Surgical History / Comment(s): BILATERAL KNEE REPLACEMENT, PLUS RIGHT KNEE DONE AGAIN; RIGHT ROTATOR CUFF. PITUITARY TUMOR REMOVED. BILATERAL CATARACTS. SINUS surgery. GLAUCOMA SURGERY. EYE LID SURGERY. Additional Past Anesthesia/Blood Transfusion Reaction / Comment(s): QUESTIONABLE THAT VERSED MAY OVERLY SEDATE. Past Psychological History: No Psychological Hx Reported Smoking Status: Former smoker Past Alcohol Use History: None Reported Additional Past Alcohol Use History / Comment(s): QUIT LATE 2015, SMOKED FOR 58 YRS. Past Drug Use History: None Reported - Past Family History Mother Family Medical History: Cancer Additional Family Medical History / Comment(s): LUNG Medications and Allergies Home Medications Medication Instructions Recorded Confirmed Type Alendronate Sodium [Fosamax] 70 mg PO MO 03/03/17 09/12/21 History Aspirin 325 mg PO DAILY 03/03/17 09/12/21 History Atorvastatin [Lipitor] 80 mg PO HS 03/03/17 09/12/21 History Levothyroxine Sodium [Synthroid] 100 mcg PO DAILY 03/03/17 09/12/21 History Loratadine 10 mg PO DAILY 03/03/17 09/12/21 History Metoprolol Tartrate 25 mg PO BID 03/03/17 09/12/21 History Pantoprazole [Protonix] 40 mg PO HS 03/03/17 09/12/21 History Tamsulosin [Flomax] 0.4 mg PO HS 01/25/19 09/12/21 History Artificial Tears-Hypromellose 1 drops BOTH EYES BID 02/19/20 09/12/21 History [Artificial Tear Drops] Cholecalciferol [Vitamin D3 (25 50 mcg PO HS 02/19/20 09/12/21 History Mcg = 1000 Iu)] Furosemide [Lasix] 20 mg PO DAILY 04/16/20 09/12/21 History Potassium Chloride [Potassium 10 meq PO Q48H 04/17/20 09/12/21 History Chloride ER] Primidone [Mysoline] 50 mg PO BID 04/17/20 09/12/21 History Folic Acid 1 mg PO DAILY #30 tablet 04/21/20 09/12/21 Rx Gabapentin [Neurontin] 400 mg PO TID #12 cap 04/21/20 09/12/21 Rx Ipratropium-Albuterol Nebulize 3 ml INHALATION RT-QID PRN ml 04/21/20 09/12/21 Rx [Duoneb 0.5 mg-3 mg/3 ml Soln] Multivitamins, Thera [Multivitamin] 1 tab PO DAILY #30 tablet 04/21/20 09/12/21 Rx Thiamine [Vitamin B-1] 100 mg PO DAILY #30 tablet 04/21/20 09/12/21 Rx Diclofenac Sodium Gel [Voltaren 1 applic TOPICAL DAILY PRN 09/12/21 09/12/21 History Gel] Nitroglycerin Sl Tabs [Nitrostat] 0.4 mg SUBLINGUAL Q5M PRN 09/12/21 09/12/21 History glipiZIDE [Glucotrol] 2.5 mg PO AC-SUPPER 09/12/21 09/12/21 History levETIRAcetam [Keppra] 500 mg PO BID 09/12/21 09/12/21 History Allergies Allergy/AdvReac Type Severity Reaction Status Date / Time metoclopramide AdvReac TREMORS Verified 09/12/21 08:31 Physical Exam Vitals: Vital Signs Temp Pulse Pulse Resp BP Pulse Ox 09/13/21 16:07 76 09/13/21 15:54 72 09/13/21 14:00 98.2 F 72 18 130/67 97 09/13/21 08:00 98.2 F 94 22 149/89 93 L 09/13/21 07:37 99 09/13/21 01:22 98.3 F 83 14 121/63 95 09/12/21 19:08 97.8 F 90 14 132/62 94 L Intake and Output 09/13/21 09/13/21 09/13/21 06:59 14:59 22:59 Intake Total 1200 Output Total 300 Balance 900 Intake: Intake, IV Titration 1200 Amount Magnesium Sulfate-D5w Pmx 200 1 gm In Dextrose/Water 1 100ml.bag @ 100 mls/hr IVPB Q1H [facility] Rx#: [id number] Sodium Chloride 0.9% 1, 1000 000 ml @ 100 mls/hr IV . Q10H STA Rx#:[id number] Output: Urine 300 Other: # Voids 2 GENERAL EXAM: Alert, pleasant, 71-year-old white male, on 5 L of oxygen and the pulse ox 97% comfortable in no apparent distress. HEAD: Normocephalic/atraumatic. EYES: Normal reaction of pupils, equal size. Conjunctiva pink, sclera white. NOSE: Clear with pink turbinates. THROAT: No erythema or exudates. NECK: No masses, no JVD, no thyroid enlargement, no adenopathy. CHEST: No chest wall deformity. Symmetrical expansion. LUNGS: Equal air entry with diminished breath sounds at the bases, with bibasilar crackles CVS: Regular rate and rhythm, normal S1 and S2, no gallops, no murmurs, no rubs ABDOMEN: Soft, nontender. No hepatosplenomegaly, normal bowel sounds, no gua rding or rigidity. EXTREMITIES: No clubbing, no edema, no cyanosis, 2+ pulses and upper and lower extremities. MUSCULOSKELETAL: Muscle strength and tone normal. SPINE: No scoliosis or deformity SKIN: No rashes CENTRAL NERVOUS SYSTEM: Alert and oriented -3. No focal deficits, tone is normal in all 4 extremities. PSYCHIATRIC: Alert and oriented -3. Appropriate affect. Intact judgment and insight. Results - Laboratory Findings CBC and BMP: 09/13/21 06:09 09/13/21 06:09 PT/INR, D-dimer PT 10.9 sec (9.0-12.0) 09/12/21 08:41 INR 1.0 (<1.2) 09/12/21 08:41 D-Dimer 1.32 mg/L FEU (<0.60) H 09/12/21 08:41 Abnormal lab findings: Abnormal Labs 09/12/21 09/12/21 09/12/21 08:41 08:41 08:41 WBC 11.6 H RBC 4.22 L Hgb 12.9 L Hct MCV MCHC Plt Count Plt Count Comment Immature Gran # Neutrophils # 10.0 H Lymphocytes # 0.7 L Eosinophils # D-Dimer 1.32 H Chloride 97 L Carbon Dioxide 35 H Glucose 184 H POC Glucose (mg/dL) Plasma Lactic Acid Ronn Magnesium 1.4 L Total Bilirubin 1.5 H TSH 09/12/21 09/12/21 09/12/21 08:41 17:21 20:37 WBC RBC Hgb Hct MCV MCHC Plt Count Plt Count Comment Immature Gran # Neutrophils # Lymphocytes # Eosinophils # D-Dimer Chloride Carbon Dioxide Glucose POC Glucose (mg/dL) 166 H 133 H Plasma Lactic Acid Ronn 2.7 H* Magnesium Total Bilirubin TSH 09/13/21 09/13/21 09/13/21 02:11 06:09 06:09 WBC 10.91 H RBC 4.02 L Hgb 11.9 L Hct 39.1 L MCV 97.3 H MCHC 30.4 L Plt Count 130 L Plt Count Comment DECREASED A Immature Gran # 0.09 H Neutrophils # 9.86 H Lymphocytes # 0.58 L Eosinophils # 0 L D-Dimer Chloride Carbon Dioxide 33 H Glucose 182 H POC Glucose (mg/dL) 139 H Plasma Lactic Acid Ronn Magnesium Total Bilirubin TSH 0.158 L 09/13/21 09/13/21 09/13/21 06:09 07:18 11:32 WBC RBC Hgb Hct MCV MCHC Plt Count Plt Count Comment Immature Gran # Neutrophils # Lymphocytes # Eosinophils # D-Dimer Chloride Carbon Dioxide Glucose POC Glucose (mg/dL) 177 H 323 H Plasma Lactic Acid Ronn Magnesium 2.5 H Total Bilirubin TSH 09/13/21 16:30 WBC RBC Hgb Hct MCV MCHC Plt Count Plt Count Comment Immature Gran # Neutrophils # Lymphocytes # Eosinophils # D-Dimer Chloride Carbon Dioxide Glucose POC Glucose (mg/dL) 349 H Plasma Lactic Acid Ronn Magnesium Total Bilirubin TSH - Diagnostic Findings Chest x-ray: report reviewed, image reviewed CT scan - chest: report reviewed, image reviewed Assessment and Plan Plan: Assessment: #1. Acute hypoxic respiratory failure related to acute community acquired pneumonia, in the left lower lobe. COVID-19 PCR was negative. #2. Possible component of mild fluid overload #3. Acute exacerbation of COPD #4. History of COPD on home oxygen at 3 L #5. Hypertension #6. Hyperlipidemia #7. Diabetes multiple type II #8. Previous history of PE #9. Obstructive sleep apnea intolerant to CPAP #10. Hypothyroidism #11. Obesity #12. Previous history of smoking, he carries a 60 years of smoking, 1-4 packs per day, quit smoking 2 years ago Plan: Continue current antibiotic coverage Send s pro calcitonin level CTA chest has been reviewed, chest x-rays reviewed Continue maintenance dose of Lasix Continue IV steroids and nebulized bronchodilators Send a sputum for culture We'll continue to follow I performed a history & physical examination of the patient and discussed their management with my nurse practitioner, Kimi Morgan. I reviewed the nurse practitioner's note and agree with the documented findings and plan of care. Lung sounds are positive for bibasilar rales throughout the lung fisher. The findings and the impression was discussed with the patient. I attest to the documentation by the nurse practitioner. Time with Patient: Greater than 30
--- NOTE | 2021-09-13 19:22 | P.CNPUL ---
History of Present Illness Consult date: 09/13/21 Requesting physician: Murray Jovel Reason for consult: pneumonia Chief complaint: Shortness of breath. History of present illness: This is a 71-year-old white male with history of severe COPD, normally maintained on oxygen at home, he is on 3 L nasal cannula, known history of coronary artery disease hypertension dyslipidemia type 2 diabetes, remote history of pulmonary embolism, obstructive sleep apnea syndrome, morbid obesity, hypothyroidism, remote smoking history, patient was brought into the hospital with 2-3 days history of increased shortness of breath, intermittent episodes of confusion, and according to his he was lethargic for the last few days. Upon admission, the patient had abnormal chest x-ray and CT of the chest, suggestive of underlying left lower lobe pneumonia, and bilateral airspace disease, patient was hypoxic requiring induction at 5 L nasal cannula, he was noted to have relatively normal electrolytes, normal BNP level, and a bit of leukocytosis with WBC count of 11.6. Chest x-ray and CT of the chest are highly suggestive of left lower lobe pneumonia and possible atypical pneumonia. No evidence of pulmonary embolism. There was evidence of pulmonary hypertension, patient tested negative for COVID-19 infection. Patient was admitted and this consult was initiated. Today during my evaluation, the patient tells me that he is feeling better, breathing easier, patient states that in the last 24 hours there has been significant improvement. Patient is afebrile, temp is 92, he is on 4 L nasal cannula with O2 sats of 97%. And he is hemodynamically stable. Review of Systems Constitutional: Negative HEENT: Negative, hard of hearing, Pulmonary: As noted in HPI. Cardiac: Negative GI: Negative Genitourinary: Negative Musculoskeletal: Negative Skin: Negative Neurologic: Negative Psychiatric: Negative Hematologic: No clotting bleeding or bruising Past Medical History Past Medical History: Coronary Artery Disease (CAD), COPD, Diabetes Mellitus, Eye Disorder, GERD/Reflux, Hearing Disorder / Deafness, Hyperlipidemia, Hypertension, Osteoarthritis (OA), Pulmonary Embolus (PE), Sleep Apnea/CPAP/BIPAP, Thyroid Disorder Additional Past Medical History / Comment(s): O2 3L. PE IN 2007. CHRONIC BACK PAIN. DIABETIC NEUROPATHY IN FEET. GLAUCOMA. TREMORS. OSTEOPOROSIS. bipap ORDERED BUT DOESN'T USE. HX POLYPS History of Any Multi-Drug Resistant Organisms: None Reported Past Surgical History: Appendectomy, Cholecystectomy, Hernia Repair, Orthopedic Surgery Additional Past Surgical History / Comment(s): BILATERAL KNEE REPLACEMENT, PLUS RIGHT KNEE DONE AGAIN; RIGHT ROTATOR CUFF. PITUITARY TUMOR REMOVED. BILATERAL CATARACTS. SINUS surgery. GLAUCOMA SURGERY. EYE LID SURGERY. Additional Past Anesthesia/Blood Transfusion Reaction / Comment(s): QUESTIONABLE THAT VERSED MAY OVERLY SEDATE. Past Psychological History: No Psychological Hx Reported Smoking Status: Former smoker Past Alcohol Use History: None Reported Additional Past Alcohol Use History / Comment(s): QUIT LATE 2015, SMOKED FOR 58 YRS. Past Drug Use History: None Reported - Past Family History Mother Family Medical History: Cancer Additional Family Medical History / Comment(s): LUNG Medications and Allergies Home Medications Medication Instructions Recorded Confirmed Type Alendronate Sodium [Fosamax] 70 mg PO MO 03/03/17 09/12/21 History Aspirin 325 mg PO DAILY 03/03/17 09/12/21 History Atorvastatin [Lipitor] 80 mg PO HS 03/03/17 09/12/21 History Levothyroxine Sodium [Synthroid] 100 mcg PO DAILY 03/03/17 09/12/21 History Loratadine 10 mg PO DAILY 03/03/17 09/12/21 History Metoprolol Tartrate 25 mg PO BID 03/03/17 09/12/21 History Pantoprazole [Protonix] 40 mg PO HS 03/03/17 09/12/21 History Tamsulosin [Flomax] 0.4 mg PO HS 01/25/19 09/12/21 History Artificial Tears-Hypromellose 1 drops BOTH EYES BID 02/19/20 09/12/21 History [Artificial Tear Drops] Cholecalciferol [Vitamin D3 (25 50 mcg PO HS 02/19/20 09/12/21 History Mcg = 1000 Iu)] Furosemide [Lasix] 20 mg PO DAILY 04/16/20 09/12/21 History Potassium Chloride [Potassium 10 meq PO Q48H 04/17/20 09/12/21 History Chloride ER] Primidone [Mysoline] 50 mg PO BID 04/17/20 09/12/21 History Folic Acid 1 mg PO DAILY #30 tablet 04/21/20 09/12/21 Rx Gabapentin [Neurontin] 400 mg PO TID #12 cap 04/21/20 09/12/21 Rx Ipratropium-Albuterol Nebulize 3 ml INHALATION RT-QID PRN ml 04/21/20 09/12/21 Rx [Duoneb 0.5 mg-3 mg/3 ml Soln] Multivitamins, Thera [Multivitamin] 1 tab PO DAILY #30 tablet 04/21/20 09/12/21 Rx Thiamine [Vitamin B-1] 100 mg PO DAILY #30 tablet 04/21/20 09/12/21 Rx Diclofenac Sodium Gel [Voltaren 1 applic TOPICAL DAILY PRN 09/12/21 09/12/21 History Gel] Nitroglycerin Sl Tabs [Nitrostat] 0.4 mg SUBLINGUAL Q5M PRN 09/12/21 09/12/21 History glipiZIDE [Glucotrol] 2.5 mg PO AC-SUPPER 09/12/21 09/12/21 History levETIRAcetam [Keppra] 500 mg PO BID 09/12/21 09/12/21 History Allergies Allergy/AdvReac Type Severity Reaction Status Date / Time metoclopramide AdvReac TREMORS Verified 09/12/21 08:31 Physical Exam Vitals: Vital Signs Temp Pulse Pulse Resp BP Pulse Ox 09/13/21 16:07 76 09/13/21 15:54 72 09/13/21 14:00 98.2 F 72 18 130/67 97 09/13/21 08:00 98.2 F 94 22 149/89 93 L 09/13/21 07:37 99 09/13/21 01:22 98.3 F 83 14 121/63 95 Intake and Output 09/13/21 09/13/21 09/13/21 06:59 14:59 22:59 Intake Total 1200 Output Total 300 Balance 900 Intake: Intake, IV Titration 1200 Amount Magnesium Sulfate-D5w Pmx 200 1 gm In Dextrose/Water 1 100ml.bag @ 100 mls/hr IVPB Q1H ZITA Rx#: [id number] Sodium Chloride 0.9% 1, 1000 000 ml @ 100 mls/hr IV . Q10H STA Rx#:[id number] Output: Urine 300 Other: # Voids 2 PHYSICAL EXAMINATION: Revealed a 71-year-old white male in no distress, on few liters nasal cannula. HEENT: Dori, EOMI, nonicteric, neck masses, no JVD, no stridor. CHEST EXAMINATION: Trachea is central. Symmetrical expansion. Fine crackles at the bases with rhonchi noted bilaterally. CARDIAC: Distant S1 and S2, no S3 gallop. ABDOMEN: Obese soft nontender no megaly no rebound. Extremities: No clubbing edema or cyanosis. Neurologically alert and oriented 3 focal deficits.. Skin: No rashes, no erythema. Psychiatric: Normal mood affect and normal mental status examination. Musculoskeletal: No deformities and no limitation in range of motion Results - Laboratory Findings CBC and BMP: 09/13/21 06:09 09/13/21 06:09 PT/INR, D-dimer PT 10.9 sec (9.0-12.0) 09/12/21 08:41 INR 1.0 (<1.2) 09/12/21 08:41 D-Dimer 1.32 mg/L FEU (<0.60) H 09/12/21 08:41 Abnormal lab findings: Abnormal Labs 09/12/21 09/12/21 09/12/21 08:41 08:41 08:41 WBC 11.6 H RBC 4.22 L Hgb 12.9 L Hct MCV MCHC Plt Count Plt Count Comment Immature Gran # Neutrophils # 10.0 H Lymphocytes # 0.7 L Eosinophils # D-Dimer 1.32 H Chloride 97 L Carbon Dioxide 35 H Glucose 184 H POC Glucose (mg/dL) Plasma Lactic Acid Ronn Magnesium 1.4 L Total Bilirubin 1.5 H TSH 09/12/21 09/12/21 09/12/21 08:41 17:21 20:37 WBC RBC Hgb Hct MCV MCHC Plt Count Plt Count Comment Immature Gran # Neutrophils # Lymphocytes # Eosinophils # D-Dimer Chloride Carbon Dioxide Glucose POC Glucose (mg/dL) 166 H 133 H Plasma Lactic Acid Ronn 2.7 H* Magnesium Total Bilirubin TSH 09/13/21 09/13/21 09/13/21 02:11 06:09 06:09 WBC 10.91 H RBC 4.02 L Hgb 11.9 L Hct 39.1 L MCV 97.3 H MCHC 30.4 L Plt Count 130 L Plt Count Comment DECREASED A Immature Gran # 0.09 H Neutrophils # 9.86 H Lymphocytes # 0.58 L Eosinophils # 0 L D-Dimer Chloride Carbon Dioxide 33 H Glucose 182 H POC Glucose (mg/dL) 139 H Plasma Lactic Acid Ronn Magnesium Total Bilirubin TSH 0.158 L 09/13/21 09/13/21 09/13/21 06:09 07:18 11:32 WBC RBC Hgb Hct MCV MCHC Plt Count Plt Count Comment Immature Gran # Neutrophils # Lymphocytes # Eosinophils # D-Dimer Chloride Carbon Dioxide Glucose POC Glucose (mg/dL) 177 H 323 H Plasma Lactic Acid Ronn Magnesium 2.5 H Total Bilirubin TSH 09/13/21 16:30 WBC RBC Hgb Hct MCV MCHC Plt Count Plt Count Comment Immature Gran # Neutrophils # Lymphocytes # Eosinophils # D-Dimer Chloride Carbon Dioxide Glucose POC Glucose (mg/dL) 349 H Plasma Lactic Acid Ronn Magnesium Total Bilirubin TSH - Diagnostic Findings Chest x-ray: image reviewed (As noted in HPI.) CT scan - chest: image reviewed (As noted in HPI.) Assessment and Plan Assessment: Impression: Acute on chronic hypoxic respiratory failure secondary to acute community- acquired pneumonia and COPD exacerbation. Acute community acquired pneumonia. Acute sepsis secondary to pneumonia. History of chronic respiratory failure secondary to COPD. Patient has acute exacerbation of COPD. Type 2 diabetes. Morbid obesity BMI of 40 Benign essential hypertension. History of obstructive sleep apnea syndrome on CPAP. History of diabetic peripheral neuropathy. History of hypothyroidism. Remote smoking history/ex-smoker. Recommendation: Continue antibiotics. Patient is on Rocephin and Zithromax. Continue bronchodilators. Continue GI and DVT prophylaxis. Continue to monitor his labs on a daily basis. Consider discharge planning in the next 24-48 hours. We will continue to follow. Time with Patient: Greater than 30
[2021-09-13 20:46] LABS: Glucose,Whole Blood 272 mg/dL (75-99)
[2021-09-13] MEDS: INSULIN DETEMIR (LEVEMIR) 100 UNIT/ML SYR SQ SCH (21:12)
[2021-09-13] MEDS: TAMSULOSIN 0.4 MG CAP.ER.24H PO SCH (21:13)
[2021-09-13] MEDS: PANTOPRAZOLE 40 MG TABLET PO SCH (21:13)
[2021-09-13] MEDS: CHOLECALCIFEROL 25 MCG (1000 IU) TABLET PO SCH (21:13)
[2021-09-13] MEDS: ATORVASTATIN 80 MG TAB PO SCH (21:13)
[2021-09-14] MEDS: HEPARIN SODIUM,PORCINE/PF 5,000 UNIT/0.5 ML SYRINGE SQ SCH ×3 (01:11→15:43)
[2021-09-14] MEDS: methylPREDNISolone SOD SUCCI 40 MG/ML 1 ML VIAL IV SCH ×3 (01:11→15:43)
[2021-09-14] MEDS: LEVOTHYROXINE 100 MCG TAB PO SCH (06:21)
[2021-09-14 07:13] LABS: Glucose,Whole Blood 207 mg/dL (75-99)
--- NOTE | 2021-09-14 08:00 | ECHOF ---
Referral Reason:CHF MEASUREMENTS -------- HEIGHT: 175.3 cm WEIGHT: 122.5 kg BP: RVIDd: 3.8 cm (< 3.3) IVSd: 1.9 cm (0.6 - 1.1) LVIDd: 5.3 cm (3.9 - 5.3) LVPWd: 2.0 cm (0.6 - 1.1) IVSs: 2.3 cm LVIDs: 3.6 cm LVPWs: 1.6 cm Ao Diam: 4.4 cm (2.0 - 3.7) AV Cusp: 2.4 cm (1.5 - 2.6) LA Diam: 4.1 cm (2.7 - 3.8) MV EXCURSION: 15.243 mm (> 18.000) MV EF SLOPE: 41 mm/s (70 - 150) EPSS: 1.3 cm MV E Akin: 0.64 m/s MV DecT: 239 ms MV A Akin: 0.96 m/s MV E/A Ratio: 0.67 FINDINGS -------- Sinus rhythm. This was a technically difficult study with suboptimal views. The left ventricular size is normal. There is severe concentric left ventricular hypertrophy. Ove rall left ventricular systolic function is normal with, an EF between 55 - 60 %. The right ventricle is mild to moderately enlarged. The left atrium was not well visualized. The right atrium was not well visualized. 5.0mg of Lumason was utilized for enhancement of images Interatrial and interventricular septum intact. The aortic valve was not well visualized. There is no evidence of aortic regurgitation. There is no evidence of aortic stenosis. No mitral regurgitation. Mild tricuspid regurgitation present. There is no evidence of pulmonary hypertension. The right v entricular systolic pressure, as measured by Doppler, is {RVSP}. The pulmonic valve was not well visualized. The aortic root size is normal. IVC Not well visulized. There is no pericardial effusion. CONCLUSIONS -------- 1. The left ventricular size is normal. 2. There is severe concentric left ventricular hypertrophy. 3. Overall left ventricular systolic function is normal with, an EF between 55 - 60 %. 4. The right ventricle is mild to moderately enlarged. 5. Mild tricuspid regurgitation present. SIDE PIECE COVERER: Li Mathis [facility]
[2021-09-14] MEDS: INSULIN ASPART (NovoLOG) 100 UNIT/ML VIAL SQ SCH ×7 (08:11→22:11)
[2021-09-14 09:05] LABS: Basophils # (A) 0.01 X 10*3/uL (0.00-0.10); Basophils % (A) 0.1 %; Eosinophils # (A) 0 X 10*3/uL (0.04-0.35); Eosinophils % (A) 0 %; HCT 37.6 % (39.6-50.0); HGB 11.8 g/dL (13.0-17.0); Lymphocytes # (A) 0.38 X 10*3/uL (0.90-5.00); Lymphocytes % (A) 4.6 %; MCH 30.5 pg (27.0-32.0); MCHC 31.4 g/dL (32.0-37.0); MCV 97.2 fL (80.0-97.0); Monocytes % (A) 3.6 %; Neutrophils # (A) 7.61 X 10*3/uL (1.80-7.70); Neutrophils % (A) 91.1 %; Platelet Count 129 X 10*3/uL (140-440); RBC 3.87 X 10*6/uL (4.40-5.60); RDW 13.9 % (11.5-14.5); WBC 8.35 X 10*3/uL (4.50-10.00)
[2021-09-14] MEDS: ASPIRIN 325 MG TAB PO SCH (09:35)
[2021-09-14] MEDS: GABAPENTIN 400 MG CAP PO SCH ×3 (09:35→22:12)
[2021-09-14] MEDS: levETIRAcetam 500 MG TAB PO SCH ×2 (09:36→22:12)
[2021-09-14] MEDS: MULTIVITAMINS, THERA 1 EACH TAB PO SCH (09:36)
[2021-09-14] MEDS: PRIMIDONE 50 MG TAB PO SCH ×2 (09:37→22:13)
[2021-09-14] MEDS: AZITHROMYCIN 500 MG TAB PO SCH (09:37)
[2021-09-14] MEDS: FUROSEMIDE 20 MG TAB PO SCH (09:37)
[2021-09-14] MEDS: THIAMINE 100 MG TAB PO SCH (09:37)
[2021-09-14] MEDS: METOPROLOL TARTRATE 25 MG TAB PO SCH ×2 (09:38→22:12)
[2021-09-14] MEDS: LORATADINE 10 MG TAB PO SCH (09:38)
[2021-09-14] MEDS: FOLIC ACID 1 MG TAB PO SCH (09:38)
[2021-09-14] MEDS: ARTIFICIAL TEARS-HYPROMELLOSE DROPS 15 ML BTL BOTH EYES SCH ×2 (09:39→22:13)
[2021-09-14 10:56] LABS: Glucose,Whole Blood 250 mg/dL (75-99)
--- NOTE | 2021-09-14 11:14 | P.PN ---
Subjective Progress Note Date: 09/14/21 Principal diagnosis: Dyspnea, cough On today's evaluation on 09/14/2021 patient seen in follow-up on medical surgical floor. He is up in the chair, breathing comfortably, sounds less congested on today's exam, currently on 3 L of oxygen pulse ox is 95%, he is on a combination of azithromycin and Rocephin Solu-Medrol and nebulized bronchodilators, his pro-calcitonin level came back 0.70, mildly elevated, clinically patient feels better, he is coughing, bringing up some phlegm, denies any chest discomfort, he's had no fever or chest, vital signs have been stable overnight. Objective - Vital Signs Vital signs: Vital Signs Temp 97.8 F 09/14/21 07:42 Pulse 69 09/14/21 07:42 Resp 18 09/14/21 07:42 BP 140/73 09/14/21 07:42 Pulse Ox 93 L 09/14/21 07:42 Intake & Output 09/13/21 09/14/21 09/14/21 18:59 06:59 18:59 Intake Total 200 Output Total 650 Balance -650 200 Intake: Oral 200 Output: Urine 650 Other: # Voids 2 1 1 # Bowel Movements 1 1 - Exam GENERAL EXAM: Alert, very pleasant, 71-year-old obese white male, on 4 L of oxygen pulse ox of 93% comfortable in no apparent distress. HEAD: Normocephalic/atraumatic. EYES: Normal reaction of pupils, equal size. Conjunctiva pink, sclera white. NOSE: Clear with pink turbinates. THROAT: No erythema or exudates. NECK: No masses, no JVD, no thyroid enlargement, no adenopathy. CHEST: No chest wall deformity. Symmetrical expansion. LUNGS: Equal air entry with diffuse rhonchi, crackles and wheezes CVS: Regular rate and rhythm, normal S1 and S2, no gallops, no murmurs, no rubs ABDOMEN: Soft, nontender. No hepatosplenomegaly, normal bowel sounds, no guarding or rigidity. EXTREMITIES: No clubbing, no edema, no cyanosis, 2+ pulses and upper and lower extremities. MUSCULOSKELETAL: Muscle strength and tone normal. SPINE: No scoliosis or deformity SKIN: No rashes CENTRAL NERVOUS SYSTEM: Alert and oriented -3. No focal deficits, tone is normal in all 4 extremities. PSYCHIATRIC: Alert and oriented -3. Appropriate affect. Intact judgment and insight. - Labs CBC & Chem 7: 09/14/21 05:59 09/13/21 06:09 Labs: Abnormal Lab Results - Last 24 Hours (Table) 09/13/21 09/13/21 09/13/21 Range/Units 06:09 06:09 11:32 WBC 10.91 H (4.50-10.00) X 10*3/uL RBC 4.02 L (4.40-5.60) X 10*6/uL Hgb 11.9 L (13.0-17.0) g/dL Hct 39.1 L (39.6-50.0) % MCV 97.3 H (80.0-97.0) fL MCHC 30.4 L (32.0-37.0) g/dL Plt Count 130 L (140-440) X 10*3/uL Plt Count Comment DECREASED A Immature Gran # 0.09 H (0.00-0.04) X 10*3/uL Neutrophils # 9.86 H (1.80-7.70) X 10*3/uL Lymphocytes # 0.58 L (0.90-5.00) X 10*3/uL Eosinophils # 0 L (0.04-0.35) X 10*3/uL POC Glucose (mg/dL) 323 H (75-99) mg/dL Procalcitonin 0.70 H (0.02-0.09) ng/mL 09/13/21 09/13/21 09/14/21 Range/Units 16:30 20:45 05:59 WBC (4.50-10.00) X 10*3/uL RBC 3.87 L (4.40-5.60) X 10*6/uL Hgb 11.8 L (13.0-17.0) g/dL Hct 37.6 L (39.6-50.0) % MCV 97.2 H (80.0-97.0) fL MCHC 31.4 L (32.0-37.0) g/dL Plt Count 129 L (140-440) X 10*3/uL Plt Count Comment Immature Gran # 0.05 H (0.00-0.04) X 10*3/uL Neutrophils # (1.80-7.70) X 10*3/uL Lymphocytes # 0.38 L (0.90-5.00) X 10*3/uL Eosinophils # 0 L (0.04-0.35) X 10*3/uL POC Glucose (mg/dL) 349 H 272 H (75-99) mg/dL Procalcitonin (0.02-0.09) ng/mL 09/14/21 Range/Units 07:11 WBC (4.50-10.00) X 10*3/uL RBC (4.40-5.60) X 10*6/uL Hgb (13.0-17.0) g/dL Hct (39.6-50.0) % MCV (80.0-97.0) fL MCHC (32.0-37.0) g/dL Plt Count (140-440) X 10*3/uL Plt Count Comment Immature Gran # (0.00-0.04) X 10*3/uL Neutrophils # (1.80-7.70) X 10*3/uL Lymphocytes # (0.90-5.00) X 10*3/uL Eosinophils # (0.04-0.35) X 10*3/uL POC Glucose (mg/dL) 207 H (75-99) mg/dL Procalcitonin (0.02-0.09) ng/mL Microbiology - Last 24 Hours (Table) 09/12/21 09:44 Blood Culture - Preliminary Blood No Growth after 24 hours 09/12/21 09:44 Blood Culture - Preliminary Blood No Growth after 24 hours Assessment and Plan Plan: Assessment: #1. Acute hypoxic respiratory failure related to acute community acquired pneumonia, in the left lower lobe. COVID-19 PCR was negative. #2. Possible component of mild fluid overload #3. Acute exacerbation of COPD #4. History of COPD on home oxygen at 3 L #5. Hypertension #6. Hyperlipidemia #7. Diabetes multiple type II #8. Previous history of PE #9. Obstructive sleep apnea intolerant to CPAP #10. Hypothyroidism #11. Obesity #12. Previous history of smoking, he carries a 60 years of smoking, 1-4 packs per day, quit smoking 2 years ago Plan: Continue current antibiotic coverage Patient is on a combo of azithromycin and Rocephin Continue IV steroids and nebulized bronchodilators Protonix, level has been noted will try to collect a sputum for culture We'll continue to follow I performed a history & physical examination of the patient and discussed their management with my nurse practitioner, Kimi Morgan. I reviewed the nurse practitioner's note and agree with the documented findings and plan of care. Lung sounds are positive for bibasilar rales throughout the lung fisher. The findings and the impression was discussed with the patient. I attest to the documentation by the nurse practitioner. Time with Patient: Less than 30
[2021-09-14] MEDS: IPRATROPIUM-ALBUTEROL 3 ML NEB INHALATION SCH ×4 (11:18→19:40)
[2021-09-14 12:09] LABS: African American GFR (CKD) 86.2 (60.0-200.0); Anion Gap 13.4 mmol/L (4.00-12.00); BUN/Creat Ratio 25.6 Ratio (12.00-20.00); Blood Urea Nitrogen 25.6 mg/dL (9.0-27.0); Calcium 8.5 mg/dL (8.7-10.3); Carbon Dioxide 27.6 mmol/L (21.6-31.8); Non-African American GFR(CKD) 74.3 (60.0-200.0); Potassium 4.4 mmol/L (3.5-5.5)
--- NOTE | 2021-09-14 15:13 | P.PN ---
Subjective Progress Note Date: 09/14/21 Patient is a 71-year-old male with a known history of COPD on oxygen at 3 L via nasal cannula. Hearing disorder/deafness, coronary artery disease, hypertension, hyperlipidemia, diabetes type 2, history of PE, obstructive sleep apnea, hypothyroidism and obesity and previous history of smoking was brought to the hospital due to complaints of shortness of breath worsening for the past 2 to 3 days. Patient is also having episodes of confusion. Does not have any cough or sputum production. No complaints of chest pain. Patient was brought to the hospital by his who was able to provide history. Patient is taking care of by his at home. He has been lethargic last few days. On admission patient was febrile and tachycardic and pulse ox 92% on 5 L oxygen via nasal cannula. Blood pressure is 132/78 Laboratory showed WBC 11.6 hemoglobin 12.9 and platelets 150 lymphocytes 0.32 Sodium 141 potassium 4.1 chloride 97 bicarb is 35 BUN 18 and creatinine 1.01 and blood sugar at 184 lactic acid 2.7 magnesium 1.4 bilirubin level is 1.5 liver enzymes are not elevated. Troponin 0 0.018 and proBNP 673. COVID-19 PCR not detected. Chest x-ray showed left lower lobe infiltrate with mild scattered infiltrate in the right lung. Correlate for pneumonia and atypical pneumonia. CT angiography chest showed no acute PE. Clinical consideration for pulmonary hypertension is recommended. Mild pulmonary edema may be present. Atypical pneumonia is considered less likely but is within the differential. Focal posterior left lung peripheral consolidation correlate for pneumonia. Follow-up to clearing is recommended. 09/13/2021 Patient is evaluated today sitting up in the chair. He is wearing oxygen at 5 L nasal cannula, currently 97%. He does wear 3 L oxygen at home. Patient is a history of obstructive sleep apnea he currently does not wear a CPAP at home as his unit was recalled, he does get apneic with a pulse ox down in the 80s per nurse. He is afebrile, 72 sinus rhythm, blood pressure 130/67. Labs today show a CO2 of 33, glucose is elevated in the 300s. Mag is 2.5 after transfusion. His BNP today is 1170. TSH is low at 0.158, we are pending a T4. Chest x-ray today showed cardiomegaly correlate for chronic interstitial lung disease, interstitial pneumonitis or venous congestion is the differential. Echocardiogram is pending. Pending pulmonary consultation. 09/14/2021 Patient evaluated in the chair, he does state that his breathing feels really were not sure. He is wheezing posteriorly all lung fisher. He is getting duonebs as needed has not had a breathing treatment in 24 hours. Ordered DuoNeb's 4 times a day scheduled as well as PRN. Patient is 93% on 4 L nasal cannula, afebrile, blood pressure 140/73. White count today is 8.35, hemoglobin stable 11.8. T4 is within normal limits at 1.370, no need to adjust synthroid dose. Legionella and mycoplasma pending. Echocardiogram shows severe concentric left ventricular hypertrophy with an EF between 55-60%. There is no evidence of pulmonary hypertension. Patient states that he is having a cough with sputum, he states the sputum was black and he gave a sample today. Review of system Constitutional: Denied any fatigue denied any fever. Cardio vascular: denied any chest pain, palpitations Gastrointestinal denied any nausea vomiting Pulmonary: Reports shortness of breath at rest and with exertion, reports sputum. Neurologic denied any new focal deficits All inpatient medications were reviewed and appropriate changes in these medications as dictated in the interval history and assessment and plan. PHYSICAL EXAMINATION: GENERAL: The patient is alert and oriented x3, not in any acute distress. Well developed, well nourished. HEENT: Pupils are round and equally reacting to light. EOMI. No scleral icterus. No conjunctival pallor. Normocephalic, atraumatic. No pharyngeal erythema. No thyromegaly. CARDIOVASCULAR: S1 and S2 present. No murmurs, rubs, or gallops. PULMONARY: Posterior wheezing all lung fisher. ABDOMEN: Soft, nontender, nondistended, normoactive bowel sounds. No palpable organomegaly. MUSCULOSKELETAL: No joint swelling or deformity. EXTREMITIES: No cyanosis, clubbing, nonpitting peripheral edema. NEUROLOGICAL: Gross neurological examination did not reveal any focal deficits. SKIN: No rashes. Assessment and plan Assessment Left lower lobe pneumonia, Covid PCR negative, Legionella mycoplasma pending, pro-calcitonin 0.70 Sepsis secondary to above. Fever leukocytosis tachycardia and lactic acidosis on admission. Resolved. Possible metabolic encephalopathy secondary to infection, currently alert and oriented 3. Acute on chronic hypoxic respiratory failure secondary to COPD exacerbation and community acquired pneumonia. COPD on home oxygen at 3 L via nasal cannula Obesity with BMI 39.9 Diabetes type 2 [id number] with hyperglycemia Hearing disorder/deafness Hypertension Osteoarthritis History of PE Obstructive sleep apnea not on CPAP at home due to recall Diabetic peripheral neuropathy Chronic back pain Previous history of smoking Hypothyroidism DVT prophylaxis Heparin subcu Plan Continue on PO antibiotics Continue Duonebs scheduled and as needed Wean oxygen as tolerated to home dose of 3L. Continue all other supportive care Labs in the AM. Will need outpatient sleep study and will need a CPAP. Objective - Vital Signs Vital signs: Vital Signs Temp 97.8 F 09/14/21 07:42 Pulse 69 09/14/21 07:42 Resp 18 09/14/21 07:42 BP 140/73 09/14/21 07:42 Pulse Ox 93 L 09/14/21 07:42 Intake & Output 09/13/21 09/14/21 09/14/21 18:59 06:59 18:59 Intake Total 200 Output Total 650 Balance -650 200 Intake: Oral 200 Output: Urine 650 Other: # Voids 2 1 1 # Bowel Movements 1 1 - Labs CBC & Chem 7: 09/14/21 05:59 09/14/21 05:59 Labs: Abnormal Lab Results - Last 24 Hours (Table) 09/13/21 09/13/21 09/13/21 Range/Units 06:09 06:09 11:32 WBC 10.91 H (4.50-10.00) X 10*3/uL RBC 4.02 L (4.40-5.60) X 10*6/uL Hgb 11.9 L (13.0-17.0) g/dL Hct 39.1 L (39.6-50.0) % MCV 97.3 H (80.0-97.0) fL MCHC 30.4 L (32.0-37.0) g/dL Plt Count 130 L (140-440) X 10*3/uL Plt Count Comment DECREASED A Immature Gran # 0.09 H (0.00-0.04) X 10*3/uL Neutrophils # 9.86 H (1.80-7.70) X 10*3/uL Lymphocytes # 0.58 L (0.90-5.00) X 10*3/uL Eosinophils # 0 L (0.04-0.35) X 10*3/uL POC Glucose (mg/dL) 323 H (75-99) mg/dL Procalcitonin 0.70 H (0.02-0.09) ng/mL 09/13/21 09/13/21 09/14/21 Range/Units 16:30 20:45 05:59 WBC (4.50-10.00) X 10*3/uL RBC 3.87 L (4.40-5.60) X 10*6/uL Hgb 11.8 L (13.0-17.0) g/dL Hct 37.6 L (39.6-50.0) % MCV 97.2 H (80.0-97.0) fL MCHC 31.4 L (32.0-37.0) g/dL Plt Count 129 L (140-440) X 10*3/uL Plt Count Comment Immature Gran # 0.05 H (0.00-0.04) X 10*3/uL Neutrophils # (1.80-7.70) X 10*3/uL Lymphocytes # 0.38 L (0.90-5.00) X 10*3/uL Eosinophils # 0 L (0.04-0.35) X 10*3/uL POC Glucose (mg/dL) 349 H 272 H (75-99) mg/dL Procalcitonin (0.02-0.09) ng/mL 09/14/21 09/14/21 Range/Units 07:11 10:54 WBC (4.50-10.00) X 10*3/uL RBC (4.40-5.60) X 10*6/uL Hgb (13.0-17.0) g/dL Hct (39.6-50.0) % MCV (80.0-97.0) fL MCHC (32.0-37.0) g/dL Plt Count (140-440) X 10*3/uL Plt Count Comment Immature Gran # (0.00-0.04) X 10*3/uL Neutrophils # (1.80-7.70) X 10*3/uL Lymphocytes # (0.90-5.00) X 10*3/uL Eosinophils # (0.04-0.35) X 10*3/uL POC Glucose (mg/dL) 207 H 250 H (75-99) mg/dL Procalcitonin (0.02-0.09) ng/mL Microbiology - Last 24 Hours (Table) 09/12/21 09:44 Blood Culture - Preliminary Blood No Growth after 24 hours 09/12/21 09:44 Blood Culture - Preliminary Blood No Growth after 24 hours Assessment and Plan Time with Patient: Greater than 30
[2021-09-14 17:01] LABS: Glucose,Whole Blood 360 mg/dL (75-99)
[2021-09-14 22:10] LABS: Glucose,Whole Blood 349 mg/dL (75-99)
[2021-09-14] MEDS: PANTOPRAZOLE 40 MG TABLET PO SCH (22:12)
[2021-09-14] MEDS: TAMSULOSIN 0.4 MG CAP.ER.24H PO SCH (22:12)
[2021-09-14] MEDS: INSULIN DETEMIR (LEVEMIR) 100 UNIT/ML SYR SQ SCH (22:12)
[2021-09-14] MEDS: CHOLECALCIFEROL 25 MCG (1000 IU) TABLET PO SCH (22:12)
[2021-09-14] MEDS: ATORVASTATIN 80 MG TAB PO SCH (22:13)
[2021-09-15] MEDS: HEPARIN SODIUM,PORCINE/PF 5,000 UNIT/0.5 ML SYRINGE SQ SCH ×3 (01:42→17:50)
[2021-09-15] MEDS: methylPREDNISolone SOD SUCCI 40 MG/ML 1 ML VIAL IV SCH ×3 (01:43→17:49)
[2021-09-15] MEDS: LEVOTHYROXINE 100 MCG TAB PO SCH (05:13)
[2021-09-15 07:05] LABS: Glucose,Whole Blood 230 mg/dL (75-99)
[2021-09-15] MEDS: INSULIN ASPART (NovoLOG) 100 UNIT/ML VIAL SQ SCH ×7 (07:25→21:12)
[2021-09-15] MEDS: IPRATROPIUM-ALBUTEROL 3 ML NEB INHALATION SCH ×4 (08:15→19:10)
[2021-09-15] MEDS: POTASSIUM CHLORIDE ER 10 MEQ TAB.ER.PRT PO SCH (09:56)
[2021-09-15] MEDS: THIAMINE 100 MG TAB PO SCH (09:56)
[2021-09-15] MEDS: FUROSEMIDE 20 MG TAB PO SCH (09:56)
[2021-09-15] MEDS: GABAPENTIN 400 MG CAP PO SCH ×3 (09:56→21:13)
[2021-09-15] MEDS: CEFDINIR 300 MG CAP PO SCH ×2 (09:56→21:14)
[2021-09-15] MEDS: PRIMIDONE 50 MG TAB PO SCH ×2 (09:56→21:13)
[2021-09-15] MEDS: ASPIRIN 325 MG TAB PO SCH (09:57)
[2021-09-15] MEDS: LORATADINE 10 MG TAB PO SCH (09:57)
[2021-09-15] MEDS: FOLIC ACID 1 MG TAB PO SCH (09:57)
[2021-09-15] MEDS: levETIRAcetam 500 MG TAB PO SCH ×2 (09:57→21:13)
[2021-09-15] MEDS: MULTIVITAMINS, THERA 1 EACH TAB PO SCH (09:57)
[2021-09-15] MEDS: METOPROLOL TARTRATE 50 MG TAB PO SCH ×2 (10:12→21:14)
[2021-09-15] MEDS: ARTIFICIAL TEARS-HYPROMELLOSE DROPS 15 ML BTL BOTH EYES SCH ×2 (10:12→21:12)
--- NOTE | 2021-09-15 10:58 | P.PN ---
Subjective Progress Note Date: 09/15/21 Principal diagnosis: Dyspnea, cough On today's evaluation on 09/14/2021 patient seen in follow-up on medical surgical floor. He is up in the chair, breathing comfortably, sounds less congested on today's exam, currently on 3 L of oxygen pulse ox is 95%, he is on a combination of azithromycin and Rocephin Solu-Medrol and nebulized bronchodilators, his pro-calcitonin level came back 0.70, mildly elevated, clinically patient feels better, he is coughing, bringing up some phlegm, denies any chest discomfort, he's had no fever or chest, vital signs have been stable overnight. On 09/15/2001 patient seen in follow-up on medical surgical floor. She is up in the recliner, he sounds less wheezy and congested on today's exam, coarse crackles at the left base on today's examination, he is on 4 L of oxygen pulse ox of 90%, he is awake and alert, oriented 3, denies chest pain or hemoptysis, no fever or chills, remains on antibiotics, IV azithromycin and Rocephin have been switched to oral Cefdinir. Remains on IV steroids, and nebulized bronchodilators. Blood culture has shown no growth, sputum culture showed no PMNs, many being used with pseudomycelia and moderate gram-positive cocci. Objective - Vital Signs Vital signs: Vital Signs Temp 97.6 F 09/15/21 08:00 Pulse 82 09/15/21 08:28 Resp 16 09/15/21 08:00 BP 191/81 09/15/21 08:00 Pulse Ox 90 L 09/15/21 08:00 Intake & Output 09/14/21 09/15/21 09/15/21 18:59 06:59 18:59 Intake Total 500 236 Output Total 675 Balance 500 -675 236 Intake: Oral 500 236 Output: Urine 675 Other: Voiding Method Bedside Commode # Voids 1 3 # Bowel Movements 1 1 - Exam GENERAL EXAM: Alert, very pleasant, 71-year-old obese white male, on 4 L of oxygen pulse ox of 93% comfortable in no apparent distress. HEAD: Normocephalic/atraumatic. EYES: Normal reaction of pupils, equal size. Conjunctiva pink, sclera white. NOSE: Clear with pink turbinates. THROAT: No erythema or exudates. NECK: No masses, no JVD, no thyroid enlargement, no adenopathy. CHEST: No chest wall deformity. Symmetrical expansion. LUNGS: Equal air entry with diffuse rhonchi, crackles and wheezes CVS: Regular rate and rhythm, normal S1 and S2, no gallops, no murmurs, no rubs ABDOMEN: Soft, nontender. No hepatosplenomegaly, normal bowel sounds, no guarding or rigidity. EXTREMITIES: No clubbing, no edema, no cyanosis, 2+ pulses and upper and lower extremities. MUSCULOSKELETAL: Muscle strength and tone normal. SPINE: No scoliosis or deformity SKIN: No rashes CENTRAL NERVOUS SYSTEM: Alert and oriented -3. No focal deficits, tone is normal in all 4 extremities. PSYCHIATRIC: Alert and oriented -3. Appropriate affect. Intact judgment and insight. - Labs CBC & Chem 7: 09/14/21 05:59 09/14/21 05:59 Labs: Abnormal Lab Results - Last 24 Hours (Table) 09/14/21 09/14/21 09/14/21 Range/Units 05:59 10:54 16:59 Anion Gap 13.40 H (4.00-12.00) mmol/L BUN/Creatinine Ratio 25.60 H (12.00-20.00) Ratio Glucose 212 H (70-110) mg/dL POC Glucose (mg/dL) 250 H 360 H (75-99) mg/dL Calcium 8.5 L (8.7-10.3) mg/dL 09/14/21 09/15/21 Range/Units 22:07 07:03 Anion Gap (4.00-12.00) mmol/L BUN/Creatinine Ratio (12.00-20.00) Ratio Glucose (70-110) mg/dL POC Glucose (mg/dL) 349 H 230 H (75-99) mg/dL Calcium (8.7-10.3) mg/dL Microbiology - Last 24 Hours (Table) 09/14/21 08:50 Gram Stain - Preliminary Sputum Sputum Culture - Preliminary 09/12/21 09:44 Blood Culture - Preliminary Blood No Growth after 48 hours 09/12/21 09:44 Blood Culture - Preliminary Blood No Growth after 48 hours Assessment and Plan Plan: Assessment: #1. Acute hypoxic respiratory failure related to acute community acquired pneumonia, in the left lower lobe. COVID-19 PCR was negative. #2. Possible component of mild fluid overload #3. Acute exacerbation of COPD #4. History of COPD on home oxygen at 3 L #5. Hypertension #6. Hyperlipidemia #7. 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 Previous history of PE #9. Obstructive sleep apnea intolerant to CPAP #10. Hypothyroidism #11. Obesity #12. Previous history of smoking, he carries a 60 years of smoking, 1-4 packs per day, quit smoking 2 years ago Plan: Continue antibiotics Continue IV steroids and nebulized bronchodilators Sputum was sent for culture, No fever or chills Overall patient sounds and feels better Follow-up chest x-ray tomorrow We'll continue to follow I performed a history & physical examination of the patient and discussed their management with my nurse practitioner, Kimi Morgan. I reviewed the nurse practitioner's note and agree with the documented findings and plan of care. Lung sounds are positive for bibasilar rales throughout the lung fisher. The findings and the impression was discussed with the patient. I attest to the documentation by the nurse practitioner. Time with Patient: Less than 30
[2021-09-15 11:43] LABS: Glucose,Whole Blood 412 mg/dL (75-99)
--- NOTE | 2021-09-15 12:56 | P.PN ---
Subjective Progress Note Date: 09/15/21 Patient is a 71-year-old male with a known history of COPD on oxygen at 3 L via nasal cannula. Hearing disorder/deafness, coronary artery disease, hypertension, hyperlipidemia, diabetes type 2, history of PE, obstructive sleep apnea, hypothyroidism and obesity and previous history of smoking was brought to the hospital due to complaints of shortness of breath worsening for the past 2 to 3 days. Patient is also having episodes of confusion. Does not have any cough or sputum production. No complaints of chest pain. Patient was brought to the hospital by his who was able to provide history. Patient is taking care of by his at home. He has been lethargic last few days. On admission patient was febrile and tachycardic and pulse ox 92% on 5 L oxygen via nasal cannula. Blood pressure is 132/78 Laboratory showed WBC 11.6 hemoglobin 12.9 and platelets 150 lymphocytes 0.32 Sodium 141 potassium 4.1 chloride 97 bicarb is 35 BUN 18 and creatinine 1.01 and blood sugar at 184 lactic acid 2.7 magnesium 1.4 bilirubin level is 1.5 liver enzymes are not elevated. Troponin 0 0.018 and proBNP 673. COVID-19 PCR not detected. Chest x-ray showed left lower lobe infiltrate with mild scattered infiltrate in the right lung. Correlate for pneumonia and atypical pneumonia. CT angiography chest showed no acute PE. Clinical consideration for pulmonary hypertension is recommended. Mild pulmonary edema may be present. Atypical pneumonia is considered less likely but is within the differential. Focal posterior left lung peripheral consolidation correlate for pneumonia. Follow-up to clearing is recommended. 09/13/2021 Patient is evaluated today sitting up in the chair. He is wearing oxygen at 5 L nasal cannula, currently 97%. He does wear 3 L oxygen at home. Patient is a history of obstructive sleep apnea he currently does not wear a CPAP at home as his unit was recalled, he does get apneic with a pulse ox down in the 80s per nurse. He is afebrile, 72 sinus rhythm, blood pressure 130/67. Labs today show a CO2 of 33, glucose is elevated in the 300s. Mag is 2.5 after transfusion. His BNP today is 1170. TSH is low at 0.158, we are pending a T4. Chest x-ray today showed cardiomegaly correlate for chronic interstitial lung disease, interstitial pneumonitis or venous congestion is the differential. Echocardiogram is pending. Pending pulmonary consultation. 09/14/2021 Patient evaluated in the chair, he does state that his breathing feels really were not sure. He is wheezing posteriorly all lung fisher. He is getting duonebs as needed has not had a breathing treatment in 24 hours. Ordered DuoNeb's 4 times a day scheduled as well as PRN. Patient is 93% on 4 L nasal cannula, afebrile, blood pressure 140/73. White count today is 8.35, hemoglobin stable 11.8. T4 is within normal limits at 1.370, no need to adjust synthroid dose. Legionella and mycoplasma pending. Echocardiogram shows severe concentric left ventricular hypertrophy with an EF between 55-60%. There is no evidence of pulmonary hypertension. Patient states that he is having a cough with sputum, he states the sputum was black and he gave a sample today. 09/15/2021 Patient is evaluated today sitting in a chair, there is no wheezing present he states that he is feeling better on the DuoNeb's. Patient does have crackles in his left lung base, peripheral edema seems to be increasing as compared to yesterday. He has 94% on 3 L nasal cannula. Blood pressure today is 144/89, which we increased metoprolol to 50 twice a day as he is hypertensive this morning with a systolic blood pressure 190s. Patient has remained afebrile, stool culture still pending. Review of system Constitutional: Denied any fatigue denied any fever. Cardio vascular: denied any chest pain, palpitations Gastrointestinal denied any nausea vomiting Pulmonary: Reports shortness of breath at rest and with exertion, reports sputum. Neurologic denied any new focal deficits All inpatient medications were reviewed and appropriate changes in these medications as dictated in the interval history and assessment and plan. PHYSICAL EXAMINATION: GENERAL: The patient is alert and oriented x3, not in any acute distress. Well developed, well nourished. HEENT: Pupils are round and equally reacting to light. EOMI. No scleral icterus. No conjunctival pallor. Normocephalic, atraumatic. No pharyngeal erythema. No thyromegaly. CARDIOVASCULAR: S1 and S2 present. No murmurs, rubs, or gallops. PULMONARY: Crackles left lung base, wheezing is improved ABDOMEN: Soft, nontender, nondistended, normoactive bowel sounds. No palpable organomegaly. MUSCULOSKELETAL: No joint swelling or deformity. EXTREMITIES: No cyanosis, clubbing, nonpitting peripheral edema. NEUROLOGICAL: Gross neurological examination did not reveal any focal deficits. SKIN: No rashes. Assessment and plan Assessment Left lower lobe pneumonia, Covid PCR negative, Legionella mycoplasma pending, pro-calcitonin 0.70 Sepsis secondary to above. Fever leukocytosis tachycardia and lactic acidosis on admission. Resolved. Possible metabolic encephalopathy secondary to infection, currently alert and oriented 3. Acute on chronic hypoxic respiratory failure secondary to COPD exacerbation and community acquired pneumonia. COPD on home oxygen at 3 L via nasal cannula Obesity with BMI 39.9 Diabetes type 2 [id number] with hyperglycemia Hearing disorder/deafness Hypertension Osteoarthritis History of PE Obstructive sleep apnea not on CPAP at home due to recall Diabetic peripheral neuropathy Chronic back pain Previous history of smoking Hypothyroidism DVT prophylaxis Heparin subcu Plan Continue on PO antibiotics Continue Duonebs scheduled and as needed, continue steroids Wean oxygen as tolerated to home dose of 3L. Continue all other supportive care Labs in the AM. Will need outpatient sleep study and will need a CPAP. PT OT recommended home with home care on discharge once medically stable Appreciate pulmonary consultation Objective - Vital Signs Vital signs: Vital Signs Temp 97.6 F 09/15/21 08:00 Pulse 88 09/15/21 11:52 Resp 16 09/15/21 08:00 BP 191/81 09/15/21 08:00 Pulse Ox 94 L 09/15/21 11:15 Intake & Output 09/14/21 09/15/21 09/15/21 18:59 06:59 18:59 Intake Total 500 236 Output Total 675 Balance 500 -675 236 Intake: Oral 500 236 Output: Urine 675 Other: Voiding Method Bedside Commode Bedside Commode Urinal # Voids 1 3 # Bowel Movements 1 1 - Labs CBC & Chem 7: 09/14/21 05:59 09/14/21 05:59 Labs: Abnormal Lab Results - Last 24 Hours (Table) 09/14/21 09/14/21 09/15/21 Range/Units 16:59 22:07 07:03 POC Glucose (mg/dL) 360 H 349 H 230 H (75-99) mg/dL 09/15/21 Range/Units 11:42 POC Glucose (mg/dL) 412 H (75-99) mg/dL Microbiology - Last 24 Hours (Table) 09/12/21 09:44 Blood Culture - Preliminary Blood No Growth after 72 hours 09/12/21 09:44 Blood Culture - Preliminary Blood No Growth after 72 hours 09/14/21 08:50 Gram Stain - Preliminary Sputum Sputum Culture - Preliminary Assessment and Plan Time with Patient: Greater than 30
[2021-09-15 16:27] LABS: Glucose,Whole Blood 359 mg/dL (75-99)
[2021-09-15 20:43] LABS: Glucose,Whole Blood 419 mg/dL (75-99)
[2021-09-15] MEDS: INSULIN DETEMIR (LEVEMIR) 100 UNIT/ML SYR SQ SCH (21:12)
[2021-09-15] MEDS: ATORVASTATIN 80 MG TAB PO SCH (21:13)
[2021-09-15] MEDS: TAMSULOSIN 0.4 MG CAP.ER.24H PO SCH (21:13)
[2021-09-15] MEDS: CHOLECALCIFEROL 25 MCG (1000 IU) TABLET PO SCH (21:13)
[2021-09-15] MEDS: PANTOPRAZOLE 40 MG TABLET PO SCH (21:14)
[2021-09-16] MEDS: HEPARIN SODIUM,PORCINE/PF 5,000 UNIT/0.5 ML SYRINGE SQ SCH ×3 (00:09→16:15)
[2021-09-16] MEDS: methylPREDNISolone SOD SUCCI 40 MG/ML 1 ML VIAL IV SCH ×3 (00:10→16:47)
[2021-09-16] MEDS: LEVOTHYROXINE 100 MCG TAB PO SCH (06:06)
[2021-09-16 07:07] LABS: Glucose,Whole Blood 219 mg/dL (75-99)
[2021-09-16] MEDS: METOPROLOL TARTRATE 50 MG TAB PO SCH ×2 (07:33→20:36)
[2021-09-16] MEDS: LORATADINE 10 MG TAB PO SCH (07:33)
[2021-09-16] MEDS: GABAPENTIN 400 MG CAP PO SCH ×3 (07:33→20:35)
[2021-09-16] MEDS: THIAMINE 100 MG TAB PO SCH (07:33)
[2021-09-16] MEDS: CEFDINIR 300 MG CAP PO SCH ×2 (07:33→20:35)
[2021-09-16] MEDS: FUROSEMIDE 20 MG TAB PO SCH (07:33)
[2021-09-16] MEDS: levETIRAcetam 500 MG TAB PO SCH ×2 (07:33→20:36)
[2021-09-16] MEDS: ASPIRIN 325 MG TAB PO SCH (07:33)
[2021-09-16] MEDS: PRIMIDONE 50 MG TAB PO SCH ×2 (07:34→20:36)
[2021-09-16] MEDS: FOLIC ACID 1 MG TAB PO SCH (07:34)
[2021-09-16] MEDS: INSULIN ASPART (NovoLOG) 100 UNIT/ML VIAL SQ SCH ×7 (07:34→20:35)
[2021-09-16] MEDS: MULTIVITAMINS, THERA 1 EACH TAB PO SCH (07:34)
[2021-09-16] MEDS: ARTIFICIAL TEARS-HYPROMELLOSE DROPS 15 ML BTL BOTH EYES SCH ×2 (07:37→20:43)
[2021-09-16] MEDS: IPRATROPIUM-ALBUTEROL 3 ML NEB INHALATION SCH ×4 (07:44→19:56)
[2021-09-16 09:16] LABS: HCT 38.9 % (39.6-50.0); HGB 11.8 g/dL (13.0-17.0); MCH 29.7 pg (27.0-32.0); MCHC 30.3 g/dL (32.0-37.0); Platelet Count 162 X 10*3/uL (140-440); RBC 3.97 X 10*6/uL (4.40-5.60); WBC 7.12 X 10*3/uL (4.50-10.00)
--- NOTE | 2021-09-16 09:33 | XR ---
EXAMINATION TYPE: XR chest 1V portable DATE OF EXAM: 09/16/2021 COMPARISON: 09/13/2021 HISTORY: Cough TECHNIQUE: Single frontal view of the chest is obtained. FINDINGS: Patchy interstitial infiltrates with subsegmental changes involving the perihilar left and right lower lobes. Pleural thickening or tiny effusions. No pneumothorax. Heart is enlarged. IMPRESSION: 1. Cardiac megaly correlate for chronic interstitial lung disease. Superimposed interstitial pneumoni tis or venous congestion in the differential diagnosis. 2. Bibasilar atelectasis or infiltrate with tiny effusions.
[2021-09-16 10:59] LABS: Basophils # (A) 0.02 X 10*3/uL (0.00-0.10); Basophils % (A) 0.3 %; Eosinophils # (A) 0 X 10*3/uL (0.04-0.35); Eosinophils % (A) 0 %; Lymphocytes # (A) 0.57 X 10*3/uL (0.90-5.00); Monocytes # (A) 0.29 X 10*3/uL (0.20-1.00); Monocytes % (A) 4.1 %; Neutrophils # (A) 6.12 X 10*3/uL (1.80-7.70); Neutrophils % (A) 85.9 %
[2021-09-16 11:47] LABS: Glucose,Whole Blood 244 mg/dL (75-99)
--- NOTE | 2021-09-16 11:54 | P.PN ---
Subjective Progress Note Date: 09/16/21 Principal diagnosis: Dyspnea, cough On today's evaluation on 09/14/2021 patient seen in follow-up on medical surgical floor. He is up in the chair, breathing comfortably, sounds less congested on today's exam, currently on 3 L of oxygen pulse ox is 95%, he is on a combination of azithromycin and Rocephin Solu-Medrol and nebulized bronchodilators, his pro-calcitonin level came back 0.70, mildly elevated, clinically patient feels better, he is coughing, bringing up some phlegm, denies any chest discomfort, he's had no fever or chest, vital signs have been stable overnight. On 09/15/2021 patient seen in follow-up on medical surgical floor. She is up in the recliner, he sounds less wheezy and congested on today's exam, coarse crackles at the left base on today's examination, he is on 4 L of oxygen pulse ox of 90%, he is awake and alert, oriented 3, denies chest pain or hemoptysis, no fever or chills, remains on antibiotics, IV azithromycin and Rocephin have been switched to oral Cefdinir. Remains on IV steroids, and nebulized bronchodilators. Blood culture has shown no growth, sputum culture showed no PMNs, many being used with pseudomycelia and moderate gram-positive cocci. On 09/16/2021 patient seen in follow-up on medical surgical floor. he is breath ing easier today, still coughing quite a bit, but less wheezing, lung sounds reveal some crackles at the left lower and left mid lung, she remains on Ceftin ear for abiotic coverage, denies any hemoptysis or chest pain. Overall he states he is feeling better, blood culture shown no growth, sputum culture showed no PMNs, moderate gram-positive cocci, and many budding yeast. This is not having reviewed, white blood cell, 7.12, hemoglobin is 11.8, BNP is still pending. Legionella urine antigen was negative, COVID-19 was negative. he is sitting up in the recliner, breathing comfortably. Been ambulating with a walker to the bathroom and tolerating activity fairly well. Objective - Vital Signs Vital signs: Vital Signs Temp 98 F 09/16/21 08:00 Pulse 72 09/16/21 11:32 Resp 16 09/16/21 08:00 BP 165/84 09/16/21 08:00 Pulse Ox 94 L 09/16/21 08:00 Intake & Output 09/15/21 09/16/21 09/16/21 18:59 06:59 18:59 Intake Total 708 236 Balance 708 236 Intake: Oral 708 236 Other: Voiding Method Bedside Commode Bedside Commode Urinal Urinal # Voids 1 2 # Bowel Movements 0 - Exam GENERAL EXAM: Alert, very pleasant, 71-year-old obese white male, on 2 L of oxygen pulse ox of 93% comfortable in no apparent distress. HEAD: Normocephalic/atraumatic. EYES: Normal reaction of pupils, equal size. Conjunctiva pink, sclera white. NOSE: Clear with pink turbinates. THROAT: No erythema or exudates. NECK: No masses, no JVD, no thyroid enlargement, no adenopathy. CHEST: No chest wall deformity. Symmetrical expansion. LUNGS: Equal air entry with left lower lung and left mid lung crackles, no rhonchi or wheezes on today's exam. CVS: Regular rate and rhythm, normal S1 and S2, no gallops, no murmurs, no rubs ABDOMEN: Soft, nontender. No hepatosplenomegaly, normal bowel sounds, no guarding or rigidity. EXTREMITIES: No clubbing, no edema, no cyanosis, 2+ pulses and upper and lower extremities. MUSCULOSKELETAL: Muscle strength and tone normal. SPINE: No scoliosis or deformity SKIN: No rashes CENTRAL NERVOUS SYSTEM: Alert and oriented -3. No focal deficits, tone is normal in all 4 extremities. PSYCHIATRIC: Alert and oriented -3. Appropriate affect. Intact judgment and insight. - Labs CBC & Chem 7: 09/16/21 05:43 09/14/21 05:59 Labs: Abnormal Lab Results - Last 24 Hours (Table) 09/15/21 09/15/21 09/16/21 Range/Units 16:26 20:41 05:43 RBC 3.97 L (4.40-5.60) X 10*6/uL Hgb 11.8 L (13.0-17.0) g/dL Hct 38.9 L (39.6-50.0) % MCV 98.0 H (80.0-97.0) fL MCHC 30.3 L (32.0-37.0) g/dL Absolute Nucleated RBC 0.02 H (0.00-0.00) X 10*3/uL Immature Gran # 0.12 H (0.00-0.04) X 10*3/uL Lymphocytes # 0.57 L (0.90-5.00) X 10*3/uL Eosinophils # 0 L (0.04-0.35) X 10*3/uL NRBC/100 WBC Diff 0.3 H (0.0-0.0) /100 WBCS POC Glucose (mg/dL) 359 H 419 H (75-99) mg/dL 09/16/21 Range/Units 07:06 RBC (4.40-5.60) X 10*6/uL Hgb (13.0-17.0) g/dL Hct (39.6-50.0) % MCV (80.0-97.0) fL MCHC (32.0-37.0) g/dL Absolute Nucleated RBC (0.00-0.00) X 10*3/uL Immature Gran # (0.00-0.04) X 10*3/uL Lymphocytes # (0.90-5.00) X 10*3/uL Eosinophils # (0.04-0.35) X 10*3/uL NRBC/100 WBC Diff (0.0-0.0) /100 WBCS POC Glucose (mg/dL) 219 H (75-99) mg/dL Microbiology - Last 24 Hours (Table) 09/12/21 09:44 Blood Culture - Preliminary Blood No Growth after 72 hours 09/12/21 09:44 Blood Culture - Preliminary Blood No Growth after 72 hours 09/14/21 08:50 Gram Stain - Preliminary Sputum Sputum Culture - Preliminary Assessment and Plan Plan: Assessment: #1. Acute hypoxic respiratory failure related to acute community acquired pneumonia, in the left lower lobe. COVID-19 PCR was negative. #2. Possible component of mild fluid overload #3. Acute exacerbation of COPD #4. History of COPD on home oxygen at 3 L #5. Hypertension #6. Hyperlipidemia #7. 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 Previous history of PE #9. Obstructive sleep apnea intolerant to CPAP #10. Hypothyroidism #11. Obesity #12. Previous history of smoking, he carries a 60 years of smoking, 1-4 packs per day, quit smoking 2 years ago Plan: Clinically patient is improving No fever or chills, FiO2 is down to 2 L, patient is normally at 3 L at home Rafael activity as tolerated No acute events overnight Today's chest x-ray reviewed showing bibasilar infiltrates, clinically improving If he continues to be stable may consider discharge home in the next 24 hours I performed a history & physical examination of the patient and discussed their management with my nurse practitioner, Kimi Morgan. I reviewed the nurse practitioner's note and agree with the documented findings and plan of care. Lung sounds are positive for bibasilar rales throughout the lung fisher. The findings and the impression was discussed with the patient. I attest to the documentation by the nurse practitioner. Time with Patient: Less than 30
--- NOTE | 2021-09-16 12:46 | P.PN ---
Subjective Progress Note Date: 09/16/21 Patient is a 71-year-old male with a known history of COPD on oxygen at 3 L via nasal cannula. Hearing disorder/deafness, coronary artery disease, hypertension, hyperlipidemia, diabetes type 2, history of PE, obstructive sleep apnea, hypothyroidism and obesity and previous history of smoking was brought to the hospital due to complaints of shortness of breath worsening for the past 2 to 3 days. Patient is also having episodes of confusion. Does not have any cough or sputum production. No complaints of chest pain. Patient was brought to the hospital by his who was able to provide history. Patient is taking care of by his at home. He has been lethargic last few days. On admission patient was febrile and tachycardic and pulse ox 92% on 5 L oxygen via nasal cannula. Blood pressure is 132/78 Laboratory showed WBC 11.6 hemoglobin 12.9 and platelets 150 lymphocytes 0.32 Sodium 141 potassium 4.1 chloride 97 bicarb is 35 BUN 18 and creatinine 1.01 and blood sugar at 184 lactic acid 2.7 magnesium 1.4 bilirubin level is 1.5 liver enzymes are not elevated. Troponin 0 0.018 and proBNP 673. COVID-19 PCR not detected. Chest x-ray showed left lower lobe infiltrate with mild scattered infiltrate in the right lung. Correlate for pneumonia and atypical pneumonia. CT angiography chest showed no acute PE. Clinical consideration for pulmonary hypertension is recommended. Mild pulmonary edema may be present. Atypical pneumonia is considered less likely but is within the differential. Focal posterior left lung peripheral consolidation correlate for pneumonia. Follow-up to clearing is recommended. 09/13/2021 Patient is evaluated today sitting up in the chair. He is wearing oxygen at 5 L nasal cannula, currently 97%. He does wear 3 L oxygen at home. Patient is a history of obstructive sleep apnea he currently does not wear a CPAP at home as his unit was recalled, he does get apneic with a pulse ox down in the 80s per nurse. He is afebrile, 72 sinus rhythm, blood pressure 130/67. Labs today show a CO2 of 33, glucose is elevated in the 300s. Mag is 2.5 after transfusion. His BNP today is 1170. TSH is low at 0.158, we are pending a T4. Chest x-ray today showed cardiomegaly correlate for chronic interstitial lung disease, interstitial pneumonitis or venous congestion is the differential. Echocardiogram is pending. Pending pulmonary consultation. 09/14/2021 Patient evaluated in the chair, he does state that his breathing feels really were not sure. He is wheezing posteriorly all lung fisher. He is getting duonebs as needed has not had a breathing treatment in 24 hours. Ordered DuoNeb's 4 times a day scheduled as well as PRN. Patient is 93% on 4 L nasal cannula, afebrile, blood pressure 140/73. White count today is 8.35, hemoglobin stable 11.8. T4 is within normal limits at 1.370, no need to adjust synthroid dose. Legionella and mycoplasma pending. Echocardiogram shows severe concentric left ventricular hypertrophy with an EF between 55-60%. There is no evidence of pulmonary hypertension. Patient states that he is having a cough with sputum, he states the sputum was black and he gave a sample today. 09/15/2021 Patient is evaluated today sitting in a chair, there is no wheezing present he states that he is feeling better on the DuoNeb's. Patient does have crackles in his left lung base, peripheral edema seems to be increasing as compared to yesterday. He has 94% on 3 L nasal cannula. Blood pressure today is 144/89, which we increased metoprolol to 50 twice a day as he is hypertensive this morning with a systolic blood pressure 190s. Patient has remained afebrile, sputum culture still pending. 09/16/2021 Patient seen in the chair, resting. He states that he feels like his breathing is improving and is able to tolerate activity. He is on 3 L is a cannula with an oxygen saturation of 94%. Blood pressure is 165/84, afebrile, heart rate 82. White blood cell count today is 7.12, hemoglobin stable at 11.8. Chest x-ray this morning shows cardio megaly correlate for chronic disease. Superimposed interstitial pneumonitis or venous congestion in the differential. Bibasilar atelectasis or infiltrate with tiny effusions. Continues on oral Lasix, IV Solu-Medrol. Review of system Constitutional: Denied any fatigue denied any fever. Cardio vascular: denied any chest pain, palpitations Gastrointestinal denied any nausea vomiting Pulmonary: Reports shortness of breath at rest and with exertion, reports sputum. Neurologic denied any new focal deficits All inpatient medications were reviewed and appropriate changes in these medications as dictated in the interval history and assessment and plan. PHYSICAL EXAMINATION: GENERAL: The patient is alert and oriented x3, not in any acute distress. Well developed, well nourished. HEENT: Pupils are round and equally reacting to light. EOMI. No scleral icterus. No conjunctival pallor. Normocephalic, atraumatic. No pharyngeal erythema. No thyromegaly. CARDIOVASCULAR: S1 and S2 present. No murmurs, rubs, or gallops. PULMONARY: Crackles left lung base, there is faint expiratory wheezing noted. ABDOMEN: Soft, nontender, nondistended, normoactive bowel sounds. No palpable organomegaly. MUSCULOSKELETAL: No joint swelling or deformity. EXTREMITIES: No cyanosis, clubbing, nonpitting peripheral edema. NEUROLOGICAL: Gross neurological examination did not reveal any focal deficits. SKIN: No rashes. Assessment and plan Assessment Left lower lobe pneumonia, Covid PCR negative, pro-calcitonin 0.70 Sepsis secondary to above. Fever leukocytosis tachycardia and lactic acidosis on admission. Resolved. Possible metabolic encephalopathy secondary to infection, currently alert and oriented 3. Acute on chronic hypoxic respiratory failure secondary to COPD exacerbation and community acquired pneumonia. COPD on home oxygen at 3 L via nasal cannula Obesity with BMI 39.9 Diabetes type 2 [id number] with hyperglycemia Hearing disorder/deafness Hypertension Osteoarthritis History of PE Obstructive sleep apnea not on CPAP at home due to recall Diabetic peripheral neuropathy Chronic back pain Previous history of smoking Hypothyroidism DVT prophylaxis Heparin subcu Plan Continue on PO antibiotics Continue Duonebs scheduled and as needed, continue steroids Continue on home dose of 3 L of cannula adjust as needed Continue all other supportive care Will need outpatient sleep study and will need a CPAP. PT OT recommended home with home care on discharge once medically stable Appreciate pulmonary consultation; recommend possible discharge in the next 24 hours Repeat labs tomorrow Objective - Vital Signs Vital signs: Vital Signs Temp 97.6 F 09/16/21 02:47 Pulse 72 09/16/21 08:02 Resp 16 09/15/21 19:59 BP 157/62 09/16/21 02:47 Pulse Ox 92 L 09/16/21 02:47 Intake & Output 09/15/21 09/16/21 09/16/21 18:59 06:59 18:59 Intake Total 708 Balance 708 Intake: Oral 708 Other: Voiding Method Bedside Commode Bedside Commode Urinal Urinal # Voids 1 2 # Bowel Movements 0 - Labs CBC & Chem 7: 09/16/21 05:43 09/14/21 05:59 Labs: Abnormal Lab Results - Last 24 Hours (Table) 09/15/21 09/15/21 09/15/21 Range/Units 11:42 16:26 20:41 POC Glucose (mg/dL) 412 H 359 H 419 H (75-99) mg/dL 09/16/21 Range/Units 07:06 POC Glucose (mg/dL) 219 H (75-99) mg/dL Microbiology - Last 24 Hours (Table) 09/12/21 09:44 Blood Culture - Preliminary Blood No Growth after 72 hours 09/12/21 09:44 Blood Culture - Preliminary Blood No Growth after 72 hours 09/14/21 08:50 Gram Stain - Preliminary Sputum Sputum Culture - Preliminary Assessment and Plan Time with Patient: Greater than 30
[2021-09-16 13:06] LABS: African American GFR (CKD) 86.2 (60.0-200.0); BUN/Creat Ratio 26.9 Ratio (12.00-20.00); Blood Urea Nitrogen 26.9 mg/dL (9.0-27.0); Calcium 8.8 mg/dL (8.7-10.3); Non-African American GFR(CKD) 74.3 (60.0-200.0); Potassium 4.9 mmol/L (3.5-5.5)
[2021-09-16 16:31] LABS: Glucose,Whole Blood 276 mg/dL (75-99)
[2021-09-16 20:14] LABS: Glucose,Whole Blood 295 mg/dL (75-99)
[2021-09-16] MEDS: INSULIN DETEMIR (LEVEMIR) 100 UNIT/ML SYR SQ SCH (20:34)
[2021-09-16] MEDS: PANTOPRAZOLE 40 MG TABLET PO SCH (20:35)
[2021-09-16] MEDS: TAMSULOSIN 0.4 MG CAP.ER.24H PO SCH (20:36)
[2021-09-16] MEDS: ATORVASTATIN 80 MG TAB PO SCH (20:36)
[2021-09-16] MEDS: CHOLECALCIFEROL 25 MCG (1000 IU) TABLET PO SCH (20:36)
[2021-09-17] MEDS: HEPARIN SODIUM,PORCINE/PF 5,000 UNIT/0.5 ML SYRINGE SQ SCH ×2 (00:12→07:30)
[2021-09-17] MEDS: methylPREDNISolone SOD SUCCI 40 MG/ML 1 ML VIAL IV SCH ×2 (00:12→08:11)
[2021-09-17] MEDS: LEVOTHYROXINE 100 MCG TAB PO SCH (05:48)
[2021-09-17 06:42] LABS: Mycoplasma IgG Antibody (EIA) 3.82 INDEX (<=0.90); Mycoplasma IgM Antibody 0.11 INDEX (<=0.90)
[2021-09-17 06:58] LABS: Glucose,Whole Blood 208 mg/dL (75-99)
[2021-09-17] MEDS: IPRATROPIUM-ALBUTEROL 3 ML NEB INHALATION SCH ×2 (07:08→11:03)
[2021-09-17] MEDS: INSULIN ASPART (NovoLOG) 100 UNIT/ML VIAL SQ SCH ×4 (07:30→11:36)
[2021-09-17] MEDS: FUROSEMIDE 20 MG TAB PO SCH (07:31)
[2021-09-17] MEDS: LORATADINE 10 MG TAB PO SCH (07:32)
[2021-09-17] MEDS: POTASSIUM CHLORIDE ER 10 MEQ TAB.ER.PRT PO SCH (07:32)
[2021-09-17] MEDS: MULTIVITAMINS, THERA 1 EACH TAB PO SCH (07:32)
[2021-09-17] MEDS: levETIRAcetam 500 MG TAB PO SCH (07:32)
[2021-09-17] MEDS: METOPROLOL TARTRATE 50 MG TAB PO SCH (07:33)
[2021-09-17] MEDS: THIAMINE 100 MG TAB PO SCH (07:33)
[2021-09-17] MEDS: FOLIC ACID 1 MG TAB PO SCH (07:33)
[2021-09-17] MEDS: PRIMIDONE 50 MG TAB PO SCH (07:33)
[2021-09-17] MEDS: ASPIRIN 325 MG TAB PO SCH (07:33)
[2021-09-17] MEDS: ARTIFICIAL TEARS-HYPROMELLOSE DROPS 15 ML BTL BOTH EYES SCH (07:34)
[2021-09-17] MEDS: GABAPENTIN 400 MG CAP PO SCH (07:36)
[2021-09-17 07:59] VITALS: BMI 39.9
[2021-09-17 08:08] VITALS: BP 144/73; RESP 18; TEMP 97.9
--- NOTE | 2021-09-17 10:30 | P.PN ---
Subjective Progress Note Date: 09/17/21 Principal diagnosis: Dyspnea, cough On today's evaluation on 09/14/2021 patient seen in follow-up on medical surgical floor. He is up in the chair, breathing comfortably, sounds less congested on today's exam, currently on 3 L of oxygen pulse ox is 95%, he is on a combination of azithromycin and Rocephin Solu-Medrol and nebulized bronchodilators, his pro-calcitonin level came back 0.70, mildly elevated, clinically patient feels better, he is coughing, bringing up some phlegm, denies any chest discomfort, he's had no fever or chest, vital signs have been stable overnight. On 09/15/2021 patient seen in follow-up on medical surgical floor. She is up in the recliner, he sounds less wheezy and congested on today's exam, coarse crackles at the left base on today's examination, he is on 4 L of oxygen pulse ox of 90%, he is awake and alert, oriented 3, denies chest pain or hemoptysis, no fever or chills, remains on antibiotics, IV azithromycin and Rocephin have been switched to oral Cefdinir. Remains on IV steroids, and nebulized bronchodilators. Blood culture has shown no growth, sputum culture showed no PMNs, many being used with pseudomycelia and moderate gram-positive cocci. On 09/16/2021 patient seen in follow-up on medical surgical floor. he is breath ing easier today, still coughing quite a bit, but less wheezing, lung sounds reveal some crackles at the left lower and left mid lung, she remains on Ceftin ear for abiotic coverage, denies any hemoptysis or chest pain. Overall he states he is feeling better, blood culture shown no growth, sputum culture showed no PMNs, moderate gram-positive cocci, and many budding yeast. This is not having reviewed, white blood cell, 7.12, hemoglobin is 11.8, BNP is still pending. Legionella urine antigen was negative, COVID-19 was negative. he is sitting up in the recliner, breathing comfortably. Been ambulating with a walker to the bathroom and tolerating activity fairly well. On 09/17/2021 patient seen in follow-up on medical surgical floor. He is awake and alert, in no acute distress, breathing much more comfortably, no wheezing, mild crackles at the left posterior base, no compressive chest pain or hemoptysis, he remains on Ceftin ear, nebulized bronchodilators and IV steroids, significantly improved since admission, tolerating ambulation. No new labs today. Follow-up chest x-ray yesterday showed ready megaly, chronic interstitial lung disease with superimposed interstitial pneumonitis, and bibasilar atelectasis with tiny pleural effusions. Clinically patient has been improving, he stable for discharge home from pulmonary perspective today Objective - Vital Signs Vital signs: Vital Signs Temp 97.9 F 09/17/21 07:23 Pulse 72 09/17/21 07:23 Resp 18 09/17/21 07:23 BP 144/73 09/17/21 07:23 Pulse Ox 92 L 09/17/21 07:23 Intake & Output 09/16/21 09/17/21 09/17/21 18:59 06:59 18:59 Intake Total 708 Balance 708 Weight 122.47 kg Intake: Oral 708 Other: Voiding Method Bedside Commode Urinal # Voids 1 4 - Exam GENERAL EXAM: Alert, very pleasant, 71-year-old obese white male, on 2 L of oxygen pulse ox of 93% comfortable in no apparent distress. HEAD: Normocephalic/atraumatic. EYES: Normal reaction of pupils, equal size. Conjunctiva pink, sclera white. NOSE: Clear with pink turbinates. THROAT: No erythema or exudates. NECK: No masses, no JVD, no thyroid enlargement, no adenopathy. CHEST: No chest wall deformity. Symmetrical expansion. LUNGS: Equal air entry with left lower lung and left mid lung crackles, no rhonchi or wheezes on today's exam. CVS: Regular rate and rhythm, normal S1 and S2, no gallops, no murmurs, no rubs ABDOMEN: Soft, nontender. No hepatosplenomegaly, normal bowel sounds, no guarding or rigidity. EXTREMITIES: No clubbing, no edema, no cyanosis, 2+ pulses and upper and lower extremities. MUSCULOSKELETAL: Muscle strength and tone normal. SPINE: No scoliosis or deformity SKIN: No rashes CENTRAL NERVOUS SYSTEM: Alert and oriented -3. No focal deficits, tone is normal in all 4 extremities. PSYCHIATRIC: Alert and oriented -3. Appropriate affect. Intact judgment and i nsight. - Labs CBC & Chem 7: 09/16/21 05:43 09/16/21 05:43 Labs: Abnormal Lab Results - Last 24 Hours (Table) 09/15/21 09/16/21 09/16/21 Range/Units 05:50 05:43 05:43 Immature Gran # 0.12 H (0.00-0.04) X 10*3/uL Lymphocytes # 0.57 L (0.90-5.00) X 10*3/uL Eosinophils # 0 L (0.04-0.35) X 10*3/uL Carbon Dioxide 33.0 H (21.6-31.8) mmol/L BUN/Creatinine Ratio 26.90 H (12.00-20.00) Ratio Glucose 218 H (70-110) mg/dL POC Glucose (mg/dL) (75-99) mg/dL Mycoplasma pneumon IgG 3.82 H (<=0.90) INDEX 09/16/21 09/16/21 09/16/21 Range/Units 11:45 16:29 20:12 Immature Gran # (0.00-0.04) X 10*3/uL Lymphocytes # (0.90-5.00) X 10*3/uL Eosinophils # (0.04-0.35) X 10*3/uL Carbon Dioxide (21.6-31.8) mmol/L BUN/Creatinine Ratio (12.00-20.00) Ratio Glucose (70-110) mg/dL POC Glucose (mg/dL) 244 H 276 H 295 H (75-99) mg/dL Mycoplasma pneumon IgG (<=0.90) INDEX 09/17/21 Range/Units 06:47 Immature Gran # (0.00-0.04) X 10*3/uL Lymphocytes # (0.90-5.00) X 10*3/uL Eosinophils # (0.04-0.35) X 10*3/uL Carbon Dioxide (21.6-31.8) mmol/L BUN/Creatinine Ratio (12.00-20.00) Ratio Glucose (70-110) mg/dL POC Glucose (mg/dL) 208 H (75-99) mg/dL Mycoplasma pneumon IgG (<=0.90) INDEX Microbiology - Last 24 Hours (Table) 09/14/21 08:50 Gram Stain - Final Sputum Sputum Culture - Final Stephanie sp,not albicans/galbr 09/12/21 09:44 Blood Culture - Preliminary Blood No Growth after 96 hours 09/12/21 09:44 Blood Culture - Preliminary Blood No Growth after 96 hours Assessment and Plan Plan: Assessment: #1. Acute hypoxic respiratory failure related to acute community acquired pneumonia, in the left lower lobe. COVID-19 PCR was negative. #2. Possible component of mild fluid overload #3. Acute exacerbation of COPD #4. History of COPD on home oxygen at 3 L #5. Hypertension #6. Hyperlipidemia #7. 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 Previous history of PE #9. Obstructive sleep apnea intolerant to CPAP #10. Hypothyroidism #11. Obesity #12. Previous history of smoking, he carries a 60 years of smoking, 1-4 packs per day, quit smoking 2 years ago Plan: Clinically patient is improving No fever or chills, FiO2 is down to 2 L, patient is normally at 3 L at home No acute events overnight Tolerating ambulation Stable for discharge home today from pulmonary perspective, prednisone taper, and he can finish outpatient course of oral antibiotics He already has home oxygen at home Outpatient follow-up with Dr. Alfonso any office in 7-10 days I performed a history & physical examination of the patient and discussed their management with my nurse practitioner, Kimi Morgan. I reviewed the nurse practitioner's note and agree with the documented findings and plan of care. Lung sounds are positive for bibasilar rales throughout the lung fisher. The findings and the impression was discussed with the patient. I attest to the documentation by the nurse practitioner. Time with Patient: Less than 30
[2021-09-17 11:10] LABS: Glucose,Whole Blood 207 mg/dL (75-99)
[2021-09-17 11:14] VITALS: PULSE 60
--- NOTE | 2021-09-18 11:59 | P.DS ---
Providers Date of admission: 09/12/21 12:29 Expected date of discharge: 09/17/21 Attending physician: Murray Jovel Consults: 09/12/21 23:43 Consult Physician Routine Consulting Provider: Bertha Alfonso Consult Reason/Comments: Pneumonia, resp failure Do you want consulting provider notified?: Yes, Notify in am Primary care physician: [facility] Hospital Course: Final diagnosis Left lower lobe pneumonia, Covid PCR negative Sepsis secondary to above. Fever leukocytosis tachycardia and lactic acidosis on admission. Resolved. Possible metabolic encephalopathy secondary to infection, improved Acute on chronic hypoxic respiratory failure secondary to COPD exacerbation and community acquired pneumonia. COPD on home oxygen at 3 L via nasal cannula Obesity with BMI 39.9 Diabetes type 2 [id number] with hyperglycemia Hearing disorder/deafness Hypertension Osteoarthritis History of PE Obstructive sleep apnea not on CPAP at home due to recall Diabetic peripheral neuropathy Chronic back pain Previous history of smoking Hypothyroidism DVT prophylaxis Full code Discharge Disposition Patient is being discharged in stable condition with guarded prognosis to home and will continue with home care in the outpatient setting. Patient to follow- up with primary care provider at the [facility] upon discharge along with pulmonary Dr. Alfonso in the outpatient setting. Patient to complete a short course of zithromax for 5 days along with a prednisone taper. Total time taken is greater than 35 minutes. Hospital Course Patient is a 71-year-old male with a known history of COPD on oxygen at 3 L via nasal cannula. Hearing disorder/deafness, coronary artery disease, hypertension, hyperlipidemia, diabetes type 2, history of PE, obstructive sleep apnea, hypothyroidism and obesity and previous history of smoking was brought to the hospital due to complaints of shortness of breath worsening for the past 2 to 3 days. Patient is also having episodes of confusion. Does not have any cough or sputum production. No complaints of chest pain. Patient was brought to the hospital by his who was able to provide history. Patient is taking care of by his at home. He has been lethargic last few days. On admission patient was febrile and tachycardic and pulse ox 92% on 5 L oxygen via nasal cannula. Blood pressure is 132/78 Laboratory showed WBC 11.6 hemoglobin 12.9 and platelets 150 lymphocytes 0.32 Sodium 141 potassium 4.1 chloride 97 bicarb is 35 BUN 18 and creatinine 1.01 and blood sugar at 184 lactic acid 2.7 magnesium 1.4 bilirubin level is 1.5 liver enzymes are not elevated. Troponin 0 0.018 and proBNP 673. COVID-19 PCR not detected. Chest x-ray showed left lower lobe infiltrate with mild scattered infiltrate in the right lung. Correlate for pneumonia and atypical pneumonia. CT angiography chest showed no acute PE. Clinical consideration for pulmonary hypertension is recommended. Mild pulmonary edema may be present. Atypical pneumonia is considered less likely but is within the differential. Focal posterior left lung peripheral consolidation correlate for pneumonia. Follow-up to clearing is recommended. 09/13/2021 Patient is evaluated today sitting up in the chair. He is wearing oxygen at 5 L nasal cannula, currently 97%. He does wear 3 L oxygen at home. Patient is a history of obstructive sleep apnea he currently does not wear a CPAP at home as his unit was recalled, he does get apneic with a pulse ox down in the 80s per nurse. He is afebrile, 72 sinus rhythm, blood pressure 130/67. Labs today show a CO2 of 33, glucose is elevated in the 300s. Mag is 2.5 after transfusion. His BNP today is 1170. TSH is low at 0.158, we are pending a T4. Chest x-ray today showed cardiomegaly correlate for chronic interstitial lung disease, interstitial pneumonitis or venous congestion is the differential. Echocardiogram is pending. Pending pulmonary consultation. 09/14/2021 Patient evaluated in the chair, he does state that his breathing feels really were not sure. He is wheezing posteriorly all lung fisher. He is getting duonebs as needed has not had a breathing treatment in 24 hours. Ordered DuoNeb's 4 times a day scheduled as well as PRN. Patient is 93% on 4 L nasal cannula, afebrile, blood pressure 140/73. White count today is 8.35, hemoglobin stable 11.8. T4 is within normal limits at 1.370, no need to adjust synthroid dose. Legionella and mycoplasma pending. Echocardiogram shows severe concentric left ventricular hypertrophy with an EF between 55-60%. There is no evidence of pulmonary hypertension. Patient states that he is having a cough with sputum, he states the sputum was black and he gave a sample today. 09/15/2021 Patient is evaluated today sitting in a chair, there is no wheezing present he states that he is feeling better on the DuoNeb's. Patient does have crackles in his left lung base, peripheral edema seems to be increasing as compared to yesterday. He has 94% on 3 L nasal cannula. Blood pressure today is 144/89, which we increased metoprolol to 50 twice a day as he is hypertensive this morning with a systolic blood pressure 190s. Patient has remained afebrile, sputum culture still pending. 09/16/2021 Patient seen in the chair, resting. He states that he feels like his breathing is improving and is able to tolerate activity. He is on 3 L is a cannula with an oxygen saturation of 94%. Blood pressure is 165/84, afebrile, heart rate 82. White blood cell count today is 7.12, hemoglobin stable at 11.8. Chest x-ray this morning shows cardiomegaly correlate for chronic disease. Superimposed interstitial pneumonitis or venous congestion in the differential. Bibasilar atelectasis or infiltrate with tiny effusions. Continues on oral Lasix, IV Solu-Medrol. 09/17/2021 Patient is seen in follow up this morning and requesting to go home. Patient was evaluated by pulmonary and recommending close outpatient follow up with continu ed breathing inhalational treatments and oral Zithromax for the next 5 days on discharge. Sputum culture shows mycoplasma. Patient has nebulizer and home oxygen arranged. Currently no reports of chest pain, shortness of breath, or palpitations. Patient is afebrile. No reports of nausea or vomiting and patient is tolerating diet. Patient will be discharged home today with home care. Guarded prognosis. GENERAL: The patient is alert and oriented x3, Well developed, well nourished. HEENT: Pupils are round and equally reacting to light. EOMI. No scleral icterus. Does have conjunctival pallor. Normocephalic, atraumatic. No pharyngeal erythema. No thyromegaly. CARDIOVASCULAR: S1 and S2 muffled PULMONARY: diminished breath sounds bilaterally with coarse rhonchi noted. ABDOMEN: Soft, non-tender, normoactive bowel sounds. No palpable organomegaly. MUSCULOSKELETAL: No joint swelling or deformity. EXTREMITIES: No cyanosis, clubbing, or pedal edema. NEUROLOGICAL: Gross neurological examination did not reveal any focal deficits. SKIN: No rashes. Please see medication reconcilation for list of current medications. Patient Condition at Discharge: Fair Plan - Discharge Summary Discharge Rx Participant: No New Discharge Prescriptions: New Ipratropium-Albuterol Nebulize [Duoneb 0.5 mg-3 mg/3 ml Soln] 3 ml INHALATION RT-QID 30 Days #90 ml Metoprolol Tartrate [Lopressor] 50 mg PO BID 30 Days #60 tab predniSONE 10 mg PO DIRECTED #30 tab Acetaminophen Tab [Tylenol] 650 mg PO Q6HR PRN tab PRN Reason: Fever And/ Or Pain Azithromycin [Zithromax] 500 mg PO DAILY 5 Days #5 tab Continue Pantoprazole [Protonix] 40 mg PO HS Loratadine 10 mg PO DAILY Levothyroxine Sodium [Synthroid] 100 mcg PO DAILY Atorvastatin [Lipitor] 80 mg PO HS Aspirin 325 mg PO DAILY Alendronate Sodium [Fosamax] 70 mg PO MO Tamsulosin [Flomax] 0.4 mg PO HS Artificial Tears-Hypromellose [Artificial Tear Drops] 1 drops BOTH EYES BID Cholecalciferol [Vitamin D3 (25 Mcg = 1000 Iu)] 50 mcg PO HS Furosemide [Lasix] 20 mg PO DAILY Primidone [Mysoline] 50 mg PO BID Potassium Chloride [Potassium Chloride ER] 10 meq PO Q48H Ipratropium-Albuterol Nebulize [Duoneb 0.5 mg-3 mg/3 ml Soln] 3 ml INHALATION RT-QID PRN ml PRN Reason: Shortness Of Breath Or Wheezing Gabapentin [Neurontin] 400 mg PO TID #12 cap Folic Acid 1 mg PO DAILY #30 tablet Multivitamins, Thera [Multivitamin (formulary)] 1 tab PO DAILY #30 tablet Thiamine [Vitamin B-1] 100 mg PO DAILY #30 tablet levETIRAcetam [Keppra] 500 mg PO BID glipiZIDE [Glucotrol] 2.5 mg PO AC-SUPPER Nitroglycerin Sl Tabs [Nitrostat] 0.4 mg SUBLINGUAL Q5M PRN PRN Reason: Chest Pain Diclofenac Sodium Gel [Voltaren Gel] 1 applic TOPICAL DAILY PRN PRN Reason: KNEES Discontinued Metoprolol Tartrate 25 mg PO BID Discharge Medication List Alendronate Sodium [Fosamax] 70 mg PO MO 03/03/17 [History] Aspirin 325 mg PO DAILY 03/03/17 [History] Atorvastatin [Lipitor] 80 mg PO HS 03/03/17 [History] Levothyroxine Sodium [Synthroid] 100 mcg PO DAILY 03/03/17 [History] Loratadine 10 mg PO DAILY 03/03/17 [History] Pantoprazole [Protonix] 40 mg PO HS 03/03/17 [History] Tamsulosin [Flomax] 0.4 mg PO HS 01/25/19 [History] Artificial Tears-Hypromellose [Artificial Tear Drops] 1 drops BOTH EYES BID 02/19/20 [History] Cholecalciferol [Vitamin D3 (25 Mcg = 1000 Iu)] 50 mcg PO HS 02/19/20 [History] Furosemide [Lasix] 20 mg PO DAILY 04/16/20 [History] Potassium Chloride [Potassium Chloride ER] 10 meq PO Q48H 04/17/20 [History] Primidone [Mysoline] 50 mg PO BID 04/17/20 [History] Folic Acid 1 mg PO DAILY #30 tablet 04/21/20 [Rx] Gabapentin [Neurontin] 400 mg PO TID #12 cap 04/21/20 [Rx] Ipratropium-Albuterol Nebulize [Duoneb 0.5 mg-3 mg/3 ml Soln] 3 ml INHALATION RT-QID PRN ml 04/21/20 [Rx] Multivitamins, Thera [Multivitamin (formulary)] 1 tab PO DAILY #30 tablet 04/21/20 [Rx] Thiamine [Vitamin B-1] 100 mg PO DAILY #30 tablet 04/21/20 [Rx] Diclofenac Sodium Gel [Voltaren Gel] 1 applic TOPICAL DAILY PRN 09/12/21 [History] Nitroglycerin Sl Tabs [Nitrostat] 0.4 mg SUBLINGUAL Q5M PRN 09/12/21 [History] glipiZIDE [Glucotrol] 2.5 mg PO AC-SUPPER 09/12/21 [History] levETIRAcetam [Keppra] 500 mg PO BID 09/12/21 [History] Acetaminophen Tab [Tylenol] 650 mg PO Q6HR PRN tab 09/17/21 [Rx] Azithromycin [Zithromax] 500 mg PO DAILY 5 Days #5 tab 09/17/21 [Rx] Ipratropium-Albuterol Nebulize [Duoneb 0.5 mg-3 mg/3 ml Soln] 3 ml INHALATION RT-QID 30 Days #90 ml 09/17/21 [Rx] Metoprolol Tartrate [Lopressor] 50 mg PO BID 30 Days #60 tab 09/17/21 [Rx] predniSONE 10 mg PO DIRECTED #30 tab 09/17/21 [Rx] Follow up Appointment(s)/Referral(s): Bertha Alfonso MD [STAFF PHYSICIAN] - 09/30/21 2:15 pm [facility] 1[facility]2 Days [facility],Clinic [Primary Care Provider] - 09/30/21 8:30 am Patient Instructions/Handouts: Pneumonia (DC) Activity/Diet/Wound Care/Special Instructions: Senior Technical Support Engineer faxed request for home care to the [facility]. Please call the [facility] at [phone] if you do not hear from a home care company within 2 days of discharge. Activity Limited until follow-up Follow-up with primary care provider on discharge Continue taking medications as prescribed Continue heart healthy consistent carb diabetic diet Monitor blood sugars and keep a diary for primary follow-up Follow-up with pulmonary outpatient Continue with antibiotics until finished Discharge Disposition: HOME WITH HOME HEALTH SERVICES
== END 2021-09-17 13:04 | disposition home health service (06) | DRG 871 ==
LOC: EC 08:19 → 4SSUR 12:29
PROVIDERS: ADMIT Internal Medicine; ATTEND Internal Medicine
DX: A41.9 Sepsis, unspecified organism (principal); J18.9 Pneumonia, unspecified organism; G93.41 Metabolic encephalopathy; J96.21 Acute and chronic respiratory failure with hypoxia; E87.2 Acidosis; J44.0 Chronic obstructive pulmonary disease with (acute) lower respiratory infection; J44.1 Chronic obstructive pulmonary disease with (acute) exacerbation; J84.9 Interstitial pulmonary disease, unspecified; J98.11 Atelectasis; I27.20 Pulmonary hypertension, unspecified; E89.3 Postprocedural hypopituitarism; E86.0 Dehydration; E11.42 Type 2 diabetes mellitus with diabetic polyneuropathy; E11.65 Type 2 diabetes mellitus with hyperglycemia; Z20.822 Contact with and (suspected) exposure to COVID-19; I10 Essential (primary) hypertension; E83.42 Hypomagnesemia; E66.01 Morbid (severe) obesity due to excess calories; Z68.39 Body mass index [BMI] 39.0-39.9, adult; G47.33 Obstructive sleep apnea (adult) (pediatric); E03.9 Hypothyroidism, unspecified; G89.29 Other chronic pain; M54.9 Dorsalgia, unspecified; I25.10 Atherosclerotic heart disease of native coronary artery without angina pectoris; E78.5 Hyperlipidemia, unspecified; K21.9 Gastro-esophageal reflux disease without esophagitis; M19.90 Unspecified osteoarthritis, unspecified site; M81.0 Age-related osteoporosis without current pathological fracture; R25.1 Tremor, unspecified; H40.9 Unspecified glaucoma; H91.90 Unspecified hearing loss, unspecified ear; Z99.81 Dependence on supplemental oxygen; Z79.83 Long term (current) use of bisphosphonates; Z79.82 Long term (current) use of aspirin; Z79.84 Long term (current) use of oral hypoglycemic drugs; Z79.890 Hormone replacement therapy; Z79.899 Other long term (current) drug therapy; Z87.19 Personal history of other diseases of the digestive system; Z90.49 Acquired absence of other specified parts of digestive tract; Z96.653 Presence of artificial knee joint, bilateral; Z98.42 Cataract extraction status, left eye; Z98.41 Cataract extraction status, right eye; Z86.711 Personal history of pulmonary embolism; Z86.69 Personal history of other diseases of the nervous system and sense organs; Z87.891 Personal history of nicotine dependence; Z98.890 Other specified postprocedural states; Z88.8 Allergy status to other drugs, medicaments and biological substances; Z80.1 Family history of malignant neoplasm of trachea, bronchus and lung
CPT/HCPCS: 36415; 71045; 71046; 71275; 80048; 80053; 83605; 83735; 83880; 84145; 84439; 84443; 84484; 85025; 85379; 85610; 85730; 86738; 87040; 87070; 87205; 87449; 87635; 93005; 93306; 94640; 94760; 96361; 96365; 96366; 96368; 96375; 99285

== ENCOUNTER → 2021-11-29 | Outpatient (CLI) | payer OTHER ==
[2021-11-29 19:02] LABS: HCT 39.7 % (39.6-50.0); HGB 12.3 g/dL (13.0-17.0); MCH 30.4 pg (27.0-32.0); MCV 98.3 fL (80.0-97.0); Mean Platelet Volume 10.3 fL (9.5-12.2); Platelet Count 126 X 10*3/uL (140-440); RBC 4.04 X 10*6/uL (4.40-5.60); RDW 13.4 % (11.5-14.5); WBC 4.37 X 10*3/uL (4.50-10.00)
[2021-11-29 19:17] LABS: African American GFR (CKD) 86.2 (60.0-200.0); Anion Gap 12.7 mmol/L (10.00-18.00); Blood Urea Nitrogen 11.1 mg/dL (9.0-27.0); Carbon Dioxide 35.3 mmol/L (20.0-27.5); Non-African American GFR(CKD) 74.3 (60.0-200.0); Potassium 4.1 mmol/L (3.5-5.5)
== END | disposition home or self-care (01) ==
LOC: LABPAT 11:31
PROVIDERS: ATTEND Internal Medicine Cardiovascular Disease
DX: Z01.812 Encounter for preprocedural laboratory examination (principal); U07.1 COVID-19; R07.2 Precordial pain
CPT/HCPCS: 80051; 82565; 84520; 85027; U0003

== ENCOUNTER 2021-12-07 06:01 | Day surgery (SDC) | payer MEDICARE, OTHER ==
[2021-12-01 09:42] VITALS: BMI 40.1
[~2021-12-07 06:01] MED LIST changes: +ALPRAZolam 0.25 MG TAB PO PRN; +ALPRAZolam 0.5 MG TAB PO PRN; +ASPIRIN 325 MG TAB PO STA; +HEPARIN SODIUM,PORCINE 10,000 UNIT in SODIUM CHLORIDE 0.9% 1,000 ML IRRIGATION PRN; +HEPARIN SODIUM,PORCINE 2,500 UNIT in SODIUM CHLORIDE 0.9% 250 ML IRRIGATION PRN; -LACTATED RINGERS 1,000 ML IV SCH; -LIDOCAINE 1% 20 ML VIAL (10MG/ML) FOR IV START INTRADERMA PRN; -MIDAZOLAM 2 MG/2 ML VIAL IV PRN; +NITROGLYCERIN SL TABS 0.4 MG TAB SUBLINGUAL PRN; +SODIUM CHLORIDE 0.9% 1,000 ML in EMPTY BAG 1 BAG IV SCH
[2021-12-07] MEDS ORDERED: SODIUM CHLORIDE 0.9% 1,000 ML IV ONE (06:44)
[2021-12-07 07:04] LABS: Glucose,Whole Blood 136 mg/dL (75-99)
[2021-12-07 07:06] VITALS: RESP 16; TEMP 98.9
[2021-12-07 07:11] LABS: Basophils % (A) 0 %; Eosinophils # (A) 0.2 k/uL (0-0.7); Eosinophils % (A) 4 %; HCT 39.1 % (39.0-53.0); HGB 12.7 gm/dL (13.0-17.5); Lymphocytes % (A) 18 %; MCHC 32.5 g/dL (31.0-37.0); MCV 95.3 fL (80.0-100.0); Mean Platelet Volume 7.8; Monocytes # (A) 0.4 k/uL (0-1.0); Monocytes % (A) 8 %; Neutrophils # (A) 3.6 k/uL (1.3-7.7); Neutrophils % (A) 68 %; Platelet Count 194 k/uL (150-450); RDW 13.7 % (11.5-15.5); WBC 5.4 k/uL (3.8-10.6)
[2021-12-07] MEDS ORDERED: fentaNYL (PF) 50 MCG/ML 2 ML AMP IV ONE (07:41)
[2021-12-07] MEDS ORDERED: MIDAZOLAM 2 MG/2 ML VIAL IV ONE (07:41)
[2021-12-07] MEDS ORDERED: LIDOCAINE 1% INJ 10MG/ML (20 ML MDV) SQ ONE (07:42)
[2021-12-07] MEDS ORDERED: VERAPAMIL SYRINGE (5 MG/10 ML) INTRAARTER ONE (07:43)
[2021-12-07] MEDS: HEPARIN SODIUM 1,000 UN/ML (10ML VL) IV ONE ×3 (07:53→09:15)
[2021-12-07] MEDS ORDERED: CLOPIDOGREL 75 MG TAB PO ONE (09:07)
--- NOTE | 2021-12-07 09:22 | CC ---
CARDIAC CATHETERIZATION REPORT INDICATION: This is a 71-year-old gentleman with multiple coronary risk factors, including type 2 diabetes, hypertension and dyslipidemia, who presented to me with symptoms of progressively worsening chest discomfort. He used sublingual nitroglycerin 3 to 4 times because of chest pain. He has shortness of breath related to COPD. Patient had a stress test in June that did not reveal any ischemia and his LV function is normal. Given the symptomatology suggestive of unstable angina, I advised him to undergo cardiac catheterization for definitive diagnosis. He has been explained risks, benefits and alternatives. PROCEDURE NOTE: After obtaining informed consent, left heart catheterization and coronary angiogram were performed via the right radial artery using size 4 right and left James catheters, and hemodynamics were obtained using a pigtail catheter. The patient tolerated the procedure well without any obvious immediate complications. The right radial artery access was obtained using a micropuncture needle under fluoroscopic guidance, and using a Glidewire, catheters and wires were floated into the ascending aorta, where they were exchanged. Patient received 5 mg of verapamil and 5000 units of intravenous heparin as per protocol. FINDINGS: HEMODYNAMICS: Left ventricular end-diastolic pressure is 5 mm. There is no significant gradient across the aortic valve. LEFT VENTRICULOGRAM: Left ventriculogram was not performed. ANGIOGRAPHIC DATA: Right coronary artery. Right coronary artery is a large dominant vessel that shows a focal area of stenosis in the proximal RCA. At its worst, it seems to be a 50% to 60% stenosis. It is an extensive lesion. Left main coronary artery is a normal-sized vessel and is free of stenosis. It divides into left anterior descending coronary artery and a nondominant circumflex coronary artery. LAD and its branches, circumflex coronary artery and its branches are free of significant stenosis. CONCLUSIONS: Moderate to severe focal stenotic area within the right coronary artery. PLAN: I am going to have the on-call national sales do an FFR to assess the hemodynamic significance and if necessary perform angioplasty of the same. MMODL / IJN: [id number] /
[2021-12-07] MEDS ORDERED: IOPAMIDOL-370 125ML BTL INJ ONE (09:30)
[2021-12-07] MEDS ORDERED: IOPAMIDOL-370 100ML BTL INJ ONE (09:44)
[2021-12-07] MEDS ORDERED: HEPARIN SODIUM 1,000 UN/ML (10ML VL) IV ONE (09:44)
[2021-12-07] MEDS ORDERED: ZOLPIDEM 5 MG TAB PO PRN (09:47)
[2021-12-07] MEDS ORDERED: NITROGLYCERIN SL TABS 0.4 MG TAB SUBLINGUAL PRN (09:47)
[2021-12-07] MEDS ORDERED: MAG HYDROX/AL HYDROX/SIMETH 30 ML CUP PO PRN (09:47)
[2021-12-07] MEDS ORDERED: ATROPINE SULFATE 0.1 MG/ML 10ML SYRINGE IV PRN (09:47)
--- NOTE | 2021-12-07 09:59 | P.CARDCATH ---
Date of Procedure: 12/07/21 Description of Procedure: PERCUTANEOUS TRANSLUMINAL CORONARY ANGIOPLASTY CLINICAL INFORMATION: The patient is a 71-year-old male with a known history of hypertension, hyperlipidemia and diabetes mellitus who has been complaining of progressive chest discomfort, underwent cardiac catheterization by Dr. Nicole and was found to have borderline lesion in the proximal RCA. Recommendations were made regarding IFR and if positive proceed with angioplasty. The procedure as well as the risk and the complications were discussed with the patient was informed standing and agreement. PROCEDURE: A 6 Brazilian James right 4 guiding catheter was introduced into the system. Following that an Omni flow wire was introduced, positioned distally and IFR was measured at 0.81. At that time attempted to advance a 4.0 by 23 mm Xience romi point were unsuccessful. A 0.014 balanced medium J-wire was introduced next the first one but the stent would not advance. At that time the guiding catheter was removed and a 0.075 Amplatz left was introduced. After cannulating the right coronary ostium 0.014 balanced medium J-wire was advanced and another wire similar was advanced in a pablo fashion, the advancement of the stent was unsuccessful, at that time one of the wire was removed and Guadzela 6- Brazilian was introduced and the stent was introduced, positioned, deployed and dilated at 16 davide. After the last inflation, after appropriate wait, the balloon and the guidewire were withdrawn back into the guiding catheter. Images were obtained and repeated. Those images reveal stable successful stenting. At that point, the guiding catheter, the balloon, and guidewire were removed. The sheath was removed. Hemostasis was obtained with deployment the TR band. There were no immediate complications. The patient was returned to the room in stable condition. Of note, the patient received 12,000 units of heparin as well as Plavix. The patient had no chest discomfort but had EKG changes with the inflations. His ACT was followed. RESULTS: Successful stenting of the maximal RCA and a tortuous calcified segment with reduction of stenosis from 70% to 0 % with abnormal IFR free procedure. RECOMMENDATIONS: The patient will be continued on aspirin and Plavix for 6 months. He will continue with aggressive coronary risk modifications. The findings as well as the recommendations were discussed with the patient and his family and they are informed standing and agreement. Duration of sedation 48 minutes
[2021-12-07] MEDS ORDERED: SODIUM CHLORIDE 0.9% 1,000 ML in EMPTY BAG 1 BAG IV SCH (10:00)
[2021-12-07 14:39] VITALS: BP 115/72; PULSE 74
[2021-12-07] MEDS ORDERED: GABAPENTIN 400 MG CAP PO SCH (16:00)
[2021-12-07] MEDS ORDERED: ATORVASTATIN 80 MG TAB PO SCH (21:00)
[2021-12-07] MEDS ORDERED: METOPROLOL TARTRATE 50 MG TAB PO SCH (21:00)
[2021-12-07] MEDS ORDERED: levETIRAcetam 500 MG TAB PO SCH (21:00)
[2021-12-08] MEDS ORDERED: LEVOTHYROXINE 100 MCG TAB PO SCH (06:30)
[2021-12-08] MEDS ORDERED: PANTOPRAZOLE 40 MG TABLET PO SCH (07:30)
[2021-12-08] MEDS ORDERED: CLOPIDOGREL 75 MG TAB PO SCH (09:00)
[2021-12-08] MEDS ORDERED: ASPIRIN 81 MG PO SCH (09:00)
== END 2021-12-07 14:13 | disposition home or self-care (01) ==
LOC: CATHCVL 06:01
PROVIDERS: ATTEND Internal Medicine Cardiovascular Disease
DX: I25.110 Atherosclerotic heart disease of native coronary artery with unstable angina pectoris (principal); I25.84 Coronary atherosclerosis due to calcified coronary lesion; I10 Essential (primary) hypertension; I77.1 Stricture of artery; E11.9 Type 2 diabetes mellitus without complications; E78.2 Mixed hyperlipidemia; J44.9 Chronic obstructive pulmonary disease, unspecified; Z99.81 Dependence on supplemental oxygen; Z82.49 Family history of ischemic heart disease and other diseases of the circulatory system; Z72.0 Tobacco use; Z90.49 Acquired absence of other specified parts of digestive tract; Z98.890 Other specified postprocedural states; Z96.653 Presence of artificial knee joint, bilateral; Z79.82 Long term (current) use of aspirin; Z79.890 Hormone replacement therapy; Z79.899 Other long term (current) drug therapy
CPT/HCPCS: 93571; 93458; 85025; C9600; C1769 ×3; C1887 ×3; C1894; C1874; J2250; J2001; J3010; J1644; Q9967 ×2

== ENCOUNTER 2022-11-07 10:58 | Emergency (ER) | payer MEDICARE ==
--- NOTE | 2022-11-07 11:31 | ED ---
General Adult HPI - General Source: patient, RN notes reviewed Mode of arrival: wheelchair Limitations: no limitations <Otto Woodruff - Last Filed: 11/07/22 11:30> <Td Lweis - Last Filed: 11/07/22 15:02> - General Stated complaint: Fall, R leg pain & wheezing Time Seen by Provider: 11/07/22 11:30 - History of Present Illness Initial comments: 72-year-old male presents emergency Department chief complaint of a fall 2 weeks ago, wheezing. Patient states that he fell onto his right leg complains of right lower leg pain, right knee pain states it's very painful to walk on. Patient states that he also has a history of COPD oxygen dependent and states been having increasing wheezing. Denies any leg swelling. Denies any head i njury from the fall. Patient denies any significant fever (Otto Woodruff) Dictation was produced using [employer] dictation software. please excuse any grammatical, word or spelling errors. Chief Complaint: 72-year-old male presents with Shortness of breath and right lower extremity pain after fall 2 weeks ago History of Present Illness: 72-year-old male is past medical history of COPD. He is oxygen dependent worse 4 L nasal cannula at home. Patient was walking 2 weeks ago when he all of a sudden felt like his legs didn't work. He felt the ground hurting his right leg. States that he fell and hurt his right lower leg anteriorly. Patient's has been walking though limited painful over the last 24 hours since the incident. Patient also has been having some wheezing and shortness of breath over the last 2-3 days. Denies any chest pain. The ROS documented in this emergency department record has been reviewed and confirmed by me. Those systems with pertinent positive or negative responses have been documented in the HPI. All other systems are other negative and/or noncontributory. PHYSICAL EXAM: General Impression: Alert and oriented x3, not in acute distress HEENT: Normocephalic atraumatic, extra-ocular movements intact, pupils equal and reactive to light bilaterally, mucous membranes moist. Cardiovascular: Heart regular rate and rhythm Chest: Able to complete full sentences, no retractions, no tachypnea, diffuse rhonchi Abdomen: abdomen soft, non-tender, non-distended, no organomegaly Musculoskeletal: Pulses present and equal in all extremities, no peripheral edema Motor: no focal deficits noted Neurological: CN II-XII grossly intact, no focal motor or sensory deficits noted Skin: Intact with no visualized rashes Psych: Normal affect and mood ED course: 72-year-old well-appearing male presents emergency of her right lower extremity pain after suffering a fall 2 weeks ago and shortness of breath for the last 2 days. Vital Signs upon arrival are within acceptable limits. Nursing notes and chart review was performed Laboratory evaluation obtained. CBC remarkable. Metabolic panel negative. Viral panel is negative. Chest x-ray shows chronic suggestive of heart failure. Right fibula shows refracture at the proximal fibula and distal fibula. Patient has components of heart failure and COPD exacerbations given Lasix IV and dose of Decadron. Patient is well-appearing at bedside distress. patient is agreeable with discharge with outpatient referral to orthopedic surgery and told to follow-up with primary care doctor and/or laundry housekeeper or management of heart failure and outpatient basis. Was pt. sent in by a medical professional or institution (, PA, AIR ROUTE TRAFFIC CONTROLLER, urgent care, hospital, or usp...) When possible be specific @ -No Did you speak to anyone other than the patient for history (EMS, parent, family, police, friend...)? What history was obtained from this source @ - at the bedside Did you review nursing and triage notes (agree or disagree)? Why? @ -I reviewed and agree with nursing and triage notes Were old charts reviewed (outside hosp., previous admission, EMS record, old EKG, old radiological studies, urgent care reports/EKG's, usp records)? Report findings @ -Echocardiogram reviewed showing no evidence of severe heart failure Differential Diagnosis (chest pain, altered mental status, abdominal pain women, abdominal pain men, vaginal bleeding, weakness, fever, dyspnea, syncope, headache, dizziness, GI bleed, back pain, seizure, CVA, palpatations, mental health)? @ -Differential Dyspnea: Coronary syndrome, arrhythmia, tamponade, asthma, COPD, pulmonary embolism, pneumonia, pneumothorax, pulmonary effusion, anaphylaxis, diabetic ketoacidosis, flailed chest, pulmonary contusion, diaphragmatic rupture, anemia, neuromuscular, this is not meant to be an all-inclusive list. EKG interpreted by me (3pts min.). @ -As above X-rays interpreted by me (1pt min.). @ -See above CT interpreted by me (1pt min.). @ -None U/S interpreted by me (1pt. min.). @ -None done What testing was considered but not performed or refused? (CT, X-rays, U/S, labs)? Why? @ -CT brain was considered however patient's. Weeks ago. He denies any trauma. What meds were considered but not given or refused? Why? @ -None Did you discuss the management of the patient with other professionals (professionals i.e. , PA, [employer] R[employer]TE TRAFFIC CONTROLLER, lab, RT, psych nurse, social media marketing specialist, certified legal investigator, teacher, chief risk officer, renal case manager)? Give summary @ -No Was smoking cessation discussed for >3mins.? @ -No Was critical care preformed (if so, how long)? @ -No Were there social determinants of health that impacted care today? How? (Homel essness, low income, unemployed, alcoholism, drug addiction, transportation, low edu. Level, literacy, decrease access to med. care, fci, rehab)? @ -No Was there de-escalation of care discussed even if they declined (Discuss DNR or withdrawal of care, Hospice)? DNR status @ -No What co-morbidities impacted this encounter? (DM, HTN, Smoking, COPD, CAD, Cancer, CVA, ARF, Chemo, Hep., AIDS, mental health diagnosis, sleep apnea, morbid obesity)? @ -None Was patient admitted / discharged? Hospital course, mention meds given and route, prescriptions, significant lab abnormalities, going to OR and other pertinent info. @ -Discharge Undiagnosed new problem with uncertain prognosis? @ -No Drug Therapy requiring intensive monitoring for toxicity (Heparin, Nitro, Insulin, Cardizem)? @ -No Were any procedures done? @ -No Diagnosis/symptom? @ -Fibular fracture, heart failure, COPD exacerbation Acute, or Chronic, or Acute on Chronic? @ -Acute on chronic Uncomplicated (without systemic symptoms) or Complicated (systemic symptoms)? @ -default Side effects of treatment? @ -No Exacerbation, Progression, or Severe Exacerbation? @ -Exacerbation of heart failure and COPD Poses a threat to life or bodily function? How? (Chest pain, USA, ID, pneumonia, PE, COPD, DKA, ARF, appy, cholecystitis, CVA, Diverticulitis, Homicidal, Suicidal, threat to staff... and all critical care pts) @ -yes (Td Lewis) - Related Data Home Medications Medication Instructions Recorded Confirmed Atorvastatin [Lipitor] 80 mg PO HS 03/03/17 12/07/21 Levothyroxine Sodium [Synthroid] 100 mcg PO DAILY 03/03/17 12/07/21 Loratadine 10 mg PO DAILY 03/03/17 12/07/21 Pantoprazole [Protonix] 40 mg PO DAILY 03/03/17 12/07/21 Tamsulosin [Flomax] 0.4 mg PO HS 01/25/19 12/07/21 Artificial Tears-Hypromellose 1 drops BOTH EYES BID 02/19/20 12/07/21 [Artificial Tear Drops] Cholecalciferol [Vitamin D3 (25 50 mcg PO HS 02/19/20 12/07/21 Mcg = 1000 Iu)] Furosemide [Lasix] 20 mg PO DAILY 04/16/20 12/07/21 Potassium Chloride [Potassium 10 meq PO Q48H 04/17/20 12/07/21 Chloride ER] Primidone [Mysoline] 50 mg PO BID 04/17/20 12/07/21 Nitroglycerin Sl Tabs [Nitrostat] 0.4 mg SUBLINGUAL Q5M PRN 09/12/21 12/07/21 glipiZIDE [Glucotrol] 2.5 mg PO AC-SUPPER 09/12/21 12/07/21 levETIRAcetam [Keppra] 500 mg PO BID 09/12/21 12/07/21 Previous Rx's Medication Instructions Recorded Folic Acid 1 mg PO DAILY #30 tablet 04/21/20 Gabapentin [Neurontin] 400 mg PO TID #12 cap 04/21/20 Multivitamins, Thera [Multivitamin 1 tab PO DAILY #30 tablet 04/21/20 (formulary)] Thiamine [Vitamin B-1] 100 mg PO DAILY #30 tablet 04/21/20 Acetaminophen Tab [Tylenol] 650 mg PO Q6HR PRN tab 09/17/21 Ipratropium-Albuterol Nebulize 3 ml INHALATION RT-QID 30 Days #90 09/17/21 [Duoneb 0.5 mg-3 mg/3 ml Soln] ml Metoprolol Tartrate [Lopressor] 50 mg PO BID 30 Days #60 tab 09/17/21 Aspirin 81 mg PO DAILY #0 12/07/21 Clopidogrel Bisulfate [Plavix] 75 mg PO DAILY #90 tab 12/07/21 Allergies Allergy/AdvReac Type Severity Reaction Status Date / Time metoclopramide AdvReac TREMORS Verified 12/03/21 10:05 Review of Systems ROS Other: All systems not noted in ROS Statement are negative. <Otto Woodruff - Last Filed: 11/07/22 11:30> ROS Other: All systems not noted in ROS Statement are negative. <Td Lewis - Last Filed: 11/07/22 15:02> ROS Statement: Those systems with pertinent positive or pertinent negative responses have been documented in the HPI. Past Medical History Past Medical History: Coronary Artery Disease (CAD), COPD, Diabetes Mellitus, Eye Disorder, GERD/Reflux, Hearing Disorder / Deafness, Hyperlipidemia, Hypertension, Osteoarthritis (OA), Pulmonary Embolus (PE), Sleep Apnea/CPAP/BIPAP, Thyroid Disorder Additional Past Medical History / Comment(s): O2 3L. PE IN 2007. CHRONIC BACK PAIN. DIABETIC NEUROPATHY IN FEET. GLAUCOMA. TREMORS. OSTEOPOROSIS. bipap ORDERED BUT DOESN'T USE. HX POLYPS History of Any Multi-Drug Resistant Organisms: None Reported Past Surgical History: Appendectomy, Cholecystectomy, Hernia Repair, Orthopedic Surgery Additional Past Surgical History / Comment(s): BILATERAL KNEE REPLACEMENT, PLUS RIGHT KNEE DONE AGAIN; RIGHT ROTATOR CUFF. PITUITARY TUMOR REMOVED. BILATERAL CATARACTS. SINUS surgery. GLAUCOMA SURGERY. EYE LID SURGERY. Additional Past Anesthesia/Blood Transfusion Reaction / Comment(s): QUESTIONABLE THAT VERSED MAY OVERLY SEDATE. Additional Past Alcohol Use History / Comment(s): QUIT LATE 2015, SMOKED FOR 58 YRS. - Past Family History Mother Family Medical History: Cancer Additional Family Medical History / Comment(s): LUNG <Otto Woodruff - Last Filed: 11/07/22 11:30> Course Vital Signs 11/07/22 11/07/22 11/07/22 11:31 12:13 12:45 Temperature 98 F Pulse Rate 107 H 102 H Respiratory 24 18 24 Rate Blood Pressure 120/49 115/88 O2 Sat by Pulse 91 L 91 L Oximetry Medical Decision Making - Lab Data Result diagrams: 11/07/22 12:10 11/07/22 12:10 <DebbieTd D - Last Filed: 11/07/22 15:02> - Lab Data Lab Results 11/07/22 11/07/22 11/07/22 Range/Units 12:10 12:10 12:54 WBC 4.1 (3.8-10.6) k/uL RBC 3.80 L (4.30-5.90) m/uL Hgb 12.1 L (13.0-17.5) gm/dL Hct 36.0 L (39.0-53.0) % MCV 94.9 (80.0-100.0) fL MCH 31.8 (25.0-35.0) pg MCHC 33.6 (31.0-37.0) g/dL RDW 13.8 (11.5-15.5) % Plt Count 189 (150-450) k/uL MPV 8.5 Neutrophils % 71 % Lymphocytes % 13 % Monocytes % 7 % Eosinophils % 6 % Basophils % 1 % Neutrophils # 2.9 (1.3-7.7) k/uL Lymphocytes # 0.5 L (1.0-4.8) k/uL Monocytes # 0.3 (0-1.0) k/uL Eosinophils # 0.2 (0-0.7) k/uL Basophils # 0.1 (0-0.2) k/uL Hypochromasia Slight Sodium 143 (137-145) mmol/L Potassium 4.1 (3.5-5.1) mmol/L Chloride 99 (98-107) mmol/L Carbon Dioxide 38 H (22-30) mmol/L Anion Gap 6 mmol/L BUN 12 (9-20) mg/dL Creatinine 0.95 (0.66-1.25) mg/dL Est GFR (CKD-EPI)AfAm >90 (>60 ml/min/1.73 sqM) Est GFR (CKD-EPI)NonAf 79 (>60 ml/min/1.73 sqM) Glucose 133 H (74-99) mg/dL Calcium 8.9 (8.4-10.2) mg/dL Total Bilirubin 1.1 (0.2-1.3) mg/dL AST 26 (17-59) U/L ALT 18 (4-49) U/L Alkaline Phosphatase 115 (38-126) U/L Total Protein 6.7 (6.3-8.2) g/dL Albumin 3.8 (3.5-5.0) g/dL Influenza Type A (PCR) Not Detected (Not Detectd) Influenza Type B (PCR) Not Detected (Not Detectd) RSV (PCR) Not Detected (Not Detectd) SARS-CoV-2 (PCR) Not Detected (Not Detectd) Disposition <Otto Woodruff - Last Filed: 11/07/22 11:30> Is patient prescribed a controlled substance at d/c from ED?: No Time of Disposition: 15:02 <Td Lewis - Last Filed: 11/07/22 15:02> Clinical Impression: Heart failure, COPD exacerbation, Closed fibular fracture Disposition: HOME SELF-CARE Condition: Fair Instructions (If sedation given, give patient instructions): Heart Failure (ER), COPD (Chronic Obstructive Pulmonary Disease) (ED), Leg Fracture (ED) Referrals: [facility],Clinic [Primary Care Provider] - 1-2 days Cristian Magallanes MD [STAFF PHYSICIAN] - 1-2 days
[2022-11-07 11:34] VITALS: TEMP 98
--- NOTE | 2022-11-07 12:12 | XR ---
EXAMINATION TYPE: XR tibia fibula RT DATE OF EXAM: 11/07/2022 COMPARISON: 08/30/2021 HISTORY: Pain TECHNIQUE: 4 views submitted FINDINGS: Postsurgical changes are noted. There appears to be a new linear lucency through the healin g fracture of the fibula not noted on the prior exam correlate for point tenderness. Additionally the re is a thin linear lucency along the distal fibula suspicious for fracture. Minimally displaced. Justice caneal spurs are noted. IMPRESSION: 1. A minimally displaced oblique fracture distal fibula correlate with point tenderness. 2. There is a new lucency through the healed fracture of the nonunion proximal fibula fracture. This suggest a new mildly displaced fracture through this chronic fracture. Correlate with point tendernes s.
--- NOTE | 2022-11-07 12:13 | XR ---
EXAMINATION TYPE: XR knee complete RT DATE OF EXAM: 11/07/2022 COMPARISON: 08/30/2021 HISTORY: Pain TECHNIQUE: Three views are submitted. FINDINGS: Postsurgical changes are noted. There appears to be a new linear lucency through the healing fracture of the proximal fibula not noted on the prior exam correlate for point tenderness. Additionally ther e vascular calcifications and anteriorly there appears to be multiple areas of metallic chronic appea ring foreign body. Stable from prior exam. Noted. IMPRESSION: 1. There is a new lucency through the healed fracture of the previous proximal fibula fracture. This suggest a new mildly displaced fracture through this chronic fracture. Correlate with point tendernes s.
[2022-11-07 12:27] LABS: Basophils # (A) 0.1 k/uL (0-0.2); Basophils % (A) 1 %; Eosinophils # (A) 0.2 k/uL (0-0.7); Eosinophils % (A) 6 %; HGB 12.1 gm/dL (13.0-17.5); Hypochromasia Slight; Lymphocytes # (A) 0.5 k/uL (1.0-4.8); Lymphocytes % (A) 13 %; MCH 31.8 pg (25.0-35.0); MCHC 33.6 g/dL (31.0-37.0); MCV 94.9 fL (80.0-100.0); Mean Platelet Volume 8.5; Monocytes # (A) 0.3 k/uL (0-1.0); Monocytes % (A) 7 %; Neutrophils # (A) 2.9 k/uL (1.3-7.7); Neutrophils % (A) 71 %; Platelet Count 189 k/uL (150-450); RDW 13.8 % (11.5-15.5); WBC 4.1 k/uL (3.8-10.6)
[2022-11-07 12:40] LABS: ALT 18 U/L (4-49); AST 26 U/L (17-59); African American GFR (CKD) >90 (>60 ml/min/1.73 sqM); Albumin 3.8 g/dL (3.5-5.0); Alkaline Phosphatase 115 U/L (38-126); Blood Urea Nitrogen 12 mg/dL (9-20); Calcium 8.9 mg/dL (8.4-10.2); Chloride 99 mmol/L (98-107); Glucose 133 mg/dL (74-99); Non-African American GFR(CKD) 79 (>60 ml/min/1.73 sqM); Potassium 4.1 mmol/L (3.5-5.1); Sodium 143 mmol/L (137-145); Total Bilirubin 1.1 mg/dL (0.2-1.3); Total Protein 6.7 g/dL (6.3-8.2)
[2022-11-07 12:46] LABS: Anion Gap 6 mmol/L; Carbon Dioxide 38 mmol/L (22-30)
[2022-11-07 12:54] VITALS: PULSE 102
--- NOTE | 2022-11-07 14:52 | XR ---
EXAMINATION TYPE: XR chest 2V DATE OF EXAM: 11/07/2022 COMPARISON: CXR from 09/16/2021 HISTORY: SOB. TECHNIQUE: Frontal and lateral views of the chest are obtained. FINDINGS: There is cardiomegaly with increasing reticular interstitial prominence bilaterally includ ing Mariela B-lines in the periphery. Tiny bilateral pleural effusions seen on lateral view The osseo us structures are intact. IMPRESSION: Findings suggest CHF exacerbation as detailed above more prominent from most recent dayday dillard
[2022-11-07] MEDS ORDERED: dexAMETHasone 4 MG TAB PO STA (14:53)
[2022-11-07] MEDS ORDERED: FUROSEMIDE 10 MG/ML 4 ML VIAL IV STA (14:55)
[2022-11-07 15:54] VITALS: BP 122/84; RESP 18
== END 2022-11-07 15:54 | disposition home or self-care (01) ==
LOC: EC 10:58
DX: J44.1 Chronic obstructive pulmonary disease with (acute) exacerbation (principal); I11.0 Hypertensive heart disease with heart failure; I50.9 Heart failure, unspecified; D64.9 Anemia, unspecified; I25.10 Atherosclerotic heart disease of native coronary artery without angina pectoris; E11.40 Type 2 diabetes mellitus with diabetic neuropathy, unspecified; E11.10 Type 2 diabetes mellitus with ketoacidosis without coma; K21.9 Gastro-esophageal reflux disease without esophagitis; E78.5 Hyperlipidemia, unspecified; G47.30 Sleep apnea, unspecified; I26.99 Other pulmonary embolism without acute cor pulmonale; M19.90 Unspecified osteoarthritis, unspecified site; E07.9 Disorder of thyroid, unspecified; Z79.890 Hormone replacement therapy; Z79.899 Other long term (current) drug therapy; Z79.84 Long term (current) use of oral hypoglycemic drugs; Z79.1 Long term (current) use of non-steroidal anti-inflammatories (NSAID); Z88.8 Allergy status to other drugs, medicaments and biological substances
CPT/HCPCS: 36415; 80053; 85025; 87636; 73590; 73562; 71046; 99285; 96374; J8540; J1940

== ENCOUNTER 2023-03-01 21:19 | Inpatient (IN) | payer OTHER, MEDICARE ==
--- NOTE | 2023-03-01 21:43 | ED ---
General Adult HPI - General Chief complaint: Altered Mental Status Stated complaint: Altered Mental, Possible Sepsis Time Seen by Provider: 03/01/23 21:22 Source: patient, EMS Mode of arrival: EMS Limitations: altered mental status, physical limitation - History of Present Illness Initial comments: Dictation was produced using [employer] dictation software. please excuse any grammatical, word or spelling errors. Chief Complaint: 72-year-old male presents to the emergency department for altered mental status, pyrexia History of Present Illness: 72-year-old male who was just discharged from our hospital today. He was disposition to medical [place]. When he got there they noticed that he was febrile and altered. Sightly when he was last normal period. Patient had a prolonged hospital stay after suffering rib fractures, complicated by thoracic hematoma. He required several procedures and ICU admission. He also had multiple bouts of encephalopathy. Patient's family members are at the bedside. They state that they visited with him last night at around 9:00 PM. At that time he was alert and oriented 4 having normal conve rsation. He went to [facility] around the time when he just got dropped off after being discharged noticed that he was acutely altered and red appearing in the face. EMS did not have much input. They did report that he had stable vitals. Unable to obtain ROS secondary to mental status - Related Data Home Medications Medication Instructions Recorded Confirmed Atorvastatin [Lipitor] 80 mg PO HS 03/03/17 03/01/23 Levothyroxine Sodium [Synthroid] 100 mcg PO DAILY 03/03/17 03/01/23 Pantoprazole [Protonix] 40 mg PO DAILY 03/03/17 03/01/23 Tamsulosin [Flomax] 0.4 mg PO HS 01/25/19 03/01/23 Artificial Tears-Hypromellose 1 drops BOTH EYES BID 02/19/20 03/01/23 [Artificial Tear Drops] Furosemide [Lasix] 20 mg PO DAILY 04/16/20 03/01/23 Potassium Chloride [Klor-Con M10] 10 meq PO Q48H 04/17/20 03/01/23 Nitroglycerin Sl Tabs [Nitrostat] 0.4 mg SUBLINGUAL Q5M PRN 09/12/21 03/01/23 amantadine HCL [Symmetrel] 100 mg PO BID 02/10/23 03/01/23 Cholecalciferol [Vitamin D3 (25 50 mcg PO DAILY 03/01/23 03/01/23 Mcg = 1000 Iu)] Ipratropium-Albuterol Nebulize 3 ml INHALATION RT-Q6H 03/01/23 03/01/23 [Duoneb 0.5 mg-3 mg/3 ml Soln] Sennosides-Docusate Sodium 2 tab PO HS PRN 03/01/23 03/01/23 [Senokot-S] Previous Rx's Medication Instructions Recorded Folic Acid 1 mg PO DAILY #30 tablet 04/21/20 Multivitamins, Thera [Multivitamin 1 tab PO DAILY #30 tablet 04/21/20 (formulary)] Thiamine [Vitamin B-1] 100 mg PO DAILY #30 tablet 04/21/20 Metoprolol Tartrate [Lopressor] 50 mg PO BID 30 Days #60 tab 09/17/21 Aspirin 81 mg PO DAILY #0 12/07/21 Clopidogrel Bisulfate [Plavix] 75 mg PO DAILY #90 tab 12/07/21 Acetaminophen Tab [Tylenol] 650 mg PO Q6HR #0 tab 03/01/23 Enoxaparin [Lovenox] 40 mg SQ DAILY each 03/01/23 Ipratropium-Albuterol Nebulize 3 ml INHALATION RT-Q2H PRN each 03/01/23 [Duoneb 0.5 mg-3 mg/3 ml Soln] Linagliptin [Tradjenta] 5 mg PO DAILY tab 03/01/23 Melatonin 5 mg PO HS PRN tab 03/01/23 Nystatin 100,000 Unit/ml Susp 500,000 unit PO QID #0 ml 03/01/23 [Mycostatin Oral Susp] bisacodyL [Dulcolax] 10 mg RECTAL DAILY PRN suppositor 03/01/23 Allergies Allergy/AdvReac Type Severity Reaction Status Date / Time metoclopramide AdvReac TREMORS Verified 03/01/23 21:48 Review of Systems ROS Statement: Those systems with pertinent positive or pertinent negative responses have been documented in the HPI. ROS Other: All systems not noted in ROS Statement are negative. Past Medical History Past Medical History: Coronary Artery Disease (CAD), COPD, Diabetes Mellitus, Eye Disorder, GERD/Reflux, Hearing Disorder / Deafness, Hyperlipidemia, Hypertension, Osteoarthritis (OA), Pulmonary Embolus (PE), Sleep Apnea/CPAP/BIPAP, Thyroid Disorder Additional Past Medical History / Comment(s): O2 3L. PE IN 2008. CHRONIC BACK PAIN. DIABETIC NEUROPATHY IN FEET. GLAUCOMA. TREMORS. OSTEOPOROSIS. bipap ORDERED BUT DOESN'T USE. HX POLYPS History of Any Multi-Drug Resistant Organisms: None Reported Past Surgical History: Appendectomy, Cholecystectomy, Hernia Repair, Orthopedic Surgery Additional Past Surgical History / Comment(s): BILATERAL KNEE REPLACEMENT, PLUS RIGHT KNEE DONE AGAIN; RIGHT ROTATOR CUFF. PITUITARY TUMOR REMOVED. BILATERAL CATARACTS. SINUS surgery. GLAUCOMA SURGERY. EYE LID SURGERY. Past Anesthesia/Blood Transfusion Reactions: No Reported Reaction Additional Past Anesthesia/Blood Transfusion Reaction / Comment(s): QUESTIONABLE THAT VERSED MAY OVERLY SEDATE. Past Psychological History: No Psychological Hx Reported Smoking Status: Former smoker Past Alcohol Use History: None Reported Past Drug Use History: None Reported - Past Family History Mother Family Medical History: Cancer Additional Family Medical History / Comment(s): LUNG General Exam - General Exam Comments Initial Comments: PHYSICAL EXAM: General Impression: Confused, aphasic, not following commands, and incomprehensible speech HEENT: Normocephalic atraumatic, extra-ocular movements intact, pupils equal and reactive to light bilaterally, mucous membranes moist. Cardiovascular: Heart regular rate and rhythm Chest: no retractions, no tachypnea Abdomen: abdomen soft, non-tender, non-distended, no organomegaly Musculoskeletal: Pulses present and equal in all extremities, no peripheral edema Motor: no focal deficits noted Neurological: No facial asymmetry, not following commands, aphasic, incomprehensible speech, withdraws all extremities to pain Skin: Intact with no visualized rashes Limitations: altered mental status, physical limitation Course Vital Signs 03/01/23 03/01/23 03/02/23 21:23 23:20 00:52 Temperature 98.6 F 98.6 F Pulse Rate 82 118 H 112 H Respiratory 18 18 22 Rate Blood Pressure 101/66 116/84 113/78 O2 Sat by Pulse 95 96 97 Oximetry - Reevaluation(s) Reevaluation #1: 03/01/23 21:47 Code stroke was paged due to acute aphasia. It's unclear when his last known normal but after discussion with family members at the bedside it was at least last night at around 9:00 PM. Chart review was performed. Prior documentations reviewed including discharge summary states that patient was admitted for several days. His hospital course was complicated by bouts of encephalopathy. He did have neurology consult and EEG. Ultimately it was deemed that his symptoms are secondary to encephalopathy. Case discussed with stroke neurologist. Patient not a candidate for alteplase due to risk outweighing the benefits. 03/01/23 21:49 Reevaluation #2: 03/02/23 00:00 Patient became agitated. He was thrashing and pulling at cords. He is also tachycardic. Patient given Ativan for mild sedation EKG Findings - EKG Comments: EKG Findings:: My EKG interpretation: Ventricular rate 125, sinus tachycardia,. Interval and 72, QRS 90, QTC 474. No MI prolongation, no QTC prolongation, no ST or T-wave changes noted. EKG compared to 02/10/2023 showing no changes. Overall, this EKG is unremarkable Medical Decision Making - Medical Decision Making Was pt. sent in by a medical professional or institution (, PA, TERMINAL SUPERVISOR, urgent care, hospital, or fci...) When possible be specific @ -USP Did you speak to anyone other than the patient for history (EMS, parent, family, police, friend...)? What history was obtained from this source @ -Family members at the bedside Did you review nursing and triage notes (agree or disagree)? Why? @ -I reviewed and agree with nursing and triage notes Were old charts reviewed (outside hosp., previous admission, EMS record, old EKG, old radiological studies, urgent care reports/EKG's, fci records)? Report findings @ -Documentation from recent admission was reviewed. Discharge summary reviewed showed the patient had prolonged hospital stay, complicated by bouts of encephalopathy Differential Diagnosis (chest pain, altered mental status, abdominal pain women, abdominal pain men, vaginal bleeding, musculoskeletal, weakness, fever, dyspnea, syncope, headache, dizziness, GI bleed, back pain, seizure, CVA, palpatations, mental health)? @ -Differential Altered Mental Status: Hypoglycemia, DKA, hypercapnia, ETOH, overdose, CO poisoning, trauma, myxedema coma, HTN encephalopathy, infection, encephalitis, psychosis, intercranial hemorrhage, hepatic encephalopathy, meningitis, CVA, this is not meant to be an all-inclusive list EKG interpreted by me (3pts min.). @ -See above X-rays interpreted by me (1pt min.). @ -Chest x-ray is nonacute CT interpreted by me (1pt min.). @ -Computed tomography scan of the brain is unremarkable for acute processes. CT angiography is negative for any large vessel occlusion. It does appear to be a 3 mm aneurysmal segment on the right A1 U/S interpreted by me (1pt. min.). @ -None done What testing was considered but not performed or refused? (CT, X-rays, U/S, labs)? Why? @ -None What meds were considered but not given or refused? Why? @ -None Did you discuss the management of the patient with other professionals (professionals i.e. , PA, TERMINAL SUPERVISOR, lab, RT, psych nurse, social media assistant, sap ppm consultant, teacher, electronic intelligence officer, telehealth case manager)? Give summary @ -Case discussed with stroke neurologist, Dr. Cummins. Spoke with Dr. Green for admission Was smoking cessation discussed for >3mins.? @ -No Was critical care preformed (if so, how long)? @ -33 minutes Were there social determinants of health that impacted care today? How? (Homelessness, low income, unemployed, alcoholism, drug addiction, transportation, low edu. Level, literacy, decrease access to med. care, correction, rehab)? @ -No Was there de-escalation of care discussed even if they declined (Discuss DNR or withdrawal of care, Hospice)? DNR status @ -No What co-morbidities impacted this encounter? (DM, HTN, Smoking, COPD, CAD, Cancer, CVA, ARF, Chemo, Hep., AIDS, mental health diagnosis, sleep apnea, morbid obesity)? @ -History of encephalopathy from recent hospital admission Was patient admitted / discharged? Hospital course, mention meds given and route, prescriptions, significant lab abnormalities, going to OR and other pertinent info. @ -72-year-old male presents emergency department for acute altered mental status. Unclear when patient's last known normal was however found a report that he was normal last night. Patient had calmed complicated hospital course after suffering a chest wall hematoma. Laboratory evaluation obtained. Mild leukocytosis 13.8. Hemoglobin stable 9.9. Coag panel is unremarkable. M etabolic panel is negative. Troponin 0.046. Patient does not have a history of elevated troponin levels. Imaging studies interpreted as above. Patient still altered. Given rectal aspirin. Will be admitted to [facility]. Neurology on consult Undiagnosed new problem with uncertain prognosis? @ -No Drug Therapy requiring intensive monitoring for toxicity (Heparin, Nitro, Insulin, Cardizem)? @ -No Were any procedures done? @ -No Diagnosis/symptom? Acute, or Chronic, or Acute on Chronic? Uncomplicated (without systemic symptoms) or Complicated (systemic symptoms)? @ -1. Acute altered mental status Side effects of treatment? @ -No Exacerbation, Progression, or Severe Exacerbation? @ -No Poses a threat to life or bodily function? How? (Chest pain, [place], [place], pneumonia, PE, COPD, DKA, ARF, appy, cholecystitis, CVA, Diverticulitis, Homicidal, Suicidal, threat to staff... and all critical care pts) @ -yes - Lab Data Result diagrams: 03/01/23 21:46 03/01/23 21:46 Lab Results 03/01/23 03/01/23 03/01/23 Range/Units 21:46 21:46 21:46 WBC 13.8 H (3.8-10.6) k/uL RBC 3.39 L (4.30-5.90) m/uL Hgb 9.9 L (13.0-17.5) gm/dL Hct 30.3 L (39.0-53.0) % MCV 89.3 (80.0-100.0) fL MCH 29.3 (25.0-35.0) pg MCHC 32.8 (31.0-37.0) g/dL RDW 18.0 H (11.5-15.5) % Plt Count 205 (150-450) k/uL MPV 9.8 Neutrophils % 87 % Lymphocytes % 5 % Monocytes % 6 % Eosinophils % 1 % Basophils % 0 % Neutrophils # 11.9 H (1.3-7.7) k/uL Lymphocytes # 0.7 L (1.0-4.8) k/uL Monocytes # 0.8 (0-1.0) k/uL Eosinophils # 0.1 (0-0.7) k/uL Basophils # 0.0 (0-0.2) k/uL Anisocytosis Slight PT 11.1 (9.0-12.0) sec INR 1.1 (<1.2) APTT 22.7 (22.0-30.0) sec Sodium 138 (137-145) mmol/L Potassium 3.9 (3.5-5.1) mmol/L Chloride 103 (98-107) mmol/L Carbon Dioxide 25 (22-30) mmol/L Anion Gap 10 mmol/L BUN 22 H (9-20) mg/dL Creatinine 0.92 (0.66-1.25) mg/dL Est GFR (CKD-EPI)AfAm >90 (>60 ml/min/1.73 sqM) Est GFR (CKD-EPI)NonAf 82 (>60 ml/min/1.73 sqM) Glucose 171 H (74-99) mg/dL Calcium 8.1 L (8.4-10.2) mg/dL Total Bilirubin 1.1 (0.2-1.3) mg/dL AST 41 (17-59) U/L ALT 36 (4-49) U/L Alkaline Phosphatase 98 (38-126) U/L Creatine Kinase 157 (55-170) U/L Troponin I (0.000-0.034) ng/mL Total Protein 5.3 L (6.3-8.2) g/dL Albumin 2.8 L (3.5-5.0) g/dL 03/01/23 Range/Units 21:46 WBC (3.8-10.6) k/uL RBC (4.30-5.90) m/uL Hgb (13.0-17.5) gm/dL Hct (39.0-53.0) % MCV (80.0-100.0) fL MCH (25.0-35.0) pg MCHC (31.0-37.0) g/dL RDW (11.5-15.5) % Plt Count (150-450) k/uL MPV Neutrophils % % Lymphocytes % % Monocytes % % Eosinophils % % Basophils % % Neutrophils # (1.3-7.7) k/uL Lymphocytes # (1.0-4.8) k/uL Monocytes # (0-1.0) k/uL Eosinophils # (0-0.7) k/uL Basophils # (0-0.2) k/uL Anisocytosis PT (9.0-12.0) sec INR (<1.2) APTT (22.0-30.0) sec Sodium (137-145) mmol/L Potassium (3.5-5.1) mmol/L Chloride (98-107) mmol/L Carbon Dioxide (22-30) mmol/L Anion Gap mmol/L BUN (9-20) mg/dL Creatinine (0.66-1.25) mg/dL Est GFR (CKD-EPI)AfAm (>60 ml/min/1.73 sqM) Est GFR (CKD-EPI)NonAf (>60 ml/min/1.73 sqM) Glucose (74-99) mg/dL Calcium (8.4-10.2) mg/dL Total Bilirubin (0.2-1.3) mg/dL AST (17-59) U/L ALT (4-49) U/L Alkaline Phosphatase (38-126) U/L Creatine Kinase (55-170) U/L Troponin I 0.046 H* (0.000-0.034) ng/mL Total Protein (6.3-8.2) g/dL Albumin (3.5-5.0) g/dL Disposition Clinical Impression: Altered mental status Disposition: ADMITTED IP TO THIS HOSP Condition: Serious Decision Time: 23:43
--- NOTE | 2023-03-01 22:25 | CT ---
EXAM: CT Head Without Intravenous Contrast CLINICAL HISTORY: ITS.REASON CT Reason: Neuro deficit, acute, stroke suspected TECHNIQUE: Axial computed tomography images of the head/brain without intravenous contrast. This CT exam was performed using one or more of the following dose reduction techniques: automated exposure control, adjustment of the mA and/or kV according to patient size, and/or use of iterative reconstruction technique. COMPARISON: CT head 02/25/2023. FINDINGS: Brain: Global parenchymal volume loss with chronic microvascular ischemic changes. No hemorrhage. Ventricles: No ventriculomegaly. Bones/joints: Unremarkable. No acute fracture. Soft tissues: Unremarkable. Sinuses: Postsurgical changes potentially related to prior transsphenoidal sinus surgery. Mastoid air cells: Bilateral mastoid effusions. Orbits: Bilateral lens replacement. IMPRESSION: 1. No intracranial hemorrhage or evidence of large territorial infarction. 2. Global parenchymal volume loss with chronic microvascular ischemic changes.
--- NOTE | 2023-03-01 22:40 | CT ---
EXAMINATION TYPE: CT angio head neck DATE OF EXAM: 03/01/2023 HISTORY: AMS. neuro deficit acute onset. COMPARISON: None. CT DLP: 607.4 mGycm. Automated Exposure Control for Dose Reduction was Utilized. TECHNIQUE: CTA scan of the head and neck is performed with IV Contrast, patient injected with 65 mL of Isovue 370, axial images are obtained, coronal and sagittal reformatted images are reviewed. 3D re constructed images are created on an independent workstation and reviewed. FINDINGS: Carotid/Vascular Structures: Normal three-vessel origin from the aortic arch without significant plaq ue or stenosis. No significant plaque or stenosis along the common carotid arteries bilaterally. Mild peripheral calcified plaque right carotid bulb extends into proximal internal carotid artery without stenosis. No significant plaque or stenosis left carotid bulb. Peak bilateral external carotid arter ies without significant stenosis. There are codominant vertebral arteries patent to the basilar junction. There are hypoplastic bilater al posterior to indicating arteries. There is no significant focal stenosis or aneurysm in the medical artist ior circulation. Images of the anterior circulation show patent anterior communicating artery. No sig nificant focal stenosis is seen. Tiny aneurysm involving the right A1 segment is identified measuring near 3 mm axial image 64. Other: Moderate disc space narrowing C4-C5 through C6-C7 levels with moderate spurring. Posterior spu rring effaces the anterior thecal sac at C4-C5 level. Slight scoliotic curvature. Enlarged main pulmonary artery suggesting underlying pulmonary hypertension. At least small to tiny r ight pleural effusion is partially imaged. Coronary artery calcification is noted. IMPRESSION: 1. No significant stenosis in common or internal carotid arteries bilaterally. 2. No significant stenosis at level of [place]. 3. 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 NASCET criteria was used in interpretation of this exam?
[2023-03-01 23:04] LABS: INR 1.1 (<1.2); Partial Thromboplastin Time 22.7 sec (22.0-30.0); Prothrombin Time 11.1 sec (9.0-12.0)
[2023-03-01 23:12] LABS: Anisocytosis Slight; Basophils % (A) 0 %; Eosinophils # (A) 0.1 k/uL (0-0.7); Eosinophils % (A) 1 %; HCT 30.3 % (39.0-53.0); HGB 9.9 gm/dL (13.0-17.5); Lymphocytes # (A) 0.7 k/uL (1.0-4.8); Lymphocytes % (A) 5 %; MCH 29.3 pg (25.0-35.0); MCHC 32.8 g/dL (31.0-37.0); MCV 89.3 fL (80.0-100.0); Mean Platelet Volume 9.8; Monocytes # (A) 0.8 k/uL (0-1.0); Monocytes % (A) 6 %; Neutrophils # (A) 11.9 k/uL (1.3-7.7); Neutrophils % (A) 87 %; Platelet Count 205 k/uL (150-450); RBC 3.39 m/uL (4.30-5.90); WBC 13.8 k/uL (3.8-10.6)
[2023-03-01 23:14] LABS: ALT 36 U/L (4-49); AST 41 U/L (17-59); African American GFR (CKD) >90 (>60 ml/min/1.73 sqM); Albumin 2.8 g/dL (3.5-5.0); Alkaline Phosphatase 98 U/L (38-126); Anion Gap 10 mmol/L; Blood Urea Nitrogen 22 mg/dL (9-20); Calcium 8.1 mg/dL (8.4-10.2); Carbon Dioxide 25 mmol/L (22-30); Chloride 103 mmol/L (98-107); Creatine Kinase 157 U/L (55-170); Glucose 171 mg/dL (74-99); Non-African American GFR(CKD) 82 (>60 ml/min/1.73 sqM); Potassium 3.9 mmol/L (3.5-5.1); Sodium 138 mmol/L (137-145); Total Bilirubin 1.1 mg/dL (0.2-1.3); Total Protein 5.3 g/dL (6.3-8.2)
--- NOTE | 2023-03-01 23:36 | XR ---
EXAM: XR Chest, 1 View CLINICAL HISTORY: ITS. REASON XR Reason: altered mental status TECHNIQUE: Frontal view of the chest. COMPARISON: CXR February 27, 2023. FINDINGS: Lungs: See below. Pleural space: Unremarkable. No pneumothorax. Heart: Cardiomegaly. Pulmonary vascular condition. Findings are consistent with mild congestive heart failure. This is improving when compared to previous study. Mediastinum: Unremarkable. Bones/joints: Unremarkable. IMPRESSION: Cardiomegaly. Pulmonary vascular condition. Findings are consistent with mild congestive heart failure. This is improving when compared to previous study.
[2023-03-01] MEDS ORDERED: ASPIRIN 300 MG SUPP RECTAL STA (23:44)
[2023-03-01] MEDS ORDERED: LORazepam 2 MG/ML INJ IV STA (23:53)
[2023-03-02] MEDS ORDERED: NALOXONE 0.4 MG/ML 1 ML VIAL IV PRN (00:22)
[2023-03-02] MEDS: SODIUM CHLORIDE 0.9% 1,000 ML IV SCH ×3 (01:08→18:43)
[2023-03-02] MEDS ORDERED: VANCOMYCIN IV PER PHARMACY 1 EACH MISC MISCELLANE PRN (02:04)
[2023-03-02] MEDS ORDERED: VANCOMYCIN 1,750 MG in SODIUM CHLORIDE 0.9% 500 ML 500 ML IVPB STA (02:07)
[2023-03-02] MEDS ORDERED: PIPERACILLIN-TAZOBACTAM 3.375 GM in SODIUM CHLORIDE 0.9% 100 ML IVPB STA (02:08)
[2023-03-02 02:10] LABS: Appearance,Urine Cloudy (Clear); Bacteria,Urine Occasional /hpf; Bilirubin,Urine Negative (Negative); Blood,Urine Moderate (Negative); Color,Urine Yellow; Glucose,Urine (UA) Negative (Negative); Ketones,Urine Negative (Negative); Leukocyte Esterase,Urine Large (Negative); Mucus,Urine Few /hpf; Nitrite,Urine Positive (Negative); Protein,Urine Trace (Negative); RBC,Urine 20 /hpf (0-5); Specific Gravity,Urine 1.028 (1.001-1.035); Squamous Epithelial Cell,Urine 1 /hpf (0-4); Urobilinogen,Urine <2.0 mg/dL (<2.0); WBC,Urine 148 /hpf (0-5)
[2023-03-02] MEDS: ACETAMINOPHEN IV (For NPO) 1,000 MG in EMPTY BAG 1 BAG IVPB PRN ×2 (02:36→20:31)
[2023-03-02 03:47] LABS: Allen Test Performed? Yes
[2023-03-02 04:01] LABS: ABG Base Excess 3.6 mmol/L; ABG HCO3 28 mmol/L (21-25); ABG Hematocrit 28 % (34.0-46.0); ABG Ionized Calcium 4.6 mg/dL (4.5-5.3); ABG Oxygen Saturation 91.5 % (94-97); ABG PCO2 41 mmHg (35-45); ABG PH 7.45 (7.35-7.45); ABG Potassium Whole Blood 3.6 mmol/L (3.4-4.5); ABG Sodium Whole Blood 143 mmol/L (135-146); ABG TCO2 29 mmol/L (19-24)
[2023-03-02 04:05] LABS: ABG PO2 59 mmHg (83-108)
--- NOTE | 2023-03-02 04:46 | P.HPIM ---
History of Present Illness H&P Date: 03/01/23 Chief Complaint: altered mental status 72 year old male with CAD, hypertension , DM , copd patient was discharged today after a prolonged hospital course, he was doing fine per discharge documentation, however, upon arrival to [facility] staff noted he was having altered mental status , and shortly after he was sent back to our hospital for further care. patient unable to provide any meaningful history otherwise. patient had a prolonged and complicated hospital course after a fall resulting in Rt rib fracture complicated by hemothorax required chest tube, then VATS and evacuation of the chest wall hematoma. then he was intubated and then extubated. then briefly on bipap then re intubated again . then since extubation , he struggled with mental status, and was having episodes of AMS, EEG showed moderate encephalopathy. however with supportive care and antibiotics, he started improving , and then deemed appropriate for rehab. and was discharged today Review of Systems ROS unobtainable: due to mental status Past Medical History Past Medical History: Coronary Artery Disease (CAD), COPD, Diabetes Mellitus, Eye Disorder, GERD/Reflux, Hearing Disorder / Deafness, Hyperlipidemia, Hypertension, Osteoarthritis (OA), Pulmonary Embolus (PE), Sleep Apnea/CPAP/BIPAP, Thyroid Disorder Additional Past Medical History / Comment(s): O2 3L. PE IN 2007. CHRONIC BACK PAIN. DIABETIC NEUROPATHY IN FEET. GLAUCOMA. TREMORS. OSTEOPOROSIS. bipap ORDERED BUT DOESN'T USE. HX POLYPS History of Any Multi-Drug Resistant Organisms: None Reported Past Surgical History: Appendectomy, Cholecystectomy, Hernia Repair, Orthopedic Surgery Additional Past Surgical History / Comment(s): BILATERAL KNEE REPLACEMENT, PLUS RIGHT KNEE DONE AGAIN; RIGHT ROTATOR CUFF. PITUITARY TUMOR REMOVED. BILATERAL CATARACTS. SINUS surgery. GLAUCOMA SURGERY. EYE LID SURGERY. Past Anesthesia/Blood Transfusion Reactions: No Reported Reaction Additional Past Anesthesia/Blood Transfusion Reaction / Comment(s): QUESTIONABLE THAT VERSED MAY OVERLY SEDATE. Past Psychological History: No Psychological Hx Reported Smoking Status: Former smoker Past Alcohol Use History: None Reported Past Drug Use History: None Reported - Past Family History Mother Family Medical History: Cancer Additional Family Medical History / Comment(s): LUNG Medications and Allergies Home Medications Medication Instructions Recorded Confirmed Type Atorvastatin [Lipitor] 80 mg PO HS 03/03/17 03/01/23 History Levothyroxine Sodium [Synthroid] 100 mcg PO DAILY 03/03/17 03/01/23 History Pantoprazole [Protonix] 40 mg PO DAILY 03/03/17 03/01/23 History Tamsulosin [Flomax] 0.4 mg PO HS 01/25/19 03/01/23 History Artificial Tears-Hypromellose 1 drops BOTH EYES BID 02/19/20 03/01/23 History [Artificial Tear Drops] Furosemide [Lasix] 20 mg PO DAILY 04/16/20 03/01/23 History Potassium Chloride [Klor-Con M10] 10 meq PO Q48H 04/17/20 03/01/23 History Folic Acid 1 mg PO DAILY #30 tablet 04/21/20 03/01/23 Rx Multivitamins, Thera [Multivitamin 1 tab PO DAILY #30 tablet 04/21/20 03/01/23 Rx (formulary)] Thiamine [Vitamin B-1] 100 mg PO DAILY #30 tablet 04/21/20 03/01/23 Rx Nitroglycerin Sl Tabs [Nitrostat] 0.4 mg SUBLINGUAL Q5M PRN 09/12/21 03/01/23 History Metoprolol Tartrate [Lopressor] 50 mg PO BID 30 Days #60 tab 09/17/21 03/01/23 Rx Aspirin 81 mg PO DAILY #0 12/07/21 03/01/23 Rx Clopidogrel Bisulfate [Plavix] 75 mg PO DAILY #90 tab 12/07/21 03/01/23 Rx amantadine HCL [Symmetrel] 100 mg PO BID 02/10/23 03/01/23 History Acetaminophen Tab [Tylenol] 650 mg PO Q6HR #0 tab 03/01/23 03/01/23 Rx Cholecalciferol [Vitamin D3 (25 50 mcg PO DAILY 03/01/23 03/01/23 History Mcg = 1000 Iu)] Enoxaparin [Lovenox] 40 mg SQ DAILY each 03/01/23 03/01/23 Rx Ipratropium-Albuterol Nebulize 3 ml INHALATION RT-Q2H PRN each 03/01/23 03/01/23 Rx [Duoneb 0.5 mg-3 mg/3 ml Soln] Ipratropium-Albuterol Nebulize 3 ml INHALATION RT-Q6H 03/01/23 03/01/23 History [Duoneb 0.5 mg-3 mg/3 ml Soln] Linagliptin [Tradjenta] 5 mg PO DAILY tab 03/01/23 03/01/23 Rx Melatonin 5 mg PO HS PRN tab 03/01/23 03/01/23 Rx Nystatin 100,000 Unit/ml Susp 500,000 unit PO QID #0 ml 03/01/23 03/01/23 Rx [Mycostatin Oral Susp] Sennosides-Docusate Sodium 2 tab PO HS PRN 03/01/23 03/01/23 History [Senokot-S] bisacodyL [Dulcolax] 10 mg RECTAL DAILY PRN suppositor 03/01/23 03/01/23 Rx Allergies Allergy/AdvReac Type Severity Reaction Status Date / Time metoclopramide AdvReac TREMORS Verified 03/01/23 21:48 Physical Exam Vitals: Vital Signs Temp Pulse Pulse Resp BP BP Pulse Ox 03/02/23 01:50 101.2 F H 115 H 26 H 110/63 95 03/02/23 00:52 112 H 22 113/78 97 03/01/23 23:20 98.6 F 118 H 18 116/84 96 03/01/23 21:23 98.6 F 82 18 101/66 95 Intake and Output 03/01/23 03/01/23 03/02/23 14:59 22:59 06:59 Intake Total 30 Balance 30 Intake: IV 30 Invasive Line 1 10 Invasive Line 2 10 Invasive Line 3 10 Other: Voiding Method Indwelling Catheter Weight 106.594 kg Constitutional: patient lethargic, opens eyes to tactile and pain stimulation , moving upper extremities resisting exam Eyes: Anicteric sclerae, moist conjunctiva, Pupils equal round reactive to light ENMT: NC/AT Neck: Supple, no masses, or JVD No carotid bruits No thyromegaly Lungs: Clear to auscultation Clear to percussion Normal respiratory effort, no accessory muscle use Cardiovascular: Heart regular in rate and rhythm, No murmurs, gallops, or rubs No peripheral edema Abdominal: Soft No tenderness to deep palpation no guarding, rebound or rigidity Abdomen moving with respiration Normoactive bowel sounds No hepatomegaly, No splenomegaly Skin: Normal temperature, tone, texture, turgor Extremities: No digital cyanosis No clubbing Pedal pulses intact and symmetrical Radial pulses intact and symmetrical No calf tenderness Psychiatric: lethargic , opens eyes to painful stimulation Neuro unable to perform neuro exam ,no neck stiffness Lymphatics: no palpable cervical or supraclavicular lymph nodes Results CBC & Chem 7: 03/01/23 21:46 03/01/23 21:46 Labs: Abnormal Lab Results - Last 24 Hours (Table) 03/01/23 03/01/23 03/01/23 Range/Units 21:46 21:46 21:46 WBC 13.8 H (3.8-10.6) k/uL RBC 3.39 L (4.30-5.90) m/uL Hgb 9.9 L (13.0-17.5) gm/dL Hct 30.3 L (39.0-53.0) % RDW 18.0 H (11.5-15.5) % Neutrophils # 11.9 H (1.3-7.7) k/uL Lymphocytes # 0.7 L (1.0-4.8) k/uL ABG pO2 (83-108) mmHg ABG HCO3 (21-25) mmol/L ABG Total CO2 (19-24) mmol/L ABG O2 Saturation (94-97) % ABG Hematocrit (34.0-46.0) % Hemoglobin (13.0-17.5) gm/dL BUN 22 H (9-20) mg/dL Glucose 171 H (74-99) mg/dL Calcium 8.1 L (8.4-10.2) mg/dL Troponin I 0.046 H* (0.000-0.034) ng/mL Total Protein 5.3 L (6.3-8.2) g/dL Albumin 2.8 L (3.5-5.0) g/dL Urine Protein (Negative) Urine Blood (Negative) Ur Leukocyte Esterase (Negative) Urine RBC (0-5) /hpf Urine WBC (0-5) /hpf Urine WBC Clumps (None) /hpf Urine Bacteria (None) /hpf Urine Mucus (None) /hpf 03/02/23 03/02/23 Range/Units 00:59 04:00 WBC (3.8-10.6) k/uL RBC (4.30-5.90) m/uL Hgb (13.0-17.5) gm/dL Hct (39.0-53.0) % RDW (11.5-15.5) % Neutrophils # (1.3-7.7) k/uL Lymphocytes # (1.0-4.8) k/uL ABG pO2 59 L* (83-108) mmHg ABG HCO3 28 H (21-25) mmol/L ABG Total CO2 29 H (19-24) mmol/L ABG O2 Saturation 91.5 L (94-97) % ABG Hematocrit 28 L (34.0-46.0) % Hemoglobin 9.3 L (13.0-17.5) gm/dL BUN (9-20) mg/dL Glucose (74-99) mg/dL Calcium (8.4-10.2) mg/dL Troponin I (0.000-0.034) ng/mL Total Protein (6.3-8.2) g/dL Albumin (3.5-5.0) g/dL Urine Protein Trace H (Negative) Urine Blood Moderate H (Negative) Ur Leukocyte Esterase Large H (Negative) Urine RBC 20 H (0-5) /hpf Urine WBC 148 H (0-5) /hpf Urine WBC Clumps Few H (None) /hpf Urine Bacteria Occasional H (None) /hpf Urine Mucus Few H (None) /hpf Assessment and Plan Assessment: 72 year old male with DM , hypertension , was discharged today after a prolonged complicated hospital course for right hemothorax due to mechanical fall resulting in rib fracture. this required chest tube, VATS, intubation. then patient noted to have encephalopathy , which improved gradually with supportive care and antibiotics. I discussed the case with ED doc, who activated code stroke, CT brain and CTA head and neck showed no acute pathology , I accepted the admission for neuro eval and monitoring , EEG in AM. patient ABG showed hypoxemia and respiratory alkalosis , CXR showing mild congestion. await CTA chest result to rule out acute PE. anticipated length of stay > 2 midnights acute metabolic encephalopathy rule out underlying sepsis , vs acute PE check blood cultures initiate antibiotics with vanco dosing by pharmacy and zosyn IVPB q8hrs 3.375 g aspiration precautions fall and seizure precatuions neuro consult check EEG ABG showed hypoxemia and mild respiratory alkalosis , check CTA chest to rule out PE low threshold for intubation if can not protect airways DVT PPX lovenox sc 40 mg daily full code chronic conditions hypertension , resume home meds if able to take PO DM , insulin sliding scale Q6hrs IVF hydration with normal saline at 100 cc per hour
[2023-03-02 05:54] LABS: Glucose,Whole Blood 146 mg/dL (70-110)
[2023-03-02] MEDS: LEVOTHYROXINE 100 MCG TAB PO SCH (05:58)
[2023-03-02] MEDS: INSULIN ASPART (NovoLOG) 100 UNIT/ML VIAL SQ SCH ×3 (05:58→18:00)
[2023-03-02] MEDS: PANTOPRAZOLE 40 MG TABLET PO SCH (06:34)
[2023-03-02] MEDS: ARTIFICIAL TEARS-HYPROMELLOSE DROPS 15 ML BTL BOTH EYES SCH ×2 (08:38→20:32)
[2023-03-02] MEDS: ENOXAPARIN 40 MG/0.4 ML SYRINGE SQ SCH (08:39)
--- NOTE | 2023-03-02 09:30 | CT ---
EXAMINATION TYPE: CT chest angio for PE CT DLP: 499.6 mGycm, Automated exposure control for dose reduction was used. DATE OF EXAM: 03/02/2023 9:11 AM COMPARISON: Chest radiograph from same day. Multiple CTs of the chest with most recent on 02/11/2023. . CLINICAL INDICATION:Male, 72 years old with history of hypoxemia; Hypoxemia. TECHNIQUE/CONTRAST: CTA scan of the thorax is performed with IV Contrast, patient injected with 76ml mL of Isovue 300, pu lmonary embolism protocol. MIP images are created and reviewed these are created on a separate works tation.. FINDINGS: Pulmonary Artery: There is no evidence for a central filling defect within the pulmonary vasculature to suggest acute pulmonary embolism. Limited evaluation of the segmental and subsegmental branches se condary to bolus timing. The pulmonary artery is enlarged measuring up to 3.8 cm. Lungs/Pleura: The right chest wall hematoma has decreased in size in today's exam now measuring up to 14 mm. The right chest tube is no longer visualized. There are scattered interstitial opacities thro ughout the lungs. No pneumothorax is present. Airway: Large airways are patent. Heart: The heart is mildly enlarged for size. Vasculature: No evidence of aortic aneurysm. Mediastinum: No gross evidence of adenopathy. Small hiatal hernia is present. Musculoskeletal: Multiple right-sided rib fractures remain present. Multilevel disc degeneration urbina ges are present. Rib fractures of right ribs 5, 6 and 9 are visualized remote appearing rib fracture of right rib 9 or anterior laterally. Right rib 10 fracture not definitively visualized on today's ex am. Soft Tissues: Unremarkable. Lower neck: No significant findings. Upper Abdomen: The gallbladder surgically absent. IMPRESSION: 1. No evidence of central pulmonary embolism. Limited evaluation of the segmental and subsegmental br anches. 2. Cardiomegaly, pulmonary hypertension with some interstitial prominence, correlate for superimposed congestive heart failure. 3. Decrease in right chest wall hematoma. Right thoracotomy tube has been removed. No pneumothorax. 4. Similar right rib fractures.
[2023-03-02 11:47] LABS: Glucose,Whole Blood 152 mg/dL (70-110)
[2023-03-02] MEDS: CLOPIDOGREL 75 MG TAB PO SCH (11:55)
[2023-03-02] MEDS: METOPROLOL TARTRATE 50 MG TAB PO SCH ×2 (11:55→20:05)
[2023-03-02] MEDS: ASPIRIN 81 MG PO SCH (11:55)
[2023-03-02] MEDS: PIPERACILLIN-TAZOBACTAM 3.375 GM in SODIUM CHLORIDE 0.9% 100 ML IVPB SCH ×2 (12:39→20:26)
--- NOTE | 2023-03-02 14:36 | P.CNNES ---
History of Present Illness Consult date: 03/02/23 Requesting physician: Td Lewis Reason for Consult: AMS History of Present Illness: Patient is a 72-year-old male discharged to the [facility], just yesterday afternoon from [facility] after 19 days of hospitalization, return back to the hospital 6 hours later for temperature 100.9, lethargy, thrashing in the bed, altered mental status and very uncomfortable. Patient arrived to the hospital by ambulance yesterday at 9:19 PM. Patient was initially admitted on 02/10/2023 after he fell in a ditch, while raking leaves, producing fracture of 3 ribs, with pneumothorax requiring placement of chest tube. Neurology team was consulted on 02/21/2023 for lethargy and patient was felt to be altered mental status related to toxic metabolic encephalopathy. Patient had hypercapnic/hypoxic encephalopathy, hypernatremia, slight acute kidney injury acute E. coli ventilator acquired pneumonia COPD. I had seen patient in the hospital for a follow-up on 02/28/2023 when he was sleeping in the recliner but appeared comfortable. He had denied any headache. Patient was still encephalopathic, but also not cooperating with the examinations. However he was discharged yesterday at around 1:30 PM, but returned back to the hospital at 9:19 PM last night. As per EMS flow sheet, when arrived at above location, found patient with altered mental status. Staff mentioned that patient was released from [facility] today. Patient has been in the hospital after sustaining trauma injuries to his chest and head from a fall in 20s. Patient suffered from hemopneumothorax and a chest tube was inserted. Patient also developed encephalopathy. Upon release from the hospital, patient's mentation has improved and was participating in physical therapy. This evening, patient's mental status took a decline developed fever and became restless and was red in the face. Patient appeared to be confused and unable to speak. Family was also on the scene, stated that patient was not acting the way he was in the hospital. When EMS arrived, patient was awake, confused and unable to answer questions, no JVD. Patient did not obey simple commands. He was breathing fast but did not appear to be labored and skin was warm to touch. Patient was moved to a stretcher. His vitals at the scene was blood pressure 120/70, pulse rate 124, respiration 24 saturation 90% and blood sugar 188. Temperature 100.7 axillary. Patient's temperature early this morning was 101.2 axillary. Blood test shows WBC 13.8 hemoglobin 9.9, platelets 205. PT/PTT normal. ABG with pH of 7.45, pO2 59, pCO2 41 and saturation 91.5%. Chem-20 normal. Hepatic panel normal. Troponin is mildly elevated 0.046. UA shows large amount of leukocyte esterase, 148 WBCs, few clumps and occasional bacteria. CT head revealed no acute process. Global parenchymal volume loss with chronic microvascular ischemic change. I personally reviewed CT head, agree with the findings. CTA of the head and neck revealed no significant stenosis in the common or internal carotid arteries bilaterally, no significant stenosis at the level of [place]. 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 Patient at present continues to be encephalopathic as per examination below. Review of Systems Discussed with the family, they do not know anymore review of systems except as mentioned in HPI. Patient at baseline uses a walker sometimes, and sometimes he hangs onto the objects inside the house. He does ride a scooter as well. Patient has Arenas's catheter since last admission, and was discharged with Arenas's catheter. ROS unobtainable: due to mental status Past Medical History Past Medical History: Coronary Artery Disease (CAD), COPD, Diabetes Mellitus, Eye Disorder, GERD/Reflux, Hearing Disorder / Deafness, Hyperlipidemia, Hypertension, Osteoarthritis (OA), Pulmonary Embolus (PE), Sleep Apnea/CPAP/BIPAP, Thyroid Disorder Additional Past Medical History / Comment(s): O2 3L. PE IN 2007. CHRONIC BACK PAIN. DIABETIC NEUROPATHY IN FEET. GLAUCOMA. TREMORS. OSTEOPOROSIS. bipap ORDERED BUT DOESN'T USE. HX POLYPS History of Any Multi-Drug Resistant Organisms: None Reported Past Surgical History: Appendectomy, Cholecystectomy, Hernia Repair, Orthopedic Surgery Additional Past Surgical History / Comment(s): BILATERAL KNEE REPLACEMENT, PLUS RIGHT KNEE DONE AGAIN; RIGHT ROTATOR CUFF. PITUITARY TUMOR REMOVED. BILATERAL CATARACTS. SINUS surgery. GLAUCOMA SURGERY. EYE LID SURGERY. Past Anesthesia/Blood Transfusion Reactions: No Reported Reaction Additional Past Anesthesia/Blood Transfusion Reaction / Comment(s): QUESTIONABLE THAT VERSED MAY OVERLY SEDATE. Past Psychological History: No Psychological Hx Reported Smoking Status: Former smoker Past Alcohol Use History: None Reported Past Drug Use History: None Reported - Past Family History Mother Family Medical History: Cancer Additional Family Medical History / Comment(s): LUNG Medications and Allergies Home Medications Medication Instructions Recorded Confirmed Type Atorvastatin [Lipitor] 80 mg PO HS 03/03/17 03/01/23 History Levothyroxine Sodium [Synthroid] 100 mcg PO DAILY 03/03/17 03/01/23 History Pantoprazole [Protonix] 40 mg PO DAILY 03/03/17 03/01/23 History Tamsulosin [Flomax] 0.4 mg PO HS 01/25/19 03/01/23 History Artificial Tears-Hypromellose 1 drops BOTH EYES BID 02/19/20 03/01/23 History [Artificial Tear Drops] Furosemide [Lasix] 20 mg PO DAILY 04/16/20 03/01/23 History Potassium Chloride [Klor-Con M10] 10 meq PO Q48H 04/17/20 03/01/23 History Folic Acid 1 mg PO DAILY #30 tablet 04/21/20 03/01/23 Rx Multivitamins, Thera [Multivitamin 1 tab PO DAILY #30 tablet 04/21/20 03/01/23 Rx (formulary)] Thiamine [Vitamin B-1] 100 mg PO DAILY #30 tablet 04/21/20 03/01/23 Rx Nitroglycerin Sl Tabs [Nitrostat] 0.4 mg SUBLINGUAL Q5M PRN 09/12/21 03/01/23 History Metoprolol Tartrate [Lopressor] 50 mg PO BID 30 Days #60 tab 09/17/21 03/01/23 Rx Aspirin 81 mg PO DAILY #0 12/07/21 03/01/23 Rx Clopidogrel Bisulfate [Plavix] 75 mg PO DAILY #90 tab 12/07/21 03/01/23 Rx amantadine HCL [Symmetrel] 100 mg PO BID 02/10/23 03/01/23 History Acetaminophen Tab [Tylenol] 650 mg PO Q6HR #0 tab 03/01/23 03/01/23 Rx Cholecalciferol [Vitamin D3 (25 50 mcg PO DAILY 03/01/23 03/01/23 History Mcg = 1000 Iu)] Enoxaparin [Lovenox] 40 mg SQ DAILY each 03/01/23 03/01/23 Rx Ipratropium-Albuterol Nebulize 3 ml INHALATION RT-Q2H PRN each 03/01/23 03/01/23 Rx [Duoneb 0.5 mg-3 mg/3 ml Soln] Ipratropium-Albuterol Nebulize 3 ml INHALATION RT-Q6H 03/01/23 03/01/23 History [Duoneb 0.5 mg-3 mg/3 ml Soln] Linagliptin [Tradjenta] 5 mg PO DAILY tab 03/01/23 03/01/23 Rx Melatonin 5 mg PO HS PRN tab 03/01/23 03/01/23 Rx Nystatin 100,000 Unit/ml Susp 500,000 unit PO QID #0 ml 03/01/23 03/01/23 Rx [Mycostatin Oral Susp] Sennosides-Docusate Sodium 2 tab PO HS PRN 03/01/23 03/01/23 History [Senokot-S] bisacodyL [Dulcolax] 10 mg RECTAL DAILY PRN suppositor 03/01/23 03/01/23 Rx Allergies Allergy/AdvReac Type Severity Reaction Status Date / Time metoclopramide AdvReac TREMORS Verified 03/01/23 21:48 Physical Examination - Vital Signs Vital Signs: Vital Signs Temp Pulse Pulse Resp BP BP Pulse Ox 03/02/23 08:00 98.8 F 114 H 22 130/67 94 L 03/02/23 04:00 97.1 F L 107 H 26 H 104/68 96 03/02/23 01:50 101.2 F H 115 H 26 H 110/63 95 03/02/23 00:52 112 H 22 113/78 97 03/01/23 23:20 98.6 F 118 H 18 116/84 96 03/01/23 21:23 98.6 F 82 18 101/66 95 Intake and Output 03/01/23 03/02/23 03/02/23 22:59 06:59 14:59 Intake Total 40 Output Total 200 Balance -160 Intake: IV 40 Invasive Line 1 10 Invasive Line 2 10 Invasive Line 3 10 Invasive Line 4 10 Output: Urine 200 Other: Voiding Method Indwelling Catheter Weight 106.594 kg 106.594 kg Patient is an elderly male, who appears somewhat lethargic, somnolent. Patient is encephalopathic, somnolent, difficult to arouse but does wake up briefly and then closes his eyes. Patient did not speak, keeps his eyes closed. Attention, concentration is severely impaired and fund of knowledge cannot be assessed because of mental status. On cranial nerve examination, pupils are equal, round and reacting to light, gaze is midline. Visual fisher cannot be tested. Face appears symmetric. Lower cranial nerves cannot be tested because of his mental status. On muscle strength testing, patient did not cooperate for testing. He did not squeeze hands on either side. On passively bringing his arms up, he rapidly brings it down to the side, does not give any resistance on either side. Deep tendon reflexes are symmetric and trace in the upper limbs, and 1 at the knees, and plantars are downgoing bilaterally. He is very ticklish, and moves his both legs equally. Sensory to touch cannot be assessed, but he does withdraw to painful stimuli equally. Cerebellar function cannot be tested. Some tremor at rest noted in the right upper limb. Gait deferred.. On general examination, there is no carotid bruit or murmur, S1-S2 audible. Chest is clear on consultation. Abdomen is soft nontender. No organomegaly, bowel sounds present. He has mild peripheral edema. Results - Laboratory Findings CBC and BMP: 03/01/23 21:46 03/01/23 21:46 Abnormal Lab Findings: Abnormal Labs 03/01/23 03/01/23 03/01/23 21:46 21:46 21:46 WBC 13.8 H RBC 3.39 L Hgb 9.9 L Hct 30.3 L RDW 18.0 H Neutrophils # 11.9 H Lymphocytes # 0.7 L ABG pO2 ABG HCO3 ABG Total CO2 ABG O2 Saturation ABG Hematocrit Hemoglobin BUN 22 H Glucose 171 H POC Glucose (mg/dL) Calcium 8.1 L Troponin I 0.046 H* Total Protein 5.3 L Albumin 2.8 L Urine Protein Urine Blood Ur Leukocyte Esterase Urine RBC Urine WBC Urine WBC Clumps Urine Bacteria Urine Mucus 03/02/23 03/02/23 03/02/23 00:59 04:00 05:51 WBC RBC Hgb Hct RDW Neutrophils # Lymphocytes # ABG pO2 59 L* ABG HCO3 28 H ABG Total CO2 29 H ABG O2 Saturation 91.5 L ABG Hematocrit 28 L Hemoglobin 9.3 L BUN Glucose POC Glucose (mg/dL) 146 H Calcium Troponin I Total Protein Albumin Urine Protein Trace H Urine Blood Moderate H Ur Leukocyte Esterase Large H Urine RBC 20 H Urine WBC 148 H Urine WBC Clumps Few H Urine Bacteria Occasional H Urine Mucus Few H Assessment and Plan Assessment: * Altered mental status, likely due to toxic metabolic encephalopathy. * Probable acute UTI * Rule out pneumonia * Hypoxia noted on ABG with pO2 59 and saturation 91.5%. * Borderline elevated cardiac enzymes * Generalized weakness due to critical illness polyneuropathy/myopathy * History of tremors in past and Primidone was not effective so was started on Keppra in 03/[address] Haynes. * Multiple rib fracture and traumatic hemothorax requiring chest replacement * Status post VATS evacuation of hemothorax. * Recent treatment for pneumonia with previous admission. * History of documented seizure (but family members stated that he does not have hx of seizures. Per nurse had tremor of mouth and possible started by [facility] according to ). * History of underlying COPD * Morbid obesity * History of pulmonary emphysema Plan: * EEG was performed, which was abnormal due to background slowing of at least moderate degree, suggestive of toxic metabolic encephalopathy. Patient was s leep also during the study. Awake pattern was not seen in the entire study. * Patient has 101.2, leukocytosis, abnormal UA, possible UTI. Patient on Zosyn and vancomycin. Awaiting cultures. Consider ID consultation. * Cardiology on board for elevated cardiac enzymes. * 2-D echo 02/13/2023 showed normal left-ventricular systolic function with EF 55-60%. Mild left atrial dilation. * CTA revealed no significant stenosis in, nor internal carotid arteries bilaterally or at the level of [place]. 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 This is asymptomatic at this time. Recommend patient follow up with neuro intervention as an outpatient. * Medical management as per IM. * Neurology will follow clinically. Discussed with patient's family in detail. Time with Patient: Greater than 30
--- NOTE | 2023-03-02 15:03 | P.PN ---
Progress Note - Text Progress Note Date: 03/02/23 Hospitalist Interval Note Patient was discharged on 03/01/23 after prolonged hospital course of approximately 19 days. [facility] he became more confused and lethargic. They therefore presented to the ER. His son have an elevated white blood cell count, contaminated urine, and either. His troponin was mildly elevated. He was readmitted. He was started on Vanco and Zosyn. Patient seen and examined at bedside. He is very lethargic. His is at bedside. All questions answered. Vital signs reviewed General: non toxic, no distress, appears at stated age Derm: warm, dry Head: atraumatic, normocephalic, symmetric Eyes: EOMI, no lid lag, anicteric sclera Mouth: no lip lesion, mucus membranes moist Cardiovascular: S1S2 reg, no murmur, positive posterior tibial pulse bilateral, Lungs: Decreased bs A bilateral, no rhonchi, no rales , no accessory muscle use Psych: Lethargic Assessment/Plan: Acute encephalpathy, recurrent SIRS 2/2-- infectious work-up in process. Acute Hypoxic respiratory failure Elevated troponin Critical illness polyneuropathy History of tremors Last Hospital Stay: Urinary retention s/p amaral Encephalopathy, likely metabolic, improving Hemopneumothorax and pulmonary contusion secondary to traumatic rib fractures right 5 and 6 Large chest wall hematoma s/p VATS Acute blood loss anemia Diabetes mellitus type 2 Coronary artery disease Dysphagia Acute kidney injury, possible contrast induced versus hemorrhagic Thrombocytopenia Leukopenia Metabolic alkalosis Anasarca secondary to hypoalbuminemia and need for fluid resuscitation, improved Hypernatremia due to forced diuresis and decreased free water intake History of pulmonary embolism not on chronic anticoagulation Dyslipidemia COPD TERE Hypothyroidism History of seizures Chronic L1 compression fracture - continue with vanco and zosyn - await blood cultures - change amaral and check UA and then send for culture - supportive care - consult cardio for elevated troponins - neuro recs - neuro recs: repeat EEG with encephalopathy This is an update note for patient , for full note on 03/02/23 see H and P. There is no charge associated with this note.
[2023-03-02] MEDS: VANCOMYCIN 1,750 MG in SODIUM CHLORIDE 0.9% 500 ML 500 ML IVPB SCH (15:10)
[2023-03-02 16:36] LABS: Glucose,Whole Blood 134 mg/dL (70-110)
[2023-03-02 17:04] LABS: Appearance,Urine Cloudy (Clear); Bacteria,Urine Rare /hpf; Bilirubin,Urine Negative (Negative); Blood,Urine Moderate (Negative); Color,Urine Yellow; Glucose,Urine (UA) Negative (Negative); Ketones,Urine Negative (Negative); Leukocyte Esterase,Urine Large (Negative); Nitrite,Urine Negative (Negative); PH, Urine 5.5 (5.0-8.0); Protein,Urine 1+ (Negative); RBC,Urine 126 /hpf (0-5); Urobilinogen,Urine <2.0 mg/dL (<2.0); WBC,Urine 46 /hpf (0-5)
[2023-03-02] MEDS: ATORVASTATIN 80 MG TAB PO SCH (20:05)
--- NOTE | 2023-03-02 23:14 | EEG ---
ELECTROENCEPHALOGRAM REPORT PREAMBLE: This is a 72-year-old male with altered mental status. This study is performed to evaluate for any epileptiform activity versus encephalopathy. EEG FINDINGS: This is a 21-channel digital EEG recorded with video component, utilizing 10/20 international system with referential and bipolar montages. The recording starts and continues with presence of diffuse low amplitude predominantly 3 to 4 hertz mixed delta and theta activity seen in bihemispheric region. Frequent sleep spindles were also seen in the central leads. The awake pattern not seen in the entire study. No focal or generalized epileptiform activity was seen. IMPRESSION: This is an abnormal EEG because of presence of diffuse slowing of the background throughout the study. Sleep spindles were also seen, suggestive of sleep pattern also. Overall well-formed awake pattern not seen in the entire study. This is suggestive of generalized cerebral dysfunction as can be seen with toxic metabolic encephalopathy or related to diffuse structural brain abnormality. Clinical correlation is recommended. No epileptiform activity was seen. MMODL / IJN: [id number] /
[2023-03-03 00:03] LABS: Glucose,Whole Blood 129 mg/dL (70-110)
[2023-03-03] MEDS: INSULIN ASPART (NovoLOG) 100 UNIT/ML VIAL SQ SCH ×4 (00:07→18:18)
[2023-03-03] MEDS: SODIUM CHLORIDE 0.9% 1,000 ML IV SCH ×3 (00:09→09:26)
[2023-03-03] MEDS: PIPERACILLIN-TAZOBACTAM 3.375 GM in SODIUM CHLORIDE 0.9% 100 ML IVPB SCH ×3 (02:17→18:43)
[2023-03-03] MEDS: VANCOMYCIN 1,750 MG in SODIUM CHLORIDE 0.9% 500 ML 500 ML IVPB SCH ×2 (02:17→15:24)
[2023-03-03 06:04] LABS: Glucose,Whole Blood 134 mg/dL (70-110)
[2023-03-03] MEDS: LEVOTHYROXINE 100 MCG TAB PO SCH (06:33)
[2023-03-03] MEDS: PANTOPRAZOLE 40 MG TABLET PO SCH (07:09)
[2023-03-03 08:46] LABS: Anisocytosis Slight; HCT 29.7 % (39.0-53.0); Hypochromasia Marked; MCHC 30.4 g/dL (31.0-37.0); Macrocytosis Slight; Mean Platelet Volume 9.7; RBC 3.02 m/uL (4.30-5.90); RDW 17.6 % (11.5-15.5); WBC 8.8 k/uL (3.8-10.6)
[2023-03-03 08:59] LABS: MCV 98.5 fL (80.0-100.0); Platelet Count 115 k/uL (150-450)
[2023-03-03] MEDS: CLOPIDOGREL 75 MG TAB PO SCH (08:59)
[2023-03-03] MEDS: METOPROLOL TARTRATE 50 MG TAB PO SCH ×2 (08:59→21:01)
[2023-03-03] MEDS: ASPIRIN 81 MG PO SCH (08:59)
[2023-03-03 09:03] LABS: African American GFR (CKD) >90 (>60 ml/min/1.73 sqM); Anion Gap 5 mmol/L; Blood Urea Nitrogen 16 mg/dL (9-20); Calcium 7.5 mg/dL (8.4-10.2); Carbon Dioxide 26 mmol/L (22-30); Chloride 115 mmol/L (98-107); Glucose 117 mg/dL (74-99); Magnesium 1.8 mg/dL (1.6-2.3); Non-African American GFR(CKD) 89 (>60 ml/min/1.73 sqM); Phosphorus 3.3 mg/dL (2.5-4.5); Potassium 3.5 mmol/L (3.5-5.1); Sodium 146 mmol/L (137-145)
[2023-03-03] MEDS: ENOXAPARIN 40 MG/0.4 ML SYRINGE SQ SCH (09:26)
[2023-03-03] MEDS: ARTIFICIAL TEARS-HYPROMELLOSE DROPS 15 ML BTL BOTH EYES SCH ×2 (09:27→21:01)
[2023-03-03 12:17] LABS: Glucose,Whole Blood 147 mg/dL (70-110)
[2023-03-03] MEDS: FUROSEMIDE 10 MG/ML 4 ML VIAL IV SCH ×2 (12:27→21:02)
--- NOTE | 2023-03-03 12:35 | P.CRDCN ---
History of Present Illness History of present illness: HISTORY OF PRESENT ILLNESS: This is a 72-year-old male with a past medical history significant for coronary artery disease with previous stenting, hypertension, hyperlipidemia, diabetes, and congestive heart failure. Patient follows in the office with Dr. Nicole. We have been asked to see the patient in consultation for elevated troponins. Patient was recently discharged after having a prolonged hospital course of almost 3 weeks. Patient was admitted at that time secondary to urinary retention, encephalopathy, hemopneumothorax, pulmonary contusion secondary to traumatic rib fractures, and chest wall hematoma with VATS procedure. The patient was discharged to [facility]. He was noted to be confused and lethargic and was brought to the hospital for further evaluation. The patient is currently diagnosed with leukocytosis/SIRS. He is receiving IV antibiotics. Patient examined at the bedside. Patients is present. Patient is lethargic and unable to provide much history. He appears short of breath and congested upon examination. Denies chest pain or pressure. * EKG reveals sinus tachycardia with a heart rate of 125 * Chest xray cardiomegaly. Pulmonary vascular congestion. Findings consistent with mild congestive heart failure. * Laboratory data: W BC 8.8. Hemoglobin 9.0. Platelet count 115. Sodium 146. Potassium 3.5. BUN 16. Creatinine 0.79. Troponin 0.046. 0.070. 0.055. * Current home cardiac medications include aspirin 81 mg daily, Plavix 75 mg daily, Lasix 20 mg daily, Lipitor 80 mg at night, metoprolol tartrate 50 mg twice a day * Most recent echocardiogram obtained in January 2023 reveals ejection fraction 55-60%, mild MR * Cardiac catheterization history: November 2021 with stenting of the proximal RCA with reduction from 70% stenosis to 0%. REVIEW OF SYSTEMS: At the time of my exam: CONSTITUTIONAL: Denies fever or chills. HEENT: Denies blurred vision, vision changes, or eye pain. Denies hemoptysis CARDIOVASCULAR: Denies chest pain. Denies orthopnea. Denies PND. Denies palpitations RESPIRATORY: Denies shortness of breath. GASTROINTESTINAL: Denies abdominal pain. Denies nausea or vomiting. HEMATOLOGIC: Denies bleeding disorders. GENITOURINARY: Denies any blood in urine. SKIN: Denies pruitis. Denies rash. PHYSICAL EXAM: VITAL SIGNS: Reviewed. GENERAL: Well-developed in no acute distress. HEENT: Head is normocephalic. Pupils are equal, round. Sclerae anicteric. Mucous membranes of the mouth are moist. Neck supple. No JVD or thyromegaly LUNGS: Respirations even and unlabored. Lungs congested with bibasilar crackles HEART: Regular rate and rhythm. S1 and S2 heard. ABDOMEN: Soft. Nondistended. Nontender. EXTREMITIES: Normal range of motion. No clubbing or cyanosis. Peripheral pulses intact. Trace lower extremity edema NEUROLOGIC: Lethargic ASSESSMENT: Altered mental status Leukocytosis SIRS, possible sepsis Acute on chronic heart failure with preserved ejection fraction, 55-60% Coronary artery disease with stenting of the proximal RCA, fiber 2021 Hypertension Hyperlipidemia Diabetes Recent prolonged hospitalization urinary retention, encephalopathy, hemopneumothorax, pulmonary contusion secondary to traumatic rib fractures, and chest wall hematoma with VATS procedure PLAN: Obtain limited echo Obtain BNP Begin Lasix 40 mg IV to 12 hours Daily weights, accurate I&O, and monitoring of kidney function Continue additional home cardiac medications Infectious workup per primary medicine Further recommendations pending patient's course Nurse practitioner note has been reviewed by physician. Signing provider agrees with the documented findings, assessment, and plan of care. Past Medical History Past Medical History: Coronary Artery Disease (CAD), COPD, Diabetes Mellitus, Eye Disorder, GERD/Reflux, Hearing Disorder / Deafness, Hyperlipidemia, Hypertension, Osteoarthritis (OA), Pulmonary Embolus (PE), Sleep Apnea/CPAP/BIPA P, Thyroid Disorder Additional Past Medical History / Comment(s): O2 3L. PE IN 2007. CHRONIC BACK PAIN. DIABETIC NEUROPATHY IN FEET. GLAUCOMA. TREMORS. OSTEOPOROSIS. bipap ORDERED BUT DOESN'T USE. HX POLYPS History of Any Multi-Drug Resistant Organisms: None Reported Past Surgical History: Appendectomy, Cholecystectomy, Hernia Repair, Orthopedic Surgery Additional Past Surgical History / Comment(s): BILATERAL KNEE REPLACEMENT, PLUS RIGHT KNEE DONE AGAIN; RIGHT ROTATOR CUFF. PITUITARY TUMOR REMOVED. BILATERAL CATARACTS. SINUS surgery. GLAUCOMA SURGERY. EYE LID SURGERY. Past Anesthesia/Blood Transfusion Reactions: No Reported Reaction Additional Past Anesthesia/Blood Transfusion Reaction / Comment(s): QUESTIONABLE THAT VERSED MAY OVERLY SEDATE. Past Psychological History: No Psychological Hx Reported Smoking Status: Former smoker Past Alcohol Use History: None Reported Past Drug Use History: None Reported - Past Family History Mother Family Medical History: Cancer Additional Family Medical History / Comment(s): LUNG Medications and Allergies Home Medications Medication Instructions Recorded Confirmed Type Atorvastatin [Lipitor] 80 mg PO HS 03/03/17 03/01/23 History Levothyroxine Sodium [Synthroid] 100 mcg PO DAILY 03/03/17 03/01/23 History Pantoprazole [Protonix] 40 mg PO DAILY 03/03/17 03/01/23 History Tamsulosin [Flomax] 0.4 mg PO HS 01/25/19 03/01/23 History Artificial Tears-Hypromellose 1 drops BOTH EYES BID 02/19/20 03/01/23 History [Artificial Tear Drops] Furosemide [Lasix] 20 mg PO DAILY 04/16/20 03/01/23 History Potassium Chloride [Klor-Con M10] 10 meq PO Q48H 04/17/20 03/01/23 History Folic Acid 1 mg PO DAILY #30 tablet 04/21/20 03/01/23 Rx Multivitamins, Thera [Multivitamin 1 tab PO DAILY #30 tablet 04/21/20 03/01/23 Rx (formulary)] Thiamine [Vitamin B-1] 100 mg PO DAILY #30 tablet 04/21/20 03/01/23 Rx Nitroglycerin Sl Tabs [Nitrostat] 0.4 mg SUBLINGUAL Q5M PRN 09/12/21 03/01/23 History Metoprolol Tartrate [Lopressor] 50 mg PO BID 30 Days #60 tab 09/17/21 03/01/23 Rx Aspirin 81 mg PO DAILY #0 12/07/21 03/01/23 Rx Clopidogrel Bisulfate [Plavix] 75 mg PO DAILY #90 tab 12/07/21 03/01/23 Rx amantadine HCL [Symmetrel] 100 mg PO BID 02/10/23 03/01/23 History Acetaminophen Tab [Tylenol] 650 mg PO Q6HR #0 tab 03/01/23 03/01/23 Rx Cholecalciferol [Vitamin D3 (25 50 mcg PO DAILY 03/01/23 03/01/23 History Mcg = 1000 Iu)] Enoxaparin [Lovenox] 40 mg SQ DAILY each 03/01/23 03/01/23 Rx Ipratropium-Albuterol Nebulize 3 ml INHALATION RT-Q2H PRN each 03/01/23 03/01/23 Rx [Duoneb 0.5 mg-3 mg/3 ml Soln] Ipratropium-Albuterol Nebulize 3 ml INHALATION RT-Q6H 03/01/23 03/01/23 History [Duoneb 0.5 mg-3 mg/3 ml Soln] Linagliptin [Tradjenta] 5 mg PO DAILY tab 03/01/23 03/01/23 Rx Melatonin 5 mg PO HS PRN tab 03/01/23 03/01/23 Rx Nystatin 100,000 Unit/ml Susp 500,000 unit PO QID #0 ml 03/01/23 03/01/23 Rx [Mycostatin Oral Susp] Sennosides-Docusate Sodium 2 tab PO HS PRN 03/01/23 03/01/23 History [Senokot-S] bisacodyL [Dulcolax] 10 mg RECTAL DAILY PRN suppositor 03/01/23 03/01/23 Rx Allergies Allergy/AdvReac Type Severity Reaction Status Date / Time metoclopramide AdvReac TREMORS Verified 03/01/23 21:48 Physical Exam Vitals: Vital Signs Temp Pulse Resp BP Pulse Ox 03/03/23 09:27 98 03/03/23 04:00 98.0 F 100 22 129/77 99 03/03/23 00:00 98.0 F 100 22 114/69 98 03/02/23 21:00 99.5 F 03/02/23 20:00 101.1 F H 119 H 20 112/63 97 03/02/23 16:33 98 03/02/23 16:00 99.3 F 115 H 18 127/81 99 03/02/23 14:00 113 H 22 03/02/23 12:00 99.8 F H 113 H 22 122/62 93 L Intake and Output 03/02/23 03/03/23 03/03/23 22:59 06:59 14:59 Intake Total 20 Output Total 275 Balance 20 -275 Intake: IV 20 Invasive Line 2 10 Invasive Line 4 10 Output: Urine 275 Other: Voiding Method Indwelling Catheter Indwelling Catheter Results 03/03/23 08:13 03/03/23 08:18 Cardiac Enzymes 03/02/23 03/03/23 Range/Units 11:28 08:18 Troponin I 0.070 H* 0.055 H* (0.000-0.034) ng/mL CBC 03/03/23 Range/Units 08:13 WBC 8.8 (3.8-10.6) k/uL RBC 3.02 L (4.30-5.90) m/uL Hgb 9.0 L (13.0-17.5) gm/dL Hct 29.7 L (39.0-53.0) % Plt Count 115 L (150-450) k/uL Comprehensive Metabolic Panel 03/03/23 Range/Units 08:18 Sodium 146 H (137-145) mmol/L Potassium 3.5 (3.5-5.1) mmol/L Chloride 115 H (98-107) mmol/L Carbon Dioxide 26 (22-30) mmol/L BUN 16 (9-20) mg/dL Creatinine 0.79 (0.66-1.25) mg/dL Glucose 117 H (74-99) mg/dL Calcium 7.5 L (8.4-10.2) mg/dL Current Medications Generic Name Dose Route Start Last Admin Trade Name Freq PRN Reason Stop Dose Admin Artificial Tears 1 drops 03/02/23 09:00 03/03/23 09:27 Artificial Tears-Hypromellose Drops 15 Ml Btl BOTH EYES 1 drops BID ZITA Administration Aspirin 81 mg 03/02/23 09:00 03/03/23 08:59 Aspirin 81 Mg PO Not Given DAILY ZITA Atorvastatin Calcium 80 mg 03/02/23 21:00 03/02/23 20:05 Atorvastatin 80 Mg Tab PO Not Given HS REPLACED BY [facility] Clopidogrel Bisulfate 75 mg 03/02/23 09:00 03/03/23 08:59 Clopidogrel 75 Mg Tab PO Not Given DAILY ZITA Enoxaparin Sodium 40 mg 03/02/23 09:00 03/03/23 09:26 Enoxaparin 40 Mg/0.4 Ml Syringe SQ 40 mg DAILY ZITA Administration Sodium Chloride 1,000 mls @ 130 mls/hr 03/02/23 00:30 03/03/23 09:26 Saline 0.9% IV 130 mls/hr .Q7H42M ZITA Administration Piperacillin Sod/Tazobactam 100 mls @ 25 mls/hr 03/02/23 11:00 03/03/23 02:17 Sod 3.375 gm/ Sodium Chloride IVPB 25 mls/hr Q8H ZITA Administration Protocol Vancomycin HCl 1,750 mg/ 500 mls @ 167 mls/hr 03/02/23 15:00 03/03/23 02:17 Sodium Chloride IVPB 167 mls/hr Q12H ZITA Administration Insulin Aspart 0 unit 03/02/23 06:00 03/03/23 06:14 Insulin Aspart (Novolog) 100 Unit/Ml Vial SQ Not Given Q6HR REPLACED BY [facility] Protocol Levothyroxine Sodium 100 mcg 03/02/23 06:30 03/03/23 06:33 Levothyroxine 100 Mcg Tab PO Not Given DAILY@0630 REPLACED BY [facility] Metoprolol Tartrate 50 mg 03/02/23 09:00 03/03/23 08:59 Metoprolol Tartrate 50 Mg Tab PO Not Given BID REPLACED BY [facility] Naloxone HCl 0.2 mg 03/02/23 00:22 Naloxone 0.4 Mg/Ml 1 Ml Vial IV Q2M PRN Opioid Reversal Pantoprazole Sodium 40 mg 03/02/23 07:30 03/03/23 07:09 Pantoprazole 40 Mg Tablet PO Not Given AC-BRKFST REPLACED BY [facility] Intake and Output 03/02/23 03/03/23 03/03/23 22:59 06:59 14:59 Intake Total 20 Output Total 275 Balance 20 -275 Intake: IV 20 Invasive Line 2 10 Invasive Line 4 10 Output: Urine 275 Other: Voiding Method Indwelling Catheter Indwelling Catheter 03/03/23 08:13 03/03/23 08:18
--- NOTE | 2023-03-03 12:39 | FL ---
EXAMINATION TYPE: FL barium swallow w video DATE OF EXAM: 03/03/2023 MODIFIED SWALLOW / DEGLUTITION STUDY CLINICAL HISTORY: Dysphagia. TECHNIQUE: Deglutition study is performed utilizing thin liquid barium , cracker, and barium thick a pplesauce. 1.57 minutes of fluoro time and 0 images obtained. Total dose area product (DAP) in uGy* m?, mGy*cm? (or similar): 313.38. 0 images saved to PACS. COMPARISON: 02/22/2023. FINDINGS: The oral and pharyngeal phases show some mild delay in initiation with satisfactory propaga tion with all modalities tested. There is silent tracheal aspiration with large thin consistency bolu s. No penetration or aspiration with small boluses of thin consistency. Premature spill with all cons istencies. No significant pharyngeal residue after multiple swallowing attempts. IMPRESSION: Tracheal aspiration with large thin consistency bolus. Please refer to speech therapist notes for further details if necessary.
[2023-03-03] MEDS ORDERED: POTASSIUM BICARBONATE/CIT AC 20 MEQ TABLET.EFF PO ONE (13:35)
--- NOTE | 2023-03-03 13:35 | P.PN ---
Subjective Progress Note Date: 03/03/23 Patient was discharged on 03/01/23 after prolonged hospital course of approximately 19 days. A few hours after arrival to the skilled nursing he became more confused and lethargic. They therefore presented to the ER. His son have an elevated white blood cell count, contaminated urine, and either. His troponin was mildly elevated. He was readmitted. He was started on Vanco and Zosyn. Patient is denying any acute complaints. is at bedside. Patient kept falling asleep during my interview with patient. Patient however is AAO 3. Patient states that when he was discharged from the hospital recently he was discharged on 3 L nasal cannula. Patient is currently on 3 L cannula and satting well. Per at bedside patient was falling a lot at home even prior to his previous admission. I had the patient drink some water and patient then started coughing. I discussed with the speech therapist. Vital signs reviewed General examination - Alert and Oriented 3 in NAD Heart - + S1S2 no murmurs Lungs -diffuse rhonchi Abdomen soft NT ND +ve BS Extremities -+1 pitting edema bilateral lower extremities BAR[place]OOK - Moving all 4 extremities spontaneously Psych -lethargic and somnolent with poor judgment Assessment/Plan: Acute encephalpathy, recurrent suspected due to chronic debility Sepsis on admission Aspiration pneumonia. I believe patient is silently aspirating. Urinary tract infection Type II ND secondary to sepsis Acute on chronic Hypoxic respiratory failure Critical illness polyneuropathy History of tremors Last Hospital Stay: Urinary retention s/p amaral Encephalopathy, likely metabolic Hemopneumothorax and pulmonary contusion secondary to traumatic rib fractures right 5 and 6 Large chest wall hematoma s/p VATS Acute blood loss anemia Diabetes mellitus type 2 Coronary artery disease Dysphagia Acute kidney injury, possible contrast induced versus hemorrhagic Thrombocytopenia Leukopenia Metabolic alkalosis Anasarca secondary to hypoalbuminemia and need for fluid resuscitation, improved Hypernatremia due to forced diuresis and decreased free water intake History of pulmonary embolism not on chronic anticoagulation Dyslipidemia COPD TERE Hypothyroidism History of seizures Chronic L1 compression fracture Assessment -WBC normalized - continue with vanco and zosyn - await blood cultures -Follow up on urine culture -Spaced therapy was downgraded him to a ground diet -We'll consult pulmonology to see the patient will benefit from bronchoscopy to clear his airways -Cardiology on board and started him on Lasix 40 mg every 12 hours -Cardiology ordered a limited echocardiogram. - supportive care -Troponin trending down - neuro recs: repeat EEG consistent with toxic metabolic encephalopathy Overall patient prognosis is guarded. Anticipated discharge: 3 days Objective - Vital Signs Vital signs: Vital Signs Temp 97.8 F 03/03/23 12:00 Pulse 102 H 03/03/23 12:00 Resp 19 03/03/23 12:00 BP 120/73 03/03/23 12:00 Pulse Ox 98 03/03/23 12:00 FiO2 Intake & Output 03/02/23 03/03/23 03/03/23 18:59 06:59 18:59 Intake Total 1660 20 1040 Output Total 275 Balance 1660 -255 1040 Intake: IV 20 20 Invasive Line 2 10 Invasive Line 4 20 10 Intake, IV Titration 1640 1040 Amount Piperacillin-Tazobactam 3 100 .375 gm In Sodium Chloride 0.9% 100 ml @ 25 mls/hr IVPB ONCE STA Rx# :[id number] Sodium Chloride 0.9% 1, 1040 1040 000 ml @ 130 mls/hr IV . Q7H42M [facility] Rx#:[id number] Vancomycin 1,750 mg In 500 Sodium Chloride 0.9% 500 ml 500 ml @ 167 mls/hr IVPB Q12H [facility] Rx#: [id number] Output: Urine 275 Other: Voiding Method Indwelling Catheter Indwelling Catheter Indwelling Catheter - Labs CBC & Chem 7: 03/03/23 08:13 03/03/23 08:18 Labs: Abnormal Lab Results - Last 24 Hours (Table) 03/02/23 03/02/23 03/03/23 Range/Units 16:24 16:35 00:01 RBC (4.30-5.90) m/uL Hgb (13.0-17.5) gm/dL Hct (39.0-53.0) % MCHC (31.0-37.0) g/dL RDW (11.5-15.5) % Plt Count (150-450) k/uL Sodium (137-145) mmol/L Chloride (98-107) mmol/L Glucose (74-99) mg/dL POC Glucose (mg/dL) 134 H 129 H (70-110) mg/dL Calcium (8.4-10.2) mg/dL Troponin I (0.000-0.034) ng/mL Ur Specific Endeavor 1.050 H (1.001-1.035) Urine Protein 1+ H (Negative) Urine Blood Moderate H (Negative) Ur Leukocyte Esterase Large H (Negative) Urine RBC 126 H (0-5) /hpf Urine WBC 46 H (0-5) /hpf Urine Bacteria Rare H (None) /hpf 03/03/23 03/03/23 03/03/23 Range/Units 06:02 08:13 08:18 RBC 3.02 L (4.30-5.90) m/uL Hgb 9.0 L (13.0-17.5) gm/dL Hct 29.7 L (39.0-53.0) % MCHC 30.4 L (31.0-37.0) g/dL RDW 17.6 H (11.5-15.5) % Plt Count 115 L (150-450) k/uL Sodium 146 H (137-145) mmol/L Chloride 115 H (98-107) mmol/L Glucose 117 H (74-99) mg/dL POC Glucose (mg/dL) 134 H (70-110) mg/dL Calcium 7.5 L (8.4-10.2) mg/dL Troponin I (0.000-0.034) ng/mL Ur Specific Endeavor (1.001-1.035) Urine Protein (Negative) Urine Blood (Negative) Ur Leukocyte Esterase (Negative) Urine RBC (0-5) /hpf Urine WBC (0-5) /hpf Urine Bacteria (None) /hpf 03/03/23 03/03/23 Range/Units 08:18 12:15 RBC (4.30-5.90) m/uL Hgb (13.0-17.5) gm/dL Hct (39.0-53.0) % MCHC (31.0-37.0) g/dL RDW (11.5-15.5) % Plt Count (150-450) k/uL Sodium (137-145) mmol/L Chloride (98-107) mmol/L Glucose (74-99) mg/dL POC Glucose (mg/dL) 147 H (70-110) mg/dL Calcium (8.4-10.2) mg/dL Troponin I 0.055 H* (0.000-0.034) ng/mL Ur Specific [place]deavor (1.001-1.035) Urine Protein (Negative) Urine Blood (Negative) Ur Leukocyte Esterase (Negative) Urine RBC (0-5) /hpf Urine WBC (0-5) /hpf Urine Bacteria (None) /hpf Microbiology - Last 24 Hours (Table) 03/02/23 16:24 Urine Culture - Preliminary Urine,Voided
--- NOTE | 2023-03-03 15:46 | P.CNPUL ---
History of Present Illness Consult date: 03/03/23 Requesting physician: Lou Tovar Reason for consult: hypoxemia Chief complaint: Fever History of present illness: This is a 72-year-old male patient with a known history of coronary artery disease, chronic obstructive pulmonary disease, diabetes mellitus, hyperlipidemia, hypertension, pulmonary embolism, osteoporosis. He was recently admitted here in mid January after sustaining a fall with a right chest injury resulting in pulmonary contusion multiple right rib fractures and traumatic hemothorax requiring chest tube placement on 02/11/2023. He had undergone video-assisted thorascopic evacuation of blood and blood clots from the right pleural space that same day. He was was on the mechanical ventilator for some time and extubated on 02/18/2023. He was subsequently discharged to a subacute rehabilitation facility on 03/01/2023. Unfortunately he was brought back later that same day within hours for a fever and altered mental status. He had a temperature of 101.2. Computed tomography scan of the brain revealed no acute intracranial hemorrhage or large territorial infarct. CT angiogram revealed no significant stenosis in the common or internal carotid arteries bilaterally. CT angiogram of the chest revealed no evidence of central pulmonary embolism. There was cardiomegaly, pulmonary hypertension with some interstitial prominence. Suspect congestive heart failure. Decreasing in the size of a right chest wall hematoma. No pneumothorax. We are consulted today for respiratory distress. Patient is seen in consultation on the selective care unit. He is currently sitting up in bed awake and alert in no acute distress. He actually looks better than he did at discharge. More alert. Currently afebrile and maintaining O2 saturations in the upper 90s on 3 L/m per nasal cannula. He might in a medically stable. White count 8.8. Hemoglobin 9.0. Platelet count 1:15. Sodium 146. Potassium 3.5. Bicarb 26. BUN 16. Creatinine 0.79. Glucose 117. ProBNP 1500. Review of Systems ROS unobtainable: due to mental status Past Medical History Past Medical History: Coronary Artery Disease (CAD), COPD, Diabetes Mellitus, Eye Disorder, GERD/Reflux, Hearing Disorder / Deafness, Hyperlipidemia, Hypertension, Osteoarthritis (OA), Pulmonary Embolus (PE), Sleep Apnea/CPAP/BIPA P, Thyroid Disorder Additional Past Medical History / Comment(s): O2 3L. PE IN 2007. CHRONIC BACK PAIN. DIABETIC NEUROPATHY IN FEET. GLAUCOMA. TREMORS. OSTEOPOROSIS. bipap ORDERED BUT DOESN'T USE. HX POLYPS History of Any Multi-Drug Resistant Organisms: None Reported Past Surgical History: Appendectomy, Cholecystectomy, Hernia Repair, Orthopedic Surgery Additional Past Surgical History / Comment(s): BILATERAL KNEE REPLACEMENT, PLUS RIGHT KNEE DONE AGAIN; RIGHT ROTATOR CUFF. PITUITARY TUMOR REMOVED. BILATERAL CATARACTS. SINUS surgery. GLAUCOMA SURGERY. EYE LID SURGERY. Past Anesthesia/Blood Transfusion Reactions: No Reported Reaction Additional Past Anesthesia/Blood Transfusion Reaction / Comment(s): QUESTIONABLE THAT VERSED MAY OVERLY SEDATE. Past Psychological History: No Psychological Hx Reported Smoking Status: Former smoker Past Alcohol Use History: None Reported Past Drug Use History: None Reported - Past Family History Mother Family Medical History: Cancer Additional Family Medical History / Comment(s): LUNG Medications and Allergies Home Medications Medication Instructions Recorded Confirmed Type Atorvastatin [Lipitor] 80 mg PO HS 03/03/17 03/01/23 History Levothyroxine Sodium [Synthroid] 100 mcg PO DAILY 03/03/17 03/01/23 History Pantoprazole [Protonix] 40 mg PO DAILY 03/03/17 03/01/23 History Tamsulosin [Flomax] 0.4 mg PO HS 01/25/19 03/01/23 History Artificial Tears-Hypromellose 1 drops BOTH EYES BID 02/19/20 03/01/23 History [Artificial Tear Drops] Furosemide [Lasix] 20 mg PO DAILY 04/16/20 03/01/23 History Potassium Chloride [Klor-Con M10] 10 meq PO Q48H 04/17/20 03/01/23 History Folic Acid 1 mg PO DAILY #30 tablet 04/21/20 03/01/23 Rx Multivitamins, Thera [Multivitamin 1 tab PO DAILY #30 tablet 04/21/20 03/01/23 Rx (formulary)] Thiamine [Vitamin B-1] 100 mg PO DAILY #30 tablet 04/21/20 03/01/23 Rx Nitroglycerin Sl Tabs [Nitrostat] 0.4 mg SUBLINGUAL Q5M PRN 09/12/21 03/01/23 History Metoprolol Tartrate [Lopressor] 50 mg PO BID 30 Days #60 tab 09/17/21 03/01/23 Rx Aspirin 81 mg PO DAILY #0 12/07/21 03/01/23 Rx Clopidogrel Bisulfate [Plavix] 75 mg PO DAILY #90 tab 12/07/21 03/01/23 Rx amantadine HCL [Symmetrel] 100 mg PO BID 02/10/23 03/01/23 History Acetaminophen Tab [Tylenol] 650 mg PO Q6HR #0 tab 03/01/23 03/01/23 Rx Cholecalciferol [Vitamin D3 (25 50 mcg PO DAILY 03/01/23 03/01/23 History Mcg = 1000 Iu)] Enoxaparin [Lovenox] 40 mg SQ DAILY each 03/01/23 03/01/23 Rx Ipratropium-Albuterol Nebulize 3 ml INHALATION RT-Q2H PRN each 03/01/23 03/01/23 Rx [Duoneb 0.5 mg-3 mg/3 ml Soln] Ipratropium-Albuterol Nebulize 3 ml INHALATION RT-Q6H 03/01/23 03/01/23 History [Duoneb 0.5 mg-3 mg/3 ml Soln] Linagliptin [Tradjenta] 5 mg PO DAILY tab 03/01/23 03/01/23 Rx Melatonin 5 mg PO HS PRN tab 03/01/23 03/01/23 Rx Nystatin 100,000 Unit/ml Susp 500,000 unit PO QID #0 ml 03/01/23 03/01/23 Rx [Mycostatin Oral Susp] Sennosides-Docusate Sodium 2 tab PO HS PRN 03/01/23 03/01/23 History [Senokot-S] bisacodyL [Dulcolax] 10 mg RECTAL DAILY PRN suppositor 03/01/23 03/01/23 Rx Allergies Allergy/AdvReac Type Severity Reaction Status Date / Time metoclopramide AdvReac TREMORS Verified 03/01/23 21:48 Physical Exam Vitals: Vital Signs Temp Pulse Resp BP Pulse Ox 03/03/23 12:00 97.8 F 102 H 19 120/73 98 03/03/23 09:27 98 03/03/23 08:10 97 F L 102 H 20 133/66 99 03/03/23 04:00 98.0 F 100 22 129/77 99 03/03/23 00:00 98.0 F 100 22 114/69 98 03/02/23 21:00 99.5 F 03/02/23 20:00 101.1 F H 119 H 20 112/63 97 03/02/23 16:33 98 03/02/23 16:00 99.3 F 115 H 18 127/81 99 Intake and Output 03/03/23 03/03/23 03/03/23 06:59 14:59 22:59 Intake Total 1040 Output Total 275 1300 Balance -275 -260 Intake: Intake, IV Titration 1040 Amount Sodium Chloride 0.9% 1, 1040 000 ml @ 130 mls/hr IV . Q7H42M [facility] Rx#:[id number] Output: Urine 275 1300 Other: Voiding Method Indwelling Catheter Indwelling Catheter GENERAL EXAM: Alert, poor historian, on 3 L nasal cannula, obese 72-year-old male patient, comfortable in no apparent distress. HEAD: Normocephalic. EYES: Normal reaction of pupils, equal size. NOSE: Clear with pink turbinates. THROAT: No erythema or exudates. NECK: No masses, no JVD. CHEST: No chest wall deformity. Residual right sided hematoma from previous trauma LUNGS: Equal air entry with no crackles, wheeze, rhonchi or dullness. CVS: S1 and S2 normal with no audible murmur, regular rhythm. ABDOMEN: No hepatosplenomegaly, normal bowel sounds, no guarding or rigidity. SPINE: No scoliosis or deformity SKIN: No rashes CENTRAL NERVOUS SYSTEM: No focal deficits, tone is normal in all 4 extremities. EXTREMITIES: There is 1-2+ peripheral edema. No clubbing, no cyanosis. Peripheral pulses are intact. Results - Laboratory Findings CBC and BMP: 03/03/23 08:13 03/03/23 08:18 ABG ABG pH 7.45 (7.35-7.45) 03/02/23 04:00 ABG pCO2 41 mmHg (35-45) 03/02/23 04:00 ABG pO2 59 mmHg (83-108) L* 03/02/23 04:00 ABG O2 Saturation 91.5 % (94-97) L 03/02/23 04:00 PT/INR, D-dimer PT 11.1 sec (9.0-12.0) 03/01/23 21:46 INR 1.1 (<1.2) 03/01/23 21:46 Abnormal lab findings: Abnormal Labs 03/01/23 03/01/23 03/01/23 21:46 21:46 21:46 WBC 13.8 H RBC 3.39 L Hgb 9.9 L Hct 30.3 L MCHC RDW 18.0 H Plt Count Neutrophils # 11.9 H Lymphocytes # 0.7 L ABG pO2 ABG HCO3 ABG Total CO2 ABG O2 Saturation ABG Hematocrit Hemoglobin Sodium Chloride BUN 22 H Glucose 171 H POC Glucose (mg/dL) Calcium 8.1 L Troponin I 0.046 H* Total Protein 5.3 L Albumin 2.8 L Ur Specific [place] Urine Protein Urine Blood Ur Leukocyte Esterase Urine RBC Urine WBC Urine WBC Clumps Urine Bacteria Urine Mucus 03/02/23 03/02/23 03/02/23 00:59 04:00 05:51 WBC RBC Hgb Hct MCHC RDW Plt Count Neutrophils # Lymphocytes # ABG pO2 59 L* ABG HCO3 28 H ABG Total CO2 29 H ABG O2 Saturation 91.5 L ABG Hematocrit 28 L Hemoglobin 9.3 L Sodium Chloride BUN Glucose POC Glucose (mg/dL) 146 H Calcium Troponin I Total Protein Albumin Ur Specific [place] Urine Protein Trace H Urine Blood Moderate H Ur Leukocyte Esterase Large H Urine RBC 20 H Urine WBC 148 H Urine WBC Clumps Few H Urine Bacteria Occasional H Urine Mucus Few H 03/02/23 03/02/23 03/02/23 11:28 11:45 16:24 WBC RBC Hgb Hct MCHC RDW Plt Count Neutrophils # Lymphocytes # ABG pO2 ABG HCO3 ABG Total CO2 ABG O2 Saturation ABG Hematocrit Hemoglobin Sodium Chloride BUN Glucose POC Glucose (mg/dL) 152 H Calcium Troponin I 0.070 H* Total Protein Albumin Ur Specific [place] 1.050 H Urine Protein 1+ H Urine Blood Moderate H Ur Leukocyte Esterase Large H Urine RBC 126 H Urine WBC 46 H Urine WBC Clumps Urine Bacteria Rare H Urine Mucus 03/02/23 03/03/23 03/03/23 16:35 00:01 06:02 WBC RBC Hgb Hct MCHC RDW Plt Count Neutrophils # Lymphocytes # ABG pO2 ABG HCO3 ABG Total CO2 ABG O2 Saturation ABG Hematocrit Hemoglobin Sodium Chloride BUN Glucose POC Glucose (mg/dL) 134 H 129 H 134 H Calcium Troponin I Total Protein Albumin Ur Specific [place] Urine Protein Urine Blood Ur Leukocyte Esterase Urine RBC Urine WBC Urine WBC Clumps Urine Bacteria Urine Mucus 03/03/23 03/03/23 03/03/23 08:13 08:18 08:18 WBC RBC 3.02 L Hgb 9.0 L Hct 29.7 L MCHC 30.4 L RDW 17.6 H Plt Count 115 L Neutrophils # Lymphocytes # ABG pO2 ABG HCO3 ABG Total CO2 ABG O2 Saturation ABG Hematocrit Hemoglobin Sodium 146 H Chloride 115 H BUN Glucose 117 H POC Glucose (mg/dL) Calcium 7.5 L Troponin I 0.055 H* Total Protein Albumin Ur Specific [place] Urine Protein Urine Blood Ur Leukocyte Esterase Urine RBC Urine WBC Urine WBC Clumps Urine Bacteria Urine Mucus 03/03/23 12:15 WBC RBC Hgb Hct MCHC RDW Plt Count Neutrophils # Lymphocytes # ABG pO2 ABG HCO3 ABG Total CO2 ABG O2 Saturation ABG Hematocrit Hemoglobin Sodium Chloride BUN Glucose POC Glucose (mg/dL) 147 H Calcium Troponin I Total Protein Albumin Ur Specific [place] Urine Protein Urine Blood Ur Leukocyte Esterase Urine RBC Urine WBC Urine WBC Clumps Urine Bacteria Urine Mucus - Diagnostic Findings Chest x-ray: image reviewed CT scan - chest: image reviewed Assessment and Plan Assessment: Altered mental status suspect secondary to febrile illness, possible urinary tract infection. Culture pending. Initiated on vancomycin and Zosyn per medicine Acute on chronic hypoxemic respiratory failure secondary to some fluid volume overload and suspected diastolic congestive heart failure Recent admission for fall, with right chest injury, resulting in pulmonary contusion, multiple right rib fractures, and traumatic hemothorax requiring chest tube placement, 02/11/2023. S/P bronchoscopy, video-assisted thoracoscopic evacuation of blood and blood clots from the right pleural space, 02/11/2023. Status post reintubation, for hypercapnic respiratory failure, 02/13/2023, with final extubation on February 18. Anemia, secondary to traumatic hemothorax. History of CAD. History of COPD. Diabetes mellitus. Hyperlipidemia. Hypertension. History of pulmonary embolism. History of osteoporosis. Poor overall functional performance based on the above-mentioned multiple com orbidities. Plan: The patient was seen and evaluated CT scans, chest x-rays, labs and medications reviewed Suspect urinary tract infection Check a pro-calcitonin May be able to de-escalate antibiotics Titrate the FiO2 as tolerated Educate regarding the use of the incentive spirometer Increase his activity as tolerated We will continue to follow and make further recommendations based on his clini ro status I have personally seen and examined the patient, performed the documentation and the assessment and plan as written. Number of minutes spent on the visit: 20.
[2023-03-03 18:04] LABS: Glucose,Whole Blood 122 mg/dL (70-110)
--- NOTE | 2023-03-03 19:48 | CDI ---
Documentation Clarification Form Date: 03/03/2023 7:22:06 PM From: Edna Oconnor RN CCDS Phone: [phone] Admit Date: 03/02/2023 12:22:00 AM Patient Name: Yomi Mccormick Visit Number: [id number] Discharge Date: ATTENTION: The Clinical Documentation Specialists (CDI) and [facility] Coding Staff appreciate your assistance in clarifying documentation. Please respond to the clarification below the line at the bottom and electronically sign. The CDI & [facility] Coding staff will review the response and follow-up if needed. Please note: Queries are made part of the Legal Health Record. If you have any questions, please contact the author of this message via ITS. Dr. Lou Tovar UTI is documented 03/02, Neurology consult and patient has Arenas catheter since last admission. Additional clarification regarding the etiology of the UTI is requested. History/Risk Factors: 72-year-old male presents to the ED from [facility] for having altered mental status. Medical History: Recent fall with right rib fracture complicated by hemothorax required chest tube, Vats and chest wall hematoma evacuation. DM, GERD, HLD, Sleep apnea /CPAP/BIPAP, COPD and CAD. 03/02, H&P. Clinical Indicators: 03/02, Neurology consult: Patient has foleys catheter since last admission, and was discharged with Foleys catheter. VSS: 03/01 B/P 101/66; HR 82; Temp 98.6 F Oral; RR 18; SpO2 95% 6L nasal cannula Urinalysis: 03/02 Protein trace, Blood moderate, Nitrate positive, Leukocyte esterase Large, Wbc 148, Urine culture: 03/02 No growth after 18 hours Lab results: 03/01 Wbc 13.8, Neutrophils 11.9 Treatment: 03/02 Zosyn IVPB x 1; 03/02 Zosyn IVPB Q8H; 03/02 Vancomycin IVPB x 1; 03/02 Vancomycin IVPB Q12H Please clarify the etiology of the UTI, if known: [X ] Arenas catheter [ ] UTI not related to catheter [ ] Other condition, please specify [ ] Unable to determine (Template Last Revised: December 2020) MTDD
[2023-03-03] MEDS: ATORVASTATIN 80 MG TAB PO SCH (21:01)
--- NOTE | 2023-03-03 21:22 | P.PN ---
Subjective Progress Note Date: 03/03/23 Patient was seen for a follow-up. Patient is laying diagonally in the bed. His legs are dangling down. Patient is much more alert and awake, interactive. Patient knows that he is in "at facility". Objective - Vital Signs Vital signs: Vital Signs Temp 97.8 F 03/03/23 12:00 Pulse 102 H 03/03/23 12:00 Resp 19 03/03/23 12:00 BP 120/73 03/03/23 12:00 Pulse Ox 98 03/03/23 12:00 FiO2 Intake & Output 03/02/23 03/03/23 03/03/23 18:59 06:59 18:59 Intake Total 1660 20 1040 Output Total 275 Balance 1660 -255 1040 Intake: IV 20 20 Invasive Line 2 10 Invasive Line 4 20 10 Intake, IV Titration 1640 1040 Amount Piperacillin-Tazobactam 3 100 .375 gm In Sodium Chloride 0.9% 100 ml @ 25 mls/hr IVPB ONCE [facility] Rx# :[id number] Sodium Chloride 0.9% 1, 1040 1040 000 ml @ 130 mls/hr IV . Q7H42M [facility] Rx#:[id number] Vancomycin 1,750 mg In 500 Sodium Chloride 0.9% 500 ml 500 ml @ 167 mls/hr IVPB Q12H [facility] Rx#: [id number] Output: Urine 275 Other: Voiding Method Indwelling Catheter Indwelling Catheter Indwelling Catheter - Exam Patient is much more alert and awake, following directions. He could not tell the month, he says year is 2002. He states Mr. Santoyo is the president. Patient able to name all objects like ink pen, glasses and can repeat very well. No aphasia or dysarthria. 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 Shoulder is weak on both sides. Likely from arthritis. Ankle dorsiflexion 5/5, hip flexion 4-/4-. Patient did not cooperate with further testing. - Labs CBC & Chem 7: 03/03/23 08:13 03/03/23 08:18 Labs: Abnormal Lab Results - Last 24 Hours (Table) 03/02/23 03/02/23 03/03/23 Range/Units 16:24 16:35 00:01 RBC (4.30-5.90) m/uL Hgb (13.0-17.5) gm/dL Hct (39.0-53.0) % MCHC (31.0-37.0) g/dL RDW (11.5-15.5) % Plt Count (150-450) k/uL Sodium (137-145) mmol/L Chloride (98-107) mmol/L Glucose (74-99) mg/dL POC Glucose (mg/dL) 134 H 129 H (70-110) mg/dL Calcium (8.4-10.2) mg/dL Troponin I (0.000-0.034) ng/mL Ur Specific [place] 1.050 H (1.001-1.035) Urine Protein 1+ H (Negative) Urine Blood Moderate H (Negative) Ur Leukocyte Esterase Large H (Negative) Urine RBC 126 H (0-5) /hpf Urine WBC 46 H (0-5) /hpf Urine Bacteria Rare H (None) /hpf 03/03/23 03/03/23 03/03/23 Range/Units 06:02 08:13 08:18 RBC 3.02 L (4.30-5.90) m/uL Hgb 9.0 L (13.0-17.5) gm/dL Hct 29.7 L (39.0-53.0) % MCHC 30.4 L (31.0-37.0) g/dL RDW 17.6 H (11.5-15.5) % Plt Count 115 L (150-450) k/uL Sodium 146 H (137-145) mmol/L Chloride 115 H (98-107) mmol/L Glucose 117 H (74-99) mg/dL POC Glucose (mg/dL) 134 H (70-110) mg/dL Calcium 7.5 L (8.4-10.2) mg/dL Troponin I (0.000-0.034) ng/mL Ur Specific [place] (1.001-1.035) Urine Protein (Negative) Urine Blood (Negative) Ur Leukocyte Esterase (Negative) Urine RBC (0-5) /hpf Urine WBC (0-5) /hpf Urine Bacteria (None) /hpf 03/03/23 03/03/23 Range/Units 08:18 12:15 RBC (4.30-5.90) m/uL Hgb (13.0-17.5) gm/dL Hct (39.0-53.0) % MCHC (31.0-37.0) g/dL RDW (11.5-15.5) % Plt Count (150-450) k/uL Sodium (137-145) mmol/L Chloride (98-107) mmol/L Glucose (74-99) mg/dL POC Glucose (mg/dL) 147 H (70-110) mg/dL Calcium (8.4-10.2) mg/dL Troponin I 0.055 H* (0.000-0.034) ng/mL Ur Specific [place] (1.001-1.035) Urine Protein (Negative) Urine Blood (Negative) Ur Leukocyte Esterase (Negative) Urine RBC (0-5) /hpf Urine WBC (0-5) /hpf Urine Bacteria (None) /hpf Microbiology - Last 24 Hours (Table) 03/02/23 16:24 Urine Culture - Preliminary Urine,Voided Assessment and Plan Assessment: * Altered mental status, likely due to toxic metabolic encephalopathy. * Probable acute UTI * Hypoxia noted on ABG with pO2 59 and saturation 91.5%. Probable pneumonia. * Borderline elevated cardiac enzymes * Fluid overload and suspected diastolic CHF. * History of tremors in past and Primidone was not effective so was started on Keppra in 03/[address] Haynes. * Status post Multiple rib fracture and traumatic hemothorax requiring chest replacement, now resolved. * Recent treatment for pneumonia with previous admission. * History of documented seizure (but family members stated that he does not have hx of seizures. Per nurse had tremor of mouth and possible started [facility] according to ). * History of underlying COPD * Morbid obesity * History of pulmonary emphysema Plan: * Patient's encephalopathy has much improved. He is quite interactive, and following directions and much more awake, as per examination above. * EEG was performed, which was abnormal due to background slowing of at least moderate degree, suggestive of toxic metabolic encephalopathy. Patient was sleep also during the study. Awake pattern was not seen in the entire study. * Patient has probable UTI. Patient on Zosyn and vancomycin. Cultures so far negative. * Cardiology on board for elevated cardiac enzymes. * 2-D echo 02/13/2023 showed normal left-ventricular systolic function with EF 55-60%. Mild left atrial dilation. * CTA revealed no significant stenosis in, nor internal carotid arteries bilaterally or at the level of [place]. 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 This is asymptomatic at this time. Recommend patient follow up with neuro intervention as an outpatient. * Medical management as per IM. * Dr. Haynes will be available for any neurological concerns over the weekend. Dr. Roberto Alamo will start neurology service from Monday.
[2023-03-04 00:06] LABS: Glucose,Whole Blood 126 mg/dL (70-110)
[2023-03-04] MEDS: INSULIN ASPART (NovoLOG) 100 UNIT/ML VIAL SQ SCH ×5 (00:15→23:42)
[2023-03-04] MEDS: PIPERACILLIN-TAZOBACTAM 3.375 GM in SODIUM CHLORIDE 0.9% 100 ML IVPB SCH ×3 (03:11→18:32)
[2023-03-04] MEDS: VANCOMYCIN 1,750 MG in SODIUM CHLORIDE 0.9% 500 ML 500 ML IVPB SCH ×2 (03:11→15:23)
[2023-03-04 06:28] LABS: Glucose,Whole Blood 134 mg/dL (70-110)
[2023-03-04] MEDS: PANTOPRAZOLE 40 MG TABLET PO SCH (06:44)
[2023-03-04] MEDS: LEVOTHYROXINE 100 MCG TAB PO SCH (06:44)
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
[2023-03-04] MEDS: ARTIFICIAL TEARS-HYPROMELLOSE DROPS 15 ML BTL BOTH EYES SCH ×2 (10:09→21:27)
[2023-03-04] MEDS: FUROSEMIDE 10 MG/ML 4 ML VIAL IV SCH ×2 (10:09→21:27)
[2023-03-04] MEDS: CLOPIDOGREL 75 MG TAB PO SCH (10:09)
[2023-03-04] MEDS: ASPIRIN 81 MG PO SCH (10:09)
[2023-03-04] MEDS: METOPROLOL TARTRATE 50 MG TAB PO SCH ×2 (10:09→21:27)
[2023-03-04] MEDS: ENOXAPARIN 40 MG/0.4 ML SYRINGE SQ SCH (10:09)
[2023-03-04 10:31] LABS: Anisocytosis Slight; Basophils % (A) 0 %; Eosinophils # (A) 0.4 k/uL (0-0.7); Eosinophils % (A) 5 %; HCT 28.5 % (39.0-53.0); HGB 9.1 gm/dL (13.0-17.5); Hypochromasia Moderate; Lymphocytes # (A) 0.4 k/uL (1.0-4.8); Lymphocytes % (A) 5 %; MCH 30.5 pg (25.0-35.0); MCHC 31.8 g/dL (31.0-37.0); MCV 95.9 fL (80.0-100.0); Macrocytosis Slight; Mean Platelet Volume 10.1; Monocytes # (A) 0.4 k/uL (0-1.0); Monocytes % (A) 5 %; Neutrophils # (A) 6.7 k/uL (1.3-7.7); Neutrophils % (A) 82 %; Platelet Count 100 k/uL (150-450); RBC 2.97 m/uL (4.30-5.90); RDW 17.4 % (11.5-15.5); WBC 8.2 k/uL (3.8-10.6)
[2023-03-04 10:55] LABS: African American GFR (CKD) >90 (>60 ml/min/1.73 sqM); Anion Gap 3 mmol/L; Blood Urea Nitrogen 12 mg/dL (9-20); Calcium 7.5 mg/dL (8.4-10.2); Carbon Dioxide 32 mmol/L (22-30); Chloride 105 mmol/L (98-107); Glucose 167 mg/dL (74-99); Magnesium 1.6 mg/dL (1.6-2.3); Non-African American GFR(CKD) >90 (>60 ml/min/1.73 sqM); Sodium 140 mmol/L (137-145)
--- NOTE | 2023-03-04 11:50 | P.PN ---
Subjective Progress Note Date: 03/04/23 HISTORY OF PRESENT ILLNESS: This is a 72-year-old male with a past medical history significant for coronary artery disease with previous stenting, hypertension, hyperlipidemia, diabetes, and congestive heart failure. Patient follows in the office with Dr. Nicole. We have been asked to see the patient in consultation for elevated troponins. Patient was recently discharged after having a prolonged hospital course of almost 3 weeks. Patient was admitted at that time secondary to urinary retention, encephalopathy, hemopneumothorax, pulmonary contusion secondary to traumatic rib fractures, and chest wall hematoma with VATS procedure. The patient was discharged to [facility]. He was noted to be confused and lethargic and was brought to the hospital for further evaluation. The patient is currently diagnosed with leukocytosis/SIRS. He is receiving IV antibiotics. Patient examined at the bedside. Patients is present. Patient is lethargic and unable to provide much history. He appears short of breath and congested upon examination. Denies chest pain or pressure. * EKG reveals sinus tachycardia with a heart rate of 125 * Chest xray cardiomegaly. Pulmonary vascular congestion. Findings consistent with mild congestive heart failure. * Laboratory data: W BC 8.8. Hemoglobin 9.0. Platelet count 115. Sodium 146. Potassium 3.5. BUN 16. Creatinine 0.79. Troponin 0.046. 0.070. 0.055. * Current home cardiac medications include aspirin 81 mg daily, Plavix 75 mg ahsan ly, Lasix 20 mg daily, Lipitor 80 mg at night, metoprolol tartrate 50 mg twice a day * Most recent echocardiogram obtained in January 2023 reveals ejection fraction 55-60%, mild MR * Cardiac catheterization history: November 2021 with stenting of the proximal RCA with reduction from 70% stenosis to 0%. 03/04/2023 Patient examined this morning at the bedside. Patient is much more awake and alert today. He denies any chest pain or pressure. He denies any shortness of breath. Patient sounds less congested today during communication. He remains on IV Lasix. Creatinine is stable at 0.76. Potassium 3.0. Yesterday the patient refused to have an echo done but he is willing to have this completed today. PHYSICAL EXAM: VITAL SIGNS: Reviewed. GENERAL: Well-developed in no acute distress. HEENT: Head is normocephalic. Pupils are equal, round. Sclerae anicteric. Mucous membranes of the mouth are moist. Neck supple. No JVD or thyromegaly LUNGS: Respirations even and unlabored. Lungs congested with bibasilar crackles HEART: Regular rate and rhythm. S1 and S2 heard. ABDOMEN: Soft. Nondistended. Nontender. EXTREMITIES: Normal range of motion. No clubbing or cyanosis. Peripheral pulses intact. Trace lower extremity edema NEUROLOGIC: Lethargic ASSESSMENT: Altered mental status Leukocytosis SIRS, possible sepsis Acute on chronic heart failure with preserved ejection fraction, 55-60% Coronary artery disease with stenting of the proximal RCA, fiber 2021 Hypertension Hyperlipidemia Diabetes Recent prolonged hospitalization urinary retention, encephalopathy, hemopneumothorax, pulmonary contusion secondary to traumatic rib fractures, and chest wall hematoma with VATS procedure PLAN: Echocardiogram ordered. Await results Continue Lasix 40 mg IV to 12 hours. Possible transition to oral dosing to goyal Daily weights, accurate I&O, and monitoring of kidney function Continue additional home cardiac medications Infectious workup per primary medicine Further recommendations pending patient's course Nurse practitioner note has been reviewed by physician. Signing provider agrees with the documented findings, assessment, and plan of care. Objective - Vital Signs Vital signs: Vital Signs Temp 98.5 F 03/04/23 08:00 Pulse 106 H 03/04/23 08:00 Resp 18 03/04/23 08:00 BP 105/69 03/04/23 08:00 Pulse Ox 97 03/04/23 08:34 FiO2 Intake & Output 03/03/23 03/04/23 03/04/23 18:59 06:59 18:59 Intake Total 1280 200 50 Output Total 1300 4600 320 Balance -20 -4400 -270 Weight 94 kg 80.5 kg Intake: IV 200 Invasive Line 3 100 Invasive Line 4 100 Intake, IV Titration 1040 Amount Sodium Chloride 0.9% 1, 1040 000 ml @ 130 mls/hr IV . Q7H42M [facility] Rx#:[id number] Oral 240 50 Output: Urine 1300 4600 320 Other: Voiding Method Indwelling Catheter Indwelling Catheter Indwelling Catheter - Labs CBC & Chem 7: 03/04/23 10:05 03/04/23 10:05 Labs: Abnormal Lab Results - Last 24 Hours (Table) 03/03/23 03/03/23 03/04/23 Range/Units 12:15 18:01 00:04 RBC (4.30-5.90) m/uL Hgb (13.0-17.5) gm/dL Hct (39.0-53.0) % RDW (11.5-15.5) % Plt Count (150-450) k/uL Lymphocytes # (1.0-4.8) k/uL Potassium (3.5-5.1) mmol/L Carbon Dioxide (22-30) mmol/L Glucose (74-99) mg/dL POC Glucose (mg/dL) 147 H 122 H 126 H (70-110) mg/dL Calcium (8.4-10.2) mg/dL 03/04/23 03/04/23 03/04/23 Range/Units 06:26 10:05 10:05 RBC 2.97 L (4.30-5.90) m/uL Hgb 9.1 L (13.0-17.5) gm/dL Hct 28.5 L (39.0-53.0) % RDW 17.4 H (11.5-15.5) % Plt Count 100 L (150-450) k/uL Lymphocytes # 0.4 L (1.0-4.8) k/uL Potassium 3.0 L (3.5-5.1) mmol/L Carbon Dioxide 32 H (22-30) mmol/L Glucose 167 H (74-99) mg/dL POC Glucose (mg/dL) 134 H (70-110) mg/dL Calcium 7.5 L (8.4-10.2) mg/dL Microbiology - Last 24 Hours (Table) 03/02/23 01:23 Blood Culture - Preliminary Blood 03/02/23 16:24 Urine Culture - Final Urine,Voided
[2023-03-04 11:56] LABS: Glucose,Whole Blood 182 mg/dL (70-110)
[2023-03-04] MEDS: POTASSIUM CHLORIDE ER 20 MEQ TAB.ER PO SCH ×3 (12:40→15:23)
--- NOTE | 2023-03-04 12:51 | P.PN ---
Subjective Progress Note Date: 03/04/23 Patient was discharged on 03/01/23 after prolonged hospital course of approximately 19 days. A few hours after arrival to the longterm he became more confused and lethargic. They therefore presented to the ER. His son have an elevated white blood cell count, contaminated urine, and either. His troponin was mildly elevated. He was readmitted. He was started on Vanco and Zosyn. This morning patient was much more awake and alert. Patient had no acute complaints. Vital signs reviewed General examination - Alert and Oriented 3 in NAD Heart - + S1S2 no murmurs Lungs -diffuse rhonchi Abdomen soft NT ND +ve BS Extremities -+1 pitting edema bilateral lower extremities PEN TESTER - generalized weakness in all 4 extremities, no focal deficits Psych -lethargic and somnolent with poor judgment Assessment/Plan: Acute encephalpathy, recurrent suspected due to chronic debility Sepsis on admission Aspiration pneumonia. I believe patient is silently aspirating. Urinary tract infection Type II [place] secondary to sepsis Acute on chronic Hypoxic respiratory failure Critical illness polyneuropathy History of tremors Last Hospital Stay: Urinary retention s/p amaral Encephalopathy, likely metabolic Hemopneumothorax and pulmonary contusion secondary to traumatic rib fractures right 5 and 6 Large chest wall hematoma s/p VATS Acute blood loss anemia Diabetes mellitus type 2 Coronary artery disease Dysphagia Acute kidney injury, possible contrast induced versus hemorrhagic Thrombocytopenia Leukopenia Metabolic alkalosis Anasarca secondary to hypoalbuminemia and need for fluid resuscitation, improved Hypernatremia due to forced diuresis and decreased free water intake History of pulmonary embolism not on chronic anticoagulation Dyslipidemia COPD TERE Hypothyroidism History of seizures Chronic L1 compression fracture Assessment -WBC normalized - continue with vanco and zosyn - await blood cultures -Follow up on urine culture -Speech therapy was downgraded him to a ground diet -I review pulmonology note who is waiting for pro-calcitonin level. -Cardiology on board and started him on Lasix 40 mg every 12 hours and anticipate patient can be transitioned to oral diuretics tomorrow -Cardiology ordered a limited echocardiogram. - supportive care -Troponin trending down - neuro recs: repeat EEG consistent with toxic metabolic encephalopathy Overall patient prognosis is guarded. Anticipated discharge: [address]: Return to [facility] facility Objective - Vital Signs Vital signs: Vital Signs Temp 98.0 F 03/04/23 11:50 Pulse 88 03/04/23 11:50 Resp 18 03/04/23 11:50 BP 100/76 03/04/23 11:50 Pulse Ox 97 03/04/23 11:50 FiO2 Intake & Output 03/03/23 03/04/23 03/04/23 18:59 06:59 18:59 Intake Total 1280 200 50 Output Total 1300 4600 320 Balance -20 4400 -270 Weight 94 kg 80.5 kg Intake: IV 200 Invasive Line 3 100 Invasive Line 4 100 Intake, IV Titration 1040 Amount Sodium Chloride 0.9% 1, 1040 000 ml @ 130 mls/hr IV . Q7H42M [facility] Rx#:[id number] Oral 240 50 Output: Urine 1300 4600 320 Other: Voiding Method Indwelling Catheter Indwelling Catheter Indwelling Catheter - Labs CBC & Chem 7: 03/04/23 10:05 03/04/23 10:05 Labs: Abnormal Lab Results - Last 24 Hours (Table) 03/03/23 03/04/23 03/04/23 Range/Units 18:01 00:04 06:26 RBC (4.30-5.90) m/uL Hgb (13.0-17.5) gm/dL Hct (39.0-53.0) % RDW (11.5-15.5) % Plt Count (150-450) k/uL Lymphocytes # (1.0-4.8) k/uL Potassium (3.5-5.1) mmol/L Carbon Dioxide (22-30) mmol/L Glucose (74-99) mg/dL POC Glucose (mg/dL) 122 H 126 H 134 H (70-110) mg/dL Calcium (8.4-10.2) mg/dL 03/04/23 03/04/23 03/04/23 Range/Units 10:05 10:05 11:54 RBC 2.97 L (4.30-5.90) m/uL Hgb 9.1 L (13.0-17.5) gm/dL Hct 28.5 L (39.0-53.0) % RDW 17.4 H (11.5-15.5) % Plt Count 100 L (150-450) k/uL Lymphocytes # 0.4 L (1.0-4.8) k/uL Potassium 3.0 L (3.5-5.1) mmol/L Carbon Dioxide 32 H (22-30) mmol/L Glucose 167 H (74-99) mg/dL POC Glucose (mg/dL) 182 H (70-110) mg/dL Calcium 7.5 L (8.4-10.2) mg/dL Microbiology - Last 24 Hours (Table) 03/02/23 01:23 Blood Culture - Preliminary Blood 03/02/23 16:24 Urine Culture - Final Urine,Voided
[2023-03-04] MEDS ORDERED: POTASSIUM BICARBONATE/CIT AC 20 MEQ TABLET.EFF PO ONE ×2 (13:00→14:00)
[2023-03-04] MEDS ORDERED: VANCOMYCIN TROUGH DUE 1 EACH MISC MISCELLANE ONE (14:00)
--- NOTE | 2023-03-04 16:25 | CA ---
Transthoracic Echo Report Name: Yomi Mccormick Age: 72 Gender: M : 1950 Exam Date: 03/04/2023 15:04 Exam Location: [facility] Ht (in): 67 Wt (lb): 177 Ordering Physician: Kendra Correia Attending/Referring Phys: [id number], [facility] Coordinator Cheli Luque, TROY Procedure CPT: Indications: LV function, CHF Cardiac Hx: Technical Quality: Fair Contrast 1: Total Dose (mL): Contrast 2: Total Dose (mL): MEASUREMENTS (Male / Female) Normal Values 2D ECHO LV Diastolic Diameter PLAX 5.2 cm 4.2 - 5.9 / 3.9 - 5.3 cm LV Systolic Diameter PLAX 3.3 cm IVS Diastolic Thickness 1.6 cm 0.6 - 1.0 / 0.6 - 0.9 cm LVPW Diastolic Thickness 1.4 cm 0.6 - 1.0 / 0.6 - 0.9 cm LV Relative Wall Thickness 0.6 RV Internal Dim ED PLAX 3.7 cm LVOT Diameter 2.7 cm LA Systolic Diameter LX 4.3 cm 3.0 - 4.0 / 2.7 - 3.8 cm LA Volume 63.6 cm??? 18 - 58 / 22 - 52 cm??? M-MODE Aortic Root Diameter MM 4.1 cm MV E Point Septal Separation 0.6 cm AV Cusp Separation MM 2.6 cm DOPPLER AV Peak Velocity 126.8 cm/s AV Peak Gradient 6.4 mmHg MV Area PHT 3.0 cm??? MV Deceleration Time 253.1 ms TR Peak Velocity 278.9 cm/s TR Peak Gradient 31.1 mmHg Right Ventricular Systolic Press 36.1 mmHg FINDINGS Left Ventricle Left ventricular ejection fraction is estimated at 50-55 %. Moderately increased septal wall thickness. Left ventricular cavity size normal. Right Ventricle Mild right ventricular dilatation. Mild pulmonary hypertension. Right Atrium Normal right atrial size. Left Atrium Mildly increased left atrial diameter. Mildly increased left atrial volume. Mildly increased left atrial area. Mitral Valve Structurally normal mitral valve. Mild mitral regurgitation. Aortic Valve Aortic valve not well visualized. No aortic valve stenosis or regurgitation. Tricuspid Valve Structurally normal tricuspid valve. Mild tricuspid regurgitation. Pulmonic Valve Pulmonic valve not well visualized. Pericardium Normal pericardium. Small pericardial effusion. Aorta Mild aortic dilatation at the level of the sinuses of valsalva 41 mm CONCLUSIONS 1. Left ventricle systolic function borderline normal 2. Mild mitral and tricuspid regurgitation 3. Mildly dilated ascending aorta 4. Mild pulmonary hypertension Previewed by: Dr. Deanna Dejesus MD (Electronically Signed) Final Date: 04 Mar 2023 16:24
[2023-03-04 18:11] LABS: Glucose,Whole Blood 143 mg/dL (70-110)
[2023-03-04] MEDS: ATORVASTATIN 80 MG TAB PO SCH (21:27)
[2023-03-04 23:41] LABS: Glucose,Whole Blood 127 mg/dL (70-110)
[2023-03-05] MEDS: PIPERACILLIN-TAZOBACTAM 3.375 GM in SODIUM CHLORIDE 0.9% 100 ML IVPB SCH ×3 (03:54→18:10)
[2023-03-05 06:09] LABS: Glucose,Whole Blood 146 mg/dL (70-110)
[2023-03-05] MEDS: INSULIN ASPART (NovoLOG) 100 UNIT/ML VIAL SQ SCH ×3 (06:21→18:10)
[2023-03-05] MEDS: PANTOPRAZOLE 40 MG TABLET PO SCH (07:07)
[2023-03-05] MEDS: LEVOTHYROXINE 100 MCG TAB PO SCH (07:07)
[2023-03-05 07:45] LABS: Anisocytosis Slight; Basophils % (A) 0 %; Eosinophils # (A) 0.3 k/uL (0-0.7); Eosinophils % (A) 5 %; HCT 31.3 % (39.0-53.0); HGB 9.9 gm/dL (13.0-17.5); Hypochromasia Moderate; Lymphocytes # (A) 0.6 k/uL (1.0-4.8); Lymphocytes % (A) 8 %; MCH 29.8 pg (25.0-35.0); MCHC 31.6 g/dL (31.0-37.0); MCV 94.2 fL (80.0-100.0); Mean Platelet Volume 10.3; Monocytes # (A) 0.4 k/uL (0-1.0); Monocytes % (A) 6 %; Neutrophils # (A) 5.5 k/uL (1.3-7.7); Neutrophils % (A) 78 %; Platelet Count 102 k/uL (150-450); RBC 3.32 m/uL (4.30-5.90); RDW 17.2 % (11.5-15.5)
[2023-03-05 08:01] LABS: African American GFR (CKD) >90 (>60 ml/min/1.73 sqM); Anion Gap 7 mmol/L; Blood Urea Nitrogen 12 mg/dL (9-20); Calcium 7.8 mg/dL (8.4-10.2); Carbon Dioxide 36 mmol/L (22-30); Chloride 97 mmol/L (98-107); Glucose 139 mg/dL (74-99); Magnesium 1.4 mg/dL (1.6-2.3); Non-African American GFR(CKD) 87 (>60 ml/min/1.73 sqM); Potassium 3.2 mmol/L (3.5-5.1); Sodium 140 mmol/L (137-145)
[2023-03-05] MEDS: FUROSEMIDE 10 MG/ML 4 ML VIAL IV SCH (08:23)
[2023-03-05] MEDS: CLOPIDOGREL 75 MG TAB PO SCH (08:23)
[2023-03-05] MEDS: ARTIFICIAL TEARS-HYPROMELLOSE DROPS 15 ML BTL BOTH EYES SCH ×2 (08:23→21:48)
[2023-03-05] MEDS: ENOXAPARIN 40 MG/0.4 ML SYRINGE SQ SCH (08:23)
[2023-03-05] MEDS: ASPIRIN 81 MG PO SCH (08:23)
[2023-03-05] MEDS: METOPROLOL TARTRATE 50 MG TAB PO SCH ×2 (08:23→21:48)
--- NOTE | 2023-03-05 10:10 | P.PN ---
Subjective Progress Note Date: 03/05/23 Patient was discharged on 03/01/23 after prolonged hospital course of approximately 19 days. A few hours after arrival to the group home he became more confused and lethargic. They therefore presented to the ER. His son have an elevated white blood cell count, contaminated urine, and either. His troponin was mildly elevated. He was readmitted. He was started on Vanco and Zosyn. Patient is awake and alert. He is answering questions appropriately. His is at bedside. His 's main concern is his weakness. She is hoping that he will [facility] to [facility] so that he can get aggressive physical therapy as well as speech therapy. Vital signs reviewed General examination - Alert and Oriented 3 in NAD Heart - + S1S2 no murmurs Lungs -diffuse rhonchi Abdomen soft NT ND +ve BS Extremities -+1 pitting edema bilateral lower extremities LIFE AGENT - generalized weakness in all 4 extremities, no focal deficits Psych -lethargic and somnolent with poor judgment Assessment/Plan: Acute encephalpathy, recurrent suspected due to chronic debility Sepsis on admission Aspiration pneumonia. I believe patient is silently aspirating. Urinary tract infection ruled out Type II [place] secondary to sepsis Acute on chronic Hypoxic respiratory failure Critical illness polyneuropathy History of tremors Last Hospital Stay: Urinary retention s/p amaral Encephalopathy, likely metabolic Hemopneumothorax and pulmonary contusion secondary to traumatic rib fractures right 5 and 6 Large chest wall hematoma s/p VATS Acute blood loss anemia Diabetes mellitus type 2 Coronary artery disease Dysphagia Acute kidney injury, possible contrast induced versus hemorrhagic Thrombocytopenia Leukopenia Metabolic alkalosis Anasarca secondary to hypoalbuminemia and need for fluid resuscitation, improved Hypernatremia due to forced diuresis and decreased free water intake History of pulmonary embolism not on chronic anticoagulation Dyslipidemia COPD TERE Hypothyroidism History of seizures Chronic L1 compression fracture Assessment -WBC normalized -Pro calcitonin is 0.17 which is mildly elevated therefore we'll continue to treat patient for aspiration pneumonia -We'll de-escalate antibiotics. Stop vancomycin. Resume Zosyn. -Speech therapy was downgraded him to a ground diet -Pulmonology is following the patient -Cardiology on board and started him on Lasix 40 mg every 12 hours and anticipate patient can be transitioned to oral diuretics today -Echocardiogram reviewed. See findings above - supportive care Overall patient prognosis is guarded. Anticipated discharge: Tomorrow Anticipated discharge place: Return to [facility] facility Objective - Vital Signs Vital signs: Vital Signs Temp 97.8 F 03/05/23 08:13 Pulse 107 H 03/05/23 08:38 Resp 18 03/05/23 08:13 BP 117/67 03/05/23 08:13 Pulse Ox 95 03/05/23 08:13 FiO2 Intake & Output 03/04/23 03/05/23 03/05/23 18:59 06:59 18:59 Intake Total 826 118 Output Total 1770 2200 Balance -944 -2200 118 Weight 80.5 kg Intake: Oral 826 118 Output: Urine 1770 2200 Other: Voiding Method Indwelling Catheter Indwelling Catheter Indwelling Catheter - Labs CBC & Chem 7: 03/05/23 07:04 03/05/23 07:04 Labs: Abnormal Lab Results - Last 24 Hours (Table) 03/04/23 03/04/23 03/04/23 Range/Units 10:05 10:05 10:05 RBC 2.97 L (4.30-5.90) m/uL Hgb 9.1 L (13.0-17.5) gm/dL Hct 28.5 L (39.0-53.0) % RDW 17.4 H (11.5-15.5) % Plt Count 100 L (150-450) k/uL Lymphocytes # 0.4 L (1.0-4.8) k/uL Potassium 3.0 L (3.5-5.1) mmol/L Chloride (98-107) mmol/L Carbon Dioxide 32 H (22-30) mmol/L Glucose 167 H (74-99) mg/dL POC Glucose (mg/dL) (70-110) mg/dL Calcium 7.5 L (8.4-10.2) mg/dL Magnesium (1.6-2.3) mg/dL Procalcitonin 0.17 H (0.02-0.09) ng/mL 03/04/23 03/04/23 03/04/23 Range/Units 11:54 18:08 23:39 RBC (4.30-5.90) m/uL Hgb (13.0-17.5) gm/dL Hct (39.0-53.0) % RDW (11.5-15.5) % Plt Count (150-450) k/uL Lymphocytes # (1.0-4.8) k/uL Potassium (3.5-5.1) mmol/L Chloride (98-107) mmol/L Carbon Dioxide (22-30) mmol/L Glucose (74-99) mg/dL POC Glucose (mg/dL) 182 H 143 H 127 H (70-110) mg/dL Calcium (8.4-10.2) mg/dL Magnesium (1.6-2.3) mg/dL Procalcitonin (0.02-0.09) ng/mL 03/05/23 03/05/23 03/05/23 Range/Units 06:07 07:04 07:04 RBC 3.32 L (4.30-5.90) m/uL Hgb 9.9 L (13.0-17.5) gm/dL Hct 31.3 L (39.0-53.0) % RDW 17.2 H (11.5-15.5) % Plt Count 102 L (150-450) k/uL Lymphocytes # 0.6 L (1.0-4.8) k/uL Potassium 3.2 L (3.5-5.1) mmol/L Chloride 97 L (98-107) mmol/L Carbon Dioxide 36 H (22-30) mmol/L Glucose 139 H (74-99) mg/dL POC Glucose (mg/dL) 146 H (70-110) mg/dL Calcium 7.8 L (8.4-10.2) mg/dL Magnesium 1.4 L (1.6-2.3) mg/dL Procalcitonin (0.02-0.09) ng/mL Microbiology - Last 24 Hours (Table) 03/02/23 01:23 Blood Culture - Preliminary Blood
[2023-03-05] MEDS ORDERED: POTASSIUM BICARBONATE/CIT AC 20 MEQ TABLET.EFF PO ONE ×2 (10:30→11:30)
[2023-03-05] MEDS: QUEtiapine 25 MG TAB PO SCH ×2 (10:55→21:48)
--- NOTE | 2023-03-05 11:26 | P.PN ---
Subjective Progress Note Date: 03/05/23 PROGRESS NOTE The patient has a known history of CAD, post stenting, hypertension and hyperlipidemia who presented with change in mental status. He is awake but confused. He denies any chest discomfort, dizziness or palpitations. His breathing is stable. He underwent an echocardiogram that showed a preserved systolic function with no significant valvular abnormalities. He had the recent prolonged admission for urinary retention encephalopathy and pulmonary contusion Medications: Aspirin, Lipitor 80 mg daily, Plavix 75 g daily, Lasix 40 mg IV every 12 hours, Lopressor 50 mg twice a day, levothyroxine PHYSICAL EXAMINATION: Blood pressure 114/70 heart rate 80 LUNGS: Clear to auscultation HEART: Regular rate and rhythm, S1, S2. No S3. systolic ejection murmur ABDOMEN: Soft, nontender, no organomegaly EXTREMETIES: No edema LAB: Potassium 3.2, BUN 12, creatinine 0.82, WBC 7 IMPRESSION: 1. Change in mental status probable UTI, probable metabolic encephalopathy 2. See of CAD 3. History of hypertension 4. History of hyperlipidemia PLAN: 1. Change to oral diuretics 2. Continue antibiotics 3. Increase physical activity 4. Depending on his progress further recommendations will be made Objective - Vital Signs Vital signs: Vital Signs Temp 97.8 F 03/05/23 08:13 Pulse 88 03/05/23 11:02 Resp 19 03/05/23 11:02 BP 114/72 03/05/23 11:02 Pulse Ox 98 03/05/23 11:02 FiO2 Intake & Output 03/04/23 03/05/23 03/05/23 18:59 06:59 18:59 Intake Total 826 118 Output Total 1770 2200 900 Balance -944 2200 -782 Weight 80.5 kg Intake: Oral 826 118 Output: Urine 1770 2200 900 Other: Voiding Method Indwelling Catheter Indwelling Catheter Indwelling Catheter - Labs CBC & Chem 7: 03/05/23 07:04 03/05/23 07:04 Labs: Abnormal Lab Results - Last 24 Hours (Table) 03/04/23 03/04/23 03/04/23 Range/Units 10:05 11:54 18:08 RBC (4.30-5.90) m/uL Hgb (13.0-17.5) gm/dL Hct (39.0-53.0) % RDW (11.5-15.5) % Plt Count (150-450) k/uL Lymphocytes # (1.0-4.8) k/uL Potassium (3.5-5.1) mmol/L Chloride (98-107) mmol/L Carbon Dioxide (22-30) mmol/L Glucose (74-99) mg/dL POC Glucose (mg/dL) 182 H 143 H (70-110) mg/dL Calcium (8.4-10.2) mg/dL Magnesium (1.6-2.3) mg/dL Procalcitonin 0.17 H (0.02-0.09) ng/mL 03/04/23 03/05/23 03/05/23 Range/Units 23:39 06:07 07:04 RBC 3.32 L (4.30-5.90) m/uL Hgb 9.9 L (13.0-17.5) gm/dL Hct 31.3 L (39.0-53.0) % RDW 17.2 H (11.5-15.5) % Plt Count 102 L (150-450) k/uL Lymphocytes # 0.6 L (1.0-4.8) k/uL Potassium (3.5-5.1) mmol/L Chloride (98-107) mmol/L Carbon Dioxide (22-30) mmol/L Glucose (74-99) mg/dL POC Glucose (mg/dL) 127 H 146 H (70-110) mg/dL Calcium (8.4-10.2) mg/dL Magnesium (1.6-2.3) mg/dL Procalcitonin (0.02-0.09) ng/mL 03/05/23 Range/Units 07:04 RBC (4.30-5.90) m/uL Hgb (13.0-17.5) gm/dL Hct (39.0-53.0) % RDW (11.5-15.5) % Plt Count (150-450) k/uL Lymphocytes # (1.0-4.8) k/uL Potassium 3.2 L (3.5-5.1) mmol/L Chloride 97 L (98-107) mmol/L Carbon Dioxide 36 H (22-30) mmol/L Glucose 139 H (74-99) mg/dL POC Glucose (mg/dL) (70-110) mg/dL Calcium 7.8 L (8.4-10.2) mg/dL Magnesium 1.4 L (1.6-2.3) mg/dL Procalcitonin (0.02-0.09) ng/mL Microbiology - Last 24 Hours (Table) 03/02/23 01:23 Blood Culture - Preliminary Blood
[2023-03-05 12:06] LABS: Glucose,Whole Blood 152 mg/dL (70-110)
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
[2023-03-05] MEDS ORDERED: VANCOMYCIN 1,750 MG in SODIUM CHLORIDE 0.9% 500 ML 500 ML IVPB SCH (16:00)
[2023-03-05 18:06] LABS: Glucose,Whole Blood 253 mg/dL (70-110)
[2023-03-05] MEDS: FUROSEMIDE 40 MG TAB PO SCH (21:48)
[2023-03-05] MEDS: ATORVASTATIN 80 MG TAB PO SCH (21:48)
[2023-03-06 00:05] LABS: Glucose,Whole Blood 86 mg/dL (70-110)
[2023-03-06] MEDS: INSULIN ASPART (NovoLOG) 100 UNIT/ML VIAL SQ SCH ×4 (01:24→16:38)
[2023-03-06] MEDS: PIPERACILLIN-TAZOBACTAM 3.375 GM in SODIUM CHLORIDE 0.9% 100 ML IVPB SCH ×3 (03:48→20:21)
[2023-03-06 06:14] LABS: Glucose,Whole Blood 131 mg/dL (70-110)
[2023-03-06] MEDS: PANTOPRAZOLE 40 MG TABLET PO SCH (06:21)
[2023-03-06] MEDS: LEVOTHYROXINE 100 MCG TAB PO SCH (06:21)
[2023-03-06 08:41] LABS: African American GFR (CKD) >90 (>60 ml/min/1.73 sqM); Anion Gap 8 mmol/L; Blood Urea Nitrogen 11 mg/dL (9-20); Calcium 8.1 mg/dL (8.4-10.2); Carbon Dioxide 38 mmol/L (22-30); Chloride 94 mmol/L (98-107); Glucose 122 mg/dL (74-99); Non-African American GFR(CKD) 87 (>60 ml/min/1.73 sqM); Potassium 3.3 mmol/L (3.5-5.1); Sodium 140 mmol/L (137-145)
[2023-03-06] MEDS: ENOXAPARIN 40 MG/0.4 ML SYRINGE SQ SCH (09:03)
[2023-03-06] MEDS: MAGNESIUM SULFATE-D5W PMX 1 GM in DEXTROSE/WATER 1 100ML.BAG IVPB SCH ×4 (09:03→18:46)
[2023-03-06] MEDS: CLOPIDOGREL 75 MG TAB PO SCH (09:03)
[2023-03-06] MEDS: FUROSEMIDE 40 MG TAB PO SCH ×2 (09:03→20:21)
[2023-03-06] MEDS: ASPIRIN 81 MG PO SCH (09:03)
[2023-03-06] MEDS: QUEtiapine 25 MG TAB PO SCH (09:03)
[2023-03-06] MEDS: ARTIFICIAL TEARS-HYPROMELLOSE DROPS 15 ML BTL BOTH EYES SCH ×2 (09:03→20:22)
[2023-03-06] MEDS: METOPROLOL TARTRATE 50 MG TAB PO SCH ×2 (09:03→20:21)
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
[2023-03-06 11:46] LABS: Glucose,Whole Blood 235 mg/dL (70-110)
--- NOTE | 2023-03-06 11:54 | P.PN ---
Subjective Progress Note Date: 03/06/23 This patient is known to me from the prior admission and he was recently here and I last saw this patient on 02/26/2023 in which she had altered mental status and was felt more due to metabolic encephalopathy as well as hypercapnic/hypoxic encephalopathy and his mentation was improving then patient within days he was discharged home but presented back to the ED on 03/01/23 for altered mental status and pyrexia. Per Dr. Lo, he felt that altered mental status was likely due to toxic metabolic encephalopathy and probable acute UTI. According to the as well as primary team feels half fluctuation in mentation. Patient is on Zosyn. Patient had an EEG which was negative for any seizures. He also had a CT of the head which was negative as well. His fevers has resolved. Objective - Vital Signs Vital signs: Vital Signs Temp 98.5 F 03/06/23 03:45 Pulse 114 H 03/06/23 03:45 Resp 19 03/06/23 03:45 BP 112/74 03/06/23 03:45 Pulse Ox 97 03/06/23 03:45 FiO2 Intake & Output 03/05/23 03/06/23 03/06/23 18:59 06:59 18:59 Intake Total 118 118 Output Total 1974 1150 Balance -1857 -1150 118 Intake: Oral 118 118 Output: Urine 1974 1150 Other: Voiding Method Indwelling Catheter Indwelling Catheter - Exam General: Does not appear in acute distress. HENT: Supple neck. Neuro: Limited: Higher mental function: The patient is severely drowsy and minimally awakeable to voice. He is able to name his last name after multiple tries. He is able to follow few simple commands (thumbs up and wiggling toes). Cranial Nerves: Minimally tracking. No facial weakness. Motor: Strength is limited but showing thumbs up and and wiggling bilateral toes. - Labs CBC & Chem 7: 03/05/23 07:04 03/06/23 07:38 Labs: Abnormal Lab Results - Last 24 Hours (Table) 03/05/23 03/05/23 03/06/23 Range/Units 12:02 18:04 06:12 Potassium (3.5-5.1) mmol/L Chloride (98-107) mmol/L Carbon Dioxide (22-30) mmol/L Glucose (74-99) mg/dL POC Glucose (mg/dL) 152 H 253 H 131 H (70-110) mg/dL Calcium (8.4-10.2) mg/dL 03/06/23 Range/Units 07:38 Potassium 3.3 L (3.5-5.1) mmol/L Chloride 94 L (98-107) mmol/L Carbon Dioxide 38 H (22-30) mmol/L Glucose 122 H (74-99) mg/dL POC Glucose (mg/dL) (70-110) mg/dL Calcium 8.1 L (8.4-10.2) mg/dL Microbiology - Last 24 Hours (Table) 03/02/23 01:23 Blood Culture - Preliminary Blood Assessment and Plan Assessment: * Altered mental status, encephalopathy of unknown etiology. I assume due to underlying infection, with Tmax of of 101.2 on 03/02/23 with wbc 13.8K--both resolved. Per primary team they feel aspiration pneumonia. Urine culture is negative for infection. * Having delerium due to underlying infection and hospital induced delerium * Borderline elevated cardiac enzymes * Fluid overload and suspected diastolic CHF. * History of tremors in past and Primidone was not effective so was started on Keppra in 03/[address] Haynes. * Status post Multiple rib fracture and traumatic hemothorax requiring chest replacement, now resolved. * Recent treatment for pneumonia with previous admission. * History of documented seizure (but family members stated that he does not have hx of seizures. Per nurse had tremor of mouth and possible started by [facility] according to ). * History of underlying COPD * Morbid obesity * History of pulmonary emphysema Plan: * * EEG 03/02/23 was performed, which reported was abnormal due to background slowing of at least moderate degree, suggestive of toxic metabolic encephalopathy. Patient was sleep also during the study. Awake pattern was not seen in the entire study. * 2-D echo 02/13/2023 showed normal left-ventricular systolic function with EF 55-60%. Mild left atrial dilation. * CTA revealed no significant stenosis in, nor internal carotid arteries bilaterally or at the level of sitka of [place]. 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 This is asymptomatic at this time. Recommend patient follow up with neuro intervention as an outpatient. * I ordered a repeat CT head and EEG. * Patient is on Zosyn. Consider I.D. consult. I spoke with primary team and feels more delerium since would wax and wane. If patient condition does not improve or continues to have fever then recommend lumbar puncture. * Cardiology on board for elevated cardiac enzymes. * Will defer the rest of management to primary team. The plan is discussed with patient's , nurse and primary team. Will continue to follow Time with Patient: Less than 30
--- NOTE | 2023-03-06 12:37 | P.PN ---
Subjective Progress Note Date: 03/06/23 The patient has a known history of CAD, post stenting, hypertension and hyperlipidemia who presented with change in mental status. He is sleeping now plan according to the patient's , he continues to have confusion and did not sleep last night. He has had no complaints of chest pain or shortness of breath. He was pulling his oxygen all throughout the night. Magnesium was low yesterday at 1.4 and patient's nurse was asked to contact attending to address this. Potassium was replaced yesterday. Potassium today is 3.3. His breathing is stable. He underwent an echocardiogram that showed a preserved systolic function with no significant valvular abnormalities. He had the recent prolonged admission for urinary retention encephalopathy and pulmonary contusion Medications: Aspirin, Lipitor 80 mg daily, Plavix 75 g daily, Lasix 40 mg oral BID, Lopressor 50 mg twice a day, levothyroxine PHYSICAL EXAMINATION: Blood pressure 112/74 heart rate 86, telemetry sinus LUNGS: Clear to auscultation HEART: Regular rate and rhythm, S1, S2. No S3. systolic ejection murmur ABDOMEN: Soft, nontender, no organomegaly EXTREMETIES: No edema LAB: Potassium 3.3, BUN 11, creatinine 0.83 IMPRESSION: 1. Change in mental status probable UTI, probable metabolic encephalopathy 2. Hx of CAD 3. History of hypertension 4. History of hyperlipidemia PLAN: 1. Change current cardiac medications 2. Continue antibiotics 3. Increase physical activity 4. no further cardiac workup at this time. Cardiology will sign off and follow on an as-needed basis. Nurse practitioner note has been reviewed, I agree with the documented findings and plan of care. Patient was seen and examined. Objective - Vital Signs Vital signs: Vital Signs Temp 98.5 F 03/06/23 03:45 Pulse 114 H 03/06/23 03:45 Resp 19 03/06/23 03:45 BP 112/74 03/06/23 03:45 Pulse Ox 97 03/06/23 03:45 FiO2 Intake & Output 03/05/23 03/06/23 03/06/23 18:59 06:59 18:59 Intake Total 118 Output Total 1974 1150 Balance -1856115 Intake: Oral 118 Output: Urine 1974 1149 Other: Voiding Method Indwelling Catheter Indwelling Catheter - Labs CBC & Chem 7: 03/05/23 07:04 03/06/23 07:38 Labs: Abnormal Lab Results - Last 24 Hours (Table) 03/05/23 03/05/23 03/06/23 Range/Units 12:02 18:04 06:12 POC Glucose (mg/dL) 152 H 253 H 131 H (70-110) mg/dL Microbiology - Last 24 Hours (Table) 03/02/23 01:23 Blood Culture - Preliminary Blood
--- NOTE | 2023-03-06 12:53 | CT ---
EXAMINATION TYPE: CT brain wo con DATE OF EXAM: 03/06/2023 COMPARISON: 03/01/2023 HISTORY: Altered mental status of unknown etiology CT DLP: 1188.4 mGycm Automated exposure control for dose reduction was used. FINDINGS: There is mild to moderate generalized degenerative change. Low attenuation within the white matter is nonspecific but most typical of remote white matter microvascular disease. No midline shift or mass effect. Orbits are symmetric. Calvarium intact. Sinuses are clear. There is motion artifact. Mild changes of mastoiditis. IMPRESSION: NO ACUTE HEMORRHAGE OR MASS EFFECT.
[2023-03-06] MEDS ORDERED: POTASSIUM BICARBONATE/CIT AC 20 MEQ TABLET.EFF PO ONE ×2 (13:30→14:30)
--- NOTE | 2023-03-06 13:32 | P.PN ---
Subjective Progress Note Date: 03/06/23 Patient was discharged on 03/01/23 after prolonged hospital course of approximately 19 days. A few hours after arrival to the [facility] he became more confused and lethargic. They therefore sent him back to the ER. In ED he was found to have an elevated white blood cell count, contaminated urine. His troponin was mildly elevated. He was readmitted. On exam patient had rhonchi and crackles. He was started on IV Lasix. He was also started on IV Zosyn for possible aspiration pneumonia. Patient was seen by speech therapy and his diet was downgraded to a child diet with thickened liquids. Patient currently satting well on 3 L nasal cannula which is how his oxygen use discharged on. However his delirium is worsening. EEG showed findings consistent with metabolic encephalopathy. Patient's urine culture is negative and blood cultures negative to date. Patient has been started on Seroquel for his delirium. This morning patient was delirious. 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 was at bedside. 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 I believe patient is silently aspirating. Urinary tract infection ruled out Type II HI secondary to sepsis Acute on chronic Hypoxic respiratory failure Hypokalemia Hypomagnesemia Critical illness polyneuropathy History of tremors Last Hospital Stay: Urinary retention s/p amaral Encephalopathy, likely metabolic Hemopneumothorax and pulmonary contusion secondary to traumatic rib fractures right 5 and 6 Large chest wall hematoma s/p VATS Acute blood loss anemia Diabetes mellitus type 2 Coronary artery disease Dysphagia Acute kidney injury, possible contrast induced versus hemorrhagic Thrombocytopenia Leukopenia Metabolic alkalosis Anasarca secondary to hypoalbuminemia and need for fluid resuscitation, improved Hypernatremia due to forced diuresis and decreased free water intake History of pulmonary embolism not on chronic anticoagulation Dyslipidemia COPD TERE Hypothyroidism History of seizures Chronic L1 compression fracture Assessment -Pro calcitonin is 0.17 which is mildly elevated therefore we'll continue to treat patient for aspiration pneumonia -We'll de-escalate antibiotics. Stop vancomycin. Resume Zosyn. -Speech therapy downgraded him to a ground diet -Pulmonology is following the patient -Cardiology transition patient to oral Lasix -We'll give the patient 60 mEq of potassium supplement and also given 4 g of IV magnesium sulfate -Trend BMP and magnesium -Echocardiogram reviewed. See findings above - Patient's delirium is worsening. We will increase his bedtime Seroquel to 50MEq. Overall patient prognosis is guarded. Anticipated discharge: Depending on clinical course Anticipated discharge place: Return to [facility] facility Objective - Vital Signs Vital signs: Vital Signs Temp 98.5 F 03/06/23 03:45 Pulse 114 H 03/06/23 03:45 Resp 19 03/06/23 03:45 BP 112/74 03/06/23 03:45 Pulse Ox 97 03/06/23 03:45 FiO2 Intake & Output 03/05/23 03/06/23 03/06/23 18:59 06:59 18:59 Intake Total 118 118 Output Total 1975 1150 Balance -1857 -1150 118 Intake: Oral 118 118 Output: Urine 1974 1150 Other: Voiding Method Indwelling Catheter Indwelling Catheter - Labs CBC & Chem 7: 03/05/23 07:04 03/06/23 07:38 Labs: Abnormal Lab Results - Last 24 Hours (Table) 03/05/23 03/06/23 03/06/23 Range/Units 18:04 06:12 07:38 Potassium 3.3 L (3.5-5.1) mmol/L Chloride 94 L (98-107) mmol/L Carbon Dioxide 38 H (22-30) mmol/L Glucose 122 H (74-99) mg/dL POC Glucose (mg/dL) 253 H 131 H (70-110) mg/dL Calcium 8.1 L (8.4-10.2) mg/dL 03/06/23 Range/Units 11:41 Potassium (3.5-5.1) mmol/L Chloride (98-107) mmol/L Carbon Dioxide (22-30) mmol/L Glucose (74-99) mg/dL POC Glucose (mg/dL) 235 H (70-110) mg/dL Calcium (8.4-10.2) mg/dL Microbiology - Last 24 Hours (Table) 03/02/23 01:23 Blood Culture - Preliminary Blood
[2023-03-06] MEDS ORDERED: VANCOMYCIN TROUGH DUE 1 EACH MISC MISCELLANE ONE (15:00)
[2023-03-06 16:24] LABS: Glucose,Whole Blood 124 mg/dL (70-110)
[2023-03-06] MEDS ORDERED: POTASSIUM CHLORIDE ER 20 MEQ TAB.ER PO STA ×2 (17:04)
[2023-03-06] MEDS: QUEtiapine 50 MG TAB PO SCH (20:21)
[2023-03-06] MEDS: ATORVASTATIN 80 MG TAB PO SCH (20:21)
--- NOTE | 2023-03-06 23:17 | EEG ---
ELECTROENCEPHALOGRAM REPORT CLINICAL HISTORY: This is a 72-year-old gentleman with altered mental status. The video EEG is obtained to evaluate for seizure epileptic activity. RELEVANT MEDICATION: The patient is not on any antiepileptic drugs. DESCRIPTION: Background consists of low to moderate voltage of 6 hertz theta activity. At times, the background consists of diffuse delta with theta activity. There was no physiological stage 2 sleep architecture. Interictal and ictal is none. ACTIVATION PROCEDURE: Photic stimulation did not evoke a posterior driving response. There is no abnormality during the photic stimulation. Hyperventilation is performed. CLINICAL INTERPRETATION: This is an abnormal routine EEG. The background slowing is suggestive of mild to moderate encephalopathy. Otherwise, there is no focal slowing, epileptiform discharge, or seizure on the EEG. Clinical correlation is recommended. MMROMINA / MEENAN: [id number] /
[2023-03-06 23:54] LABS: Glucose,Whole Blood 172 mg/dL (70-110)
[2023-03-07] MEDS: INSULIN ASPART (NovoLOG) 100 UNIT/ML VIAL SQ SCH ×5 (00:14→23:58)
[2023-03-07] MEDS: PIPERACILLIN-TAZOBACTAM 3.375 GM in SODIUM CHLORIDE 0.9% 100 ML IVPB SCH ×3 (02:36→20:08)
[2023-03-07 05:48] LABS: Glucose,Whole Blood 87 mg/dL (70-110)
[2023-03-07] MEDS: PANTOPRAZOLE 40 MG TABLET PO SCH (06:06)
[2023-03-07] MEDS: LEVOTHYROXINE 100 MCG TAB PO SCH (06:06)
[2023-03-07] MEDS: ARTIFICIAL TEARS-HYPROMELLOSE DROPS 15 ML BTL BOTH EYES SCH ×2 (09:20→20:08)
[2023-03-07] MEDS: CLOPIDOGREL 75 MG TAB PO SCH (09:21)
[2023-03-07] MEDS: METOPROLOL TARTRATE 50 MG TAB PO SCH ×2 (09:21→20:08)
[2023-03-07] MEDS: ASPIRIN 81 MG PO SCH (09:21)
[2023-03-07] MEDS: FUROSEMIDE 40 MG TAB PO SCH ×2 (09:21→20:08)
[2023-03-07] MEDS: ENOXAPARIN 40 MG/0.4 ML SYRINGE SQ SCH (09:21)
[2023-03-07 09:22] LABS: Anisocytosis Slight; Basophils % (A) 0 %; Eosinophils # (A) 0.3 k/uL (0-0.7); Eosinophils % (A) 8 %; HCT 33.1 % (39.0-53.0); HGB 10.2 gm/dL (13.0-17.5); Hypochromasia Moderate; Lymphocytes # (A) 0.5 k/uL (1.0-4.8); Lymphocytes % (A) 13 %; MCH 29.3 pg (25.0-35.0); MCHC 30.8 g/dL (31.0-37.0); MCV 94.9 fL (80.0-100.0); Mean Platelet Volume 10.3; Monocytes # (A) 0.2 k/uL (0-1.0); Monocytes % (A) 6 %; Neutrophils # (A) 2.5 k/uL (1.3-7.7); Neutrophils % (A) 70 %; RBC 3.49 m/uL (4.30-5.90); RDW 16.9 % (11.5-15.5); WBC 3.5 k/uL (3.8-10.6)
[2023-03-07 09:29] LABS: African American GFR (CKD) >90 (>60 ml/min/1.73 sqM); Anion Gap 6 mmol/L; Blood Urea Nitrogen 12 mg/dL (9-20); Calcium 8.3 mg/dL (8.4-10.2); Carbon Dioxide 40 mmol/L (22-30); Chloride 93 mmol/L (98-107); Glucose 158 mg/dL (74-99); Non-African American GFR(CKD) 86 (>60 ml/min/1.73 sqM); Potassium 3.5 mmol/L (3.5-5.1); Sodium 139 mmol/L (137-145)
[2023-03-07 11:01] VITALS: BMI 27.8
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
[2023-03-07 11:51] LABS: Glucose,Whole Blood 155 mg/dL (70-110)
[2023-03-07] MEDS ORDERED: ACETAMINOPHEN TAB 325 MG TAB PO PRN (12:03)
--- NOTE | 2023-03-07 12:40 | P.PN ---
Subjective Progress Note Date: 03/07/23 The patient seen at bedside he is accompanied with his who feels he is doing better today compared to yesterday. Patient feels he is doing better as well and denies any headaches. Objective - Vital Signs Vital signs: Vital Signs Temp 98.0 F 03/07/23 04:00 Pulse 86 03/07/23 04:00 Resp 18 03/07/23 04:00 BP 142/83 03/07/23 04:00 Pulse Ox 99 03/07/23 04:00 FiO2 100 03/06/23 16:00 Intake & Output 03/06/23 03/07/23 03/07/23 18:59 06:59 18:59 Intake Total 118 10 480 Output Total 900 600 Balance -782 -590 480 Weight 80.5 kg Intake: IV 10 Invasive Line 4 10 Oral 118 480 Output: Urine 900 600 Other: Voiding Method Indwelling Catheter Indwelling Catheter - Exam General:Not in acute distress. HENT: Supple neck. Neuro: Limited: Higher mental function: The patient is awake alert oriented to self, states he is in the hospital. Regarding the year he stated it was 2005. He is able to name objects such as pen and cup. He is able to follow simple commands. No aphasia and no neglect. Cranial Nerves: The patient is tracking throughout the room without any issues. No facial weakness. No dysarthria. Motor: Strength is limited but lifting all extremities above gravity and no appreciable of focality. - Labs CBC & Chem 7: 03/07/23 09:03 03/07/23 09:03 Labs: Abnormal Lab Results - Last 24 Hours (Table) 03/06/23 03/06/23 03/07/23 Range/Units 16:22 23:52 09:03 WBC 3.5 L (3.8-10.6) k/uL RBC 3.49 L (4.30-5.90) m/uL Hgb 10.2 L (13.0-17.5) gm/dL Hct 33.1 L (39.0-53.0) % MCHC 30.8 L (31.0-37.0) g/dL RDW 16.9 H (11.5-15.5) % Chloride (98-107) mmol/L Carbon Dioxide (22-30) mmol/L Glucose (74-99) mg/dL POC Glucose (mg/dL) 124 H 172 H (70-110) mg/dL Calcium (8.4-10.2) mg/dL 03/07/23 03/07/23 Range/Units 09:03 11:48 WBC (3.8-10.6) k/uL RBC (4.30-5.90) m/uL Hgb (13.0-17.5) gm/dL Hct (39.0-53.0) % MCHC (31.0-37.0) g/dL RDW (11.5-15.5) % Chloride 93 L (98-107) mmol/L Carbon Dioxide 40 H (22-30) mmol/L Glucose 158 H (74-99) mg/dL POC Glucose (mg/dL) 155 H (70-110) mg/dL Calcium 8.3 L (8.4-10.2) mg/dL Microbiology - Last 24 Hours (Table) 03/02/23 01:23 Blood Culture - Preliminary Blood Assessment and Plan Assessment: * Altered mental status, encephalopathy of unknown etiology. I assume due to underlying infection, with Tmax of of 101.2 on 03/02/23 with wbc 13.8K--both resolved. Per primary team they feel aspiration pneumonia. Urine culture is negative for infection---improving * Having delerium due to underlying infection and hospital induced delirium * Borderline elevated cardiac enzymes * Fluid overload and suspected diastolic CHF. * History of tremors in past and Primidone was not effective so was started on Keppra in 03/[address] Haynes. * Status post Multiple rib fracture and traumatic hemothorax requiring chest replacement, now resolved. * Recent treatment for pneumonia with previous admission. * History of documented seizure (but family members stated that he does not have hx of seizures. Per nurse had tremor of mouth and possible started by [facility] according to ). * History of underlying COPD * Morbid obesity * History of pulmonary emphysema Plan: * * EEG 03/02/23 was performed, which reported was abnormal due to background slowing of at least moderate degree, suggestive of toxic metabolic encephalopathy. Patient was sleep also during the study. Awake pattern was not seen in the entire study. * 2-D echo 02/13/2023 showed normal left-ventricular systolic function with EF 55-60%. Mild left atrial dilation. * CTA revealed no significant stenosis in, nor internal carotid arteries bilaterally or at the level of [place]. 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 This is asymptomatic at this time. Recommend patient follow up with neuro intervention as an outpatient. * Repeat CT of the head is reported as no acute hemorrhage or mass effect * Repeat EEG is abnormal. The baclofen slowing suggestive of mild to moderate encephalopathy. Otherwise there is no focal slowing, epileptiform discharges or seizure on the EEG. * Patient is on Zosyn. This the patient is doing better today no need for lumbar puncture from a neurologic perspective. * Cardiology on board for elevated cardiac enzymes. * Will defer the rest of management to primary team. The plan is discussed with patient and his . Will continue to follow Time with Patient: Less than 30
[2023-03-07 14:02] LABS: Platelet Count 62 k/uL (150-450)
--- NOTE | 2023-03-07 15:29 | P.PN ---
Subjective Progress Note Date: 03/07/23 Hospital Course: 72-year-old male with history of diabetes type 2, CAD, PE not on chronic anticoagulation, dyslipidemia, COPD, TERE, hypothyroidism, seizures, L1 compression fracture, was recently admitted for prolonged hospitalization secondary to hemopneumothorax, pulmonary contusion, chest wall hematoma status post VATS. Patient was discharged to nursing facility. A few hours after arrival to the care home he became more confused and lethargic. They therefore sent him back to the ER. In ED he was found to have an elevated white blood cell count, contaminated urine. His troponin was mildly elevated. He was readmitted. On exam patient had rhonchi and crackles. He was started on IV Lasix. He was also started on IV Zosyn for possible aspiration pneumonia. Patient was seen by speech therapy and his diet was downgraded to a child diet with thickened liquids. Patient currently satting well on 3 L nasal cannula which is how his oxygen use discharged on. However his delirium is worsening. EEG showed findings consistent with metabolic encephalopathy. Patient's urine culture is negative and blood cultures negative to date. Patient has been started on Seroquel for his delirium. Neurology and pulmonology following. Subjective: Patient seen and examined at bedside. No acute events overnight. is at bedside. Continues to remain confused, but per nursing patient is improving. Denies any chest pain, shortness breath, abdominal pain, nausea, vomiting, diarrhea, constipation. Pertinent positives and negatives as discussed above, a complete review of systems was performed and all other systems are negative. Vitals Signs Reviewed. General: nontoxic, no distress, appears at stated age Derm: warm, dry Head: atraumatic, normocephalic, symmetric Eyes: EOMI, no lid lag, anicteric sclera Mouth: no lip lesion, mucus membranes moist Cardiovascular: S1S2 reg, no murmur Lungs: CTA bilateral, no rhonchi, no rales , no accessory muscle use Abdominal: soft, nontender to palpation, no guarding, no appreciable organomegaly Ext: no gross muscle atrophy, no edema, no contractures Neuro: CN II-XI grossly intact, no focal neuro deficits Psych: Alert, oriented 1, appropriate affect Data Reviewed Today: Pertinent Labs: Imaging: Assessment and Plan: Active: Acute metabolic encephalopathy Sepsis present on admission Aspiration pneumonia Type II [place] secondary to sepsis Acute on chronic hypoxic respiratory failure Acute on chronic thrombocytopenia Leukopenia Type 2 diabetes -Neurology note reviewed, EEG consistent with toxic metabolic encephalopathy -Currently on cervical 50 mg midnight -Pulmonology note reviewed cephalopathy likely metabolic in nature, on Zosyn IV for aspiration pneumonia -Cardiology signed off, on oral Lasix -Continue to wean oxygen -Continue to monitor CBC and BMP -On sliding scale insulin, no changes Resolved: Hypokalemia Hypomagnesemia Chronic: Coronary artery disease Chronic diastolic heart failure Dyslipidemia COPD TERE Hypothyroidism History of seizures Chronic L1 compression fracture DVT ppx: Lovenox Code status: Full code Anticipated discharge place: Likely back to care home Anticipated discharge time: Any clinical course Objective - Vital Signs Vital signs: Vital Signs Temp 98.0 F 03/07/23 04:00 Pulse 86 03/07/23 04:00 Resp 18 03/07/23 04:00 BP 142/83 03/07/23 04:00 Pulse Ox 99 03/07/23 14:33 FiO2 100 03/06/23 16:00 Intake & Output 03/06/23 03/07/23 03/07/23 18:59 06:59 18:59 Intake Total 118 10 480 Output Total 900 600 Balance -782 -590 480 Weight 80.5 kg Intake: IV 10 Invasive Line 4 10 Oral 118 480 Output: Urine 900 600 Other: Voiding Method Indwelling Catheter Indwelling Catheter - Labs CBC & Chem 7: 03/07/23 09:03 03/07/23 09:03 Labs: Abnormal Lab Results - Last 24 Hours (Table) 03/06/23 03/06/23 03/07/23 Range/Units 16:22 23:52 09:03 WBC 3.5 L (3.8-10.6) k/uL RBC 3.49 L (4.30-5.90) m/uL Hgb 10.2 L (13.0-17.5) gm/dL Hct 33.1 L (39.0-53.0) % MCHC 30.8 L (31.0-37.0) g/dL RDW 16.9 H (11.5-15.5) % Plt Count 62 L (150-450) k/uL Lymphocytes # 0.5 L (1.0-4.8) k/uL Chloride (98-107) mmol/L Carbon Dioxide (22-30) mmol/L Glucose (74-99) mg/dL POC Glucose (mg/dL) 124 H 172 H (70-110) mg/dL Calcium (8.4-10.2) mg/dL 03/07/23 03/07/23 Range/Units 09:03 11:48 WBC (3.8-10.6) k/uL RBC (4.30-5.90) m/uL Hgb (13.0-17.5) gm/dL Hct (39.0-53.0) % MCHC (31.0-37.0) g/dL RDW (11.5-15.5) % Plt Count (150-450) k/uL Lymphocytes # (1.0-4.8) k/uL Chloride 93 L (98-107) mmol/L Carbon Dioxide 40 H (22-30) mmol/L Glucose 158 H (74-99) mg/dL POC Glucose (mg/dL) 155 H (70-110) mg/dL Calcium 8.3 L (8.4-10.2) mg/dL Microbiology - Last 24 Hours (Table) 03/02/23 01:23 Blood Culture - Preliminary Blood
[2023-03-07 16:36] LABS: Glucose,Whole Blood 168 mg/dL (70-110)
[2023-03-07] MEDS: QUEtiapine 50 MG TAB PO SCH (20:08)
[2023-03-07] MEDS: ATORVASTATIN 80 MG TAB PO SCH (20:08)
[2023-03-07 23:57] LABS: Glucose,Whole Blood 129 mg/dL (70-110)
[2023-03-08] MEDS: PIPERACILLIN-TAZOBACTAM 3.375 GM in SODIUM CHLORIDE 0.9% 100 ML IVPB SCH (03:14)
[2023-03-08 05:20] LABS: Anisocytosis Slight; HCT 28.2 % (39.0-53.0); HGB 9.3 gm/dL (13.0-17.5); MCH 28.9 pg (25.0-35.0); MCHC 32.9 g/dL (31.0-37.0); Mean Platelet Volume 10.8; Poikilocytosis Slight; RDW 17.2 % (11.5-15.5)
[2023-03-08 05:21] LABS: MCV 87.9 fL (80.0-100.0); Platelet Count 59 k/uL (150-450)
[2023-03-08 05:27] LABS: African American GFR (CKD) >90 (>60 ml/min/1.73 sqM); Anion Gap 7 mmol/L; Blood Urea Nitrogen 19 mg/dL (9-20); Calcium 8.5 mg/dL (8.4-10.2); Carbon Dioxide 39 mmol/L (22-30); Chloride 93 mmol/L (98-107); Glucose 119 mg/dL (74-99); Non-African American GFR(CKD) 84 (>60 ml/min/1.73 sqM); Sodium 139 mmol/L (137-145)
[2023-03-08] MEDS ORDERED: INSULIN REGULAR 100 UNIT/ML VIAL (IV) IV ONE (05:34)
[2023-03-08] MEDS ORDERED: DEXTROSE 50% SYRINGE 50 ML IVP STA (05:35)
[2023-03-08] MEDS: PANTOPRAZOLE 40 MG TABLET PO SCH (05:49)
[2023-03-08] MEDS: LEVOTHYROXINE 100 MCG TAB PO SCH (05:49)
[2023-03-08 06:08] LABS: Glucose,Whole Blood 209 mg/dL (70-110)
[2023-03-08] MEDS: INSULIN ASPART (NovoLOG) 100 UNIT/ML VIAL SQ SCH ×4 (06:28→23:59)
[2023-03-08 06:57] LABS: Band Neutrophils % 1 %; Eosinophils # (M) 0.24 k/uL (0-0.7); Lymphocytes # (M) 0.64 k/uL (1.0-4.8); Monocytes # (M) 0.28 k/uL (0-1.0); Neutrophils % (M) 70 %; Nucleated Red Blood Cells 0 /100 WBC (0-0); Total Cells Counted 100
[2023-03-08] MEDS: ENOXAPARIN 40 MG/0.4 ML SYRINGE SQ SCH (08:41)
[2023-03-08] MEDS: ASPIRIN 81 MG PO SCH (08:41)
[2023-03-08] MEDS: FUROSEMIDE 40 MG TAB PO SCH ×2 (08:41→20:19)
[2023-03-08] MEDS: METOPROLOL TARTRATE 50 MG TAB PO SCH ×2 (08:41→20:19)
[2023-03-08] MEDS: CLOPIDOGREL 75 MG TAB PO SCH (08:41)
[2023-03-08] MEDS: ARTIFICIAL TEARS-HYPROMELLOSE DROPS 15 ML BTL BOTH EYES SCH ×2 (08:42→20:19)
--- NOTE | 2023-03-08 08:47 | XR ---
EXAMINATION TYPE: XR chest 1V portable DATE OF EXAM: 03/08/2023 COMPARISON: 03/01/2023 HISTORY: Hypoxia TECHNIQUE: Single frontal view of the chest is obtained. FINDINGS: Coarsened interstitium with cardiomegaly and right lower lobe infiltrate with small effusi on. No pneumothorax. Arthropathy shoulders. IMPRESSION: 1. Cardiomegaly correlate for pulmonary fibrosis and chronic interstitial lung disease similar to domonique or exam. Superimposed mild venous congestion or interstitial pneumonitis not excluded.
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
[2023-03-08 11:38] LABS: Glucose,Whole Blood 106 mg/dL (70-110)
--- NOTE | 2023-03-08 12:33 | P.PN ---
Subjective Progress Note Date: 03/08/23 Hospital Course: 72-year-old male with history of diabetes type 2, CAD, PE not on chronic antico agulation, dyslipidemia, COPD, TERE, hypothyroidism, seizures, L1 compression fracture, was recently admitted for prolonged hospitalization secondary to hemopneumothorax, pulmonary contusion, chest wall hematoma status post VATS. Patient was discharged to nursing facility. A few hours after arrival to the [facility] he became more confused and lethargic. They therefore sent him back to the ER. In ED he was found to have an elevated white blood cell count, contaminated urine. His troponin was mildly elevated. He was readmitted. On exam patient had rhonchi and crackles. He was started on IV Lasix. He was also started on IV Zosyn for possible aspiration pneumonia. Patient was seen by speech therapy and his diet was downgraded to a child diet with thickened liquids. Patient currently satting well on 3 L nasal cannula which is how his oxygen use discharged on. However his delirium is worsening. EEG showed findings consistent with metabolic encephalopathy. Patient's urine culture is negative and blood cultures negative to date. Patient has been started on Seroquel for his delirium. Neurology and pulmonology following. Mentation seems to be at his baseline now. Patient is now having pancytopenia. Antibiotics switched from Zosyn to ceftriaxone. Subjective: Patient seen and examined at bedside. No acute events overnight. Continues to remain confused, but per nursing patient is improving. Denies any chest pain, shortness breath, abdominal pain, nausea, vomiting, diarrhea, constipation. Pertinent positives and negatives as discussed above, a complete review of systems was performed and all other systems are negative. Vitals Signs Reviewed. General: nontoxic, no distress, appears at stated age Derm: warm, dry Head: atraumatic, normocephalic, symmetric Eyes: EOMI, no lid lag, anicteric sclera Mouth: no lip lesion, mucus membranes moist Cardiovascular: S1S2 reg, no murmur Lungs: CTA bilateral, no rhonchi, no rales , no accessory muscle use Abdominal: soft, nontender to palpation, no guarding, no appreciable organomegaly Ext: no gross muscle atrophy, no edema, no contractures Neuro: CN II-XI grossly intact, no focal neuro deficits Psych: Alert, oriented 1, appropriate affect Data Reviewed Today: Pertinent Labs: WBC 4, hemoglobin 9.3, platelet 59, potassium 3.5, creatinine 0.9 Imaging: Chest x-ray independently interpreted, shows chronic interstitial disease, unchanged from prior Assessment and Plan: Active: Acute metabolic encephalopathy Sepsis present on admission Aspiration pneumonia Type II [place] secondary to sepsis Acute on chronic hypoxic respiratory failure Pancytopenia Type 2 diabetes -Personally discussed management with neurology, okay to be discharged from their standpoint -Currently on Seroquel 50 mg midnight -Pulmonology note reviewed cephalopathy likely metabolic in nature, continue current treatment for aspiration pneumonia -Cardiology signed off, on oral Lasix -Continue to wean oxygen -Pancytopenia possibly related to antibiotic use, Zosyn and switch to IV ceftriaxone -Repeat CBC tomorrow -On sliding scale insulin, no changes Resolved: Hypokalemia Hypomagnesemia Chronic: Coronary artery disease Chronic diastolic heart failure Dyslipidemia COPD TERE Hypothyroidism History of seizures Chronic L1 compression fracture DVT ppx: Lovenox Code status: Full code Anticipated discharge place: Likely back to [facility] Anticipated discharge time: Possibly tomorrow Objective - Vital Signs Vital signs: Vital Signs Temp 97.7 F 03/08/23 08:36 Pulse 83 03/08/23 11:29 Resp 18 03/08/23 11:29 BP 130/70 03/08/23 11:29 Pulse Ox 99 03/08/23 11:29 FiO2 100 03/06/23 16:00 Intake & Output 03/07/23 03/08/23 03/08/23 18:59 06:59 18:59 Intake Total 834 Output Total 700 500 Balance 834 -700 -500 Weight 80.5 kg Intake: Oral 834 Output: Urine 700 500 Other: Voiding Method Indwelling Catheter Indwelling Catheter Indwelling Catheter - Labs CBC & Chem 7: 03/08/23 04:29 03/08/23 10:00 Labs: Abnormal Lab Results - Last 24 Hours (Table) 03/07/23 03/07/23 03/07/23 Range/Units 09:03 16:28 23:53 RBC (4.30-5.90) m/uL Hgb (13.0-17.5) gm/dL Hct (39.0-53.0) % RDW (11.5-15.5) % Plt Count 62 L (150-450) k/uL Lymphocytes # 0.5 L (1.0-4.8) k/uL Lymphocytes # (Manual) (1.0-4.8) k/uL Potassium (3.5-5.1) mmol/L Chloride (98-107) mmol/L Carbon Dioxide (22-30) mmol/L Glucose (74-99) mg/dL POC Glucose (mg/dL) 168 H 129 H (70-110) mg/dL 03/08/23 03/08/23 03/08/23 Range/Units 04:29 04:29 06:06 RBC 3.20 L (4.30-5.90) m/uL Hgb 9.3 L (13.0-17.5) gm/dL Hct 28.2 L (39.0-53.0) % RDW 17.2 H (11.5-15.5) % Plt Count 59 L (150-450) k/uL Lymphocytes # (1.0-4.8) k/uL Lymphocytes # (Manual) 0.64 L (1.0-4.8) k/uL Potassium 6.0 H (3.5-5.1) mmol/L Chloride 93 L (98-107) mmol/L Carbon Dioxide 39 H (22-30) mmol/L Glucose 119 H (74-99) mg/dL POC Glucose (mg/dL) 209 H (70-110) mg/dL Microbiology - Last 24 Hours (Table) 03/02/23 01:23 Blood Culture - Final Blood
--- NOTE | 2023-03-08 16:15 | P.PN ---
Subjective Progress Note Date: 03/08/23 Patient seen at bedside and he feels he is doing well. Patient is not cooperating with examination and wants to be left alone. Objective - Vital Signs Vital signs: Vital Signs Temp 97.7 F 03/08/23 08:36 Pulse 91 03/08/23 15:46 Resp 19 03/08/23 15:46 BP 115/76 03/08/23 15:46 Pulse Ox 98 03/08/23 15:46 FiO2 100 03/06/23 16:00 Intake & Output 03/07/23 03/08/23 03/08/23 18:59 06:59 18:59 Intake Total 834 Output Total 700 500 Balance 834 -700 -500 Weight 80.5 kg Intake: Oral 834 Output: Urine 700 500 Other: Voiding Method Indwelling Catheter Indwelling Catheter Indwelling Catheter - Exam General:Not in acute distress. Neuro: Limited because of his cooperation. Higher mental function: The patient is awake alert oriented to self. Initially upon examining him and ask him his name he told me that he does not want to tell me his name and I should know his name. He is not cooperative with examination and just wants to watch TV. He is able to identify objects such as pen and watch. Language is limited but does not appear aphasia. No facial weakness. - Labs CBC & Chem 7: 03/08/23 04:29 03/08/23 10:00 Labs: Abnormal Lab Results - Last 24 Hours (Table) 03/07/23 03/07/23 03/08/23 Range/Units 16:28 23:53 04:29 RBC 3.20 L (4.30-5.90) m/uL Hgb 9.3 L (13.0-17.5) gm/dL Hct 28.2 L (39.0-53.0) % RDW 17.2 H (11.5-15.5) % Plt Count 59 L (150-450) k/uL Lymphocytes # (Manual) 0.64 L (1.0-4.8) k/uL Potassium (3.5-5.1) mmol/L Chloride (98-107) mmol/L Carbon Dioxide (22-30) mmol/L Glucose (74-99) mg/dL POC Glucose (mg/dL) 168 H 129 H (70-110) mg/dL 03/08/23 03/08/23 Range/Units 04:29 06:06 RBC (4.30-5.90) m/uL Hgb (13.0-17.5) gm/dL Hct (39.0-53.0) % RDW (11.5-15.5) % Plt Count (150-450) k/uL Lymphocytes # (Manual) (1.0-4.8) k/uL Potassium 6.0 H (3.5-5.1) mmol/L Chloride 93 L (98-107) mmol/L Carbon Dioxide 39 H (22-30) mmol/L Glucose 119 H (74-99) mg/dL POC Glucose (mg/dL) 209 H (70-110) mg/dL Microbiology - Last 24 Hours (Table) 03/02/23 01:23 Blood Culture - Final Blood Assessment and Plan Assessment: * Altered mental status, encephalopathy of unknown etiology. I assume due to underlying infection, with Tmax of of 101.2 on 03/02/23 with wbc 13.8K--both resolved. Per primary team they feel aspiration pneumonia. Urine culture is negative for infection---improving * Having delerium due to underlying infection and hospital induced delirium * Borderline elevated cardiac enzymes * Fluid overload and suspected diastolic CHF. * History of tremors in past and Primidone was not effective so was started on Keppra in 03/[address] Haynes. * Status post Multiple rib fracture and traumatic hemothorax requiring chest replacement, now resolved. * Recent treatment for pneumonia with previous admission. * History of documented seizure (but family members stated that he does not have hx of seizures. Per nurse had tremor of mouth and possible started by [facility] according to ). * History of underlying COPD * Morbid obesity * History of pulmonary emphysema Plan: * EEG 03/02/23 was performed, which reported was abnormal due to background slowing of at least moderate degree, suggestive of toxic metabolic encephalopathy. Patient was sleep also during the study. Awake pattern was not seen in the entire study. * 2-D echo 02/13/2023 showed normal left-ventricular systolic function with EF 55-60%. Mild left atrial dilation. * CTA revealed no significant stenosis in, nor internal carotid arteries bilaterally or at the level of [place]. 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 This is asymptomatic at this time. Recommend patient follow up with neuro intervention as an outpatient. * Repeat CT of the head is reported as no acute hemorrhage or mass effect * Repeat EEG is abnormal. The baclofen slowing suggestive of mild to moderate encephalopathy. Otherwise there is no focal slowing, epileptiform discharges or seizure on the EEG. * Patient is on Zosyn. This the patient is doing better today no need for lumbar puncture from a neurologic perspective. * Cardiology on board for elevated cardiac enzymes. * Will defer the rest of management to primary team. The plan is discussed with patient and primary team. Will follow-up sporadically. Time with Patient: Less than 30
[2023-03-08 17:42] LABS: Glucose,Whole Blood 131 mg/dL (70-110)
[2023-03-08] MEDS: ATORVASTATIN 80 MG TAB PO SCH (20:19)
[2023-03-08] MEDS: QUEtiapine 50 MG TAB PO SCH (20:19)
[2023-03-08 23:58] LABS: Glucose,Whole Blood 137 mg/dL (70-110)
[2023-03-09 05:54] LABS: Glucose,Whole Blood 148 mg/dL (70-110)
[2023-03-09] MEDS: INSULIN ASPART (NovoLOG) 100 UNIT/ML VIAL SQ SCH ×3 (05:58→18:13)
[2023-03-09] MEDS: LEVOTHYROXINE 100 MCG TAB PO SCH (06:16)
[2023-03-09] MEDS: PANTOPRAZOLE 40 MG TABLET PO SCH (06:16)
[2023-03-09] MEDS: ARTIFICIAL TEARS-HYPROMELLOSE DROPS 15 ML BTL BOTH EYES SCH (08:22)
[2023-03-09] MEDS: ENOXAPARIN 40 MG/0.4 ML SYRINGE SQ SCH (08:23)
[2023-03-09 08:27] VITALS: TEMP 98.2
[2023-03-09] MEDS: METOPROLOL TARTRATE 50 MG TAB PO SCH (08:27)
[2023-03-09] MEDS: FUROSEMIDE 40 MG TAB PO SCH (08:27)
[2023-03-09] MEDS: CLOPIDOGREL 75 MG TAB PO SCH (08:27)
[2023-03-09] MEDS: ASPIRIN 81 MG PO SCH (08:27)
[2023-03-09 09:41] LABS: Anisocytosis Slight; HCT 30.8 % (39.0-53.0); HGB 10.2 gm/dL (13.0-17.5); Hypochromasia Slight; MCH 29.7 pg (25.0-35.0); MCV 89.9 fL (80.0-100.0); Mean Platelet Volume 11.1; Poikilocytosis Slight; RBC 3.43 m/uL (4.30-5.90); RDW 17.3 % (11.5-15.5); WBC 4.4 k/uL (3.8-10.6)
[2023-03-09 09:43] LABS: Platelet Count 70 k/uL (150-450)
[2023-03-09 11:19] LABS: Band Neutrophils % 1 %; Basophils # (M) 0.04 k/uL (0-0.2); Eosinophils # (M) 0.31 k/uL (0-0.7); Lymphocytes # (M) 1.01 k/uL (1.0-4.8); Monocytes # (M) 0.13 k/uL (0-1.0); Neutrophils % (M) 65 %; Nucleated Red Blood Cells 0 /100 WBC (0-0); Total Cells Counted 100
[2023-03-09 11:57] LABS: Glucose,Whole Blood 173 mg/dL (70-110)
--- NOTE | 2023-03-09 12:16 | P.DS ---
Providers Date of admission: 03/02/23 00:22 Expected date of discharge: 03/09/23 Attending physician: Jazz Green MD Consults: 03/02/23 00:22 Consult Physician Routine Consulting Provider: Mckenzie Lo Consult Reason/Comments: ams Do you want consulting provider notified?: Yes 03/02/23 13:04 Consult Physician Routine Consulting Provider: Deanna Dejesus Consult Reason/Comments: elevated troponin Do you want consulting provider notified?: Yes 03/03/23 13:30 Consult Physician Routine Consulting Provider: Ramon Alamo Consult Reason/Comments: respiratory distress, suspect silent aspiration, may need bronch Do you want consulting provider notified?: Yes Primary care physician: [facility] Hospital Course: Discharge Diagnosis: Acute metabolic encephalopathy Sepsis present on admission Aspiration pneumonia Type II [place] secondary to sepsis Acute on chronic hypoxic respiratory failure Pancytopenia Type 2 diabetes Hypokalemia Hypomagnesemia Coronary artery disease Chronic diastolic heart failure Dyslipidemia COPD TERE Hypothyroidism History of seizures Chronic L1 compression fracture History of PE Hospital Course: 72-year-old male with history of diabetes type 2, CAD, PE not on chronic anticoagulation, dyslipidemia, COPD, TERE, hypothyroidism, seizures, L1 compression fracture, was recently admitted for prolonged hospitalization secondary to hemopneumothorax, pulmonary contusion, chest wall hematoma status post VATS. Patient was discharged to nursing facility. A few hours after arrival to the shelter he became more confused and lethargic. They therefore sent him back to the ER. In ED he was found to have an elevated white blood cell count, contaminated urine. His troponin was mildly elevated. On exam patient had rhonchi and crackles. He was started on IV Lasix, now switched to oral. He was also started on IV Zosyn for possible aspiration pneumonia. Patient was seen by speech therapy and his diet was downgraded to a chopped diet with thickened liquids. Patient currently satting well on 3 L nasal cannula which is home oxygen. However his delirium is worsening. EEG showed findings consistent with metabolic encephalopathy. Patient's urine culture is negative and blood cultures negative to date. Patient has been started on Seroquel for his delirium. Neurology and pulmonology consulted. Mentation seems to be at his baseline now. Patient is now having pancytopenia. Antibiotics switched from Zosyn to ceftriaxone. Pancytopenia improved. Patient being discharged on cefdinir. Patient seen and examined at bedside. Vital signs reviewed and stable. General: nontoxic, no distress, appears at stated age Derm: warm, dry Head: atraumatic, normocephalic, symmetric Eyes: EOMI, no lid lag, anicteric sclera Mouth: no lip lesion, mucus membranes moist Cardiovascular: S1S2 reg, no murmur Lungs: CTA bilateral, no rhonchi, no rales , no accessory muscle use Abdominal: soft, nontender to palpation, no guarding, no appreciable organomegaly Ext: no gross muscle atrophy, no edema, no contractures Neuro: CN II-XI grossly intact, no focal neuro deficits Psych: Alert, oriented 1, appropriate affect A total of 37 minutes of time were spent preparing this complex discharge summary. Patient was discharged on 03/09/23 at11:46. Patient Condition at Discharge: Stable Plan - Discharge Summary Discharge Rx Participant: No New Discharge Prescriptions: New Furosemide [Lasix] 40 mg PO BID tab QUEtiapine [SEROquel] 50 mg PO HS tab Cefdinir [Omnicef] 300 mg PO Q12HR #14 capsule Continue Pantoprazole [Protonix] 40 mg PO DAILY Levothyroxine Sodium [Synthroid] 100 mcg PO DAILY Atorvastatin [Lipitor] 80 mg PO HS Tamsulosin [Flomax] 0.4 mg PO HS Artificial Tears-Hypromellose [Artificial Tear Drops] 1 drops BOTH EYES BID Folic Acid 1 mg PO DAILY #30 tablet Multivitamins, Thera [Multivitamin (formulary)] 1 tab PO DAILY #30 tablet Thiamine [Vitamin B-1] 100 mg PO DAILY #30 tablet Aspirin 81 mg PO DAILY #0 Ipratropium-Albuterol Nebulize [Duoneb 0.5 mg-3 mg/3 ml Soln] 3 ml INHALATION RT-Q2H PRN each PRN Reason: Shortness Of Breath Or Wheezing Melatonin 5 mg PO HS PRN tab PRN Reason: Insomnia Nystatin 100,000 Unit/ml Susp [Mycostatin Oral Susp] 500,000 unit PO QID #0 ml Acetaminophen Tab [Tylenol] 650 mg PO Q6HR #0 tab Sennosides-Docusate Sodium [Senokot-S] 2 tab PO HS PRN PRN Reason: Constipation Nitroglycerin Sl Tabs [Nitrostat] 0.4 mg SUBLINGUAL Q5M PRN PRN Reason: Chest Pain Metoprolol Tartrate [Lopressor] 50 mg PO BID 30 Days #60 tab Clopidogrel Bisulfate [Plavix] 75 mg PO DAILY #90 tab bisacodyL [Dulcolax] 10 mg RECTAL DAILY PRN suppositor PRN Reason: Constipation Linagliptin [Tradjenta] 5 mg PO DAILY tab Enoxaparin [Lovenox] 40 mg SQ DAILY each Cholecalciferol [Vitamin D3 (25 Mcg = 1000 Iu)] 50 mcg PO DAILY Ipratropium-Albuterol Nebulize [Duoneb 0.5 mg-3 mg/3 ml Soln] 3 ml INHALATION RT-Q6H Discontinued Furosemide [Lasix] 20 mg PO DAILY Potassium Chloride [Klor-Con M10] 10 meq PO Q48H amantadine HCL [Symmetrel] 100 mg PO BID Discharge Medication List Atorvastatin [Lipitor] 80 mg PO HS 03/03/17 [History] Levothyroxine Sodium [Synthroid] 100 mcg PO DAILY 03/03/17 [History] Pantoprazole [Protonix] 40 mg PO DAILY 03/03/17 [History] Tamsulosin [Flomax] 0.4 mg PO HS 01/25/19 [History] Artificial Tears-Hypromellose [Artificial Tear Drops] 1 drops BOTH EYES BID 02/19/20 [History] Folic Acid 1 mg PO DAILY #30 tablet 04/21/20 [Rx] Multivitamins, Thera [Multivitamin (formulary)] 1 tab PO DAILY #30 tablet 04/21/20 [Rx] Thiamine [Vitamin B-1] 100 mg PO DAILY #30 tablet 04/21/20 [Rx] Nitroglycerin Sl Tabs [Nitrostat] 0.4 mg SUBLINGUAL Q5M PRN 09/12/21 [History] Metoprolol Tartrate [Lopressor] 50 mg PO BID 30 Days #60 tab 09/17/21 [Rx] Aspirin 81 mg PO DAILY #0 12/07/21 [Rx] Clopidogrel Bisulfate [Plavix] 75 mg PO DAILY #90 tab 12/07/21 [Rx] Acetaminophen Tab [Tylenol] 650 mg PO Q6HR #0 tab 03/01/23 [Rx] Cholecalciferol [Vitamin D3 (25 Mcg = 1000 Iu)] 50 mcg PO DAILY 03/01/23 [History] Enoxaparin [Lovenox] 40 mg SQ DAILY each 03/01/23 [Rx] Ipratropium-Albuterol Nebulize [Duoneb 0.5 mg-3 mg/3 ml Soln] 3 ml INHALATION RT-Q2H PRN each 03/01/23 [Rx] Ipratropium-Albuterol Nebulize [Duoneb 0.5 mg-3 mg/3 ml Soln] 3 ml INHALATION RT-Q6H 03/01/23 [History] Linagliptin [Tradjenta] 5 mg PO DAILY tab 03/01/23 [Rx] Melatonin 5 mg PO HS PRN tab 03/01/23 [Rx] Nystatin 100,000 Unit/ml Susp [Mycostatin Oral Susp] 500,000 unit PO QID #0 ml 03/01/23 [Rx] Sennosides-Docusate Sodium [Senokot-S] 2 tab PO HS PRN 03/01/23 [History] bisacodyL [Dulcolax] 10 mg RECTAL DAILY PRN suppositor 03/01/23 [Rx] Cefdinir [Omnicef] 300 mg PO Q12HR #14 capsule 03/09/23 [Rx] Furosemide [Lasix] 40 mg PO BID tab 03/09/23 [Rx] QUEtiapine [SEROquel] 50 mg PO HS tab 03/09/23 [Rx] Follow up Appointment(s)/Referral(s): [facility] [Primary Care Provider] - 1-2 days Patient Instructions/Handouts: Heart Failure (DC), Aspiration Pneumonia (DC), Sepsis (DC), Hypoxia (GEN), Thrombocytopenia (DC), Encephalopathy (DC) Activity/Diet/Wound Care/Special Instructions: please see PCP and pulmonology Discharge Disposition: TRANSFER TO SNF/ECF
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
[2023-03-09 17:10] VITALS: BP 101/69; PULSE 92; RESP 18
[2023-03-09 17:55] LABS: Glucose,Whole Blood 136 mg/dL (70-110)
== END 2023-03-09 19:04 | DRG 871 ==
LOC: EC 21:19 → 3SCARD 03-02 00:22
PROVIDERS: ADMIT Internal Medicine; ATTEND Internal Medicine
DX: A41.9 Sepsis, unspecified organism (principal); G93.41 Metabolic encephalopathy; J96.21 Acute and chronic respiratory failure with hypoxia; J69.0 Pneumonitis due to inhalation of food and vomit; I50.43 Acute on chronic combined systolic (congestive) and diastolic (congestive) heart failure; I21.A1 Myocardial infarction type 2; G62.81 Critical illness polyneuropathy; G72.81 Critical illness myopathy; D61.818 Other pancytopenia; E87.3 Alkalosis; F05 Delirium due to known physiological condition; R47.01 Aphasia; I67.1 Cerebral aneurysm, nonruptured; I27.20 Pulmonary hypertension, unspecified; E88.09 Other disorders of plasma-protein metabolism, not elsewhere classified; R54 Age-related physical debility; E11.42 Type 2 diabetes mellitus with diabetic polyneuropathy; I11.0 Hypertensive heart disease with heart failure; J43.9 Emphysema, unspecified; E03.9 Hypothyroidism, unspecified; M81.0 Age-related osteoporosis without current pathological fracture; T36.0X5A Adverse effect of penicillins, initial encounter; I25.10 Atherosclerotic heart disease of native coronary artery without angina pectoris; E78.5 Hyperlipidemia, unspecified; H91.90 Unspecified hearing loss, unspecified ear; G89.29 Other chronic pain; M54.9 Dorsalgia, unspecified; E87.6 Hypokalemia; E83.42 Hypomagnesemia; M48.56XS Collapsed vertebra, not elsewhere classified, lumbar region, sequela of fracture; G47.33 Obstructive sleep apnea (adult) (pediatric); R25.1 Tremor, unspecified; Z96.0 Presence of urogenital implants; Z96.653 Presence of artificial knee joint, bilateral; Z28.311 Partially vaccinated for COVID-19; Z87.891 Personal history of nicotine dependence; Z95.5 Presence of coronary angioplasty implant and graft; Z86.711 Personal history of pulmonary embolism; Z88.8 Allergy status to other drugs, medicaments and biological substances; Z79.84 Long term (current) use of oral hypoglycemic drugs; Z79.02 Long term (current) use of antithrombotics/antiplatelets; Z79.890 Hormone replacement therapy; Z79.899 Other long term (current) drug therapy; Z79.82 Long term (current) use of aspirin; S22.49XD Multiple fractures of ribs, unspecified side, subsequent encounter for fracture with routine healing; W18.30XD Fall on same level, unspecified, subsequent encounter; Z87.01 Personal history of pneumonia (recurrent)
CPT/HCPCS: 36415; 36600; 70450; 70496; 70498; 71045; 71275; 74230; 80048; 80053; 80202; 81001; 82550; 82805; 83735; 83880; 84100; 84132; 84145; 84484; 85025; 85027; 85610; 85730; 87086; 93005; 93306; 94760; 95816; 95819; 96374; 99291

== ENCOUNTER 2023-03-11 04:19 | Emergency (ER) | payer OTHER, MEDICARE ==
[2023-03-11 04:40] VITALS: BP 100/72; PULSE 88; RESP 18; TEMP 97.9
[2023-03-11] MEDS ORDERED: SODIUM CHLORIDE 0.9% 1,000 ML IV ONE (04:41)
[2023-03-11 05:09] LABS: Appearance,Urine Cloudy (Clear); Bacteria,Urine Rare /hpf; Bilirubin,Urine Negative (Negative); Blood,Urine Large (Negative); Color,Urine Yellow; Glucose,Urine (UA) Negative (Negative); Hyaline Casts,Urine 14 /lpf (0-2); Ketones,Urine Negative (Negative); Leukocyte Esterase,Urine Large (Negative); Mucus,Urine Rare /hpf; Nitrite,Urine Negative (Negative); PH, Urine 6.5 (5.0-8.0); Protein,Urine Trace (Negative); RBC,Urine >182 /hpf (0-5); Specific Gravity,Urine 1.014 (1.001-1.035); Squamous Epithelial Cell,Urine <1 /hpf (0-4); Urobilinogen,Urine <2.0 mg/dL (<2.0); WBC,Urine 149 /hpf (0-5)
[2023-03-11 05:14] LABS: Amphetamine Screen,Urine Not Detected (NotDetected); Barbiturate Screen,Urine Not Detected (NotDetected); Benzodiazepines Screen,Urine Not Detected (NotDetected); Cocaine Screen,Urine Not Detected (NotDetected); Methadone Screen, Urine Not Detected (NotDetected); Opiate Screen,Urine Not Detected (NotDetected); Oxycodone Screen, Urine Not Detected (NotDetected); Phencyclidine Screen,Urine Not Detected (NotDetected); Tricyclic Antidepressant,Urine Detected (NotDetected); Urn Cannabinoid Scrn Not Detected (NotDetected)
--- NOTE | 2023-03-11 05:14 | ED ---
General Adult HPI - General Chief complaint: Recheck/Abnormal Lab/Rx Stated complaint: Fall Time Seen by Provider: 03/11/23 04:36 Source: EMS, RN notes reviewed, old records reviewed Mode of arrival: EMS Limitations: altered mental status - History of Present Illness Initial comments: Patient is a 72-year-old male who presents emergency Department complaining of altered mental status. Baseline he is alert and oriented times one. Presents from [facility]. Facility states that he has been more agitated lately, will not keep his nasal cannula on his face. Somewhat combative as well. Has a chronic A[place]. It is at his baseline which is alert and oriented times one to person. Patient otherwise has no acute complaints at this time. He is unable to provide much of a history.Apparently patient also has been having increased falls with last documented fall 1 weeks ago. Is on blood thinners. Presents for further evaluation at this time. - Related Data Home Medications Medication Instructions Recorded Confirmed Atorvastatin [Lipitor] 80 mg PO HS 03/03/17 03/01/23 Levothyroxine Sodium [Synthroid] 100 mcg PO DAILY 03/03/17 03/01/23 Pantoprazole [Protonix] 40 mg PO DAILY 03/03/17 03/01/23 Tamsulosin [Flomax] 0.4 mg PO HS 01/25/19 03/01/23 Artificial Tears-Hypromellose 1 drops BOTH EYES BID 02/19/20 03/01/23 [Artificial Tear Drops] Nitroglycerin Sl Tabs [Nitrostat] 0.4 mg SUBLINGUAL Q5M PRN 09/12/21 03/01/23 Cholecalciferol [Vitamin D3 (25 50 mcg PO DAILY 03/01/23 03/01/23 Mcg = 1000 Iu)] Ipratropium-Albuterol Nebulize 3 ml INHALATION RT-Q6H 03/01/23 03/01/23 [Duoneb 0.5 mg-3 mg/3 ml Soln] Sennosides-Docusate Sodium 2 tab PO HS PRN 03/01/23 03/01/23 [Senokot-S] Previous Rx's Medication Instructions Recorded Folic Acid 1 mg PO DAILY #30 tablet 04/21/20 Multivitamins, Thera [Multivitamin 1 tab PO DAILY #30 tablet 04/21/20 (formulary)] Thiamine [Vitamin B-1] 100 mg PO DAILY #30 tablet 04/21/20 Metoprolol Tartrate [Lopressor] 50 mg PO BID 30 Days #60 tab 09/17/21 Aspirin 81 mg PO DAILY #0 12/07/21 Clopidogrel Bisulfate [Plavix] 75 mg PO DAILY #90 tab 12/07/21 Acetaminophen Tab [Tylenol] 650 mg PO Q6HR #0 tab 03/01/23 Enoxaparin [Lovenox] 40 mg SQ DAILY each 03/01/23 Ipratropium-Albuterol Nebulize 3 ml INHALATION RT-Q2H PRN each 03/01/23 [Duoneb 0.5 mg-3 mg/3 ml Soln] Linagliptin [Tradjenta] 5 mg PO DAILY tab 03/01/23 Melatonin 5 mg PO HS PRN tab 03/01/23 Nystatin 100,000 Unit/ml Susp 500,000 unit PO QID #0 ml 03/01/23 [Mycostatin Oral Susp] bisacodyL [Dulcolax] 10 mg RECTAL DAILY PRN suppositor 03/01/23 Cefdinir [Omnicef] 300 mg PO Q12HR #14 capsule 03/09/23 Furosemide [Lasix] 40 mg PO BID tab 03/09/23 QUEtiapine [SEROquel] 50 mg PO HS tab 03/09/23 Sulfamethox-Tmp 800-160Mg [Bactrim 1 tab PO Q12HR 7 Days #14 tab 03/11/23 DS 800-160 mg] Allergies Allergy/AdvReac Type Severity Reaction Status Date / Time metoclopramide AdvReac TREMORS Verified 03/01/23 21:48 Review of Systems ROS Statement: Those systems with pertinent positive or pertinent negative responses have been documented in the HPI. ROS Other: All systems not noted in ROS Statement are negative. Past Medical History Past Medical History: Coronary Artery Disease (CAD), COPD, Diabetes Mellitus, Eye Disorder, GERD/Reflux, Hearing Disorder / Deafness, Hyperlipidemia, Hypertension, Osteoarthritis (OA), Pulmonary Embolus (PE), Sleep Apnea/CPAP/BI PAP, Thyroid Disorder Additional Past Medical History / Comment(s): O2 3L. PE IN 2007. CHRONIC BACK PAIN. DIABETIC NEUROPATHY IN FEET. GLAUCOMA. TREMORS. OSTEOPOROSIS. bipap ORDERED BUT DOESN'T USE. HX POLYPS History of Any Multi-Drug Resistant Organisms: None Reported Past Surgical History: Appendectomy, Cholecystectomy, Hernia Repair, Orthopedic Surgery Additional Past Surgical History / Comment(s): BILATERAL KNEE REPLACEMENT, PLUS RIGHT KNEE DONE AGAIN; RIGHT ROTATOR CUFF. PITUITARY TUMOR REMOVED. BILATERAL CATARACTS. SINUS surgery. GLAUCOMA SURGERY. EYE LID SURGERY. Past Anesthesia/Blood Transfusion Reactions: No Reported Reaction Additional Past Anesthesia/Blood Transfusion Reaction / Comment(s): QUESTIONABLE THAT VERSED MAY OVERLY SEDATE. Past Psychological History: No Psychological Hx Reported Smoking Status: Former smoker Past Alcohol Use History: None Reported Past Drug Use History: None Reported - Past Family History Mother Family Medical History: Cancer Additional Family Medical History / Comment(s): LUNG General Exam - General Exam Comments Initial Comments: General: Appears in no acute distress. HEAD: Normal with no signs of head trauma. EYES: PERRLA, EOMI, conjunctiva normal, no discharge. Pupils are 3 mm equal bilaterally. ENT: Hearing grossly intact, normal oropharynx. RESPIRATORY: Clear breath sounds bilaterally. No wheezes, rales, or rhonchi. C/V: Regular rate and rhythm. S1 and S2 auscultated, no edema, peripheral pulses 2+ and intact throughout ABD: Abd is soft, nontender, nondistended. Chronic indwelling Arenas with cloudy urine. EXT: Normal range of motion, no obvious deformity SKIN: No rashes or lesions observed on exposed skin. NEURO: Alert and oriented times one. No obvious deficits. Exam limited by patient's mental status which is at his baseline. Limitations: altered mental status Course Vital Signs 03/11/23 04:30 Temperature 97.9 F Pulse Rate 88 Respiratory 18 Rate Blood Pressure 100/72 O2 Sat by Pulse 98 Oximetry Medical Decision Making - Medical Decision Making Was pt. sent in by a medical professional or institution (, PA, UPS DRIVER, urgent care, hospital, or fpc...) When possible be specific @ -Sent in from [facility] Did you speak to anyone other than the patient for history (EMS, parent, family, police, friend...)? What history was obtained from this source @ -Spoke with patient's who confirmed chronic mental status. Did you review nursing and triage notes (agree or disagree)? Why? @ -I reviewed and agree with nursing and triage notes Were old charts reviewed (outside hosp., previous admission, EMS record, old EKG, old radiological studies, urgent care reports/EKG's, fpc records)? Report findings @ -Old charts reviewed from 03/02/2023. Differential Diagnosis (chest pain, altered mental status, abdominal pain women, abdominal pain men, vaginal bleeding, weakness, fever, dyspnea, syncope, headache, dizziness, GI bleed, back pain, seizure, CVA, palpatations, mental health, musculoskeletal)? @ -Differential Altered Mental Status: Hypoglycemia, DKA, hypercapnia, ETOH, overdose, CO poisoning, trauma, myxedema coma, HTN encephalopathy, infection, encephalitis, psychosis, intercranial hemorrhage, hepatic encephalopathy, meningitis, CVA, this is not meant to be an all-inclusive list EKG interpreted by me (3pts min.). @ -As above X-rays interpreted by me (1pt min.). @ -Chest x-ray reveals possibly mild increased pulmonary vascular congestion but he is currently having no respiratory distress at this time. CT interpreted by me (1pt min.). @ -CT brain reveals chronic degenerative changes with no acute findings. U/S interpreted by me (1pt. min.). @ -None done What testing was considered but not performed or refused? (CT, X-rays, U/S, labs)? Why? @ -None What meds were considered but not given or refused? Why? @ -None Did you discuss the management of the patient with other professionals (professionals i.e. , PA, UPS DRIVER, lab, RT, psych nurse, social work instructor, cafeteria assistant, teacher, chief procurement officer, child welfare caseworker)? Give summary @ -No Was smoking cessation discussed for >3mins.? @ -No Was critical care preformed (if so, how long)? @ -yes, 35 min Were there social determinants of health that impacted care today? How? (Homelessness, low income, unemployed, alcoholism, drug addiction, transportation, low edu. Level, literacy, decrease access to med. care, long term, rehab)? @ -No Was there de-escalation of care discussed even if they declined (Discuss DNR or withdrawal of care, Hospice)? DNR status @ -No What co-morbidities impacted this encounter? (DM, HTN, Smoking, COPD, CAD, Cancer, CVA, ARF, Chemo, Hep., AIDS, mental health diagnosis, sleep apnea, morbid obesity)? @ -None Was patient admitted / discharged? Hospital course, mention meds given and route, prescriptions, significant lab abnormalities, going to OR and other pertinent info. @ -Based on patient's presentation and physical exam, presents concerned for altered mental status. After discussion with the nursing facility, patient sent ultimately over concern for a fall and concern for increased agitation and repetitive removal of nasal cannula. Appears to be at his baseline mental status but has been more agitated the nursing facility and will not keep his chronic nasal cannula oxygen on his face at the facility, but is compliant here. They sent him for further evaluation. He is on thinners. Recently was admitted to the hospital for an extensive stay including hemopneumothorax, pulmonary contusion, status post VATS. Appears to be at his baseline but we will obtain basic infectious labs and also mental status labs. Recent falls a C T brain will be obtained as well. Vital signs are within acceptable limits. Resting comfortably at this time. Patient's imaging unremarkable. Laboratory studies are within acceptable limits and show no acute concerning findings. Urinalysis is positive for UTI. Arenas catheter is removed and replaced. Patient given a dose of Rocephin. CT brain shows no acute injury cranial process. Chest x-ray reveals pulmonary vascular congestion that is mild and somewhat chronic. No respiratory complaints or symptoms noted other than the chronic hypoxic respiratory failure on his normal baseline nasal canula. No cough, no fevers, no systemic signs of infection. EKG unremarkable. On reevaluation come patient remains of his baseline. Vital signs remained within acceptable limits. His is at bedside now. We discussed his results. He will be started on on antibiotics and discharged back to his nursing facility as there is no indication for admission at this time. He is at his normal baseline mental status which is Alert and oriented x1, labs are unremarkable. He is not septic. We'll place him on new oral antibiotics and discharged this time. Urine cultures sent. Prior cultures reviewed. Patient was in agreement with this plan. I will provide the patient with a prescription for bactrim. I instructed the patient to follow up with their PCP in the next 1-3 days. I explained that the patient should return to the emergency department if they experience any worseni ng symptoms. Strict return precautions were discussed with the patient. The patient expressed understanding of these instructions. I answered all questions that the patient had. The patient was discharged home in good condition with their prescriptions and follow up information. Undiagnosed new problem with uncertain prognosis? @ -No Drug Therapy requiring intensive monitoring for toxicity (Heparin, Nitro, Insulin, Cardizem)? @ -No Were any procedures done? @ -No Diagnosis/symptom? @ -UTI Acute, or Chronic, or Acute on Chronic? @ -Acute Uncomplicated (without systemic symptoms) or Complicated (systemic symptoms)? @ -Uncomplicated Side effects of treatment? @ -none Exacerbation, Progression, or Severe Exacerbation] @ -no Poses a threat to life or bodily function? @ -no Diagnosis/symptom? @ -Chronic dementia, chronic hypoxia Acute, or Chronic, or Acute on Chronic? @ -Chronic Uncomplicated (without systemic symptoms) or Complicated (systemic symptoms)? @ -Uncomplicated Side effects of treatment? @ -none. Exacerbation, Progression, or Severe Exacerbation] @ -no Poses a threat to life or bodily function? @ -no - Lab Data Result diagrams: 03/11/23 05:04 03/11/23 05:04 Lab Results 03/11/23 03/11/23 03/11/23 Range/Units 04:46 05:04 05:04 WBC 5.2 (3.8-10.6) k/uL RBC 3.57 L (4.30-5.90) m/uL Hgb 10.5 L (13.0-17.5) gm/dL Hct 32.2 L (39.0-53.0) % MCV 90.3 (80.0-100.0) fL MCH 29.4 (25.0-35.0) pg MCHC 32.6 (31.0-37.0) g/dL RDW 17.5 H (11.5-15.5) % Plt Count 118 L D (150-450) k/uL MPV 9.4 Neutrophils % 68 % Lymphocytes % 18 % Monocytes % 6 % Eosinophils % 4 % Basophils % 0 % Neutrophils # 3.5 (1.3-7.7) k/uL Lymphocytes # 0.9 L (1.0-4.8) k/uL Monocytes # 0.3 (0-1.0) k/uL Eosinophils # 0.2 (0-0.7) k/uL Basophils # 0.0 (0-0.2) k/uL Hypochromasia Slight Poikilocytosis Slight Anisocytosis Slight PT 11.1 (9.0-12.0) sec INR 1.1 (<1.2) APTT 27.3 (22.0-30.0) sec Sodium (137-145) mmol/L Potassium (3.5-5.1) mmol/L Chloride (98-107) mmol/L Carbon Dioxide (22-30) mmol/L Anion Gap mmol/L BUN (9-20) mg/dL Creatinine (0.66-1.25) mg/dL Est GFR (CKD-EPI)AfAm (>60 ml/min/1.73 sqM) Est GFR (CKD-EPI)NonAf (>60 ml/min/1.73 sqM) Glucose (74-99) mg/dL Plasma Lactic Acid Ronn (0.7-2.0) mmol/L Calcium (8.4-10.2) mg/dL Total Bilirubin (0.2-1.3) mg/dL AST (17-59) U/L ALT (4-49) U/L Alkaline Phosphatase (38-126) U/L Ammonia (<30) umol/L Troponin I (0.000-0.034) ng/mL Total Protein (6.3-8.2) g/dL Albumin (3.5-5.0) g/dL Urine Color Yellow Urine Appearance Cloudy (Clear) Urine pH 6.5 (5.0-8.0) Ur Specific [place] 1.014 (1.001-1.035) Urine Protein Trace H (Negative) Urine Glucose (UA) Negative (Negative) Urine Ketones Negative (Negative) Urine Blood Large H (Negative) Urine Nitrite Negative (Negative) Urine Bilirubin Negative (Negative) Urine Urobilinogen <2.0 (<2.0) mg/dL Ur Leukocyte Esterase Large H (Negative) Urine RBC >182 H (0-5) /hpf Urine WBC 149 H (0-5) /hpf Urine WBC Clumps Few H (None) /hpf Ur Squamous Epith Cells <1 (0-4) /hpf Urine Bacteria Rare H (None) /hpf Hyaline Casts 14 H (0-2) /lpf Urine Mucus Rare H (None) /hpf Urine Opiates Screen Not Detected (NotDetected) Ur Oxycodone Screen Not Detected (NotDetected) Urine Methadone Screen Not Detected (NotDetected) Ur Propoxyphene Screen Not Detected (NotDetected) Ur Barbiturates Screen Not Detected (NotDetected) U Tricyclic Antidepress Detected H (NotDetected) Ur Phencyclidine Scrn Not Detected (NotDetected) Ur Amphetamines Screen Not Detected (NotDetected) U Methamphetamines Scrn Not Detected (NotDetected) U Benzodiazepines Scrn Not Detected (NotDetected) Urine Cocaine Screen Not Detected (NotDetected) U Marijuana (THC) Screen Not Detected (NotDetected) Serum Alcohol mg/dL Influenza Type A (PCR) (Not Detectd) Influenza Type B (PCR) (Not Detectd) RSV (PCR) (Not Detectd) SARS-CoV-2 (PCR) (Not Detectd) 03/11/23 03/11/23 03/11/23 Range/Units 05:04 05:04 05:04 WBC (3.8-10.6) k/uL RBC (4.30-5.90) m/uL Hgb (13.0-17.5) gm/dL Hct (39.0-53.0) % MCV (80.0-100.0) fL MCH (25.0-35.0) pg MCHC (31.0-37.0) g/dL RDW (11.5-15.5) % Plt Count (150-450) k/uL MPV Neutrophils % % Lymphocytes % % Monocytes % % Eosinophils % % Basophils % % Neutrophils # (1.3-7.7) k/uL Lymphocytes # (1.0-4.8) k/uL Monocytes # (0-1.0) k/uL Eosinophils # (0-0.7) k/uL Basophils # (0-0.2) k/uL Hypochromasia Poikilocytosis Anisocytosis PT (9.0-12.0) sec INR (<1.2) APTT (22.0-30.0) sec Sodium 140 (137-145) mmol/L Potassium 3.6 (3.5-5.1) mmol/L Chloride 89 L (98-107) mmol/L Carbon Dioxide 39 H (22-30) mmol/L Anion Gap 12 mmol/L BUN 19 (9-20) mg/dL Creatinine 1.28 H (0.66-1.25) mg/dL Est GFR (CKD-EPI)AfAm 63 (>60 ml/min/1.73 sqM) Est GFR (CKD-EPI)NonAf 55 (>60 ml/min/1.73 sqM) Glucose 138 H (74-99) mg/dL Plasma Lactic Acid Ronn 1.3 (0.7-2.0) mmol/L Calcium 9.2 (8.4-10.2) mg/dL Total Bilirubin 0.9 (0.2-1.3) mg/dL AST 33 (17-59) U/L ALT 27 (4-49) U/L Alkaline Phosphatase 144 H (38-126) U/L Ammonia <9 (<30) umol/L Troponin I 0.021 (0.000-0.034) ng/mL Total Protein 6.4 (6.3-8.2) g/dL Albumin 3.5 (3.5-5.0) g/dL Urine Color Urine Appearance (Clear) Urine pH (5.0-8.0) Ur Specific [place] (1.001-1.035) Urine Protein (Negative) Urine Glucose (UA) (Negative) Urine Ketones (Negative) Urine Blood (Negative) Urine Nitrite (Negative) Urine Bilirubin (Negative) Urine Urobilinogen (<2.0) mg/dL Ur Leukocyte Esterase (Negative) Urine RBC (0-5) /hpf Urine WBC (0-5) /hpf Urine WBC Clumps (None) /hpf Ur Squamous Epith Cells (0-4) /hpf Urine Bacteria (None) /hpf Hyaline Casts (0-2) /lpf Urine Mucus (None) /hpf Urine Opiates Screen (NotDetected) Ur Oxycodone Screen (NotDetected) Urine Methadone Screen (NotDetected) Ur Propoxyphene Screen (NotDetected) Ur Barbiturates Screen (NotDetected) U Tricyclic Antidepress (NotDetected) Ur Phencyclidine Scrn (NotDetected) Ur Amphetamines Screen (NotDetected) U Methamphetamines Scrn (NotDetected) U Benzodiazepines Scrn (NotDetected) Urine Cocaine Screen (NotDetected) U Marijuana (THC) Screen (NotDetected) Serum Alcohol <10 mg/dL Influenza Type A (PCR) (Not Detectd) Influenza Type B (PCR) (Not Detectd) RSV (PCR) (Not Detectd) SARS-CoV-2 (PCR) (Not Detectd) 03/11/23 Range/Units 05:04 WBC (3.8-10.6) k/uL RBC (4.30-5.90) m/uL Hgb (13.0-17.5) gm/dL Hct (39.0-53.0) % MCV (80.0-100.0) fL MCH (25.0-35.0) pg MCHC (31.0-37.0) g/dL RDW (11.5-15.5) % Plt Count (150-450) k/uL MPV Neutrophils % % Lymphocytes % % Monocytes % % Eosinophils % % Basophils % % Neutrophils # (1.3-7.7) k/uL Lymphocytes # (1.0-4.8) k/uL Monocytes # (0-1.0) k/uL Eosinophils # (0-0.7) k/uL Basophils # (0-0.2) k/uL Hypochromasia Poikilocytosis Anisocytosis PT (9.0-12.0) sec INR (<1.2) APTT (22.0-30.0) sec Sodium (137-145) mmol/L Potassium (3.5-5.1) mmol/L Chloride (98-107) mmol/L Carbon Dioxide (22-30) mmol/L Anion Gap mmol/L BUN (9-20) mg/dL Creatinine (0.66-1.25) mg/dL Est GFR (CKD-EPI)AfAm (>60 ml/min/1.73 sqM) Est GFR (CKD-EPI)NonAf (>60 ml/min/1.73 sqM) Glucose (74-99) mg/dL Plasma Lactic Acid Ronn (0.7-2.0) mmol/L Calcium (8.4-10.2) mg/dL Total Bilirubin (0.2-1.3) mg/dL AST (17-59) U/L ALT (4-49) U/L Alkaline Phosphatase (38-126) U/L Ammonia (<30) umol/L Troponin I (0.000-0.034) ng/mL Total Protein (6.3-8.2) g/dL Albumin (3.5-5.0) g/dL Urine Color Urine Appearance (Clear) Urine pH (5.0-8.0) Ur Specific [place] (1.001-1.035) Urine Protein (Negative) Urine Glucose (UA) (Negative) Urine Ketones (Negative) Urine Blood (Negative) Urine Nitrite (Negative) Urine Bilirubin (Negative) Urine Urobilinogen (<2.0) mg/dL Ur Leukocyte Esterase (Negative) Urine RBC (0-5) /hpf Urine WBC (0-5) /hpf Urine WBC Clumps (None) /hpf Ur Squamous Epith Cells (0-4) /hpf Urine Bacteria (None) /hpf Hyaline Casts (0-2) /lpf Urine Mucus (None) /hpf Urine Opiates Screen (NotDetected) Ur Oxycodone Screen (NotDetected) Urine Methadone Screen (NotDetected) Ur Propoxyphene Screen (NotDetected) Ur Barbiturates Screen (NotDetected) U Tricyclic Antidepress (NotDetected) Ur Phencyclidine Scrn (NotDetected) Ur Amphetamines Screen (NotDetected) U Methamphetamines Scrn (NotDetected) U Benzodiazepines Scrn (NotDetected) Urine Cocaine Screen (NotDetected) U Marijuana (THC) Screen (NotDetected) Serum Alcohol mg/dL Influenza Type A (PCR) Not Detected (Not Detectd) Influenza Type B (PCR) Not Detected (Not Detectd) RSV (PCR) Not Detected (Not Detectd) SARS-CoV-2 (PCR) Not Detected (Not Detectd) - EKG Data -: EKG Interpreted by Me EKG Comments: 12-lead Electrocardiogram Interpretation Note EKG was reviewed and interpreted by myself. 12-lead ECG performed at 0442 is interpreted by me as revealing normal sinus rhythm at a rate of 98 beats per minute. [place] is normal. VT interval is 187 ms, QRS duration is 110 ms, QTc is 406 ms.. There were no ST or T wave abnormalities to suggest myocardial ischemia or injury. R wave progression across the precordium was satisfactory. By my interpretation this EKG is non-diagnostic for acute ischemia. Critical Care Time Critical Care Time: Yes Total Critical Care Time: 35 Disposition Clinical Impression: UTI (urinary tract infection) Disposition: HOME SELF-CARE Condition: Good Instructions (If sedation given, give patient instructions): Urinary Tract Infection in Men (ED) Prescriptions: Sulfamethox-Tmp 800-160Mg [Bactrim DS 800-160 mg] 1 tab PO Q12HR 7 Days #14 tab Is patient prescribed a controlled substance at d/c from ED?: No Referrals: [facility],Clinic [Primary Care Provider] - 1-2 days Time of Disposition: 07:15
[2023-03-11 05:32] LABS: Anisocytosis Slight; Basophils % (A) 0 %; Eosinophils # (A) 0.2 k/uL (0-0.7); Eosinophils % (A) 4 %; HCT 32.2 % (39.0-53.0); HGB 10.5 gm/dL (13.0-17.5); Hypochromasia Slight; Lymphocytes # (A) 0.9 k/uL (1.0-4.8); Lymphocytes % (A) 18 %; MCH 29.4 pg (25.0-35.0); MCHC 32.6 g/dL (31.0-37.0); MCV 90.3 fL (80.0-100.0); Mean Platelet Volume 9.4; Monocytes # (A) 0.3 k/uL (0-1.0); Monocytes % (A) 6 %; Neutrophils # (A) 3.5 k/uL (1.3-7.7); Neutrophils % (A) 68 %; Poikilocytosis Slight; RBC 3.57 m/uL (4.30-5.90); RDW 17.5 % (11.5-15.5); WBC 5.2 k/uL (3.8-10.6)
[2023-03-11 05:45] LABS: Platelet Count 118 k/uL (150-450)
[2023-03-11 05:52] LABS: INR 1.1 (<1.2); Partial Thromboplastin Time 27.3 sec (22.0-30.0); Prothrombin Time 11.1 sec (9.0-12.0)
[2023-03-11] MEDS ORDERED: cefTRIAXone IN SWFI 1,000 MG/10 ML SYRINGE IVP STA (05:55)
[2023-03-11 05:56] LABS: Lactic Acid, Venous 1.3 mmol/L (0.7-2.0)
[2023-03-11 05:57] LABS: ALT 27 U/L (4-49); AST 33 U/L (17-59); African American GFR (CKD) 63 (>60 ml/min/1.73 sqM); Albumin 3.5 g/dL (3.5-5.0); Alcohol <10 mg/dL; Alkaline Phosphatase 144 U/L (38-126); Blood Urea Nitrogen 19 mg/dL (9-20); Calcium 9.2 mg/dL (8.4-10.2); Chloride 89 mmol/L (98-107); Glucose 138 mg/dL (74-99); Non-African American GFR(CKD) 55 (>60 ml/min/1.73 sqM); Potassium 3.6 mmol/L (3.5-5.1); Sodium 140 mmol/L (137-145); Total Bilirubin 0.9 mg/dL (0.2-1.3); Total Protein 6.4 g/dL (6.3-8.2)
[2023-03-11 06:03] LABS: Anion Gap 12 mmol/L
[2023-03-11 06:19] LABS: Carbon Dioxide 39 mmol/L (22-30)
--- NOTE | 2023-03-11 07:51 | CT ---
EXAMINATION TYPE: CT brain wo con DATE OF EXAM: 03/11/2023 COMPARISON: 03/06/2023 INDICATION: Altered mental status and weakness DLP: 1188.4 mGycm, Automated exposure control for dose reduction was used. CONTRAST: None CT of the brain is performed utilizing 3 mm thick sections through the posterior fossa and 3 mm thick sections through the remaining calvarium. Study is performed within 24 hours of arrival to the hosp ital. No abnormal hyperdensity is present to suggest an acute intracranial hemorrhage. No mass lesion is evident. No acute infarcts are evident. Periventricular white matter hypodensity is present, likely in the bas is of chronic white matter ischemic changes Ventricles and sulci are . for the patient age. Paranasal sinuses and mastoid air cells within the [id number] are clear. IMPRESSIONS: 1. Atrophy with chronic appearing periventricular white matter ischemic type changes. Findings appe ar stable from comparison. Follow-up MRI can be performed as clinically indicated.
--- NOTE | 2023-03-11 08:48 | XR ---
EXAMINATION TYPE: XR chest 2V DATE OF EXAM: 03/11/2023 COMPARISON: 03/08/2023 INDICATION: Altered mental status TECHNIQUE: Frontal and lateral views of the chest are obtained. FINDINGS: The heart size is enlarged. The pulmonary vasculature is normal. Left lower lobe infiltrate is present. Some mild increased lung markings may be present bilaterally m id lungs.. IMPRESSION: 1. Cardiomegaly. 2. Left lower lobe infiltrate with some scattered midlung infiltrates. Correlate for pulmonary edema. Other etiologies including atypical pneumonia and atelectasis are within the differential.
== END 2023-03-12 00:48 | disposition home or self-care (01) ==
LOC: EC 04:19
DX: N39.0 Urinary tract infection, site not specified (principal); E11.36 Type 2 diabetes mellitus with diabetic cataract; E11.40 Type 2 diabetes mellitus with diabetic neuropathy, unspecified; E78.5 Hyperlipidemia, unspecified; G47.30 Sleep apnea, unspecified; I11.9 Hypertensive heart disease without heart failure; I25.10 Atherosclerotic heart disease of native coronary artery without angina pectoris; J44.9 Chronic obstructive pulmonary disease, unspecified; K21.9 Gastro-esophageal reflux disease without esophagitis; M19.90 Unspecified osteoarthritis, unspecified site; E07.9 Disorder of thyroid, unspecified; Z79.01 Long term (current) use of anticoagulants; Z79.890 Hormone replacement therapy; Z79.899 Other long term (current) drug therapy; Z87.891 Personal history of nicotine dependence; Z88.8 Allergy status to other drugs, medicaments and biological substances
CPT/HCPCS: 36415; 93005; 80053; 82140; 83605; 84484; 85025; 85610; 85730; 81001; 80306; 80320; 87636; 71046; 70450; 99291; 96374; 96361 ×2; J0696

== ENCOUNTER → 2023-10-13 | Outpatient (CLI) | payer OTHER ==
--- NOTE | 2023-10-13 20:03 | FL ---
EXAMINATION TYPE: FL barium swallow w video DATE OF EXAM: 10/13/2023 CLINICAL HISTORY: 73-year-old male R13.19, patient with history of stroke, COPD, and Parkinson's dise ase, Dysphagia. TECHNIQUE: Deglutition study is performed utilizing thin liquid barium, common barium thick applesau ce, and barium coated cracker. COMPARISON: None. Total fluoroscopy time: 1 minute 15 seconds. Total images: None. Real-time fluoroscopy support was provided to speech pathology. Total dose: 10 mGycm2 FINDINGS: Swallow initiation was mildly delayed with premature bolus loss from the vallecula. The oral and pharyngeal phases show satisfactory initiation and propagation with all modalities teste d. Normal mastication is seen with solid modalities tested. There is intermittent penetration with thin liquid barium. There is no evidence of penetration or aspiration with any modality tested. No s ignificant pharyngeal residue was appreciated. IMPRESSION: Intermittent transient penetration with thin liquid barium. No other penetration or aspiration seen. Some premature bolus loss due to delayed swallow. Please refer to speech therapist notes for further details if necessary.
== END | disposition home or self-care (01) ==
LOC: RADFLMAIN 10:47
PROVIDERS: ATTEND Internal Medicine Gastroenterology
DX: R13.19 Other dysphagia (principal); J44.9 Chronic obstructive pulmonary disease, unspecified; G20.A1 Parkinson's disease without dyskinesia, without mention of fluctuations
CPT/HCPCS: 74230

== ENCOUNTER → 2024-01-17 | Outpatient (CLI) | payer OTHER ==
--- NOTE | 2024-01-17 12:41 | CT ---
EXAMINATION TYPE: CT brain wo con CT DLP: 1326 mGycm, Automated exposure control for dose reduction was used. DATE OF EXAM: 01/17/2024 12:31 PM COMPARISON: CT brain 03/11/2023. CLINICAL INDICATION:Male, 73 years old with history of R51.9 HEADACHE, UNSPECIFIED, headache, dizzine ss TECHNIQUE: Brain: Axial CT images of the brain were obtained with coronal and sagittal reformats created and rev iewed. Contrast used: None. Oral contrast used: None. FINDINGS: Brain: Extra-axial spaces: No abnormal extra-axial fluid collections. Ventricular system: Within normal limits Cerebral parenchyma: No acute intraparenchymal hemorrhage or mass effect. The thakur-white junction is well differentiated. Scattered hypoattenuating areas are seen within the white matter. Mild generali zed parenchymal volume loss. Cerebellum: Unremarkable. Mass effect: No evidence of midline shift. Intracranial vasculature: unremarkable Soft tissues: Normal. Calvarium/osseous structures: No depressed skull fracture. Paranasal sinuses and mastoid air cells: Mild scattered paranasal sinus disease. Visualized orbits: Bilateral aphakia IMPRESSION: 1. No acute intracranial process. 2. Nonspecific white matter changes, likely secondary to chronic small vessel ischemic disease.
== END | disposition home or self-care (01) ==
LOC: RADCTMAIN 11:38
PROVIDERS: ATTEND Family Medicine
DX: G93.89 Other specified disorders of brain (principal)
CPT/HCPCS: 70450

== ENCOUNTER → 2024-02-14 | Outpatient (CLI) | payer OTHER ==
--- NOTE | 2024-02-15 07:36 | MR ---
EXAMINATION TYPE: MR brain wo con DATE OF EXAM: 02/14/2024 COMPARISON: 08/11/2016 HISTORY: Hx of pituitary tumor removal, rt side hearing loss CONTRAST: Performed utilizing 0 mL intravenous Gadavist gadolinium contrast. TECHNIQUE: Multiplanar, multiecho imaging on a 3.0 Becky magnet is performed through the brain. Stud y is performed within 24 hours of arrival to the hospital. The craniovertebral junction is normal. There may be a small curvilinear residual pituitary in the sella on the sagittal plane images. No rec urrent mass is evident. Diffusion-weighted imaging is performed. No abnormal hyperintensity is present to suggest an acute i ntracranial infarct or acute ischemic change. No cerebellar pontine angle masses are evident. Internal auditory canals as visualized on this exam a ppear normal. Ventricles and sulci are prominent for the patient age. There is hyperintensity on T2 and inversion r ecovery weighted sequences in the periventricular white matter, likely on the basis of chronic white matter ischemic changes. IMPRESSION: 1. No suspicious recurrent pituitary tumor. 2. Atrophy with mild periventricular white matter ischemic type changes.
== END | disposition home or self-care (01) ==
LOC: RADMRIMAIN 10:34
PROVIDERS: ATTEND Family Medicine
DX: G31.9 Degenerative disease of nervous system, unspecified (principal); I67.82 Cerebral ischemia; D35.2 Benign neoplasm of pituitary gland; H91.91 Unspecified hearing loss, right ear; Z98.890 Other specified postprocedural states
CPT/HCPCS: 70551

== ENCOUNTER → 2024-05-15 | Outpatient (CLI) | payer OTHER | END | disposition home or self-care (01) | LOC: RADNMMAIN 10:05 | PROVIDERS: ATTEND Psychiatry & Neurology Neurology | DX: R25.1 Tremor, unspecified (principal); R25.8 Other abnormal involuntary movements ==